=== PATIENT | female | born 1935 | race African-American/Black ===

== ENCOUNTER 2017-05-03 14:56 | Inpatient (IN) | payer MEDICARE, OTHER ==
[~2017-05-03] VITALS: Ht 160 cm; Wt 54.4 kg
[2017-05-03 14:56] VITALS: BP 130/78
[2017-05-03 16:40] LABS: ANION GAP 12 mmol/L (5-15); BLOOD UREA NITROGEN 36 mg/dL (7-18); CALCIUM 9.2 MG/DL (8.5-10.1); CARBON DIOXIDE 19 MMOL/L (21-32); CHLORIDE 104 MMOL/L (98-107); CREATININE 1.3 MG/DL (0.55-1.30); POTASSIUM 4.2 MMOL/L (3.5-5.1); SODIUM 135 MMOL/L (136-145)
--- NOTE | 2017-05-03 16:40 | Emergency Room Report ---
History of Present Illness General Chief Complaint: Fever Source: Medical Record, EMS Present Illness HPI 81-year-old female sent from senior living for fever and hypoxia Patient not providing any history, questionable nonverbal at baseline No other history available, no family members present Allergies: Coded Allergies: No Known Allergies (Unverified , 05/03/17) Patient History Past Medical History: old chart reviewed, unable to obtain Past Surgical History: unable to obtain Pertinent Family History: unable to obtain Social History: Denies: smoking, alcohol use, drug use Now: No Immunizations: UTD Reviewed Nursing Documentation: PMH: Agreed, PSxH: Agreed Nursing Documentation-PMH Past Medical History: No History, Except For Hx Hypertension: Yes Review of Systems All Other Systems: limited - nonverbal Physical Exam Vital Signs Date Time Temp Pulse Resp B/P (MAP) Pulse Ox O2 Delivery O2 Flow Rate FiO2 05/03/17 14:50 100.8 155 16 130/78 98 Non-Rebreather 15.0 Sp02 EP Interpretation: reviewed, normal General Appearance: normal inspection, well appearing, alert, GCS 15, non-toxic Head: normocephalic, atraumatic Eyes: bilateral eye PERRL, bilateral eye EOMI ENT: normal ENT inspection, hearing grossly normal, normal pharynx, no angioedema, normal voice, TMs + canals normal, uvula midline, moist mucus membranes Neck: normal inspection, full range of motion, supple, thyroid normal, no meningismus, no bony tend Respiratory: normal inspection, no respiratory distress, no retraction, no accessory muscle use, no wheezing, crackles, speaking full sentences, other - right sided crackles Cardiovascular #1: regular rate, rhythm, no edema, no JVD, normal capillary refill Gastrointestinal: normal inspection, normal bowel sounds, non tender, soft, no mass, no peritonitis, non-distended, no guarding, no hernia, no pulsatile mass Genitourinary: no CVA tenderness Musculoskeletal: normal inspection, back normal, normal range of motion, no calf tenderness, pelvis stable, Srini's Sign negative Neurologic: normal inspection, alert, responsive, optical instrument assembler III-XII nml as tested, motor strength/tone normal, cerebellar normal, normal gait, speech normal Psychiatric: normal inspection, judgement/insight normal, mood/affect normal, no suicidal/homicidal ideation, no delusions Skin: normal inspection, normal color, no rash Lymphatic: normal inspection, no adenopathy Medical Decision Making Medicare Attestation I Naida York MD hereby attest that the medical record entry for date of service, 05/03/17 accurately reflects signatures/notations that I made in my capacity as MD when I treated/diagnosed the above listed Medicare beneficiary. I attest that this information is true, accurate and complete to the best of my knowledge. I understand that any falsification, omission, or concealment of material fact may subject me to administrative, civil, or criminal liability. This patient warrants hospital admission for extreme of age and has a condition that cannot be treated as outpatient. Diagnostic Impression: Primary Impression: Fever Qualified Codes: R50.9 - Fever, unspecified Additional Impression: Pneumonia Qualified Codes: J18.9 - Pneumonia, unspecified organism ER Course 81-year-old female with sepsis Tachycardic, febrile Labs: Leuks 16k Right-sided pneumonia on CXR antibiotics given, cultures pending Tachycardia improved with tylenol, IVF, Abx Endorsed to Dr Sebastian as patient from [facility] admit, 607pm EKG Diagnostic Results Rate: tachycardiac Rhythm: NSR ST Segments: no acute changes ASA given to the pt in ED: No Rhythm Strip Diag. Results EP Interpretation: yes Rate: 130 Rhythm: NSR, other - PVCs Chest X-Ray Diagnostic Results Chest X-Ray Diagnostic Results : Chest X-Ray Ordered: Yes # of Views/Limited/Complete: 1 View Indication: Shortness of Breath Interpretation: no pneumothorax, no acute cardiopulmonary disease, other - Right sided infiltrate Electronically Signed by: Dr Naida York MD Last Vital Signs Date Time Temp Pulse Resp B/P (MAP) Pulse Ox O2 Delivery O2 Flow Rate FiO2 05/03/17 14:50 100.8 155 16 130/78 98 Non-Rebreather 15.0 Status: improved Disposition: ADMITTED INPATIENT Condition: Serious Referrals: JIMMY ADKINS (PCP) NAIDA YORK M.D. May 03, 2017 16:40
[2017-05-03] MEDS ORDERED: Zosyn 3.375gm inj ONE (16:45)
[2017-05-03] MEDS ORDERED: Piperacillin/Tazobactam 3.375 GM in NS 55 ML IVPB ONE (16:45)
[2017-05-03 16:55] LABS: ALANINE AMINOTRANSFERASE 23 U/L (12-78); ALBUMIN 2.1 G/DL (3.4-5.0); ALBUMIN/GLOBULIN RATIO 0.4 (1.0-2.7); ALKALINE PHOSPHATASE 61 U/L (46-116); ASPARTATE AMINO TRANSFERASE 24 U/L (15-37); BILIRUBIN,TOTAL 0.6 MG/DL (0.2-1.0); CKMB 0.9 NG/ML (0.0-3.6); CREATINE KINASE 134 U/L (26-308)
--- NOTE | 2017-05-03 17:24 | Diagnostic Imaging Report ---
Indication: Reason For Exam: AMS Technique: One view of the chest Comparison: none Findings: There is infiltrate and atelectasis and pleural fluid at the right lung base. The right upper lung, left lung pleural spaces are clear. Normal heart size. Cholecystectomy clips are incidentally noted. There is mild thoracolumbar scoliosis Impression: Right basilar infiltrate, atelectasis, and pleural fluid Other findings as noted
[2017-05-03 17:42] LABS: HEMATOCRIT 36.7 % (37.0-47.0); HEMOGLOBIN 10.9 G/DL (12.0-16.0); LYMPHOCYTES % (AUTO) 8.4 % (20.0-45.0); MEAN CORPUSCULAR VOLUME 81 FL (80-99); NEUTROPHILS % (AUTO) 88.4 % (45.0-75.0); PLATELET COUNT 328 K/UL (150-450); RED BLOOD COUNT 4.56 M/UL (4.20-5.40); RED CELL DISTRIBUTION WIDTH 16.5 % (11.6-14.8); WHITE BLOOD COUNT 15.7 K/UL (4.8-10.8)
[2017-05-03 17:43] LABS: BASOPHILS % (AUTO) 0.3 % (0.0-2.0)
[2017-05-03 18:11] VITALS: BP 154/72
[2017-05-03 19:02] VITALS: BP 157/92
[2017-05-03] MEDS ORDERED: DOCUSATE SODIU100 MG ORAL (19:04)
[2017-05-03] MEDS ORDERED: NAMENDA5 MG ORAL (19:04)
[2017-05-03] MEDS ORDERED: MEGESTROL400 MG/11 PO (19:04)
[2017-05-03] MEDS ORDERED: MILK OF MA400 MG/51 ORAL (19:04)
[2017-05-03] MEDS ORDERED: FERROUS SULFAT325 MG ORAL (19:04)
[2017-05-03] MEDS ORDERED: FLEET ENEMA133 ML RECTAL (19:04)
[2017-05-03] MEDS ORDERED: BISACODYL5 MG ORAL (19:04)
[2017-05-03] MEDS ORDERED: MULTIVITAMINS1 EA13 ORAL (19:04)
[2017-05-03] MEDS ORDERED: DULCOLAX10 MG RC (19:04)
[2017-05-03] MEDS ORDERED: CARDIZEM60 MG ORAL (19:04)
[2017-05-03] MEDS ORDERED: ACETAMINOPHEN325 M1 ORAL (19:04)
[2017-05-03] MEDS ORDERED: PSEUDOEPHEDRINE30 MG PO (19:04)
[2017-05-03 19:10] LABS: APPEARANCE,URINE CLOUDY; BILIRUBIN, URINE NEGATIVE (NEGATIVE); GLUCOSE, URINE (UA) NEGATIVE (NEGATIVE); KETONES,URINE NEGATIVE (NEGATIVE); LEUKOCYTE ESTERASE ,URINE 1+ (NEGATIVE); NITRITE,URINE NEGATIVE (NEGATIVE); PH,URINE 5 (4.5-8.0); PROTEIN,URINE 3+ (NEGATIVE); UROBILINOGEN,URINE 1 MG/DL (0.0-1.0)
[2017-05-03 19:11] LABS: COLOR,URINE YELLOW
[2017-05-03 20:54] VITALS: BP 135/72
[2017-05-03] MEDS ORDERED: dilTIAZem HCl 25mg/5ml Inj IVP ONE ×2 (22:00→22:45)
[2017-05-03] MEDS ORDERED: Piperacillin/Tazobactam 4.5 GM in NS 110 ML IV SCH (22:00)
[2017-05-03 23:44] VITALS: BP 141/82
[2017-05-03] MEDS ORDERED: Milk of Magnesia 30ml Ud ORAL PRN (23:45)
[2017-05-03] MEDS ORDERED: Bisacodyl EC 5mg tab ORAL PRN (23:45)
[2017-05-03] MEDS ORDERED: Fleet's Enema 133ml RECTAL PRN (23:45)
[2017-05-03 23:47] VITALS: BP 141/82
[2017-05-04 01:20] VITALS: BP 142/72
[2017-05-04 04:00] VITALS: BP 143/84
[2017-05-04] MEDS ORDERED: Zosyn 3.375gm inj ONE (05:17)
[2017-05-04] MEDS: dilTIAZem HCl 60mg tab ORAL SCH ×2 (06:06→14:29)
[2017-05-04 06:08] LABS: HEMATOCRIT 32.7 % (37.0-47.0); HEMOGLOBIN 10.1 G/DL (12.0-16.0); MEAN CORPUSCULAR VOLUME 82 FL (80-99); PLATELET COUNT 322 K/UL (150-450); RED BLOOD COUNT 3.96 M/UL (4.20-5.40); RED CELL DISTRIBUTION WIDTH 17.1 % (11.6-14.8); WHITE BLOOD COUNT 11.9 K/UL (4.8-10.8)
[2017-05-04 06:28] LABS: INR 1.1 (0.9-1.1)
[2017-05-04 06:36] LABS: ALANINE AMINOTRANSFERASE 17 U/L (12-78); ALBUMIN 1.7 G/DL (3.4-5.0); ALBUMIN/GLOBULIN RATIO 0.3 (1.0-2.7); ALKALINE PHOSPHATASE 58 U/L (46-116); ANION GAP 11 mmol/L (5-15); ASPARTATE AMINO TRANSFERASE 21 U/L (15-37); BILIRUBIN,TOTAL 0.6 MG/DL (0.2-1.0); BLOOD UREA NITROGEN 33 mg/dL (7-18); CARBON DIOXIDE 21 MMOL/L (21-32); CHLORIDE 107 MMOL/L (98-107); CREATININE 1.2 MG/DL (0.55-1.30); PHOSPHORUS 3.4 MG/DL (2.5-4.9); POTASSIUM 3.6 MMOL/L (3.5-5.1); SODIUM 139 MMOL/L (136-145)
[2017-05-04 08:00] VITALS: BP 135/94
[2017-05-04] MEDS ORDERED: Docusate 100mg cap ORAL SCH (09:00)
[2017-05-04] MEDS: Heparin 5000 units/ml inj SUBQ SCH ×2 (09:00→21:00)
--- NOTE | 2017-05-04 09:41 | History & Physical ---
History and Physical History & Physicial Trung Sebastian MD May 04, 2017 09:41
[2017-05-04] MEDS: D5 1/2NS 1,000 ML IV SCH (11:10)
[2017-05-04 12:00] VITALS: BP 133/70
[2017-05-04] MEDS ORDERED: Acetaminophen 650 MG SUPP RECTAL PRN (13:00)
[2017-05-04] MEDS: Piperacillin/Tazobactam 3.375 GM in D5W 55 ML IV SCH ×2 (14:30→21:23)
--- NOTE | 2017-05-04 15:08 | Cardiology Report ---
APPROVED REPORT EXAM: Two-dimensional and M-mode echocardiogram with Doppler and color Doppler. INDICATION Shortness of breath M-Mode DIMENSIONS IVSd0.9 (0.7-1.1cm)Left Atrium (MM)3.4 (1.6-4.0cm) LVDd3.1 (3.5-5.6cm)Aortic Root2.5 (2.0-3.7cm) PWd0.9 (0.7-1.1cm)Aortic Cusp Exc.1.5 (1.5-2.0cm) LVDs0.7 (2.5-4.0cm) PWs1.5 cm Normal left ventricular chamber size, systolic function and wall motion. Left ventricular ejection fraction estimated to be 65-70 %. No evidence of left ventricular hypertrophy. Anterior Echo-free space, may be due to pericardial fat or effusion. All other cardiac chamber sizes are within normal limits. Focal aortic valve sclerosis with adequate cusp excursion. Thickened mitral valve leaflets with normal excursion. Mild mitral annulus and aortic root calcification. Normal pulmonic valve structure. Normal tricuspid valve structure. IVC at normal size with physiologic collapse. A color flow and spectral Doppler study was performed and revealed: Mild aortic regurgitation. Trace mitral regurgitation. Mitral diastolic velocities suggest mild left ventricular dysfunction (Grade I ). Mild tricuspid regurgitation. Tricuspid systolic velocities suggests peak right ventricular systolic pressure of 45 mmHg, consistent with moderate pulmonary hypertension. Trace pulmonic regurgitation present.
[2017-05-04 16:00] VITALS: BP 130/70
[2017-05-04] MEDS: dilTIAZem HCl 25mg/5ml Inj IVP SCH ×2 (16:01→23:40)
--- NOTE | 2017-05-04 16:32 | Diagnostic Imaging Report ---
Indication: Shortness of breath Technique: One view of the chest Comparison: 05/03/2017 Findings: Slightly improved inspiration. There is increasing retrocardiac consolidation and likely increased left pleural fluid. Hazy infiltrate at the right lung base persists. Small right pleural effusion persists. Heart size is normal Impression: Increasing retrocardiac consolidation and left-sided pleural fluid, over one day Stable right basilar pleural and parenchymal disease
[2017-05-04] MEDS ORDERED: Albuterol/Ipratropium 3ml neb HHN PRN (16:45)
--- NOTE | 2017-05-04 16:57 | Cardiology Report ---
APPROVED REPORT EKG Measurement Heart [id number] Sinus tachycardia Cannot rule out Anterior infarct, age undetermined Abnormal ECG
[2017-05-04] MEDS: Docusate 100mg/10ml Liq NG SCH (18:00)
[2017-05-04 20:00] VITALS: BP 126/70
[2017-05-04] MEDS: Memantine 5 MG TAB ORAL SCH (21:23)
[2017-05-04] MEDS ORDERED: Ipratropium 0.02% Inh Soln 2.5ml UD HHN PRN (22:00)
--- NOTE | 2017-05-04 22:05 | Consultation ---
Consult Note Consult Note PCCM REFERRING MD: Trung Sebastian REASON FOR CONSULT: PNA, Hypoxia, ST HPI: 81 F NHR h/o CVA BIB EMS for hypoxia and fevers, noted to have B infiltrates, + cough, + SOB, + F/C. Also UTI. WCt 15 now 11. Failed LEAD GENERATION MARKETING MANAGER eval. TTE done --> Mild DD and pHTN. PMH: Dementia, CVA, HTN PSH: Mindy ALL: NKDA Active Scripts Medications Dose Route/Sig Max Daily Dose Days Date Category Acetaminophen 325MG Tablet* (Acetaminophen) 325 Mg Tablet 325 Mg ORAL Q6H PRN 05/03/17 Reported Acetaminophen 325MG Tablet* (Acetaminophen) 325 Mg Tablet 325 Mg ORAL Q6H PRN 05/03/17 Reported Sudafed* (Pseudoephedrine HCl) 30 Mg Tablet 30 Mg PO BID 05/03/17 Reported Multivitamins with Minerals (Multivitamin with Minerals) 1 Each Tablet 1 Tab ORAL DAILY 05/03/17 Reported Namenda* (Memantine) 5 Mg Tablet 5 Mg ORAL QHS 05/03/17 Reported Megestrol Acetate 400 Mg/10 Ml Oral.susp 400 Mg PO DAILY 05/03/17 Reported Ferrous Sulfate* (Ferrous Sulfate) 325 Mg Tablet 325 Mg ORAL TWICE A DAY 05/03/17 Reported Docusate Sodium* (Docusate Sodium) 100 Mg Capsule 100 Mg ORAL TWICE A DAY 05/03/17 Reported Cardizem* (Diltiazem HCl) 60 Mg Tablet 60 Mg ORAL EVERY 8 HOURS 05/03/17 Reported Dulcolax* (Bisacodyl) 5 Mg Tablet.dr 10 Mg ORAL BID PRN 05/03/17 Reported Fleet Enema* (Na Phos,M-B/Na Phos,Di-Ba*) 133 Ml Enema 133 Ml RECTAL DAILY PRN 05/03/17 Reported Dulcolax (Bisacodyl) 10 Mg Supp.rect 10 Mg RC DAILY PRN 05/03/17 Reported Milk Of Magnesia* (Magnesium Hydroxide) 400 Mg/5 Ml Oral.susp 30 Ml ORAL DAILY PRN 05/03/17 Reported SHx: No T/E/D, SNF resident FHx: N/C ROS: Unobtainable PE: Last 24 Hour Vital Signs Date Time Temp Pulse Resp B/P (MAP) Pulse Ox O2 Delivery O2 Flow Rate FiO2 05/04/17 19:32 Venturi Mask 8.0 40 05/04/17 19:31 94 Venturi Mask 8.0 40 05/04/17 16:01 145 133/72 05/04/17 16:00 99.3 132 28 130/70 92 Venturi Mask 40 05/04/17 16:00 142 05/04/17 14:29 141 133/70 05/04/17 12:54 141 05/04/17 12:00 98.2 144 25 133/70 94 Venturi Mask 40 05/04/17 08:00 98.2 148 24 135/94 94 Simple Mask 05/04/17 08:00 136 05/04/17 06:06 132 142/72 05/04/17 04:00 98.4 136 32 143/84 96 Simple Mask 05/04/17 04:00 132 05/04/17 01:20 97.9 127 23 142/72 94 Simple Mask 6.0 05/04/17 00:30 98.1 125 19 141/82 97 Simple Mask 6.5 05/03/17 23:47 98.1 125 19 141/82 97 Simple Mask 6.5 05/03/17 23:44 102.0 125 19 141/82 97 Simple Mask 6.5 05/03/17 23:01 134 130/69 05/03/17 22:07 154 136/78 GEN: NAD, non-verbal but demented HEENT: NC/AT, OPC c MMM, NGT NECK: Supple CHEST: Scattered rhonchi partially clear with coughing COR: Tachy but regular ABD: S/NT/ND c NABS EXT: No C/C/E CXR: BiB inf and small effusions KUB: NGT in stomach DUPLEX: No DVT Laboratory Tests Test 05/04/17 05:15 White Blood Count 11.9 K/UL (4.8-10.8) H Red Blood Count 3.96 M/UL (4.20-5.40) L Hemoglobin 10.1 G/DL (12.0-16.0) L Hematocrit 32.7 % (37.0-47.0) L Mean Corpuscular Volume 82 FL (80-99) Mean Corpuscular Hemoglobin 25.4 PG (27.0-31.0) L Mean Corpuscular Hemoglobin Concent 30.9 G/DL (32.0-36.0) L Red Cell Distribution Width 17.1 % (11.6-14.8) H Platelet Count 322 K/UL (150-450) Mean Platelet Volume 6.2 FL (6.5-10.1) L Neutrophils (%) (Auto) % (45.0-75.0) Lymphocytes (%) (Auto) % (20.0-45.0) Monocytes (%) (Auto) % (1.0-10.0) Eosinophils (%) (Auto) % (0.0-3.0) Basophils (%) (Auto) % (0.0-2.0) Prothrombin Time 11.6 SEC (9.30-11.50) H Prothromb Time International Ratio 1.1 (0.9-1.1) Activated Partial Thromboplast Time 40 SEC (23-33) H Sodium Level 139 MMOL/L (136-145) Potassium Level 3.6 MMOL/L (3.5-5.1) Chloride Level 107 MMOL/L (98-107) Carbon Dioxide Level 21 MMOL/L (21-32) Anion Gap 11 mmol/L (5-15) Blood Urea Nitrogen 33 mg/dL (7-18) H Creatinine 1.2 MG/DL (0.55-1.30) Estimat Glomerular Filtration Rate mL/min (>60) Glucose Level 135 MG/DL (74-106) H Calcium Level 9.0 MG/DL (8.5-10.1) Phosphorus Level 3.4 MG/DL (2.5-4.9) Magnesium Level 1.9 MG/DL (1.8-2.4) Total Bilirubin 0.6 MG/DL (0.2-1.0) Aspartate Amino Transf (AST/SGOT) 21 U/L (15-37) Alanine Aminotransferase (ALT/SGPT) 17 U/L (12-78) Alkaline Phosphatase 58 U/L (46-116) Troponin I 0.000 ng/mL (0.000-0.056) Total Protein 6.9 G/DL (6.4-8.2) Albumin 1.7 G/DL (3.4-5.0) L Globulin 5.2 g/dL Albumin/Globulin Ratio 0.3 (1.0-2.7) L Assessment/Plan ASSESSMENT: -SIRS -HCAP -Hypoxemia 2/2 above -Sinus tachycardia -UTI/urosepsis -Dysphagia -H/O CVA -HTN -Anemia -Protein calorie malnutrition -NHR PLAN: -Optimize pulmonary hygiene/mobilize as tolerated -Titrate down FiO2 to keep SaO2 > 90% -ATROVENT HHN's q6WA and q4 PRN -MUCOMYST HHN QID -CPT QID -Continue Zosyn, F/U Cx's -Monitor volumes, continue IVF -Start NGT feeds, continue LEAD GENERATION MARKETING MANAGER therapy, VSS in am -F/U D-dimer -DVT Px: Hep SQ -FC MD LUIS CARLOS Bruner ASHKAN M.D. May 04, 2017 22:05
[2017-05-05] VITALS: BP 139/64
[2017-05-05] MEDS: Ipratropium 0.02% Inh Soln 2.5ml UD HHN SCH ×4 (00:37→19:29)
[2017-05-05] MEDS: Acetylcysteine 20% Soln 4ml HHN SCH ×4 (00:37→19:29)
[2017-05-05 04:00] VITALS: BP 141/77
[2017-05-05 05:08] LABS: ANION GAP 10 mmol/L (5-15); BLOOD UREA NITROGEN 21 mg/dL (7-18); CALCIUM 8.9 MG/DL (8.5-10.1); CARBON DIOXIDE 22 MMOL/L (21-32); CHLORIDE 109 MMOL/L (98-107); CREATININE 0.9 MG/DL (0.55-1.30); POTASSIUM 3.3 MMOL/L (3.5-5.1); SODIUM 140 MMOL/L (136-145)
[2017-05-05] MEDS: Piperacillin/Tazobactam 3.375 GM in D5W 55 ML IV SCH ×3 (05:53→22:28)
[2017-05-05 08:00] VITALS: BP 131/68
[2017-05-05] MEDS: dilTIAZem HCl 25mg/5ml Inj IVP SCH ×2 (08:24→16:14)
[2017-05-05] MEDS: Docusate 100mg/10ml Liq NG SCH ×2 (08:24→18:00)
[2017-05-05] MEDS: Heparin 5000 units/ml inj SUBQ SCH (08:25)
--- NOTE | 2017-05-05 09:30 | History and Physical Report ---
DATE OF ADMISSION: 05/03/2017 CHIEF COMPLAINT: Shortness of breath and fever. HISTORY OF PRESENT ILLNESS: This is an 81-year-old female with past medical history significant for hypertension, history of recent CVA, and dementia, who was presented to the hospital from [facility] after was noted to have shortness of breath and fever. The patient was noted to have bilateral infiltrate on the chest x-ray associated with cough and shortness of breath. The patient was noted to be hypoxemic by EMS and subsequently the patient was brought into the hospital. After initial evaluation in the emergency, the patient was admitted to the hospital with a right lower lobe pneumonia, possible aspiration pneumonia. PAST MEDICAL HISTORY AND SURGICAL HISTORY: As above. History of dementia, CVA, hypertension, and history of cholecystectomy. MEDICATIONS: At the [facility] is significant for acetaminophen, Dulcolax, diltiazem, Colace, iron sulfate, milk of magnesia, Megace, Xarelto, multivitamins, Fleet enema and pseudoephedrine. ALLERGIES: No known drug allergies. SOCIAL HISTORY: No smoking, alcohol, or drugs. The patient at this time is a [facility] resident. FAMILY HISTORY: Noncontributory. REVIEW OF SYSTEMS: Mostly as above. Denies any dysuria, frequency, hematuria, or hematochezia. Denies any hemoptysis or hematochezia. Denies any bright red blood per rectum. Complained of chest congestion. PHYSICAL EXAMINATION: VITAL SIGNS: Temperature 99.3, pulse of 132, respirations 20, and blood pressure 130/70. GENERAL: The patient is awake, responsive, opens her eyes and minimally follows commands. HEENT: Pupils reactive to light. Anicteric. NECK: Supple. No JVD. LUNGS: Good air entry. No wheezing or rales. Coarse breath sound was noted. HEART: S1 and S2. Tachycardic. ABDOMEN: Soft, nontender and nondistended. Positive bowel sounds. EXTREMITIES: No cyanosis, clubbing, or edema. NEUROLOGIC: Limited secondary to the patient's status. The patient has been moving all extremities slowly and right side is weaker than left side. Gait was not tested due to the patient's status. LABORATORY AND DIAGNOSTIC DATA: On admission from the ER, WBC of 15.7, hemoglobin 10, hematocrit 36, and platelets are 328. Sodium 135, potassium 4.2, chloride 104, bicarbonate 19, BUN 36, creatinine 1.3, glucose is 144, and calcium is 9.2. Total bilirubin of 0.6. ALT of 24 and AST of 23. First troponin is 0.00. Albumin is 2.1. PT of 11, INR 1.1, and PTT of 40. Urinalysis is +3 protein, +4 occult blood, 5 to 10 WBCs, many amorphic sedimentation, and moderate bacteria. Chest x-ray was noted to be right basilar infiltrate, atelectasis, or pleural effusion. ASSESSMENT: 1. Right lower lobe pneumonia, possible aspiration pneumonia. 2. History of cerebrovascular accident. 3. Sinus tachycardia. 4. Urinary tract infection, possible sepsis secondary to urinary tract infection. 5. Dysphagia. 6. Hypertension. 7. Anemia. 8. Severe protein-calorie malnutrition. PLAN: Admit the patient to [facility]. We will follow up laboratory. Discussed case with Dr. Malik Knapp from [facility]. We will monitor cultures. DVT prophylaxis with heparin subcutaneous Zosyn. Discussed with the family member extensively at the bedside with regards to the NG tube placement and tube feeding if the patient failed the swallow study. We will monitor code status, at this time Full Code. Trung Sebastian M.D. DR: FRANKLIN JOB#: [id number] CC:
--- NOTE | 2017-05-05 10:31 | Diagnostic Imaging Report ---
Indication: Status post nasogastric tube placement Technique: Supine view of the abdomen Comparison: none Findings: There is a nasogastric tube in place, tip projecting at the level of the gastric body. There are cholecystectomy clips. Bowel gas pattern is unremarkable. Impression: Satisfactory nasogastric intubation No acute process. This agrees with the preliminary interpretation [facility].
--- NOTE | 2017-05-05 11:11 | Pulmonology Progress Note ---
Assessment/Plan Problems: (1) Pneumonia (2) Fever (3) Sepsis Assessment/Plan ASSESSMENT: -SIRS -HCAP -Hypoxemia 2/2 above -Sinus tachycardia -UTI/urosepsis -Dysphagia -H/O CVA -HTN -Anemia -Protein calorie malnutrition -NHR PLAN: -Optimize pulmonary hygiene/mobilize as tolerated -Titrate down FiO2 to keep SaO2 > 90% -ATROVENT HHN's q6WA and q4 PRN -MUCOMYST HHN QID -CPT QID -Continue Zosyn, F/U Cx's -Monitor volumes, continue IVF -NGT feeds, continue CONTINUITY READER therapy, VSS -Given elevated D-dimer and negative Duplex --> F/U CT-A -DVT Px: Hep SQ -FC Subjective Allergies: Coded Allergies: No Known Allergies (Unverified , 05/03/17) Subjective Tm 102, on VM, Sinus tach D-dimer elevated + cough, + SOB, pullout out NGT, now replaced CT-A pending Objective Last 24 Hour Vital Signs Date Time Temp Pulse Resp B/P (MAP) Pulse Ox O2 Delivery O2 Flow Rate FiO2 05/05/17 08:24 137 131/68 05/05/17 08:16 119 24 94 Venturi Mask 8.0 40 05/05/17 08:09 96 Venturi Mask 8.0 40 05/05/17 08:09 119 24 Venturi Mask 8.0 40 05/05/17 08:08 Venturi Mask 8.0 40 05/05/17 08:06 122 24 96 Venturi Mask 8.0 40 05/05/17 08:00 97.7 118 29 131/68 99 Venturi Mask 8.0 40 05/05/17 08:00 122 05/05/17 04:00 98.1 129 28 141/77 95 Venturi Mask 8.0 40 05/05/17 04:00 132 05/05/17 00:47 40 05/05/17 00:47 129 30 95 Venturi Mask 8.0 40 05/05/17 00:39 124 30 95 Venturi Mask 8.0 40 05/05/17 00:00 99.3 125 29 139/64 93 Venturi Mask 40 05/05/17 00:00 129 05/04/17 23:40 120 126/70 05/04/17 20:00 99.3 129 28 126/70 96 Venturi Mask 40 05/04/17 20:00 120 05/04/17 19:32 Venturi Mask 8.0 40 05/04/17 19:31 94 Venturi Mask 8.0 40 05/04/17 16:01 145 133/72 05/04/17 16:00 99.3 132 28 130/70 92 Venturi Mask 40 05/04/17 16:00 142 05/04/17 14:29 141 133/70 05/04/17 12:54 141 05/04/17 12:00 98.2 144 25 133/70 94 Venturi Mask 40 Intake and Output 05/04/17 05/05/17 19:00 07:00 Intake Total 635.625 ml 968.75 ml Balance 635.625 ml 968.75 ml IV Total 635.625 ml 968.75 ml # Voids 2 2 General Appearance: no acute distress, cachetic HEENT: normocephalic, atraumatic, mucous membranes moist, other - NGT Respiratory/Chest: rhonchi - scattered b, clear with coughing Cardiovascular: normal peripheral pulses, regular rhythm, tachycardia Abdomen: normal bowel sounds, soft, non tender, no organomegaly Extremities: no cyanosis, no clubbing, no edema Microbiology Date/Time Source Procedure Growth Status 05/03/17 17:20 Blood Blood Culture - Preliminary NO GROWTH AFTER 24 HOURS Resulted 05/03/17 15:55 Blood Blood Culture - Preliminary NO GROWTH AFTER 24 HOURS Resulted 05/03/17 15:45 Nasal Nares MRSA Culture - Final NO METHICILLIN RESISTANT STAPH AUREUS... Complete 05/03/17 18:38 Urine,Clean Catch Urine Culture - Preliminary NO GROWTH AFTER 24 HOURS Resulted 05/03/17 15:45 Rectum VRE Culture - Final NO VANCOMYCIN RESISTANT ENTEROCOCCUS ... Complete Laboratory Tests 05/04/17 23:45: D-Dimer 8.35H 05/05/17 03:45: Sodium Level 140, Potassium Level 3.3L, Chloride Level 109H, Carbon Dioxide Level 22, Anion Gap 10, Blood Urea Nitrogen 21H, Creatinine 0.9, Estimat Glomerular Filtration Rate , Glucose Level 126H, Calcium Level 8.9 Current Medications Medications (Trade) Dose Ordered Sig/[place]vy Route PRN Reason Start Time Stop Time Status Last Admin Dose Admin Acetaminophen (Tylenol) 650 mg Q4H PRN RECTAL Mild Pain (Pain Scale 1-3) 05/04/17 13:00 06/03/17 12:59 05/04/17 13:58 Acetylcysteine (Mucomyst) 200 mg Q6HRT HHN 05/05/17 01:00 06/04/17 00:59 05/05/17 08:03 Bisacodyl (Dulcolax) 10 mg BID PRN ORAL Constipation 05/03/17 23:45 06/02/17 23:44 Dextrose (Dextrose 50%) STAT PRN IV Hypoglycemia 05/03/17 23:45 06/02/17 23:44 Dextrose/Sodium Chloride 1,000 ml @ 75 mls/hr [id number] IV 05/04/17 11:00 06/03/17 10:59 05/05/17 00:00 Diltiazem HCl (Cardizem) 20 mg Q8H IVP 05/04/17 16:00 06/03/17 15:59 05/05/17 08:24 Docusate Sodium (Colace) 100 mg TWICE A DAY NG 05/04/17 18:00 06/03/17 17:59 Ferrous Sulfate (Feosol) 325 mg TWICE A DAY ORAL 05/04/17 09:00 06/03/17 08:59 05/04/17 08:58 Heparin Sodium (Porcine) (Heparin 5000 units/ml) 5,000 units EVERY 12 HOURS SUBQ 05/04/17 09:00 06/03/17 08:59 05/04/17 09:00 Ipratropium [place] (Atrovent) 500 mcg Q4H PRN HHN Shortness of Breath 05/04/17 22:00 05/09/17 21:59 Ipratropium [place] (Atrovent) 500 mcg Q6HRT HHN 05/05/17 01:00 05/10/17 00:59 05/05/17 08:03 Magnesium Hydroxide (Mom) 30 ml DAILY PRN ORAL Constipation 05/03/17 23:45 06/02/17 23:44 05/04/17 08:58 Memantine (Namenda) 5 mg QHS ORAL 05/04/17 21:00 06/03/17 20:59 05/04/17 21:23 Piperacillin Sod/ Tazobactam Sod 3.375 gm/Dextrose 55 ml @ 13.75 mls/ hr EVERY 8 HOURS IV 05/04/17 14:00 05/11/17 13:59 05/05/17 05:53 Sodium Phosphate (Fleet's Sodium Phosl Enema) 133 ml DAILY PRN RECTAL IF DULCOLAX INEFFECTIVE 05/03/17 23:45 06/02/17 23:44 AFSHIN ALDRIDGE M.D. May 05, 2017 11:11
--- NOTE | 2017-05-05 11:21 | GI Initial Consult Note ---
Eufemia Smiley N.PSusan 05/05/17 1121: History of Present Illness General Date patient seen: May 05, 2017 Time patient seen: 11:15 Reason for Hospitalization: Fever Referring physician: RAIN MENA Reason for Consultation: NGT placement Present Illness HPI 81-year-old female sent from long term for fever and hypoxia Patient not providing any history, questionable nonverbal at baseline No other history available, no family members present GI consulted for multiple failed attempts at NGT. HPI as noted above. Pt seen on floor, awake NAD with no active s/sx of N/V/D currently on restraints. Pediatric NGT placed by staffed after consultation with RN yesterday over the phone, pending KUB at this time. She presents today with mild anemia and hypoalbuminemia. Unknown history of endoscopies and colonoscopies. Home Meds Reported Medications Acetaminophen* (ACETAMINOPHEN 325MG TABLET*) 325 Mg Tablet, 325 MG ORAL Q6H Y for PAIN. NTE 3GM/24HR 05/03/17 Acetaminophen* (ACETAMINOPHEN 325MG TABLET*) 325 Mg Tablet, 325 MG ORAL Q6H Y for TEMP > 101F 05/03/17 Pseudoephedrine Hcl* (SUDAFED*) 30 Mg Tablet, 30 MG PO BID for END ON 05/07/17 05/03/17 Multivitamin with Minerals (Multivitamins with Minerals) 1 Each Tablet, 1 TAB ORAL DAILY 05/03/17 Memantine Hcl* (NAMENDA*) 5 Mg Tablet, 5 MG ORAL QHS 05/03/17 Megestrol Acetate (MEGESTROL ACETATE) 400 Mg/10 Ml Oral.susp, 400 MG PO DAILY 05/03/17 Ferrous Sulfate* (FERROUS SULFATE*) 325 Mg Tablet, 325 MG ORAL TWICE A DAY, 0 Refills 05/03/17 Docusate Sodium* (DOCUSATE SODIUM*) 100 Mg Capsule, 100 MG ORAL TWICE A DAY for HOLD FOR LBM 05/03/17 Diltiazem Hcl* (CARDIZEM*) 60 Mg Tablet, 60 MG ORAL EVERY 8 HOURS for HOLD IF SBP < 100 OR HR < 60 05/03/17 Bisacodyl* (DULCOLAX*) 5 Mg Tablet.dr, 10 MG ORAL BID Y for Constipation 05/03/17 Na Phos,M-B/Na Phos,Di-Ba* (FLEET ENEMA*) 133 Ml Enema, 133 ML RECTAL DAILY Y for IF DULCOLAX INEFFECTIVE 05/03/17 Bisacodyl (DULCOLAX) 10 Mg Supp.rect, 10 MG RC DAILY Y for IF MOM INEFFECTIVE 05/03/17 Magnesium Hydroxide* (MILK OF MAGNESIA*) 400 Mg/5 Ml Oral.susp, 30 ML ORAL DAILY Y for Constipation 05/03/17 Med list reviewed/reconciled: Yes Allergies: Coded Allergies: No Known Allergies (Unverified , 05/03/17) Patient History History Provided By: Medical Record PMH Narrative Past Medical History: old chart reviewed, unable to obtain Past Surgical History: unable to obtain Pertinent Family History: unable to obtain Social History: Denies: smoking, alcohol use, drug use Now: No Immunizations: UTD Reviewed Nursing Documentation: PMH: Agreed, PSxH: Agreed Nursing Documentation-[facility] Past Medical History: No History, Except For Hx Hypertension: Yes Review of Systems All Other Systems: limited Physical Exam Vital Signs Date Time Temp Pulse Resp B/P (MAP) Pulse Ox O2 Delivery O2 Flow Rate FiO2 05/03/17 14:50 100.8 155 16 130/78 98 Non-Rebreather 15.0 05/04/17 12:00 40 Sp02 EP Interpretation: reviewed, normal Labs Laboratory Tests Test 05/04/17 23:45 05/05/17 03:45 D-Dimer 8.35 mg/L FEU (0.00-0.49) H Sodium Level 140 MMOL/L (136-145) Potassium Level 3.3 MMOL/L (3.5-5.1) L Chloride Level 109 MMOL/L (98-107) H Carbon Dioxide Level 22 MMOL/L (21-32) Anion Gap 10 mmol/L (5-15) Blood Urea Nitrogen 21 mg/dL (7-18) H Creatinine 0.9 MG/DL (0.55-1.30) Estimat Glomerular Filtration Rate mL/min (>60) Glucose Level 126 MG/DL (74-106) H Calcium Level 8.9 MG/DL (8.5-10.1) General Appearance: no apparent distress, alert, thin Head: normocephalic EENT: PERRL/EOMI, normal ENT inspection Neck: supple Respiratory: normal breath sounds, no respiratory distress, other - non rebreather Cardiovascular: normal rate Gastrointestinal: normal inspection, non tender, soft, normal bowel sounds, non -distended Rectal: deferred Genitourinary: no CVA tenderness Neurologic: alert, responsive Psychiatric: normal inspection, judgement/insight normal, memory normal Skin: normal inspection, normal color, no rash, warm/dry, palpation normal, well hydrated Lymphatic: normal inspection, no adenopathy Current Medications Current Medications Medications (Trade) Dose Ordered Sig/Chevy Route PRN Reason Start Time Stop Time Status Last Admin Dose Admin Acetaminophen (Tylenol) 650 mg Q4H PRN RECTAL Mild Pain (Pain Scale 1-3) 05/04/17 13:00 06/03/17 12:59 05/04/17 13:58 Acetylcysteine (Mucomyst) 200 mg Q6HRT HHN 05/05/17 01:00 06/04/17 00:59 05/05/17 08:03 Bisacodyl (Dulcolax) 10 mg BID PRN ORAL Constipation 05/03/17 23:45 06/02/17 23:44 Dextrose (Dextrose 50%) STAT PRN IV Hypoglycemia 05/03/17 23:45 06/02/17 23:44 Dextrose/Sodium Chloride 1,000 ml @ 75 mls/hr [id number] IV 05/04/17 11:00 06/03/17 10:59 05/05/17 00:00 Diltiazem HCl (Cardizem) 20 mg Q8H IVP 05/04/17 16:00 06/03/17 15:59 05/05/17 08:24 Docusate Sodium (Colace) 100 mg TWICE A DAY NG 05/04/17 18:00 06/03/17 17:59 Ferrous Sulfate (Feosol) 325 mg TWICE A DAY ORAL 05/04/17 09:00 06/03/17 08:59 05/04/17 08:58 Heparin Sodium (Porcine) (Heparin 5000 units/ml) 5,000 units EVERY 12 HOURS SUBQ 05/04/17 09:00 06/03/17 08:59 05/04/17 09:00 Ipratropium [place] (Atrovent) 500 mcg Q4H PRN HHN Shortness of Breath 05/04/17 22:00 05/09/17 21:59 Ipratropium [place] (Atrovent) 500 mcg Q6HRT HHN 05/05/17 01:00 05/10/17 00:59 05/05/17 08:03 Magnesium Hydroxide (Mom) 30 ml DAILY PRN ORAL Constipation 05/03/17 23:45 06/02/17 23:44 05/04/17 08:58 Memantine (Namenda) 5 mg QHS ORAL 05/04/17 21:00 06/03/17 20:59 05/04/17 21:23 Piperacillin Sod/ Tazobactam Sod 3.375 gm/Dextrose 55 ml @ 13.75 mls/ hr EVERY 8 HOURS IV 05/04/17 14:00 05/11/17 13:59 05/05/17 05:53 Sodium Phosphate (Fleet's Sodium Phosl Enema) 133 ml DAILY PRN RECTAL IF DULCOLAX INEFFECTIVE 05/03/17 23:45 06/02/17 23:44 GI: Plan Problems: (1) Encounter for nasogastric (NG) tube placement (2) Anemia (3) Iron deficiency (4) Fever Plan pediatric NGT placed, pending KUB confirmation. okay to start GTFs per RD after imaging study anemia work up OB stool r/o GI bleed monitor H&H, prn transfusions bowel regime ppi fu labs Discussed with Dr. Escobedo. Thank you for this patient referral, we will follow. PATO ESCOBEDO 05/06/17 09: History of Present Illness General Reason for Hospitalization: Fever Present Illness Home Meds Reported Medications Acetaminophen* (ACETAMINOPHEN 325MG TABLET*) 325 Mg Tablet, 325 MG ORAL Q6H Y for PAIN. NTE 3GM/24HR 05/03/17 Acetaminophen* (ACETAMINOPHEN 325MG TABLET*) 325 Mg Tablet, 325 MG ORAL Q6H Y for TEMP > 101F 05/03/17 Pseudoephedrine Hcl* (SUDAFED*) 30 Mg Tablet, 30 MG PO BID for END ON 05/07/17 05/03/17 Multivitamin with Minerals (Multivitamins with Minerals) 1 Each Tablet, 1 TAB ORAL DAILY 05/03/17 Memantine Hcl* (NAMENDA*) 5 Mg Tablet, 5 MG ORAL QHS 05/03/17 Megestrol Acetate (MEGESTROL ACETATE) 400 Mg/10 Ml Oral.susp, 400 MG PO DAILY 05/03/17 Ferrous Sulfate* (FERROUS SULFATE*) 325 Mg Tablet, 325 MG ORAL TWICE A DAY, 0 Refills 05/03/17 Docusate Sodium* (DOCUSATE SODIUM*) 100 Mg Capsule, 100 MG ORAL TWICE A DAY for HOLD FOR LBM 05/03/17 Diltiazem Hcl* (CARDIZEM*) 60 Mg Tablet, 60 MG ORAL EVERY 8 HOURS for HOLD IF SBP < 100 OR HR < 60 05/03/17 Bisacodyl* (DULCOLAX*) 5 Mg Tablet.dr, 10 MG ORAL BID Y for Constipation 05/03/17 Na Phos,M-B/Na Phos,Di-Ba* (FLEET ENEMA*) 133 Ml Enema, 133 ML RECTAL DAILY Y for IF DULCOLAX INEFFECTIVE 05/03/17 Bisacodyl (DULCOLAX) 10 Mg Supp.rect, 10 MG RC DAILY Y for IF MOM INEFFECTIVE 05/03/17 Magnesium Hydroxide* (MILK OF MAGNESIA*) 400 Mg/5 Ml Oral.susp, 30 ML ORAL DAILY Y for Constipation 05/03/17 Allergies: Coded Allergies: No Known Allergies (Unverified , 05/03/17) GI: Plan Plan The patient was seen and examined at bedside and all new and available data was reviewed in the patients chart. I agree with the above findings, impression and plan. (Patient seen earlier today. Signature stamp does not reflect patient encounter time.). - [facility] Kofi N.PSusan May 05, 2017 11:21 PATO ESCOBEDO May 06, 2017 09:17
[2017-05-05 12:00] VITALS: BP 144/69
--- NOTE | 2017-05-05 12:59 | Diagnostic Imaging Report ---
Indication: Status post nasogastric tube placement Technique: Supine view of the abdomen Comparison: 05/04/2017 Findings: There is a nasogastric tube again demonstrated, tip of which projects at the level of gastric body/antrum junction bowel gas pattern is unremarkable. Cholecystectomy clips are again demonstrated. There is a right pleural effusion incidentally noted, not clearly evident previously. There is also evidence of retrocardiac consolidation Impression: Satisfactory nasogastric tube placement Other findings as noted
[2017-05-05] MEDS: D5 1/2NS 1,000 ML IV SCH ×2 (13:29)
[2017-05-05] MEDS ORDERED: Tubing IV Secondary IV ONE (15:59)
[2017-05-05 16:00] VITALS: BP 148/77
--- NOTE | 2017-05-05 18:27 | General Progress Note ---
Progress Note Progress Note Called by [facility] --> LL subseg PE D/C Hep SQ, start treatment dose AFSHIN Ovalles M.D. May 05, 2017 18:27
[2017-05-05] MEDS ORDERED: Enoxaparin 60mg Inj SUBQ SCH (19:00)
[2017-05-05 20:00] VITALS: BP 133/60
[2017-05-05] MEDS: Memantine 5 MG TAB ORAL SCH (20:31)
[2017-05-05] MEDS: Enoxaparin 60mg Inj SUBQ SCH (20:31)
[2017-05-05] MEDS ORDERED: Potassium Chloride 40 MEQ in Sodium Chloride 500ML 550 ML IVPB ONE (22:00)
--- NOTE | 2017-05-05 22:37 | Internal Med Progress Note ---
Subjective Physician Name Trung Sebastian Attending Physician Trung Sebastian MD Current Medications Medications (Trade) Dose Ordered Sig/Chevy Route PRN Reason Start Time Stop Time Status Last Admin Dose Admin Acetaminophen (Tylenol) 650 mg Q4H PRN RECTAL Mild Pain (Pain Scale 1-3) 05/04/17 13:00 06/03/17 12:59 05/04/17 13:58 Acetylcysteine (Mucomyst) 200 mg Q6HRT HHN 05/05/17 01:00 06/04/17 00:59 05/05/17 19:29 Bisacodyl (Dulcolax) 10 mg BID PRN ORAL Constipation 05/03/17 23:45 06/02/17 23:44 Dextrose (Dextrose 50%) STAT PRN IV Hypoglycemia 05/03/17 23:45 06/02/17 23:44 Dextrose/Sodium Chloride 1,000 ml @ 75 mls/hr [id number] IV 05/04/17 11:00 06/03/17 10:59 05/05/17 13:29 Diltiazem HCl (Cardizem) 20 mg Q8H IVP 05/04/17 16:00 06/03/17 15:59 05/05/17 16:14 Docusate Sodium (Colace) 100 mg TWICE A DAY NG 05/04/17 18:00 06/03/17 17:59 Enoxaparin Sodium (Lovenox) 60 mg EVERY 12 HOURS SUBQ 05/05/17 20:00 06/04/17 19:59 05/05/17 20:31 Ferrous Sulfate (Feosol) 325 mg TWICE A DAY ORAL 05/04/17 09:00 06/03/17 08:59 05/04/17 08:58 Ipratropium [place] (Atrovent) 500 mcg Q4H PRN HHN Shortness of Breath 05/04/17 22:00 05/09/17 21:59 05/05/17 17:08 Ipratropium [place] (Atrovent) 500 mcg Q6HRT HHN 05/05/17 01:00 05/10/17 00:59 05/05/17 19:29 Magnesium Hydroxide (Mom) 30 ml DAILY PRN ORAL Constipation 05/03/17 23:45 06/02/17 23:44 05/04/17 08:58 Memantine (Namenda) 5 mg QHS ORAL 05/04/17 21:00 06/03/17 20:59 05/05/17 20:31 Piperacillin Sod/ Tazobactam Sod 3.375 gm/Dextrose 55 ml @ 13.75 mls/ hr EVERY 8 HOURS IV 05/04/17 14:00 05/11/17 13:59 05/05/17 22:28 Potassium Chloride 100 ml @ 100 mls/hr Q1H IVPB 05/05/17 23:00 05/06/17 02:59 05/05/17 22:33 Sodium Phosphate (Fleet's Sodium Phosl Enema) 133 ml DAILY PRN RECTAL IF DULCOLAX INEFFECTIVE 05/03/17 23:45 06/02/17 23:44 Allergies: Coded Allergies: No Known Allergies (Unverified , 05/03/17) Subjective awake, responsive, on Face mask Objective Last Vital Signs Date Time Temp Pulse Resp B/P (MAP) Pulse Ox O2 Delivery O2 Flow Rate FiO2 05/05/17 20:00 98.3 128 33 133/60 94 Venturi Mask 8.0 40 Laboratory Tests Test 05/04/17 23:45 05/05/17 03:45 D-Dimer 8.35 mg/L FEU (0.00-0.49) H Sodium Level 140 MMOL/L (136-145) Potassium Level 3.3 MMOL/L (3.5-5.1) L Chloride Level 109 MMOL/L (98-107) H Carbon Dioxide Level 22 MMOL/L (21-32) Anion Gap 10 mmol/L (5-15) Blood Urea Nitrogen 21 mg/dL (7-18) H Creatinine 0.9 MG/DL (0.55-1.30) Estimat Glomerular Filtration Rate mL/min (>60) Glucose Level 126 MG/DL (74-106) H Calcium Level 8.9 MG/DL (8.5-10.1) Microbiology Date/Time Source Procedure Growth Status 05/03/17 17:20 Blood Blood Culture - Preliminary NO GROWTH AFTER 24 HOURS Resulted 05/03/17 15:55 Blood Blood Culture - Preliminary NO GROWTH AFTER 24 HOURS Resulted 05/03/17 15:45 Nasal Nares MRSA Culture - Final NO METHICILLIN RESISTANT STAPH AUREUS... Complete 05/03/17 18:38 Urine,Clean Catch Urine Culture - Preliminary NO GROWTH AFTER 24 HOURS Resulted 05/03/17 15:45 Rectum VRE Culture - Final NO VANCOMYCIN RESISTANT ENTEROCOCCUS ... Complete Intake and Output 05/04/17 05/05/17 19:00 07:00 Intake Total 635.625 ml 968.75 ml Balance 635.625 ml 968.75 ml IV Total 635.625 ml 968.75 ml # Voids 2 2 Objective GENERAL: awake, responsive, opens her eyes and minimally follows commands. HEENT: Pupils reactive to light. Anicteric. NECK: Supple. No JVD. LUNGS: fair air entry. No wheezing. + Coarse breath HEART: S1 and S2. Tachycardic. ABDOMEN: Soft, nontender and nondistended. Positive bowel sounds. EXTREMITIES: No cyanosis, clubbing, or edema. NEUROLOGIC: moving all extremities slowly and right side is weaker than left side. Gait was not tested due to the patient's status. Assessment/Plan Assessment/Plan LL subsegmental PE Right lower lobe pneumonia, possible aspiration pneumonia. History of cerebrovascular accident. Sinus tachycardia. Urinary tract infection, possible sepsis secondary to urinary tract infection. Dysphagia. Hypertension. Anemia. Severe protein-calorie malnutrition. PLAN: in [place]. Lovenox injection monitor laboratory and cultures. Dr. Malik Knapp from [facility]. Abx: Zosyn. she pulled NG tube placement , will replace again. Full Code. 2D Echo: Normal left ventricular chamber size, systolic function and wall motion. Left ventricular ejection fraction estimated to be 65-70 %. No evidence of left ventricular hypertrophy. Anterior Echo-free space, may be due to pericardial fat or effusion. All other cardiac chamber sizes are within normal limits. Focal aortic valve sclerosis with adequate cusp excursion. Thickened mitral valve leaflets with normal excursion. Mild mitral annulus and aortic root calcification. Normal pulmonic valve structure. Normal tricuspid valve structure. IVC at normal size with physiologic collapse. A color flow and spectral Doppler study was performed and revealed: Mild aortic regurgitation. Trace mitral regurgitation. Mitral diastolic velocities suggest mild left ventricular dysfunction (Grade I ) . Mild tricuspid regurgitation. Tricuspid systolic velocities suggests peak right ventricular systolic pressure of 45 mmHg, consistent with moderate pulmonary hypertension. Trace pulmonic regurgitation present. Trung Sebastian MD May 05, 2017 22:37
[2017-05-06] VITALS: BP 123/73
[2017-05-06] MEDS: dilTIAZem HCl 25mg/5ml Inj IVP SCH ×3 (00:03→15:33)
[2017-05-06] MEDS: Ipratropium 0.02% Inh Soln 2.5ml UD HHN SCH ×4 (00:57→21:15)
[2017-05-06] MEDS: Acetylcysteine 20% Soln 4ml HHN SCH ×4 (00:57→21:15)
[2017-05-06] MEDS: D5 1/2NS 1,000 ML IV SCH ×3 (03:00→20:42)
[2017-05-06 04:00] VITALS: BP 126/74
[2017-05-06 05:52] LABS: ANION GAP 9 mmol/L (5-15); BLOOD UREA NITROGEN 13 mg/dL (7-18); CALCIUM 7.7 MG/DL (8.5-10.1); CARBON DIOXIDE 20 MMOL/L (21-32); CHLORIDE 109 MMOL/L (98-107); CREATININE 0.7 MG/DL (0.55-1.30); POTASSIUM 3.9 MMOL/L (3.5-5.1); SODIUM 138 MMOL/L (136-145)
[2017-05-06] MEDS: Piperacillin/Tazobactam 3.375 GM in D5W 55 ML IV SCH ×3 (06:00→22:29)
[2017-05-06 06:48] LABS: HEMATOCRIT 27.4 % (37.0-47.0); HEMOGLOBIN 8.4 G/DL (12.0-16.0); MEAN CORPUSCULAR VOLUME 82 FL (80-99); PLATELET COUNT 259 K/UL (150-450); RED BLOOD COUNT 3.35 M/UL (4.20-5.40); WHITE BLOOD COUNT 12.7 K/UL (4.8-10.8)
[2017-05-06 08:00] VITALS: BP 148/65
[2017-05-06] MEDS: Docusate 100mg/10ml Liq NG SCH ×2 (08:12→18:00)
[2017-05-06] MEDS: Enoxaparin 60mg Inj SUBQ SCH ×2 (09:48→22:31)
--- NOTE | 2017-05-06 09:53 | Pulmonology Progress Note ---
Assessment/Plan Problems: (1) Pneumonia (2) Fever (3) Sepsis Assessment/Plan ASSESSMENT: -PE -SIRS -HCAP -Hypoxemia 2/2 above -Sinus tachycardia -UTI/urosepsis -Dysphagia -H/O CVA -HTN -Anemia -Protein calorie malnutrition -NHR PLAN: -Optimize pulmonary hygiene/mobilize as tolerated -Titrate down FiO2 to keep SaO2 > 90% -ATROVENT HHN's q6WA and q4 PRN -MUCOMYST HHN QID -CPT QID -Continue Zosyn, F/U Cx's -Monitor volumes, decrease IVF to 30 cc/hour -NGT feeds, continue RODEO PERFORMER therapy, F/U VSS -Continue BID Lovenox, monitor H/H and for bleeding, can D/C on Xarelto or low dose Eliquis given age -DVT Px: LMWH -FC Subjective Allergies: Coded Allergies: No Known Allergies (Unverified , 05/03/17) Subjective AFVSS, ST, + PE started on Lovenox + cough, + SOB O2 needs unchanged, H/H dropped Objective Last 24 Hour Vital Signs Date Time Temp Pulse Resp B/P (MAP) Pulse Ox O2 Delivery O2 Flow Rate FiO2 05/06/17 09:48 114 148/65 05/06/17 08:30 114 05/06/17 08:00 97.7 109 18 148/65 96 Venturi Mask 8.0 40 05/06/17 08:00 108 05/06/17 07:24 40 05/06/17 07:24 123 30 96 Venturi Mask 8.0 40 05/06/17 07:24 130 30 96 Venturi Mask 8.0 40 05/06/17 07:23 96 Venturi Mask 8.0 40 05/06/17 07:23 Venturi Mask 8.0 40 05/06/17 04:00 97.7 122 30 126/74 96 Venturi Mask 8.0 40 05/06/17 04:00 112 05/06/17 01:07 118 21 96 Venturi Mask 8.0 40 05/06/17 00:57 120 20 95 Venturi Mask 8.0 40 05/06/17 00:03 150 133/60 05/06/17 00:00 139 05/06/17 00:00 98.1 126 30 123/73 98 Venturi Mask 8.0 40 05/05/17 20:00 26 98 Venturi Mask 8.0 40 05/05/17 20:00 98.3 128 33 133/60 94 Venturi Mask 8.0 40 05/05/17 20:00 150 05/05/17 19:42 129 20 95 Venturi Mask 8.0 40 05/05/17 19:29 93 Venturi Mask 8.0 40 05/05/17 19:29 Venturi Mask 8.0 40 05/05/17 19:29 126 20 93 Venturi Mask 8.0 40 05/05/17 17:16 137 22 96 Venturi Mask 8.0 40 05/05/17 17:10 122 22 96 Venturi Mask 8.0 40 05/05/17 16:14 139 148/77 05/05/17 16:00 139 05/05/17 16:00 97.9 126 29 148/77 97 Venturi Mask 8.0 40 05/05/17 12:56 149 22 95 Venturi Mask 8.0 40 05/05/17 12:46 129 20 95 Venturi Mask 8.0 40 05/05/17 12:00 98.5 138 23 144/69 95 Venturi Mask 8.0 40 05/05/17 11:43 125 Intake and Output 05/05/17 05/06/17 19:00 07:00 Intake Total 960.00 ml 1217.75 ml Balance 960.00 ml 1217.75 ml IV Total 960.00 ml 1217.75 ml # Voids 2 3 General Appearance: no acute distress, cachetic HEENT: normocephalic, atraumatic, mucous membranes moist Respiratory/Chest: rhonchi Cardiovascular: normal peripheral pulses, regular rhythm, tachycardia Abdomen: normal bowel sounds, soft, non tender, no organomegaly, non distended Extremities: no cyanosis, no clubbing, no edema Microbiology Date/Time Source Procedure Growth Status 05/03/17 17:20 Blood Blood Culture - Preliminary NO GROWTH AFTER 48 HOURS Resulted 05/03/17 15:55 Blood Blood Culture - Preliminary NO GROWTH AFTER 48 HOURS Resulted 05/05/17 00:30 Sputum Induced Gram Stain - Final Resulted 05/05/17 00:30 Sputum Induced Sputum Culture Pending Resulted 05/03/17 15:45 Nasal Nares MRSA Culture - Final NO METHICILLIN RESISTANT STAPH AUREUS... Complete 05/03/17 18:38 Urine,Clean Catch Urine Culture - Final NO GROWTH AFTER 48 HOURS Complete 05/03/17 15:45 Rectum VRE Culture - Final NO VANCOMYCIN RESISTANT ENTEROCOCCUS ... Complete Laboratory Tests 05/06/17 03:25: White Blood Count 12.7H, Red Blood Count 3.35L, Hemoglobin 8.4L, Hematocrit 27.4L, Mean Corpuscular Volume 82, Mean Corpuscular Hemoglobin 25.0L, Mean Corpuscular Hemoglobin Concent 30.6L, Red Cell Distribution Width 17.0H, Platelet Count 259, Mean Platelet Volume 4.9L, Neutrophils (%) (Auto) , Lymphocytes (%) (Auto) , Monocytes (%) (Auto) , Eosinophils (%) (Auto) , Basophils (%) (Auto) , Neutrophils % (Manual) [Pending], Lymphocytes % (Manual) [Pending], Platelet Estimate [Pending], Platelet Morphology [Pending], Sodium Level 138, Potassium Level 3.9, Chloride Level 109H, Carbon Dioxide Level 20L, Anion Gap 9, Blood Urea Nitrogen 13, Creatinine 0.7, Estimat Glomerular Filtration Rate , Glucose Level 79, Calcium Level 7.7L Current Medications Medications (Trade) Dose Ordered Sig/Chevy Route PRN Reason Start Time Stop Time Status Last Admin Dose Admin Acetaminophen (Tylenol) 650 mg Q4H PRN RECTAL Mild Pain (Pain Scale 1-3) 05/04/17 13:00 06/03/17 12:59 05/04/17 13:58 Acetylcysteine (Mucomyst) 200 mg Q6HRT HHN 05/05/17 01:00 06/04/17 00:59 05/05/17 19:29 Bisacodyl (Dulcolax) 10 mg BID PRN ORAL Constipation 05/03/17 23:45 06/02/17 23:44 Dextrose (Dextrose 50%) STAT PRN IV Hypoglycemia 05/03/17 23:45 06/02/17 23:44 Dextrose/Sodium Chloride 1,000 ml @ 75 mls/hr [id number] IV 05/04/17 11:00 06/03/17 10:59 05/06/17 03:00 Diltiazem HCl (Cardizem) 20 mg Q8H IVP 05/04/17 16:00 06/03/17 15:59 05/06/17 09:48 Docusate Sodium (Colace) 100 mg TWICE A DAY NG 05/04/17 18:00 06/03/17 17:59 Enoxaparin Sodium (Lovenox) 60 mg EVERY 12 HOURS SUBQ 05/05/17 20:00 06/04/17 19:59 05/06/17 09:48 Ferrous Sulfate (Feosol) 325 mg TWICE A DAY ORAL 05/04/17 09:00 06/03/17 08:59 05/04/17 08:58 Ipratropium [place] (Atrovent) 500 mcg Q4H PRN HHN Shortness of Breath 05/04/17 22:00 05/09/17 21:59 05/05/17 17:08 Ipratropium [place] (Atrovent) 500 mcg Q6HRT HHN 05/05/17 01:00 05/10/17 00:59 05/06/17 07:23 Magnesium Hydroxide (Mom) 30 ml DAILY PRN ORAL Constipation 05/03/17 23:45 06/02/17 23:44 05/04/17 08:58 Memantine (Namenda) 5 mg QHS ORAL 05/04/17 21:00 06/03/17 20:59 05/05/17 20:31 Piperacillin Sod/ Tazobactam Sod 3.375 gm/Dextrose 55 ml @ 13.75 mls/ hr EVERY 8 HOURS IV 05/04/17 14:00 05/11/17 13:59 05/06/17 06:00 Sodium Phosphate (Fleet's Sodium Phosl Enema) 133 ml DAILY PRN RECTAL IF DULCOLAX INEFFECTIVE 05/03/17 23:45 06/02/17 23:44 AFSHIN ALDRIDGE M.D. May 06, 2017 09:53
--- NOTE | 2017-05-06 10:08 | Diagnostic Imaging Report ---
Indication: Shortness of breath Technique: CT pulmonary angiogram performed utilizing automated exposure control with intravenous contrast. Axial, sagittal and coronal reconstructions were obtained. 3-D volumetric reconstructions were also performed. CT dose: Total DLP 510 mGycm; CTDI vol 0.2, 12.6, 12.6, 37.9, 15.7 mGy Comparison: None Findings: Evaluation limited by motion artifact. There is adequate opacification of the pulmonary arteries. There is a pulmonary embolism involving a subsegmental artery to the right lower lobe (series 6 image 267). Name pulmonary artery is normal in size. Thoracic aorta is normal in size. No evidence to suggest aortic dissection. Mild atherosclerotic calcifications noted in the aorta. There are trace left and small right pleural effusions. There is adjacent consolidation/atelectasis in the bilateral lower lobes, right greater than left with some air bronchograms on the right. There is no pneumothorax. There is mild cardiomegaly and a small to moderate-sized pericardial effusion. No evidence to suggest right heart strain on CT. No appreciable hilar or mediastinal lymphadenopathy. The left lobe of the thyroid is enlarged with a heterogeneous lesion containing a coarse calcification Multiple well-circumscribed lesions are noted in the liver, with cysts or hemangiomas. Additional low-attenuation foci seemingly outside liver and possibly indenting or scalloping the liver margin are noted. 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 There is thickening/lesion of the proximal stomach, which is partially visualized. Consider endoscopy/direct visualization. Mild multilevel degenerative changes of the thoracic spine. No acute osseous abnormality seen. Impression: Pulmonary embolism involving a subsegmental pulmonary artery to the right lower lobe. Small right and trace left pleural effusions with bilateral lower lobe atelectasis/consolidation. Pneumonia should be excluded clinically. Cardiomegaly and [id number] pericardial effusion. Multiple low-attenuation lesions in the liver possibly resenting hepatic cysts or hemangiomas. Additional low-attenuation lesions adjacent to and seemingly outside the liver with possible scalloping of the liver noted. CT of the abdomen and pelvis with intravenous and oral contrast is recommended for better characterization. Apparent thickening of the proximal stomach, partially visualized. Consider endoscopy/direct visualization. Heterogeneous lesion in the left lobe of the thyroid containing coarse calcification. This corresponds with the statrad preliminary report, with slight discrepancy regarding partially imaged abdominal findings. Findings and follow-up imaging recommendations discussed with the patient's treating nurse Many via phone conversation approximately 9:20 AM 05/06/[address] scanner at [facility] is accredited by the [employer] and the scans are performed using protocols designed to limit radiation exposure to as low as reasonably achievable to attain images of sufficient resolution adequate for diagnostic evaluation.
[2017-05-06 11:00] LABS: BASOPHILS % (AUTO) 0.2 % (0.0-2.0); EOSINOPHILS % (AUTO) 0.8 % (0.0-3.0); HEMATOCRIT 30.5 % (37.0-47.0); HEMOGLOBIN 9.2 G/DL (12.0-16.0); LYMPHOCYTES % (AUTO) 10.2 % (20.0-45.0); MEAN CORPUSCULAR VOLUME 83 FL (80-99); MONOCYTES % (AUTO) 4.3 % (1.0-10.0); NEUTROPHILS % (AUTO) 84.4 % (45.0-75.0); PLATELET COUNT 294 K/UL (150-450); RED BLOOD COUNT 3.69 M/UL (4.20-5.40); RED CELL DISTRIBUTION WIDTH 17.4 % (11.6-14.8); WHITE BLOOD COUNT 12.5 K/UL (4.8-10.8)
[2017-05-06 12:00] VITALS: BP 136/72
--- NOTE | 2017-05-06 13:31 | GI Progress Note ---
Assessment/Plan Problems: (1) Encounter for nasogastric (NG) tube placement ICD Codes: Z46.59 - Encounter for fitting and adjustment of other gastrointestinal appliance and device SNOMED: 444968031 (2) Anemia ICD Codes: D64.9 - Anemia, unspecified SNOMED: 621069821 (3) Iron deficiency ICD Codes: E61.1 - Iron deficiency SNOMED: 63244883 Status: unchanged Status Narrative Discussed with Dr. Greenfield. Assessment/Plan CTA reviewed>> see full report. - Pulmonary embolism involving a subsegmental pulmonary artery to the right lower lobe. - Small right and trace left pleural effusions with bilateral lower lobe atelectasis/consolidation. Pneumonia should be excluded clinically. - Cardiomegaly and [id number] pericardial effusion. - Multiple low-attenuation lesions in the liver possibly resenting hepatic cysts or hemangiomas. - Apparent thickening of the proximal stomach, partially visualized. Consider endoscopy/direct visualization. defer CT AP at this time, will consider EGD if indicated. NGT pulled by patient, reinsert when stable okay to start GTFs per RD after imaging confirmation anemia work up OB stool r/o GI bleed monitor H&H, prn transfusions bowel regime ppi fu labs The patient was seen and examined at bedside and all new and available data was reviewed in the patients chart. I agree with the above findings, impression and plan. (Patient seen earlier today. Signature stamp does not reflect patient encounter time.). - Isabel Greenfield MD Subjective Subjective limited Objective Last 24 Hour Vital Signs Date Time Temp Pulse Resp B/P (MAP) Pulse Ox O2 Delivery O2 Flow Rate FiO2 05/06/17 13:18 111 20 95 Venturi Mask 8.0 40 05/06/17 13:18 40 05/06/17 13:17 106 18 20 Venturi Mask 8.0 40 05/06/17 12:00 97.9 106 18 136/72 20 Venturi Mask 8.0 40 05/06/17 09:48 114 148/65 05/06/17 08:30 114 05/06/17 08:00 97.7 109 18 148/65 96 Venturi Mask 8.0 40 05/06/17 08:00 108 05/06/17 07:24 40 05/06/17 07:24 123 30 96 Venturi Mask 8.0 40 05/06/17 07:24 130 30 96 Venturi Mask 8.0 40 05/06/17 07:23 96 Venturi Mask 8.0 40 05/06/17 07:23 Venturi Mask 8.0 40 05/06/17 04:00 97.7 122 30 126/74 96 Venturi Mask 8.0 40 05/06/17 04:00 112 05/06/17 01:07 118 21 96 Venturi Mask 8.0 40 05/06/17 00:57 120 20 95 Venturi Mask 8.0 40 05/06/17 00:03 150 133/60 05/06/17 00:00 139 05/06/17 00:00 98.1 126 30 123/73 98 Venturi Mask 8.0 40 05/05/17 20:00 26 98 Venturi Mask 8.0 40 05/05/17 20:00 98.3 128 33 133/60 94 Venturi Mask 8.0 40 05/05/17 20:00 150 05/05/17 19:42 129 20 95 Venturi Mask 8.0 40 05/05/17 19:29 93 Venturi Mask 8.0 40 05/05/17 19:29 Venturi Mask 8.0 40 05/05/17 19:29 126 20 93 Venturi Mask 8.0 40 05/05/17 17:16 137 22 96 Venturi Mask 8.0 40 05/05/17 17:10 122 22 96 Venturi Mask 8.0 40 05/05/17 16:14 139 148/77 05/05/17 16:00 139 05/05/17 16:00 97.9 126 29 148/77 97 Venturi Mask 8.0 40 Intake and Output 05/05/17 05/06/17 19:00 07:00 Intake Total 960.00 ml 1217.75 ml Balance 960.00 ml 1217.75 ml IV Total 960.00 ml 1217.75 ml # Voids 2 3 Laboratory Tests Test 05/06/17 03:25 05/06/17 10:30 White Blood Count 12.7 K/UL (4.8-10.8) H 12.5 K/UL (4.8-10.8) H Red Blood Count 3.35 M/UL (4.20-5.40) L 3.69 M/UL (4.20-5.40) L Hemoglobin 8.4 G/DL (12.0-16.0) L 9.2 G/DL (12.0-16.0) L Hematocrit 27.4 % (37.0-47.0) L 30.5 % (37.0-47.0) L Mean Corpuscular Volume 82 FL (80-99) 83 FL (80-99) Mean Corpuscular Hemoglobin 25.0 PG (27.0-31.0) L 24.9 PG (27.0-31.0) L Mean Corpuscular Hemoglobin Concent 30.6 G/DL (32.0-36.0) L 30.1 G/DL (32.0-36.0) L Red Cell Distribution Width 17.0 % (11.6-14.8) H 17.4 % (11.6-14.8) H Platelet Count 259 K/UL (150-450) 294 K/UL (150-450) Mean Platelet Volume 4.9 FL (6.5-10.1) L 6.1 FL (6.5-10.1) L Neutrophils (%) (Auto) % (45.0-75.0) 84.4 % (45.0-75.0) H Lymphocytes (%) (Auto) % (20.0-45.0) 10.2 % (20.0-45.0) L Monocytes (%) (Auto) % (1.0-10.0) 4.3 % (1.0-10.0) Eosinophils (%) (Auto) % (0.0-3.0) 0.8 % (0.0-3.0) Basophils (%) (Auto) % (0.0-2.0) 0.2 % (0.0-2.0) Differential Total Cells Counted 100 Neutrophils % (Manual) 83 % (45-75) H Lymphocytes % (Manual) 11 % (20-45) L Monocytes % (Manual) 4 % (1-10) Eosinophils % (Manual) 2 % (0-3) Basophils % (Manual) 0 % (0-2) Band Neutrophils 0 % (0-8) Platelet Estimate Adequate Platelet Morphology Normal Hypochromasia 1+ Anisocytosis 1+ Sodium Level 138 MMOL/L (136-145) Potassium Level 3.9 MMOL/L (3.5-5.1) Chloride Level 109 MMOL/L (98-107) H Carbon Dioxide Level 20 MMOL/L (21-32) L Anion Gap 9 mmol/L (5-15) Blood Urea Nitrogen 13 mg/dL (7-18) Creatinine 0.7 MG/DL (0.55-1.30) Estimat Glomerular Filtration Rate mL/min (>60) Glucose Level 79 MG/DL (74-106) Calcium Level 7.7 MG/DL (8.5-10.1) L Height (Feet): 5 Height (Inches): 3.00 Weight (Pounds): 140 General Appearance: no apparent distress, thin Cardiovascular: normal rate Respiratory/Chest: no respiratory distress, other - venturi mask Abdominal Exam: normal bowel sounds, non tender, soft Extremities: non-tender Eufemia Smiley N.P. May 06, 2017 13:31 PATO GREENFIELD May 10, 2017 08:12
--- NOTE | 2017-05-06 14:20 | Wound Care Consultation ---
Wound Assessment Wound Assessment : Wound Number: 1 Wound Present on Admission: Yes New Wound: No Status Change of Wound: No Wound Location Body Site Modif: right Wound Location Body Site: buttocks Wound Type: pressure ulcer Pressure Ulcer Stage: Deep Tissue Injury - SDTI Wound Thickness: Full Thickness Wound Length: 3.5 Wound Width: 3.0 Wound Depth: utd Percent of Wound Purple/Maroon: 100 Wound Drainage Amount: None Wound Drainage Odor: None/Absent Tissue Surrounding Wound: Intact Wound General Appearance: Reddened Wound Comment #1 Right buttock SDTI Pressure ulcer Recommendation -Local wound care per protocol -Keep clean and dry -Turn and reposition -Optimize nutrition -Offload both heels -Heel protector on both heels -Low air loss mattress -Assess and f/u accordingly for any changes DELIA OLIVERA RN May 06, 2017 14:20
--- NOTE | 2017-05-06 15:14 | Internal Med Progress Note ---
Subjective Physician Name Trung Sebastian Attending Physician Trung Sebastian MD Current Medications Medications (Trade) Dose Ordered Sig/Chevy Route PRN Reason Start Time Stop Time Status Last Admin Dose Admin Acetaminophen (Tylenol) 650 mg Q4H PRN RECTAL Mild Pain (Pain Scale 1-3) 05/04/17 13:00 06/03/17 12:59 05/04/17 13:58 Acetylcysteine (Mucomyst) 200 mg Q6HRT HHN 05/05/17 01:00 06/04/17 00:59 05/06/17 13:17 Bisacodyl (Dulcolax) 10 mg BID PRN ORAL Constipation 05/03/17 23:45 06/02/17 23:44 Dextrose (Dextrose 50%) STAT PRN IV Hypoglycemia 05/03/17 23:45 06/02/17 23:44 Dextrose/Sodium Chloride 1,000 ml @ 30 mls/hr Q24H IV 05/06/17 10:00 06/05/17 09:59 05/06/17 10:19 Diltiazem HCl (Cardizem) 20 mg Q8H IVP 05/04/17 16:00 06/03/17 15:59 05/06/17 09:48 Docusate Sodium (Colace) 100 mg TWICE A DAY NG 05/04/17 18:00 06/03/17 17:59 Enoxaparin Sodium (Lovenox) 60 mg EVERY 12 HOURS SUBQ 05/05/17 20:00 06/04/17 19:59 05/06/17 09:48 Ferrous Sulfate (Feosol) 325 mg TWICE A DAY ORAL 05/04/17 09:00 06/03/17 08:59 05/04/17 08:58 Ipratropium [place] (Atrovent) 500 mcg Q4H PRN HHN Shortness of Breath 05/04/17 22:00 05/09/17 21:59 05/05/17 17:08 Ipratropium [place] (Atrovent) 500 mcg Q6HRT HHN 05/05/17 01:00 05/10/17 00:59 05/06/17 13:17 Magnesium Hydroxide (Mom) 30 ml DAILY PRN ORAL Constipation 05/03/17 23:45 06/02/17 23:44 05/04/17 08:58 Memantine (Namenda) 5 mg QHS ORAL 05/04/17 21:00 06/03/17 20:59 05/05/17 20:31 Piperacillin Sod/ Tazobactam Sod 3.375 gm/Dextrose 55 ml @ 13.75 mls/ hr EVERY 8 HOURS IV 05/04/17 14:00 05/11/17 13:59 05/06/17 06:00 Sodium Phosphate (Fleet's Sodium Phosl Enema) 133 ml DAILY PRN RECTAL IF DULCOLAX INEFFECTIVE 05/03/17 23:45 06/02/17 23:44 Allergies: Coded Allergies: No Known Allergies (Unverified , 05/03/17) Subjective awake, responsive, on Face mask, NAD, WBC: 12.9 Objective Last Vital Signs Date Time Temp Pulse Resp B/P (MAP) Pulse Ox O2 Delivery O2 Flow Rate FiO2 05/06/17 13:18 111 20 95 Venturi Mask 8.0 40 05/06/17 12:00 97.9 136/72 Laboratory Tests Test 05/06/17 03:25 05/06/17 10:30 White Blood Count 12.7 K/UL (4.8-10.8) H 12.5 K/UL (4.8-10.8) H Red Blood Count 3.35 M/UL (4.20-5.40) L 3.69 M/UL (4.20-5.40) L Hemoglobin 8.4 G/DL (12.0-16.0) L 9.2 G/DL (12.0-16.0) L Hematocrit 27.4 % (37.0-47.0) L 30.5 % (37.0-47.0) L Mean Corpuscular Volume 82 FL (80-99) 83 FL (80-99) Mean Corpuscular Hemoglobin 25.0 PG (27.0-31.0) L 24.9 PG (27.0-31.0) L Mean Corpuscular Hemoglobin Concent 30.6 G/DL (32.0-36.0) L 30.1 G/DL (32.0-36.0) L Red Cell Distribution Width 17.0 % (11.6-14.8) H 17.4 % (11.6-14.8) H Platelet Count 259 K/UL (150-450) 294 K/UL (150-450) Mean Platelet Volume 4.9 FL (6.5-10.1) L 6.1 FL (6.5-10.1) L Neutrophils (%) (Auto) % (45.0-75.0) 84.4 % (45.0-75.0) H Lymphocytes (%) (Auto) % (20.0-45.0) 10.2 % (20.0-45.0) L Monocytes (%) (Auto) % (1.0-10.0) 4.3 % (1.0-10.0) Eosinophils (%) (Auto) % (0.0-3.0) 0.8 % (0.0-3.0) Basophils (%) (Auto) % (0.0-2.0) 0.2 % (0.0-2.0) Differential Total Cells Counted 100 Neutrophils % (Manual) 83 % (45-75) H Lymphocytes % (Manual) 11 % (20-45) L Monocytes % (Manual) 4 % (1-10) Eosinophils % (Manual) 2 % (0-3) Basophils % (Manual) 0 % (0-2) Band Neutrophils 0 % (0-8) Platelet Estimate Adequate Platelet Morphology Normal Hypochromasia 1+ Anisocytosis 1+ Sodium Level 138 MMOL/L (136-145) Potassium Level 3.9 MMOL/L (3.5-5.1) Chloride Level 109 MMOL/L (98-107) H Carbon Dioxide Level 20 MMOL/L (21-32) L Anion Gap 9 mmol/L (5-15) Blood Urea Nitrogen 13 mg/dL (7-18) Creatinine 0.7 MG/DL (0.55-1.30) Estimat Glomerular Filtration Rate mL/min (>60) Glucose Level 79 MG/DL (74-106) Calcium Level 7.7 MG/DL (8.5-10.1) L Microbiology Date/Time Source Procedure Growth Status 05/03/17 17:20 Blood Blood Culture - Preliminary NO GROWTH AFTER 48 HOURS Resulted 05/03/17 15:55 Blood Blood Culture - Preliminary NO GROWTH AFTER 48 HOURS Resulted 05/05/17 00:30 Sputum Induced Gram Stain - Final Resulted 05/05/17 00:30 Sputum Induced Sputum Culture Pending Resulted 05/03/17 15:45 Nasal Nares MRSA Culture - Final NO METHICILLIN RESISTANT STAPH AUREUS... Complete 05/03/17 18:38 Urine,Clean Catch Urine Culture - Final NO GROWTH AFTER 48 HOURS Complete 05/03/17 15:45 Rectum VRE Culture - Final NO VANCOMYCIN RESISTANT ENTEROCOCCUS ... Complete Intake and Output 05/05/17 05/06/17 19:00 07:00 Intake Total 960.00 ml 1217.75 ml Balance 960.00 ml 1217.75 ml IV Total 960.00 ml 1217.75 ml # Voids 2 3 Objective GENERAL: awake, more responsive, opens eyes, talking. HEENT: Pupils reactive to light. Anicteric. NECK: Supple. No JVD. LUNGS: fair air entry. No wheezing. less Coarse breath HEART: S1 and S2. Tachycardic. no murmur ABDOMEN: Soft, nontender and nondistended. Positive bowel sounds. EXTREMITIES: No cyanosis, clubbing, or edema. NEUROLOGIC: moving all extremities equally . CN 2-12 intact. Assessment/Plan Assessment/Plan LL subsegmental PE Right lower lobe pneumonia, possible aspiration pneumonia. History of cerebrovascular accident. Sinus tachycardia. Urinary tract infection, possible sepsis secondary to urinary tract infection. Dysphagia. Hypertension. Anemia. Severe protein-calorie malnutrition. PLAN: in [place]. Lovenox injection BID monitor laboratory and cultures. Dr. Malik Knapp from [facility]. Abx: Zosyn IV she pulled NG tube placement , will replace again bedside swallow study done again, not safe for PO intake. Full Code. 2D Echo: Normal left ventricular chamber size, systolic function and wall motion. Left ventricular ejection fraction estimated to be 65-70 %. No evidence of left ventricular hypertrophy. Anterior Echo-free space, may be due to pericardial fat or effusion. All other cardiac chamber sizes are within normal limits. Focal aortic valve sclerosis with adequate cusp excursion. Thickened mitral valve leaflets with normal excursion. Mild mitral annulus and aortic root calcification. Normal pulmonic valve structure. Normal tricuspid valve structure. IVC at normal size with physiologic collapse. A color flow and spectral Doppler study was performed and revealed: Mild aortic regurgitation. Trace mitral regurgitation. Mitral diastolic velocities suggest mild left ventricular dysfunction (Grade I ) . Mild tricuspid regurgitation. Tricuspid systolic velocities suggests peak right ventricular systolic pressure of 45 mmHg, consistent with moderate pulmonary hypertension. Trace pulmonic regurgitation present. Trung Sebastian MD May 06, 2017 15:14
[2017-05-06 16:00] VITALS: BP 136/65
--- NOTE | 2017-05-06 17:40 | Infectious Diseases Prog Note ---
Assessment/Plan Assessment/Plan Full consult dictated: A) 1) aspiration pna/hcap pna vs cap pna, PE, sepsis, ? uti, + ua, leukocytosis , fevers 2) pmh noted 3) allergies - negative P) 1) zosyn and vancomycin 2) check sc, labs and chest x-ray 3) thank you Subjective Allergies: Coded Allergies: No Known Allergies (Unverified , 05/03/17) Objective Vital Signs Last 24 Hour Vital Signs Date Time Temp Pulse Resp B/P (MAP) Pulse Ox O2 Delivery O2 Flow Rate FiO2 05/06/17 16:00 97.7 107 22 136/65 94 Venturi Mask 8.0 40 05/06/17 16:00 108 05/06/17 15:33 111 136/72 05/06/17 13:18 111 20 95 Venturi Mask 8.0 40 05/06/17 13:18 40 05/06/17 13:17 106 18 20 Venturi Mask 8.0 40 05/06/17 12:00 97.9 106 18 136/72 96 Venturi Mask 8.0 40 05/06/17 09:48 114 148/65 05/06/17 08:30 114 05/06/17 08:00 97.7 109 18 148/65 96 Venturi Mask 8.0 40 05/06/17 08:00 108 05/06/17 07:24 40 05/06/17 07:24 123 30 96 Venturi Mask 8.0 40 05/06/17 07:24 130 30 96 Venturi Mask 8.0 40 05/06/17 07:23 96 Venturi Mask 8.0 40 05/06/17 07:23 Venturi Mask 8.0 40 05/06/17 04:00 97.7 122 30 126/74 96 Venturi Mask 8.0 40 05/06/17 04:00 112 05/06/17 01:07 118 21 96 Venturi Mask 8.0 40 05/06/17 00:57 120 20 95 Venturi Mask 8.0 40 05/06/17 00:03 150 133/60 05/06/17 00:00 139 05/06/17 00:00 98.1 126 30 123/73 98 Venturi Mask 8.0 40 05/05/17 20:00 26 98 Venturi Mask 8.0 40 05/05/17 20:00 98.3 128 33 133/60 94 Venturi Mask 8.0 40 05/05/17 20:00 150 05/05/17 19:42 129 20 95 Venturi Mask 8.0 40 05/05/17 19:29 93 Venturi Mask 8.0 40 05/05/17 19:29 Venturi Mask 8.0 40 05/05/17 19:29 126 20 93 Venturi Mask 8.0 40 Height (Feet): 5 Height (Inches): 3.00 Weight (Pounds): 140 Microbiology Date/Time Source Procedure Growth Status 05/05/17 00:30 Sputum Induced Gram Stain - Final Resulted 05/05/17 00:30 Sputum Induced Sputum Culture Pending Resulted 05/03/17 18:38 Urine,Clean Catch Urine Culture - Final NO GROWTH AFTER 48 HOURS Complete Laboratory Tests Test 05/06/17 03:25 05/06/17 10:30 White Blood Count 12.7 K/UL (4.8-10.8) H 12.5 K/UL (4.8-10.8) H Red Blood Count 3.35 M/UL (4.20-5.40) L 3.69 M/UL (4.20-5.40) L Hemoglobin 8.4 G/DL (12.0-16.0) L 9.2 G/DL (12.0-16.0) L Hematocrit 27.4 % (37.0-47.0) L 30.5 % (37.0-47.0) L Mean Corpuscular Volume 82 FL (80-99) 83 FL (80-99) Mean Corpuscular Hemoglobin 25.0 PG (27.0-31.0) L 24.9 PG (27.0-31.0) L Mean Corpuscular Hemoglobin Concent 30.6 G/DL (32.0-36.0) L 30.1 G/DL (32.0-36.0) L Red Cell Distribution Width 17.0 % (11.6-14.8) H 17.4 % (11.6-14.8) H Platelet Count 259 K/UL (150-450) 294 K/UL (150-450) Mean Platelet Volume 4.9 FL (6.5-10.1) L 6.1 FL (6.5-10.1) L Neutrophils (%) (Auto) % (45.0-75.0) 84.4 % (45.0-75.0) H Lymphocytes (%) (Auto) % (20.0-45.0) 10.2 % (20.0-45.0) L Monocytes (%) (Auto) % (1.0-10.0) 4.3 % (1.0-10.0) Eosinophils (%) (Auto) % (0.0-3.0) 0.8 % (0.0-3.0) Basophils (%) (Auto) % (0.0-2.0) 0.2 % (0.0-2.0) Differential Total Cells Counted 100 Neutrophils % (Manual) 83 % (45-75) H Lymphocytes % (Manual) 11 % (20-45) L Monocytes % (Manual) 4 % (1-10) Eosinophils % (Manual) 2 % (0-3) Basophils % (Manual) 0 % (0-2) Band Neutrophils 0 % (0-8) Platelet Estimate Adequate Platelet Morphology Normal Hypochromasia 1+ Anisocytosis 1+ Sodium Level 138 MMOL/L (136-145) Potassium Level 3.9 MMOL/L (3.5-5.1) Chloride Level 109 MMOL/L (98-107) H Carbon Dioxide Level 20 MMOL/L (21-32) L Anion Gap 9 mmol/L (5-15) Blood Urea Nitrogen 13 mg/dL (7-18) Creatinine 0.7 MG/DL (0.55-1.30) Estimat Glomerular Filtration Rate mL/min (>60) Glucose Level 79 MG/DL (74-106) Calcium Level 7.7 MG/DL (8.5-10.1) L Current Medications Medications (Trade) Dose Ordered Sig/[place]vy Route PRN Reason Start Time Stop Time Status Last Admin Dose Admin Acetaminophen (Tylenol) 650 mg Q4H PRN RECTAL Mild Pain (Pain Scale 1-3) 05/04/17 13:00 06/03/17 12:59 05/04/17 13:58 Acetylcysteine (Mucomyst) 200 mg Q6HRT HHN 05/05/17 01:00 06/04/17 00:59 05/06/17 13:17 Bisacodyl (Dulcolax) 10 mg BID PRN ORAL Constipation 05/03/17 23:45 06/02/17 23:44 Dextrose (Dextrose 50%) STAT PRN IV Hypoglycemia 05/03/17 23:45 06/02/17 23:44 Dextrose/Sodium Chloride 1,000 ml @ 30 mls/hr Q24H IV 05/06/17 10:00 06/05/17 09:59 05/06/17 10:19 Diltiazem HCl (Cardizem) 20 mg Q8H IVP 05/04/17 16:00 06/03/17 15:59 05/06/17 15:33 Docusate Sodium (Colace) 100 mg TWICE A DAY NG 05/04/17 18:00 06/03/17 17:59 Enoxaparin [place]odium (Lovenox) 60 mg EVERY 12 HOURS SUBQ 05/05/17 20:00 06/04/17 19:59 05/06/17 09:48 Ferrous Sulfate (Feosol) 325 mg TWICE A DAY ORAL 05/04/17 09:00 06/03/17 08:59 05/04/17 08:58 Ipratropium [place] (Atrovent) 500 mcg Q4H PRN HHN Shortness of Breath 05/04/17 22:00 05/09/17 21:59 05/05/17 17:08 Ipratropium [place] (Atrovent) 500 mcg Q6HRT HHN 05/05/17 01:00 05/10/17 00:59 05/06/17 13:17 Magnesium Hydroxide (Mom) 30 ml DAILY PRN ORAL Constipation 05/03/17 23:45 06/02/17 23:44 05/04/17 08:58 Memantine (Namenda) 5 mg QHS ORAL 05/04/17 21:00 06/03/17 20:59 05/05/17 20:31 Piperacillin Sod/ Tazobactam Sod 3.375 gm/Dextrose 55 ml @ 13.75 mls/ hr EVERY 8 HOURS IV 05/04/17 14:00 05/11/17 13:59 05/06/17 15:33 Sodium Phosphate (Fleet's Sodium Phosl Enema) 133 ml DAILY PRN RECTAL IF DULCOLAX INEFFECTIVE 05/03/17 23:45 06/02/17 23:44 ALKASSPOOLES,SALAM May 06, 2017 17:40
[2017-05-06 20:00] VITALS: BP 145/70
[2017-05-06] MEDS: Vancomycin 1gm in D5W 275ml IVPB SCH ×2 (20:42→22:28)
[2017-05-06] MEDS: Memantine 5 MG TAB ORAL SCH (22:29)
--- NOTE | 2017-05-06 22:45 | Consultation ---
DATE OF CONSULTATION: 05/06/2017 INFECTIOUS DISEASES CONSULTATION CONSULTING PHYSICIAN: Chelsie Morales M.D. ATTENDING PHYSICIAN: Trung Sebastian M.D. REASON FOR CONSULTATION: Pneumonia and sepsis, possible UTI, leukocytosis, and fevers. CHIEF COMPLAINT: The patient's chief complaint coming in to the hospital is shortness of breath, pneumonia, and sepsis. HISTORY OF PRESENT ILLNESS: This is an 81-year-old female, who comes in to [facility]. The patient with short of breath, hypoxic, and likely septic with elevated white count and fevers. The patient had a positive urinalysis, possible UTI, however, urine culture is negative. The patient had imaging including a CT scan of the chest, which showed pulmonary embolism and atelectasis versus consolidation in the lower lobes. The patient was septic on admission with temperature as high as 102. The patient also had tachypnea and tachycardia. She also had elevated white count. Infectious Diseases consultation is requested. The patient was placed on vancomycin and Zosyn. Sputum culture is pending. Cultures were noted. Case was discussed with Dr. Sebastian. MAR was noted. Orders were noted. Notes were reviewed. Case was discussed with RN. PAST MEDICAL HISTORY: The patient's past medical history obtained from the records. The patient has a past medical history of encephalopathy, cerebral infarction, aspiration risk, paroxysmal atrial fibrillation, history of dementia, history of sepsis in the past, anemia, history of essential hypertension, history of speech deficits, history of dysphagia, history of abnormal posture, and CVA. She also is anemic. She has history of cholecystectomy. MEDICATIONS: Upon reviewing the MAR, she is on following medications. She is on Lovenox, Atrovent, and Mucomyst. She is on Namenda, Colace, and Zosyn. I am adding vancomycin. She is on diltiazem, acetaminophen, ferrous sulfate, bisacodyl, magnesium hydroxide, sodium phosphate, and dextrose. Outside medications are noted and reconciled. ALLERGIES: No known drug allergies. SOCIAL HISTORY: Negative for smoking, alcohol, or drug abuse. FAMILY HISTORY: Noncontributory. No mention of exposure to tuberculosis or cancer. REVIEW OF SYSTEMS: CONSTITUTIONAL: The patient has generalized weakness and fatigue. She came in with fevers. Currently, she has no fevers. She has no chills. She does have lethargy, but is responsive. She has a breathing mask. HEAD AND NECK: No head pain, neck pain, or neck stiffness. CARDIAC: No chest pain or palpitations. GASTROINTESTINAL: No nausea, vomiting, or diarrhea. No hemoptysis or secretions. She has no significant decubitus upon review. GENITOURINARY: She has no Arndt. No CVA tenderness. PULMONARY: She has congestion and shortness of breath, has a breathing mask. SKIN: No rash or itching. EXTREMITIES: No extremity pain. NEUROLOGICAL: No seizures. PHYSICAL EXAMINATION: VITAL SIGNS: Temperature 97.7, pulse rate , respiratory rate 22, saturating 94% on FiO2 40%. Her T-max is 102. GENERAL: She opens eyes and responsive, but has generalized weakness. HEAD AND NECK: Oral exam, no thrush. Eye exam, no icterus. Normocephalic. No facial droop. No neck stiffness. Neck is supple. She has a breathing mask. HEART: Regular. No gallop or murmur. ABDOMEN: Soft. Positive bowel sounds. Nontender. LUNGS: Bilateral rhonchi and rales at the bases. MUSCULOSKELETAL: No effusion. Legs are without cellulitis. PERIPHERAL VASCULAR: No cyanosis or gangrene. SKIN: No other rash. GENITOURINARY: She has no Arndt. No CVA tenderness. Line sites are without phlebitis. NEUROLOGICAL: Nausea, generalized weakness and responsive. LABORATORY DATA: Laboratory data is as follows, white count is high at 15.7 on admission and right now is 12.5 and hemoglobin 9.2. The patient's creatinine is 0.7. LFTs were noted. Blood and urine culture were negative. Sputum culture is pending. IMAGING STUDIES: Chest x-ray initially showed right parenchymal disease and retrocardiac consolidation. CT scan of the chest showed pulmonary embolism and also bilateral lower lobe consolidations with atelectasis. ASSESSMENT AND PLAN: 1. The patient has likely sepsis syndrome with tachycardia, other respiratory fevers and leukocytosis. The patient likely also has aspiration and healthcare-acquired pneumonia versus community-acquired pneumonia. The patient also has pulmonary embolism. The patient will continue on Zosyn and vancomycin pending culture results, final cultures including sputum culture results. Urine culture is negative. She had a positive urinalysis for questionable urinary tract infection. Continue antibiotics. Check renal supportive measures. Supportive care. 2. Pulmonary embolism. Treatment per primary consultants of anticoagulation. 3. Anemia. 4. History of encephalopathy. 5. History of cholecystectomy. 6. History of acute kidney injury. 7. Cerebrovascular accident. 8. Aspiration risk. 9. tachycardia. 10. Dementia. 11. History of sepsis. 12. Essential hypertension. 13. Continue treatment per primary consultants. 14. Dysphagia. 15. Abnormal posture and speech deficit. 16. No known allergies. 17. Family history is noncontributory. 18. Social history negative. 19. MAR was noted. 20. Case discussed with RN. 21. Skin care protocol. 22. Continue treatment per primary consultants. 23. Case was also discussed with Dr. Sebastian. Chelsie Morales M.D. DR: JOE JOB#: [id number] CC:
[2017-05-07] VITALS: BP 145/74
[2017-05-07] MEDS: dilTIAZem HCl 25mg/5ml Inj IVP SCH ×3 (01:16→15:22)
[2017-05-07] MEDS: Acetylcysteine 20% Soln 4ml HHN SCH ×4 (02:15→19:54)
[2017-05-07] MEDS: Ipratropium 0.02% Inh Soln 2.5ml UD HHN SCH ×4 (02:15→19:54)
[2017-05-07 04:00] VITALS: BP 126/73
[2017-05-07] MEDS: Piperacillin/Tazobactam 3.375 GM in D5W 55 ML IV SCH ×3 (06:09→22:25)
[2017-05-07 06:35] LABS: BASOPHILS % (AUTO) 0.2 % (0.0-2.0); EOSINOPHILS % (AUTO) 0.6 % (0.0-3.0); HEMATOCRIT 31.5 % (37.0-47.0); HEMOGLOBIN 9.9 G/DL (12.0-16.0); MEAN CORPUSCULAR VOLUME 83 FL (80-99); MONOCYTES % (AUTO) 4.3 % (1.0-10.0); NEUTROPHILS % (AUTO) 83.9 % (45.0-75.0); PLATELET COUNT 352 K/UL (150-450); RED BLOOD COUNT 3.81 M/UL (4.20-5.40); RED CELL DISTRIBUTION WIDTH 16.7 % (11.6-14.8)
[2017-05-07 07:03] LABS: ALANINE AMINOTRANSFERASE 12 U/L (12-78); ALBUMIN 1.4 G/DL (3.4-5.0); ALBUMIN/GLOBULIN RATIO 0.3 (1.0-2.7); ALKALINE PHOSPHATASE 64 U/L (46-116); ANION GAP 9 mmol/L (5-15); ASPARTATE AMINO TRANSFERASE 15 U/L (15-37); BILIRUBIN,TOTAL 0.5 MG/DL (0.2-1.0); BLOOD UREA NITROGEN 10 mg/dL (7-18); CARBON DIOXIDE 22 MMOL/L (21-32); CHLORIDE 104 MMOL/L (98-107); CREATININE 0.8 MG/DL (0.55-1.30); POTASSIUM 2.9 MMOL/L (3.5-5.1); SODIUM 135 MMOL/L (136-145)
--- NOTE | 2017-05-07 07:53 | Diagnostic Imaging Report ---
Indication: NG tube placement Technique: XRAY Abdomen 1v Comparison: 05/05/2017 Findings: Weighted tip enteric tube is noted with its tip in the region of the distal stomach. The inner stiffener/wire remains in place. Bowel gas pattern is nonspecific. Surgical clips again noted in the right upper quadrant. There is osteopenia with mild scoliosis and multilevel degenerative change of the spine. No acute osseous abnormality seen. Patchy bibasilar airspace opacities, right greater than left, partially visualized. There is interstitial edema/opacification. Impression: Weighted enteric tube tip in the region of the distal stomach. This corresponds with the [facility] preliminary report.
[2017-05-07 08:00] VITALS: BP 150/73
[2017-05-07] MEDS: Docusate 100mg/10ml Liq NG SCH ×2 (08:16→17:37)
[2017-05-07] MEDS: Enoxaparin 60mg Inj SUBQ SCH ×2 (08:18→21:02)
--- NOTE | 2017-05-07 08:50 | General Progress Note ---
Assessment/Plan Problem List: (1) PE (2) Dysphagia ICD Codes: R13.10 - Dysphagia, unspecified SNOMED: 58772810, [id number] (3) Anemia ICD Codes: D64.9 - Anemia, unspecified SNOMED: 833426515 Assessment/Plan NGTF on lovenox anemia work up replace K kub today fu Subjective ROS Limited/Unobtainable: No Allergies: Coded Allergies: No Known Allergies (Unverified , 05/03/17) Objective Last 24 Hour Vital Signs Date Time Temp Pulse Resp B/P (MAP) Pulse Ox O2 Delivery O2 Flow Rate FiO2 05/07/17 08:16 113 150/73 05/07/17 07:53 99 20 98 Venturi Mask 8.0 40 05/07/17 07:40 Venturi Mask 8.0 40 05/07/17 07:40 94 18 96 Venturi Mask 8.0 40 05/07/17 07:40 40 05/07/17 07:40 96 Venturi Mask 8.0 40 05/07/17 04:00 98.6 103 24 126/73 98 Venturi Mask 8.0 40 05/07/17 04:00 102 05/07/17 02:39 103 24 98 Venturi Mask 8.0 40 05/07/17 02:37 101 24 98 Venturi Mask 8.0 40 05/07/17 01:16 104 145/74 05/07/17 00:00 98 05/07/17 00:00 97.9 104 24 145/74 99 Venturi Mask 8.0 40 05/06/17 21:36 98 18 97 Venturi Mask 8.0 40 05/06/17 21:15 40 05/06/17 21:14 87 18 97 Venturi Mask 8.0 40 05/06/17 21:12 Venturi Mask 8.0 40 05/06/17 21:11 99 Venturi Mask 8.0 40 05/06/17 20:00 119 05/06/17 20:00 98.9 100 18 145/70 100 Venturi Mask 8.0 40 05/06/17 16:00 97.7 107 22 136/65 94 Venturi Mask 8.0 40 05/06/17 16:00 108 05/06/17 15:33 111 136/72 05/06/17 13:18 111 20 95 Venturi Mask 8.0 40 05/06/17 13:18 40 05/06/17 13:17 106 18 20 Venturi Mask 8.0 40 05/06/17 12:00 97.9 106 18 136/72 96 Venturi Mask 8.0 40 05/06/17 09:48 114 148/65 Intake and Output 05/06/17 05/07/17 19:00 07:00 Intake Total 671.25 ml 1119.751 ml Output Total 150 ml 600 ml Balance 521.25 ml 519.751 ml Free Water 266 ml IV Total 671.25 ml 703.751 ml Tube Feeding 150 ml Output Urine Total 150 ml 600 ml # Voids 2 # Bowel Movements 2 Laboratory Tests 05/06/17 10:30: White Blood Count 12.5H, Red Blood Count 3.69L, Hemoglobin 9.2L, Hematocrit 30.5L, Mean Corpuscular Volume 83, Mean Corpuscular Hemoglobin 24.9L, Mean Corpuscular Hemoglobin Concent 30.1L, Red Cell Distribution Width 17.4H, Platelet Count 294, Mean Platelet Volume 6.1L, Neutrophils (%) (Auto) 84.4H, Lymphocytes (%) (Auto) 10.2L, Monocytes (%) (Auto) 4.3, Eosinophils (%) (Auto) 0.8, Basophils (%) (Auto) 0.2 05/07/17 06:15: White Blood Count 11.0H, Red Blood Count 3.81L, Hemoglobin 9.9L, Hematocrit 31.5L, Mean Corpuscular Volume 83, Mean Corpuscular Hemoglobin 25.9L, Mean Corpuscular Hemoglobin Concent 31.4L, Red Cell Distribution Width 16.7H, Platelet Count 352, Mean Platelet Volume 5.6L, Neutrophils (%) (Auto) 83.9H, Lymphocytes (%) (Auto) 11.0L, Monocytes (%) (Auto) 4.3, Eosinophils (%) (Auto) 0.6, Basophils (%) (Auto) 0.2, Sodium Level 135L, Potassium Level 2.9L, Chloride Level 104, Carbon Dioxide Level 22, Anion Gap 9, Blood Urea Nitrogen 10 , Creatinine 0.8, Estimat Glomerular Filtration Rate , Glucose Level 106, Calcium Level 8.0L, Total Bilirubin 0.5, Aspartate Amino Transf (AST/SGOT) 15, Alanine Aminotransferase (ALT/SGPT) 12, Alkaline Phosphatase 64, Total Protein 6.7, Albumin 1.4L, Globulin 5.3, Albumin/Globulin Ratio 0.3L Height (Feet): 5 Height (Inches): 3.00 Weight (Pounds): 140 General Appearance: lethargic EENT: normal ENT inspection Neck: supple Cardiovascular: tachycardia Respiratory/Chest: decreased breath sounds Abdomen: soft, hypoactive bowel sounds, distended Extremities: non-tender PATO ESCOBEDO May 07, 2017 08:50
--- NOTE | 2017-05-07 09:58 | Diagnostic Imaging Report ---
Indication: Abdominal distention Technique: XRAY Abdomen 1v Comparison: 05/06/2017 Findings: Weighted tip enteric tube is noted with its tip in the region of the distal stomach. The inner stiffener/wire has been removed in the interval. Bowel gas pattern is nonspecific and not overtly obstructive. Limited sensitivity for free intraperitoneal air on supine view. Surgical clips again noted in the right upper quadrant. There is osteopenia with mild scoliosis and multilevel degenerative change of the spine. No acute osseous abnormality seen. Pulmonary vascular congestion and patchy bilateral airspace opacities, right greater left, partially visualized. Impression: Weighted enteric tube tip in the region of the distal stomach. Interval removal of the inner stiffener/wire. Nonspecific bowel gas pattern
[2017-05-07] MEDS ORDERED: Potassium Chloride 40 MEQ in Sodium Chloride 500ML 550 ML IVPB ONE (11:00)
--- NOTE | 2017-05-07 11:05 | Pulmonology Progress Note ---
Assessment/Plan Problems: (1) Pneumonia (2) Fever (3) Sepsis Assessment/Plan ASSESSMENT: -PE -SIRS -HCAP -Hypoxemia 2/2 above -Sinus tachycardia -UTI/urosepsis -Dysphagia -H/O CVA -HTN -Anemia -Protein calorie malnutrition -NHR -Abnormal findings in abdomen noted on CT chest PLAN: -Optimize pulmonary hygiene/mobilize as tolerated -Titrate down FiO2 to keep SaO2 > 90% -ATROVENT HHN's q6WA and q4 PRN -MUCOMYST HHN QID -CPT QID -Abx per ID, F/U Cx's -Monitor volumes, D/C IVF -NGT feeds, continue LOCK ASSEMBLER therapy, F/U VSS -Continue BID Lovenox, monitor H/H and for bleeding, can D/C on Xarelto or low dose Eliquis given age -F/U GI recs, F/U CT A/P, ? endoscopy based on radiologist recommendations -DVT Px: LMWH -FC Subjective Allergies: Coded Allergies: No Known Allergies (Unverified , 05/03/17) Subjective AFVSS, O2 needs stable + cough, + SOB, no F/C, started on NGTF's, H/H stable Objective Last 24 Hour Vital Signs Date Time Temp Pulse Resp B/P (MAP) Pulse Ox O2 Delivery O2 Flow Rate FiO2 05/07/17 08:16 113 150/73 05/07/17 08:00 99.0 108 24 150/73 96 Venturi Mask 8.0 40 05/07/17 08:00 111 05/07/17 07:53 99 20 98 Venturi Mask 8.0 40 05/07/17 07:40 Venturi Mask 8.0 40 05/07/17 07:40 94 18 96 Venturi Mask 8.0 40 05/07/17 07:40 40 05/07/17 07:40 96 Venturi Mask 8.0 40 05/07/17 04:00 98.6 103 24 126/73 98 Venturi Mask 8.0 40 05/07/17 04:00 102 05/07/17 02:39 103 24 98 Venturi Mask 8.0 40 05/07/17 02:37 101 24 98 Venturi Mask 8.0 40 05/07/17 01:16 104 145/74 05/07/17 00:00 98 05/07/17 00:00 97.9 104 24 145/74 99 Venturi Mask 8.0 40 05/06/17 21:36 98 18 97 Venturi Mask 8.0 40 05/06/17 21:15 40 05/06/17 21:14 87 18 97 Venturi Mask 8.0 40 05/06/17 21:12 Venturi Mask 8.0 40 05/06/17 21:11 99 Venturi Mask 8.0 40 05/06/17 20:00 119 05/06/17 20:00 98.9 100 18 145/70 100 Venturi Mask 8.0 40 05/06/17 16:00 97.7 107 22 136/65 94 Venturi Mask 8.0 40 05/06/17 16:00 108 05/06/17 15:33 111 136/72 05/06/17 13:18 111 20 95 Venturi Mask 8.0 40 05/06/17 13:18 40 05/06/17 13:17 106 18 20 Venturi Mask 8.0 40 05/06/17 12:00 97.9 106 18 136/72 96 Venturi Mask 8.0 40 Intake and Output 05/06/17 05/07/17 19:00 07:00 Intake Total 671.25 ml 1119.751 ml Output Total 150 ml 600 ml Balance 521.25 ml 519.751 ml Free Water 266 ml IV Total 671.25 ml 703.751 ml Tube Feeding 150 ml Output Urine Total 150 ml 600 ml # Voids 2 # Bowel Movements 2 General Appearance: no acute distress, cachetic HEENT: normocephalic, atraumatic, other - NGT Respiratory/Chest: chest wall non-tender, normal breath sounds, crackles/rales - BiB Cardiovascular: normal peripheral pulses, normal rate, regular rhythm Abdomen: normal bowel sounds, soft, non tender, no organomegaly, non distended , no mass Extremities: no cyanosis, no clubbing, no edema Microbiology Date/Time Source Procedure Growth Status 05/05/17 00:30 Sputum Induced Gram Stain - Final Resulted 05/05/17 00:30 Sputum Culture - Preliminary Staphylococcus Aureus Resulted Laboratory Tests 05/07/17 06:15: White Blood Count 11.0H, Red Blood Count 3.81L, Hemoglobin 9.9L, Hematocrit 31.5L, Mean Corpuscular Volume 83, Mean Corpuscular Hemoglobin 25.9L, Mean Corpuscular Hemoglobin Concent 31.4L, Red Cell Distribution Width 16.7H, Platelet Count 352, Mean Platelet Volume 5.6L, Neutrophils (%) (Auto) 83.9H, Lymphocytes (%) (Auto) 11.0L, Monocytes (%) (Auto) 4.3, Eosinophils (%) (Auto) 0.6, Basophils (%) (Auto) 0.2, Sodium Level 135L, Potassium Level 2.9L, Chloride Level 104, Carbon Dioxide Level 22, Anion Gap 9, Blood Urea Nitrogen 10 , Creatinine 0.8, Estimat Glomerular Filtration Rate , Glucose Level 106, Calcium Level 8.0L, Total Bilirubin 0.5, Aspartate Amino Transf (AST/SGOT) 15, Alanine Aminotransferase (ALT/SGPT) 12, Alkaline Phosphatase 64, Total Protein 6.7, Albumin 1.4L, Globulin 5.3, Albumin/Globulin Ratio 0.3L Current Medications Medications (Trade) Dose Ordered Sig/Chevy Route PRN Reason Start Time Stop Time Status Last Admin Dose Admin Acetaminophen (Tylenol) 650 mg Q4H PRN RECTAL Mild Pain (Pain Scale 1-3) 05/04/17 13:00 06/03/17 12:59 05/04/17 13:58 Acetylcysteine (Mucomyst) 200 mg Q6HRT HHN 05/05/17 01:00 06/04/17 00:59 05/07/17 07:40 Bisacodyl (Dulcolax) 10 mg BID PRN ORAL Constipation 05/03/17 23:45 06/02/17 23:44 Dextrose (Dextrose 50%) STAT PRN IV Hypoglycemia 05/03/17 23:45 06/02/17 23:44 Dextrose/Sodium Chloride 1,000 ml @ 30 mls/hr Q24H IV 05/06/17 10:00 06/05/17 09:59 05/06/17 20:42 Diltiazem HCl (Cardizem) 20 mg Q8H IVP 05/04/17 16:00 06/03/17 15:59 05/07/17 08:16 Docusate Sodium (Colace) 100 mg TWICE A DAY NG 05/04/17 18:00 06/03/17 17:59 Enoxaparin Sodium (Lovenox) 60 mg EVERY 12 HOURS SUBQ 05/05/17 20:00 06/04/17 19:59 05/07/17 08:18 Ferrous Sulfate (Feosol) 325 mg TWICE A DAY ORAL 05/04/17 09:00 06/03/17 08:59 05/07/17 08:16 Ipratropium [place] (Atrovent) 500 mcg Q4H PRN HHN Shortness of Breath 05/04/17 22:00 05/09/17 21:59 05/05/17 17:08 Ipratropium [place] (Atrovent) 500 mcg Q6HRT HHN 05/05/17 01:00 05/10/17 00:59 05/07/17 07:40 Magnesium Hydroxide (Mom) 30 ml DAILY PRN ORAL Constipation 05/03/17 23:45 06/02/17 23:44 05/04/17 08:58 Memantine (Namenda) 5 mg QHS ORAL 05/04/17 21:00 06/03/17 20:59 05/06/17 22:29 Piperacillin Sod/ Tazobactam Sod 3.375 gm/Dextrose 55 ml @ 13.75 mls/ hr EVERY 8 HOURS IV 05/04/17 14:00 05/11/17 13:59 05/07/17 06:09 Potassium Chloride 40 meq/ Sodium Chloride 570 ml @ 142.5 mls/ hr ONCE ONCE IVPB 05/07/17 11:00 05/07/17 14:59 05/07/17 10:26 Sodium Phosphate (Fleet's Sodium Phosl Enema) 133 ml DAILY PRN RECTAL IF DULCOLAX INEFFECTIVE 05/03/17 23:45 06/02/17 23:44 Vancomycin HCl (Vanco rx to dose) 1 ea DAILYPRN PRN MISC Per rx protocol 05/06/17 17:45 06/05/17 17:44 Vancomycin HCl 1 gm/Dextrose 275 ml @ 183.708 mls/hr DAILY@2100 IVPB 05/06/17 20:00 05/11/17 19:59 05/06/17 22:28 AFSHIN ALDRIDGE M.D. May 07, 2017 11:05
[2017-05-07 12:00] VITALS: BP 133/87
[2017-05-07 16:00] VITALS: BP 144/68
[2017-05-07 20:00] VITALS: BP 130/71
[2017-05-07] MEDS: Memantine 5 MG TAB ORAL SCH (21:01)
[2017-05-07] MEDS: Vancomycin 1gm in D5W 275ml IVPB SCH (21:01)
--- NOTE | 2017-05-07 23:27 | Internal Med Progress Note ---
Subjective Physician Name Trung Sebastian Attending Physician Trung Sebastian MD Current Medications Medications (Trade) Dose Ordered Sig/Chevy Route PRN Reason Start Time Stop Time Status Last Admin Dose Admin Acetaminophen (Tylenol) 650 mg Q4H PRN RECTAL Mild Pain (Pain Scale 1-3) 05/04/17 13:00 06/03/17 12:59 05/04/17 13:58 Acetylcysteine (Mucomyst) 200 mg Q6HRT HHN 05/05/17 01:00 06/04/17 00:59 05/07/17 19:54 Bisacodyl (Dulcolax) 10 mg BID PRN ORAL Constipation 05/03/17 23:45 06/02/17 23:44 Dextrose (Dextrose 50%) STAT PRN IV Hypoglycemia 05/03/17 23:45 06/02/17 23:44 Diltiazem HCl (Cardizem) 20 mg Q8H IVP 05/04/17 16:00 06/03/17 15:59 05/07/17 15:22 Docusate Sodium (Colace) 100 mg TWICE A DAY NG 05/04/17 18:00 06/03/17 17:59 05/07/17 17:37 Enoxaparin Sodium (Lovenox) 60 mg EVERY 12 HOURS SUBQ 05/05/17 20:00 06/04/17 19:59 05/07/17 21:02 Ferrous Sulfate (Feosol) 325 mg TWICE A DAY ORAL 05/04/17 09:00 06/03/17 08:59 05/07/17 17:37 Ipratropium [place] (Atrovent) 500 mcg Q4H PRN HHN Shortness of Breath 05/04/17 22:00 05/09/17 21:59 05/05/17 17:08 Ipratropium [place] (Atrovent) 500 mcg Q6HRT HHN 05/05/17 01:00 05/10/17 00:59 05/07/17 19:54 Magnesium Hydroxide (Mom) 30 ml DAILY PRN ORAL Constipation 05/03/17 23:45 06/02/17 23:44 05/04/17 08:58 Memantine (Namenda) 5 mg QHS ORAL 05/04/17 21:00 06/03/17 20:59 05/07/17 21:01 Piperacillin Sod/ Tazobactam Sod 3.375 gm/Dextrose 55 ml @ 13.75 mls/ hr EVERY 8 HOURS IV 05/04/17 14:00 05/11/17 13:59 05/07/17 22:25 Sodium Phosphate (Fleet's Sodium Phosl Enema) 133 ml DAILY PRN RECTAL IF DULCOLAX INEFFECTIVE 05/03/17 23:45 06/02/17 23:44 Vancomycin HCl (Vanco rx to dose) 1 ea DAILYPRN PRN MISC Per rx protocol 05/06/17 17:45 06/05/17 17:44 Vancomycin HCl 1 gm/Dextrose 275 ml @ 183.708 mls/hr DAILY@2100 IVPB 05/06/17 20:00 05/11/17 19:59 05/07/17 21:01 Allergies: Coded Allergies: No Known Allergies (Unverified , 05/03/17) Subjective awake, responsive, alert, on Face mask, NAD, WBC: 11.0 Objective Last Vital Signs Date Time Temp Pulse Resp B/P (MAP) Pulse Ox O2 Delivery O2 Flow Rate FiO2 05/07/17 20:47 113 05/07/17 20:00 98.2 22 130/71 96 Venturi Mask 8.0 40 Laboratory Tests Test 05/07/17 06:15 White Blood Count 11.0 K/UL (4.8-10.8) H Red Blood Count 3.81 M/UL (4.20-5.40) L Hemoglobin 9.9 G/DL (12.0-16.0) L Hematocrit 31.5 % (37.0-47.0) L Mean Corpuscular Volume 83 FL (80-99) Mean Corpuscular Hemoglobin 25.9 PG (27.0-31.0) L Mean Corpuscular Hemoglobin Concent 31.4 G/DL (32.0-36.0) L Red Cell Distribution Width 16.7 % (11.6-14.8) H Platelet Count 352 K/UL (150-450) Mean Platelet Volume 5.6 FL (6.5-10.1) L Neutrophils (%) (Auto) 83.9 % (45.0-75.0) H Lymphocytes (%) (Auto) 11.0 % (20.0-45.0) L Monocytes (%) (Auto) 4.3 % (1.0-10.0) Eosinophils (%) (Auto) 0.6 % (0.0-3.0) Basophils (%) (Auto) 0.2 % (0.0-2.0) Sodium Level 135 MMOL/L (136-145) L Potassium Level 2.9 MMOL/L (3.5-5.1) L Chloride Level 104 MMOL/L (98-107) Carbon Dioxide Level 22 MMOL/L (21-32) Anion Gap 9 mmol/L (5-15) Blood Urea Nitrogen 10 mg/dL (7-18) Creatinine 0.8 MG/DL (0.55-1.30) Estimat Glomerular Filtration Rate mL/min (>60) Glucose Level 106 MG/DL (74-106) Calcium Level 8.0 MG/DL (8.5-10.1) L Total Bilirubin 0.5 MG/DL (0.2-1.0) Aspartate Amino Transf (AST/SGOT) 15 U/L (15-37) Alanine Aminotransferase (ALT/SGPT) 12 U/L (12-78) Alkaline Phosphatase 64 U/L (46-116) Total Protein 6.7 G/DL (6.4-8.2) Albumin 1.4 G/DL (3.4-5.0) L Globulin 5.3 g/dL Albumin/Globulin Ratio 0.3 (1.0-2.7) L Microbiology Date/Time Source Procedure Growth Status 05/05/17 00:30 Sputum Induced Gram Stain - Final Resulted 05/05/17 00:30 Sputum Culture - Preliminary Staphylococcus Aureus Resulted Intake and Output 05/06/17 05/07/17 19:00 07:00 Intake Total 671.25 ml 1119.751 ml Output Total 150 ml 600 ml Balance 521.25 ml 519.751 ml Free Water 266 ml IV Total 671.25 ml 703.751 ml Tube Feeding 150 ml Output Urine Total 150 ml 600 ml # Voids 2 # Bowel Movements 2 Objective GENERAL: awake, responsive, opens eyes, talking. HEENT: Pupils reactive to light. Anicteric. NG Tube. NECK: Supple. No JVD. LUNGS: fair air entry. Bilateral air entry, No wheezing. less Coarse breath HEART: S1 and S2. RR. no murmur ABDOMEN: Soft, nontender and nondistended. Positive bowel sounds. EXTREMITIES: No cyanosis, clubbing, or edema. NEUROLOGIC: moving all extremities equally . CN 2-12 intact. Assessment/Plan Assessment/Plan LL subsegmental PE SIRS Right lower lobe pneumonia, possible aspiration pneumonia. History of cerebrovascular accident. Sinus tachycardia. Urinary tract infection, possible sepsis secondary to urinary tract infection. Dysphagia. Hypertension. Anemia. Severe protein-calorie malnutrition. PLAN: in [place]. Lovenox injection BID monitor laboratory and cultures. Dr. Malik Knapp from [facility]. Abx: Zosyn IV, Vanco IV Tub feeding @ 45 cc/hr Full Code. 2D Echo: Normal left ventricular chamber size, systolic function and wall motion. Left ventricular ejection fraction estimated to be 65-70 %. No evidence of left ventricular hypertrophy. Anterior Echo-free space, may be due to pericardial fat or effusion. All other cardiac chamber sizes are within normal limits. Focal aortic valve sclerosis with adequate cusp excursion. Thickened mitral valve leaflets with normal excursion. Mild mitral annulus and aortic root calcification. Normal pulmonic valve structure. Normal tricuspid valve structure. IVC at normal size with physiologic collapse. A color flow and spectral Doppler study was performed and revealed: Mild aortic regurgitation. Trace mitral regurgitation. Mitral diastolic velocities suggest mild left ventricular dysfunction (Grade I ) . Mild tricuspid regurgitation. Tricuspid systolic velocities suggests peak right ventricular systolic pressure of 45 mmHg, consistent with moderate pulmonary hypertension. Trace pulmonic regurgitation present. Trung Sebastian MD May 07, 2017 23:27
[2017-05-08] VITALS: BP 148/85
[2017-05-08] MEDS: dilTIAZem HCl 25mg/5ml Inj IVP SCH ×3 (00:12→16:08)
[2017-05-08] MEDS: Ipratropium 0.02% Inh Soln 2.5ml UD HHN SCH ×4 (01:00→20:29)
[2017-05-08] MEDS: Acetylcysteine 20% Soln 4ml HHN SCH ×4 (01:00→20:30)
[2017-05-08 04:00] VITALS: BP 128/69
[2017-05-08] MEDS: Piperacillin/Tazobactam 3.375 GM in D5W 55 ML IV SCH ×3 (05:29→21:39)
[2017-05-08 06:35] LABS: BASOPHILS % (AUTO) 0.5 % (0.0-2.0); EOSINOPHILS % (AUTO) 0.6 % (0.0-3.0); HEMOGLOBIN 8.9 G/DL (12.0-16.0); LYMPHOCYTES % (AUTO) 13.6 % (20.0-45.0); MEAN CORPUSCULAR VOLUME 83 FL (80-99); MONOCYTES % (AUTO) 6.3 % (1.0-10.0); PLATELET COUNT 390 K/UL (150-450); RED BLOOD COUNT 3.49 M/UL (4.20-5.40); RED CELL DISTRIBUTION WIDTH 16.9 % (11.6-14.8); WHITE BLOOD COUNT 10.6 K/UL (4.8-10.8)
[2017-05-08 06:44] LABS: ANION GAP 10 mmol/L (5-15); BLOOD UREA NITROGEN 12 mg/dL (7-18); CALCIUM 7.9 MG/DL (8.5-10.1); CARBON DIOXIDE 21 MMOL/L (21-32); CHLORIDE 106 MMOL/L (98-107); CREATININE 0.8 MG/DL (0.55-1.30); POTASSIUM 3.2 MMOL/L (3.5-5.1); SODIUM 137 MMOL/L (136-145)
[2017-05-08 06:51] LABS: % IRON SATURATION 9 % (15-50); IRON 11 ug/dL (50-175); TOTAL IRON BINDING CAPACITY 117 ug/dL (250-450)
[2017-05-08 08:00] VITALS: BP 134/75
[2017-05-08] MEDS: Docusate 100mg/10ml Liq NG SCH (08:52)
[2017-05-08] MEDS: Enoxaparin 60mg Inj SUBQ SCH ×2 (08:54→21:34)
[2017-05-08] MEDS ORDERED: Ferrous Sulfate 300 MG/5 ML UDC NG SCH (09:30)
--- NOTE | 2017-05-08 10:23 | Pulmonology Progress Note ---
Assessment/Plan Problems: (1) Pneumonia (2) Fever (3) Sepsis Assessment/Plan ASSESSMENT: -PE -SIRS -HCAP -Hypoxemia 2/2 above -Sinus tachycardia -UTI/urosepsis -Dysphagia -H/O CVA -HTN -Anemia -Protein calorie malnutrition -NHR -Abnormal findings in abdomen noted on CT chest PLAN: -Optimize pulmonary hygiene/mobilize as tolerated -Titrate down FiO2 to keep SaO2 > 90% -ATROVENT HHN's q6WA and q4 PRN -MUCOMYST HHN QID -CPT QID -Abx per ID, F/U Cx's -Monitor volumes -NGT feeds, continue GREENBELT therapy, F/U VSS -Continue BID Lovenox, monitor H/H and for bleeding, can D/C on Xarelto or low dose Eliquis given age -F/U GI recs, F/U CT A/P, ? endoscopy based on radiologist recommendations -DVT Px: LMWH -FC Subjective Allergies: Coded Allergies: No Known Allergies (Unverified , 05/03/17) Subjective AFVSS, O2 needs stable less cough, less SOB, no F/C Objective Last 24 Hour Vital Signs Date Time Temp Pulse Resp B/P (MAP) Pulse Ox O2 Delivery O2 Flow Rate FiO2 05/08/17 08:52 114 134/75 05/08/17 08:00 97.4 114 19 134/75 98 Venturi Mask 8.0 40 05/08/17 07:30 106 18 100 Venturi Mask 8.0 40 05/08/17 07:20 Venturi Mask 8.0 40 05/08/17 07:20 98 Venturi Mask 8.0 40 05/08/17 07:20 40 05/08/17 07:20 104 18 98 Venturi Mask 8.0 40 05/08/17 04:00 97.9 108 20 128/69 97 Venturi Mask 8.0 40 05/08/17 03:44 110 05/08/17 01:28 Venturi Mask 8.0 40 05/08/17 01:28 Venturi Mask 8.0 40 05/08/17 00:12 115 148/85 05/08/17 00:00 98.1 115 24 148/85 96 Venturi Mask 8.0 40 05/07/17 20:47 113 05/07/17 20:00 98.2 113 22 130/71 96 Venturi Mask 8.0 40 05/07/17 19:29 102 18 100 Venturi Mask 8.0 40 05/07/17 19:25 40 05/07/17 19:25 108 16 96 Venturi Mask 8.0 40 05/07/17 19:00 97 Venturi Mask 8.0 40 05/07/17 19:00 Venturi Mask 8.0 40 05/07/17 16:00 98.2 67 22 144/68 92 Venturi Mask 8.0 40 05/07/17 16:00 104 05/07/17 15:22 122 144/68 05/07/17 12:38 101 20 98 Venturi Mask 8.0 40 05/07/17 12:29 40 05/07/17 12:29 103 16 98 Venturi Mask 8.0 40 05/07/17 12:10 88 Room Air 05/07/17 12:00 116 05/07/17 12:00 97.8 107 22 133/87 94 Venturi Mask 8.0 40 Intake and Output 05/07/17 05/08/17 19:00 07:00 Intake Total 1253.75 ml 1252.328 ml Output Total 300 ml 870 ml Balance 953.75 ml 382.328 ml Free Water 150 ml IV Total 713.75 ml 442.328 ml Tube Feeding 510 ml 660 ml Other 30 ml Output Urine Total 300 ml 870 ml # Voids 1 # Bowel Movements 1 1 General Appearance: no acute distress, cachetic HEENT: normocephalic, atraumatic, mucous membranes moist, other - NGT Respiratory/Chest: rhonchi Cardiovascular: normal peripheral pulses, normal rate Abdomen: normal bowel sounds, soft, non tender, no organomegaly, non distended Extremities: no cyanosis, no clubbing, no edema Laboratory Tests 05/07/17 22:30: Stool Occult Blood [Pending] 05/08/17 06:20: White Blood Count 10.6, Red Blood Count 3.49L, Hemoglobin 8.9L, Hematocrit 29.0L , Mean Corpuscular Volume 83, Mean Corpuscular Hemoglobin 25.6L, Mean Corpuscular Hemoglobin Concent 30.9L, Red Cell Distribution Width 16.9H, Platelet Count 390, Mean Platelet Volume 5.8L, Neutrophils (%) (Auto) 79.0H, Lymphocytes (%) (Auto) 13.6L, Monocytes (%) (Auto) 6.3, Eosinophils (%) (Auto) 0.6, Basophils (%) (Auto) 0.5, Sodium Level 137, Potassium Level 3.2L, Chloride Level 106, Carbon Dioxide Level 21, Anion Gap 10, Blood Urea Nitrogen 12, Creatinine 0.8, Estimat Glomerular Filtration Rate , Glucose Level 116H, Calcium Level 7.9L, Iron Level 11L, Total Iron Binding Capacity 117L, Percent Iron Saturation 9L, Unsaturated Iron Binding 106L Current Medications Medications (Trade) Dose Ordered Sig/Chevy Route PRN Reason Start Time Stop Time Status Last Admin Dose Admin Acetaminophen (Tylenol) 650 mg Q4H PRN RECTAL Mild Pain (Pain Scale 1-3) 05/04/17 13:00 06/03/17 12:59 05/04/17 13:58 Acetylcysteine (Mucomyst) 200 mg Q6HRT HHN 05/05/17 01:00 06/04/17 00:59 05/08/17 07:24 Bisacodyl (Dulcolax) 10 mg BID PRN ORAL Constipation 05/03/17 23:45 06/02/17 23:44 Dextrose (Dextrose 50%) STAT PRN IV Hypoglycemia 05/03/17 23:45 06/02/17 23:44 Diltiazem HCl (Cardizem) 20 mg Q8H IVP 05/04/17 16:00 06/03/17 15:59 05/08/17 08:52 Docusate Sodium (Colace) 100 mg TWICE A DAY NG 05/04/17 18:00 06/03/17 17:59 05/08/17 08:52 Enoxaparin Sodium (Lovenox) 60 mg EVERY 12 HOURS SUBQ 05/05/17 20:00 06/04/17 19:59 05/08/17 08:54 Ferrous Sulfate (Feosol) 330 mg TWICE A DAY NG 05/08/17 09:30 06/07/17 09:29 Ipratropium [place] (Atrovent) 500 mcg Q4H PRN HHN Shortness of Breath 05/04/17 22:00 05/09/17 21:59 05/05/17 17:08 Ipratropium [place] (Atrovent) 500 mcg Q6HRT HHN 05/05/17 01:00 05/10/17 00:59 05/08/17 07:24 Magnesium Hydroxide (Mom) 30 ml DAILY PRN ORAL Constipation 05/03/17 23:45 06/02/17 23:44 05/04/17 08:58 Memantine (Namenda) 5 mg QHS ORAL 05/04/17 21:00 06/03/17 20:59 05/07/17 21:01 Piperacillin Sod/ Tazobactam Sod 3.375 gm/Dextrose 55 ml @ 13.75 mls/ hr EVERY 8 HOURS IV 05/04/17 14:00 05/11/17 13:59 05/08/17 05:29 Potassium Chloride (K-Dur) 40 meq TWICE A DAY NG 05/08/17 09:45 05/08/17 18:01 05/08/17 10:14 Sodium Phosphate (Fleet's Sodium Phosl Enema) 133 ml DAILY PRN RECTAL IF DULCOLAX INEFFECTIVE 05/03/17 23:45 06/02/17 23:44 Vancomycin HCl (Vanco rx to dose) 1 ea DAILYPRN PRN MISC Per rx protocol 05/06/17 17:45 06/05/17 17:44 Vancomycin HCl 1 gm/Dextrose 275 ml @ 183.708 mls/hr DAILY@2100 IVPB 05/06/17 20:00 05/11/17 19:59 05/07/17 21:01 AFSHIN ALDRIDGE M.D. May 08, 2017 10:23
--- NOTE | 2017-05-08 10:51 | General Progress Note ---
Assessment/Plan Problem List: (1) PE (2) Dysphagia ICD Codes: R13.10 - Dysphagia, unspecified SNOMED: 77029345, 046363810 (3) Anemia ICD Codes: D64.9 - Anemia, unspecified SNOMED: 648692080 Assessment/Plan NGTF on lovenox anemia work up fu abd CT fu Subjective ROS Limited/Unobtainable: No Allergies: Coded Allergies: No Known Allergies (Unverified , 05/03/17) Objective Last 24 Hour Vital Signs Date Time Temp Pulse Resp B/P (MAP) Pulse Ox O2 Delivery O2 Flow Rate FiO2 05/08/17 08:52 114 134/75 05/08/17 08:00 97.4 114 19 134/75 98 Venturi Mask 8.0 40 05/08/17 07:30 106 18 100 Venturi Mask 8.0 40 05/08/17 07:20 Venturi Mask 8.0 40 05/08/17 07:20 98 Venturi Mask 8.0 40 05/08/17 07:20 40 05/08/17 07:20 104 18 98 Venturi Mask 8.0 40 05/08/17 04:00 97.9 108 20 128/69 97 Venturi Mask 8.0 40 05/08/17 03:44 110 05/08/17 01:28 Venturi Mask 8.0 40 05/08/17 01:28 Venturi Mask 8.0 40 05/08/17 00:12 115 148/85 05/08/17 00:00 98.1 115 24 148/85 96 Venturi Mask 8.0 40 05/07/17 20:47 113 05/07/17 20:00 98.2 113 22 130/71 96 Venturi Mask 8.0 40 05/07/17 19:29 102 18 100 Venturi Mask 8.0 40 05/07/17 19:25 40 05/07/17 19:25 108 16 96 Venturi Mask 8.0 40 05/07/17 19:00 97 Venturi Mask 8.0 40 05/07/17 19:00 Venturi Mask 8.0 40 05/07/17 16:00 98.2 67 22 144/68 92 Venturi Mask 8.0 40 05/07/17 16:00 104 05/07/17 15:22 122 144/68 05/07/17 12:38 101 20 98 Venturi Mask 8.0 40 05/07/17 12:29 40 05/07/17 12:29 103 16 98 Venturi Mask 8.0 40 05/07/17 12:10 88 Room Air 05/07/17 12:00 116 05/07/17 12:00 97.8 107 22 133/87 94 Venturi Mask 8.0 40 Intake and Output 05/07/17 05/08/17 19:00 07:00 Intake Total 1253.75 ml 1252.328 ml Output Total 300 ml 870 ml Balance 953.75 ml 382.328 ml Free Water 150 ml IV Total 713.75 ml 442.328 ml Tube Feeding 510 ml 660 ml Other 30 ml Output Urine Total 300 ml 870 ml # Voids 1 # Bowel Movements 1 1 Laboratory Tests 05/07/17 22:30: Stool Occult Blood [Pending] 05/08/17 06:20: White Blood Count 10.6, Red Blood Count 3.49L, Hemoglobin 8.9L, Hematocrit 29.0L , Mean Corpuscular Volume 83, Mean Corpuscular Hemoglobin 25.6L, Mean Corpuscular Hemoglobin Concent 30.9L, Red Cell Distribution Width 16.9H, Platelet Count 390, Mean Platelet Volume 5.8L, Neutrophils (%) (Auto) 79.0H, Lymphocytes (%) (Auto) 13.6L, Monocytes (%) (Auto) 6.3, Eosinophils (%) (Auto) 0.6, Basophils (%) (Auto) 0.5, Sodium Level 137, Potassium Level 3.2L, Chloride Level 106, Carbon Dioxide Level 21, Anion Gap 10, Blood Urea Nitrogen 12, Creatinine 0.8, Estimat Glomerular Filtration Rate , Glucose Level 116H, Calcium Level 7.9L, Iron Level 11L, Total Iron Binding Capacity 117L, Percent Iron Saturation 9L, Unsaturated Iron Binding 106L Height (Feet): 5 Height (Inches): 3.00 Weight (Pounds): 140 General Appearance: no apparent distress EENT: normal ENT inspection Neck: supple Cardiovascular: normal rate Respiratory/Chest: decreased breath sounds Abdomen: normal bowel sounds, non tender, soft Extremities: non-tender PATO ESCOBEDO May 08, 2017 10:51
[2017-05-08 12:00] VITALS: BP 138/65
--- NOTE | 2017-05-08 14:49 | Internal Med Progress Note ---
Subjective Physician Name Trung Sebastian Attending Physician Trung Sebastian MD Current Medications Medications (Trade) Dose Ordered Sig/Chevy Route PRN Reason Start Time Stop Time Status Last Admin Dose Admin Acetaminophen (Tylenol) 650 mg Q4H PRN RECTAL Mild Pain (Pain Scale 1-3) 05/04/17 13:00 06/03/17 12:59 05/04/17 13:58 Acetylcysteine (Mucomyst) 200 mg Q6HRT HHN 05/05/17 01:00 06/04/17 00:59 05/08/17 13:40 Bisacodyl (Dulcolax) 10 mg BID PRN ORAL Constipation 05/03/17 23:45 06/02/17 23:44 Dextrose (Dextrose 50%) STAT PRN IV Hypoglycemia 05/03/17 23:45 06/02/17 23:44 Diltiazem HCl (Cardizem) 20 mg Q8H IVP 05/04/17 16:00 06/03/17 15:59 05/08/17 08:52 Docusate Sodium (Colace) 100 mg TWICE A DAY NG 05/04/17 18:00 06/03/17 17:59 05/08/17 08:52 Enoxaparin Sodium (Lovenox) 60 mg EVERY 12 HOURS SUBQ 05/05/17 20:00 06/04/17 19:59 05/08/17 08:54 Ferrous Sulfate (Feosol) 300 mg TWICE A DAY NG 05/08/17 18:00 06/07/17 17:59 Ipratropium [place] (Atrovent) 500 mcg Q4H PRN HHN Shortness of Breath 05/04/17 22:00 05/09/17 21:59 05/05/17 17:08 Ipratropium [place] (Atrovent) 500 mcg Q6HRT HHN 05/05/17 01:00 05/10/17 00:59 05/08/17 13:39 Magnesium Hydroxide (Mom) 30 ml DAILY PRN ORAL Constipation 05/03/17 23:45 06/02/17 23:44 05/04/17 08:58 Memantine (Namenda) 5 mg QHS ORAL 05/04/17 21:00 06/03/17 20:59 05/07/17 21:01 Piperacillin Sod/ Tazobactam Sod 3.375 gm/Dextrose 55 ml @ 13.75 mls/ hr EVERY 8 HOURS IV 05/04/17 14:00 05/11/17 13:59 05/08/17 05:29 Potassium Chloride (K-Dur) 40 meq TWICE A DAY NG 05/08/17 09:45 05/08/17 18:01 05/08/17 10:14 Sodium Phosphate (Fleet's Sodium Phosl Enema) 133 ml DAILY PRN RECTAL IF DULCOLAX INEFFECTIVE 05/03/17 23:45 06/02/17 23:44 Vancomycin HCl (Vanco rx to dose) 1 ea DAILYPRN PRN MISC Per rx protocol 05/06/17 17:45 06/05/17 17:44 Vancomycin HCl 1 gm/Dextrose 275 ml @ 183.708 mls/hr DAILY@2100 IVPB 05/06/17 20:00 05/11/17 19:59 05/07/17 21:01 Allergies: Coded Allergies: No Known Allergies (Unverified , 05/03/17) Subjective awake, responsive, alert, on Face mask, NAD, K: 3.2, daughter at bedside. Objective Last Vital Signs Date Time Temp Pulse Resp B/P (MAP) Pulse Ox O2 Delivery O2 Flow Rate FiO2 05/08/17 13:51 105 18 100 Venturi Mask 8.0 40 05/08/17 12:00 97.3 138/65 Laboratory Tests Test 05/07/17 22:30 05/08/17 06:20 Stool Occult Blood Positive (NEGATIVE) White Blood Count 10.6 K/UL (4.8-10.8) Red Blood Count 3.49 M/UL (4.20-5.40) L Hemoglobin 8.9 G/DL (12.0-16.0) L Hematocrit 29.0 % (37.0-47.0) L Mean Corpuscular Volume 83 FL (80-99) Mean Corpuscular Hemoglobin 25.6 PG (27.0-31.0) L Mean Corpuscular Hemoglobin Concent 30.9 G/DL (32.0-36.0) L Red Cell Distribution Width 16.9 % (11.6-14.8) H Platelet Count 390 K/UL (150-450) Mean Platelet Volume 5.8 FL (6.5-10.1) L Neutrophils (%) (Auto) 79.0 % (45.0-75.0) H Lymphocytes (%) (Auto) 13.6 % (20.0-45.0) L Monocytes (%) (Auto) 6.3 % (1.0-10.0) Eosinophils (%) (Auto) 0.6 % (0.0-3.0) Basophils (%) (Auto) 0.5 % (0.0-2.0) Sodium Level 137 MMOL/L (136-145) Potassium Level 3.2 MMOL/L (3.5-5.1) L Chloride Level 106 MMOL/L (98-107) Carbon Dioxide Level 21 MMOL/L (21-32) Anion Gap 10 mmol/L (5-15) Blood Urea Nitrogen 12 mg/dL (7-18) Creatinine 0.8 MG/DL (0.55-1.30) Estimat Glomerular Filtration Rate mL/min (>60) Glucose Level 116 MG/DL (74-106) H Calcium Level 7.9 MG/DL (8.5-10.1) L Iron Level 11 ug/dL (50-175) L Total Iron Binding Capacity 117 ug/dL (250-450) L Percent Iron Saturation 9 % (15-50) L Unsaturated Iron Binding 106 ug/dL (112-346) L Intake and Output 05/07/17 05/08/17 19:00 07:00 Intake Total 1253.75 ml 1252.328 ml Output Total 300 ml 870 ml Balance 953.75 ml 382.328 ml Free Water 150 ml IV Total 713.75 ml 442.328 ml Tube Feeding 510 ml 660 ml Other 30 ml Output Urine Total 300 ml 870 ml # Voids 1 # Bowel Movements 1 1 Objective GENERAL: awake, responsive, opens eyes, talking. HEENT: Pupils reactive to light. Anicteric. NG Tube. NECK: Supple. No JVD. LUNGS: fair air entry. Bilateral air entry, No wheezing. No Coarse breath HEART: S1 and S2. RR. no murmur ABDOMEN: Soft, nontender and nondistended. Positive bowel sounds. EXTREMITIES: No cyanosis, clubbing, or edema. NEUROLOGIC: moving all extremities equally . CN 2-12 intact. Assessment/Plan Assessment/Plan LL subsegmental PE SIRS Right lower lobe pneumonia, possible aspiration pneumonia. History of cerebrovascular accident. Sinus tachycardia. Urinary tract infection, possible sepsis secondary to urinary tract infection. Dysphagia. Hypertension. Anemia. Severe protein-calorie malnutrition. PLAN: in [place]. Lovenox injection BID monitor laboratory and cultures. Dr. Malik Knapp from [facility]. Abx: Zosyn IV, Vanco IV Tub feeding @ 45 cc/hr Full Code CT abdomen today Kcl supplements. 2D Echo: Normal left ventricular chamber size, systolic function and wall motion. Left ventricular ejection fraction estimated to be 65-70 %. No evidence of left ventricular hypertrophy. Anterior Echo-free space, may be due to pericardial fat or effusion. All other cardiac chamber sizes are within normal limits. Focal aortic valve sclerosis with adequate cusp excursion. Thickened mitral valve leaflets with normal excursion. Mild mitral annulus and aortic root calcification. Normal pulmonic valve structure. Normal tricuspid valve structure. IVC at normal size with physiologic collapse. A color flow and spectral Doppler study was performed and revealed: Mild aortic regurgitation. Trace mitral regurgitation. Mitral diastolic velocities suggest mild left ventricular dysfunction (Grade I ) . Mild tricuspid regurgitation. Tricuspid systolic velocities suggests peak right ventricular systolic pressure of 45 mmHg, consistent with moderate pulmonary hypertension. Trace pulmonic regurgitation present. Trung Sebastian MD May 08, 2017 14:49
[2017-05-08] MEDS ORDERED: Bisacodyl EC 5mg tab ORAL PRN (15:00)
[2017-05-08] MEDS ORDERED: Milk of Magnesia 30ml Ud NG PRN ×2 (15:00)
--- NOTE | 2017-05-08 15:28 | Infectious Diseases Prog Note ---
Assessment/Plan Assessment/Plan ASSESSMENT AND PLAN: 1. staph aureus pna, sepsis, fevers, leukocytosis - zosyn and vancomycin - check sc, labs and chest x-ray - continue supportive care 2. Pulmonary embolism - tx per primary, anti-coagulant 3. Anemia. 4. History of encephalopathy. 5. History of cholecystectomy. 6. History of acute kidney injury. 7. Cerebrovascular accident. 8. Aspiration risk. 9. tachycardia. 10. Dementia. 11. History of sepsis. 12. Essential hypertension. 13. Continue treatment per primary consultants. 14. Dysphagia. 15. Abnormal posture and speech deficit. 16. No known allergies. 17. Family history is noncontributory. 18. Social history negative. 19. MAR was noted. 20. Case discussed with RN. 21. Skin care protocol. 22. Continue treatment per primary consultants. 23. Case was also discussed with Dr. Sebastian. Subjective Constitutional: Reports: fatigue, other - opens eyes, Denies: fever HEENT: Reports: congestion - less Respiratory: Reports: shortness of breath - less Cardiovascular: Denies: chest pain Gastrointestinal/Abdominal: Denies: nausea, vomiting, diarrhea Genitourinary: Reports: other - + barrow Neurologic: Denies: headache Psychiatric: Denies: depression Skin: Denies: rash Hematologic: Reports: other - dark stool Musculoskeletal: Denies: pain Allergies: Coded Allergies: No Known Allergies (Unverified , 05/03/17) Objective Vital Signs Last 24 Hour Vital Signs Date Time Temp Pulse Resp B/P (MAP) Pulse Ox O2 Delivery O2 Flow Rate FiO2 05/08/17 14:33 152 05/08/17 13:51 105 18 100 Venturi Mask 8.0 40 05/08/17 13:40 40 05/08/17 13:40 101 18 98 Venturi Mask 8.0 40 05/08/17 12:00 97.3 97 22 138/65 95 Venturi Mask 8.0 40 05/08/17 12:00 96 05/08/17 08:52 114 134/75 05/08/17 08:00 110 05/08/17 08:00 97.4 114 19 134/75 98 Venturi Mask 8.0 40 05/08/17 07:30 106 18 100 Venturi Mask 8.0 40 05/08/17 07:20 Venturi Mask 8.0 40 05/08/17 07:20 98 Venturi Mask 8.0 40 05/08/17 07:20 40 05/08/17 07:20 104 18 98 Venturi Mask 8.0 40 05/08/17 04:00 97.9 108 20 128/69 97 Venturi Mask 8.0 40 05/08/17 03:44 110 05/08/17 01:28 Venturi Mask 8.0 40 05/08/17 01:28 Venturi Mask 8.0 40 05/08/17 00:12 115 148/85 05/08/17 00:00 98.1 115 24 148/85 96 Venturi Mask 8.0 40 05/07/17 20:47 113 05/07/17 20:00 98.2 113 22 130/71 96 Venturi Mask 8.0 40 05/07/17 19:29 102 18 100 Venturi Mask 8.0 40 05/07/17 19:25 40 05/07/17 19:25 108 16 96 Venturi Mask 8.0 40 05/07/17 19:00 97 Venturi Mask 8.0 40 05/07/17 19:00 Venturi Mask 8.0 40 05/07/17 16:00 98.2 67 22 144/68 92 Venturi Mask 8.0 40 05/07/17 16:00 104 05/07/17 15:22 122 144/68 Height (Feet): 5 Height (Inches): 3.00 Weight (Pounds): 140 General Appearance: no acute distress HEENT: normocephalic, atraumatic, anicteric, mucous membranes moist, EOMI, supple, no JVD Respiratory/Chest: crackles/rales, rhonchi - bilaterally Cardiovascular: normal rate, regular rhythm, no gallop/murmur, no JVD Abdomen: normal bowel sounds, soft, non tender, no organomegaly, non distended Genitourinary: other - no barrow Extremities: no cyanosis Skin: no rash Neurologic/Psychiatric: switch foreman II-XII grossly normal, alert, responsive, other - generalized weakness Lymphatic: no neck adenopathy Musculoskeletal: no effusion Objective Chest x-ray - 05/04 - Impression: Increasing retrocardiac consolidation and left-sided pleural fluid, over one day Stable right basilar pleural and parenchymal disease CT - chest - + PE (report noted) Microbiology Date/Time Source Procedure Growth Status 05/03/17 17:20 Blood Blood Culture - Preliminary NO GROWTH AFTER 4 DAYS Resulted 05/05/17 00:30 Sputum Induced Gram Stain - Final Complete 05/05/17 00:30 Sputum Culture - Final Staphylococcus Aureus Complete 05/03/17 18:38 Urine,Clean Catch Urine Culture - Final NO GROWTH AFTER 48 HOURS Complete 05/03/17 15:45 Rectum VRE Culture - Final NO VANCOMYCIN RESISTANT ENTEROCOCCUS ... Complete Laboratory Tests Test 05/07/17 22:30 05/08/17 06:20 Stool Occult Blood Positive (NEGATIVE) White Blood Count 10.6 K/UL (4.8-10.8) Red Blood Count 3.49 M/UL (4.20-5.40) L Hemoglobin 8.9 G/DL (12.0-16.0) L Hematocrit 29.0 % (37.0-47.0) L Mean Corpuscular Volume 83 FL (80-99) Mean Corpuscular Hemoglobin 25.6 PG (27.0-31.0) L Mean Corpuscular Hemoglobin Concent 30.9 G/DL (32.0-36.0) L Red Cell Distribution Width 16.9 % (11.6-14.8) H Platelet Count 390 K/UL (150-450) Mean Platelet Volume 5.8 FL (6.5-10.1) L Neutrophils (%) (Auto) 79.0 % (45.0-75.0) H Lymphocytes (%) (Auto) 13.6 % (20.0-45.0) L Monocytes (%) (Auto) 6.3 % (1.0-10.0) Eosinophils (%) (Auto) 0.6 % (0.0-3.0) Basophils (%) (Auto) 0.5 % (0.0-2.0) Sodium Level 137 MMOL/L (136-145) Potassium Level 3.2 MMOL/L (3.5-5.1) L Chloride Level 106 MMOL/L (98-107) Carbon Dioxide Level 21 MMOL/L (21-32) Anion Gap 10 mmol/L (5-15) Blood Urea Nitrogen 12 mg/dL (7-18) Creatinine 0.8 MG/DL (0.55-1.30) Estimat Glomerular Filtration Rate mL/min (>60) Glucose Level 116 MG/DL (74-106) H Calcium Level 7.9 MG/DL (8.5-10.1) L Iron Level 11 ug/dL (50-175) L Total Iron Binding Capacity 117 ug/dL (250-450) L Percent Iron Saturation 9 % (15-50) L Unsaturated Iron Binding 106 ug/dL (112-346) L Current Medications Medications (Trade) Dose Ordered Sig/[place]vy Route PRN Reason Start Time Stop Time Status Last Admin Dose Admin Acetaminophen (Tylenol) 650 mg Q4H PRN RECTAL Mild Pain (Pain Scale 1-3) 05/04/17 13:00 06/03/17 12:59 05/04/17 13:58 Acetylcysteine (Mucomyst) 200 mg Q6HRT HHN 05/05/17 01:00 06/04/17 00:59 05/08/17 13:40 Bisacodyl (Dulcolax) 10 mg BIDPRN PRN ORAL Constipation 05/08/17 15:00 06/02/17 23:44 Dextrose (Dextrose 50%) STAT PRN IV Hypoglycemia 05/03/17 23:45 06/02/17 23:44 Diltiazem HCl (Cardizem) 20 mg Q8H IVP 05/04/17 16:00 06/03/17 15:59 05/08/17 08:52 Docusate Sodium (Colace) 100 mg TWICE A DAY NG 05/04/17 18:00 06/03/17 17:59 05/08/17 08:52 Enoxaparin Sodium (Lovenox) 60 mg EVERY 12 HOURS SUBQ 05/05/17 20:00 06/04/17 19:59 05/08/17 08:54 Ferrous Sulfate (Feosol) 300 mg TWICE A DAY NG 05/08/17 18:00 06/07/17 17:59 Ipratropium [place] (Atrovent) 500 mcg Q4H PRN HHN Shortness of Breath 05/04/17 22:00 05/09/17 21:59 05/05/17 17:08 Ipratropium [place] (Atrovent) 500 mcg Q6HRT HHN 05/05/17 01:00 05/10/17 00:59 05/08/17 13:39 Magnesium Hydroxide (Mom) 30 ml DAILYPRN PRN NG Constipation 05/08/17 15:00 06/07/17 14:59 Memantine (Namenda) 5 mg QHS NG 05/08/17 21:00 06/03/17 20:59 Piperacillin Sod/ Tazobactam Sod 3.375 gm/Dextrose 55 ml @ 13.75 mls/ hr EVERY 8 HOURS IV 05/04/17 14:00 05/11/17 13:59 05/08/17 05:29 Potassium Chloride (K-Dur) 40 meq TWICE A DAY NG 05/08/17 09:45 05/08/17 18:01 05/08/17 10:14 Sodium Phosphate (Fleet's Sodium Phosl Enema) 133 ml DAILY PRN RECTAL IF DULCOLAX INEFFECTIVE 05/03/17 23:45 06/02/17 23:44 Vancomycin HCl (Vanco rx to dose) 1 ea DAILYPRN PRN MISC Per rx protocol 05/06/17 17:45 06/05/17 17:44 Vancomycin HCl 1 gm/Dextrose 275 ml @ 183.708 mls/hr DAILY@2100 IVPB 05/06/17 20:00 05/11/17 19:59 05/07/17 21:01 WENDY SOMMERS May 08, 2017 15:28
[2017-05-08 16:00] VITALS: BP 151/83
[2017-05-08] MEDS: Ferrous Sulfate 300 MG/5 ML UDC NG SCH (17:19)
[2017-05-08 20:00] VITALS: BP 129/72
[2017-05-08] MEDS ORDERED: Memantine 5 MG TAB NG SCH (21:00)
[2017-05-08] MEDS ORDERED: Vancomycin 750mg/NS 250ml IVPB SCH (22:00)
[2017-05-09] VITALS: BP 125/71
[2017-05-09] MEDS: dilTIAZem HCl 25mg/5ml Inj IVP SCH ×4 (00:21→17:24)
[2017-05-09] MEDS: Ipratropium 0.02% Inh Soln 2.5ml UD HHN SCH ×3 (02:10→13:05)
[2017-05-09] MEDS: Acetylcysteine 20% Soln 4ml HHN SCH ×4 (02:10→19:17)
[2017-05-09 04:00] VITALS: BP 121/67
[2017-05-09 05:13] LABS: ANION GAP 7 mmol/L (5-15); BLOOD UREA NITROGEN 13 mg/dL (7-18); CALCIUM 7.8 MG/DL (8.5-10.1); CARBON DIOXIDE 23 MMOL/L (21-32); CHLORIDE 104 MMOL/L (98-107); CREATININE 0.7 MG/DL (0.55-1.30); POTASSIUM 4.7 MMOL/L (3.5-5.1); SODIUM 134 MMOL/L (136-145)
[2017-05-09] MEDS: Piperacillin/Tazobactam 3.375 GM in D5W 55 ML IV SCH ×2 (05:13→22:00)
[2017-05-09 08:00] VITALS: BP 135/71
--- NOTE | 2017-05-09 08:57 | Diagnostic Imaging Report ---
Indication: Abdominal pain, hepatic lesion seen on CTA of the chest Technique: CT scan of the abdomen and pelvis initially performed without intravenous contrast material. This was followed by intravenous contrast material administration. Oral contrast was utilized. Dose: Total Dose Length Product - DLP [address] Dose Index - CTDIvol(s) 15.91, 60.66, 14.12, 15.91 mGy. Automated exposure control was utilized for dose reduction. Comparison: CT of the chest 05/05/2017 Findings: There are bilateral pleural effusions which have increased from previous study. Volume loss is noted in both lower lobes. The right pleural effusion is probably loculated. A nasogastric tube is in the stomach. There is a pericardial effusion. Liver demonstrates innumerable low density masses which appear sharply circumscribed. These appear consistent with cysts. The spleen is unremarkable. There is marked thickening of the wall of the stomach. Extensive adenopathy is noted in the region of the gastrohepatic ligament. Abnormal low density is noted in the left lobe of the liver which is not sharply circumscribed. The gallbladder is absent. The pancreas demonstrates a dilated pancreatic duct. Artifact emanates from the tip of the nasogastric tube which appears to contain metal. The adrenal glands are not enlarged. Innumerable tiny low density lesions are noted in the left kidney. Several are seen in the right kidney as well. The aorta is calcified. There are cysts in the head of the pancreas. Adenopathy is also noted in the periportal region. Numerous diverticula are present in the colon. There is no evidence of diverticulitis. The uterus is unremarkable. A small amount of free fluid is noted in the pelvis. The bladder is normal. Degenerative changes are present in the spine.. Impression: Marked gastric wall thickening. Possibility of gastric carcinoma should be very strongly considered. Adenopathy around the stomach and in the region of the gastrohepatic ligament as well as the hilda hepatis. 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 Abnormal density within the left lobe of the liver and lateral segment. It is likely metastatic but could represent direct invasion of the stomach from a gastric lesion. Hepatic cysts. Dilated pancreatic duct. Previous cholecystectomy. Innumerable tiny low density lesions in the left kidney and a few in the right. These may represent cysts though this is not absolutely certain. At least one in the right kidney represents a cyst. Further evaluation with ultrasound may be helpful. Diverticulosis. Small amount of ascites. Increasing pleural effusions bilaterally. The right pleural effusion appears loculated. Pericardial effusion. The CT scanner at [facility] is accredited by the [employer] and the scans are performed using protocols designed to limit radiation exposure to as low as reasonably achievable to attain images of sufficient resolution adequate for diagnostic evaluation.
[2017-05-09] MEDS ORDERED: Tubing IV Secondary IV ONE (10:32)
[2017-05-09] MEDS: Ferrous Sulfate 300 MG/5 ML UDC NG SCH ×2 (10:32→17:19)
[2017-05-09] MEDS ORDERED: NS 500ML ONE (10:32)
[2017-05-09] MEDS ORDERED: D5 1/2NS 1000ml IV ONE (10:32)
[2017-05-09] MEDS ORDERED: NS 275ml ONE (10:32)
[2017-05-09] MEDS: Enoxaparin 60mg Inj SUBQ SCH (10:33)
[2017-05-09 12:00] VITALS: BP 124/68
--- NOTE | 2017-05-09 12:09 | General Progress Note ---
Assessment/Plan Problem List: (1) PE (2) Dysphagia ICD Codes: R13.10 - Dysphagia, unspecified SNOMED: 07824454, 920569788 (3) Anemia ICD Codes: D64.9 - Anemia, unspecified SNOMED: 969174135 (4) 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 with liver involvement (5) Diverticulosis ICD Codes: K57.90 - Diverticulosis of intestine, part unspecified, without perforation or abscess without bleeding SNOMED: 497960704 (6) Iron deficiency ICD Codes: E61.1 - Iron deficiency SNOMED: 46614043 (7) Pneumonia ICD Codes: J18.9 - Pneumonia, unspecified organism SNOMED: 224381283 Qualifiers: Qualified Codes: J18.9 - Pneumonia, unspecified organism Assessment/Plan NGTF on lovenox venofer check CEA plan EGd possibly on Tue of respiratory status is better abd CT reviewed fu Subjective ROS Limited/Unobtainable: Yes Allergies: Coded Allergies: No Known Allergies (Unverified , 05/03/17) Objective Last 24 Hour Vital Signs Date Time Temp Pulse Resp B/P (MAP) Pulse Ox O2 Delivery O2 Flow Rate FiO2 05/09/17 10:38 112 135/74 05/09/17 08:38 40 05/09/17 08:38 110 21 97 Venturi Mask 8.0 40 05/09/17 08:33 Venturi Mask 8.0 40 05/09/17 08:33 98 Venturi Mask 8.0 40 05/09/17 08:31 106 21 98 Venturi Mask 8.0 40 05/09/17 08:00 110 05/09/17 08:00 97.9 99 18 135/71 98 05/09/17 04:00 98.9 114 22 121/67 97 Venturi Mask 8.0 40 05/09/17 03:47 130 05/09/17 03:39 110 21 97 Venturi Mask 8.0 40 05/09/17 03:38 40 05/09/17 02:15 110 21 96 Venturi Mask 8.0 40 05/09/17 00:21 110 128/85 05/09/17 00:00 98.0 115 22 125/71 100 Venturi Mask 8.0 40 05/08/17 20:47 110 21 96 Venturi Mask 8.0 40 05/08/17 20:40 121 05/08/17 20:34 40 05/08/17 20:30 112 21 94 Venturi Mask 8.0 40 05/08/17 20:27 Venturi Mask 8.0 40 05/08/17 20:26 96 Venturi Mask 8.0 40 05/08/17 20:00 98.2 104 24 129/72 100 Venturi Mask 8.0 40 05/08/17 20:00 98.2 104 24 129/72 100 Venturi Mask 8.0 40 05/08/17 16:08 121 151/83 05/08/17 16:00 97.4 121 21 151/83 98 Venturi Mask 8.0 40 05/08/17 16:00 145 05/08/17 14:33 152 05/08/17 13:51 105 18 100 Venturi Mask 8.0 40 05/08/17 13:40 40 05/08/17 13:40 101 18 98 Venturi Mask 8.0 40 Intake and Output 05/08/17 05/09/17 19:00 07:00 Intake Total 823.50 ml 1638.667 ml Output Total 1000 ml Balance -176.50 ml 1638.667 ml Free Water 356 ml 532 ml IV Total 82.50 ml 446.667 ml Tube Feeding 385 ml 660 ml Output Urine Total 1000 ml Laboratory Tests 05/08/17 20:10: Vancomycin Level Trough 7.1 05/09/17 03:46: Sodium Level 134L, Potassium Level 4.7, Chloride Level 104, Carbon Dioxide Level 23, Anion Gap 7, Blood Urea Nitrogen 13, Creatinine 0.7, Estimat Glomerular Filtration Rate , Glucose Level 110H, Calcium Level 7.8L, Magnesium Level 1.8 Impression: Marked gastric wall thickening. Possibility of gastric carcinoma should be very strongly considered. Adenopathy around the stomach and in the region of the gastrohepatic ligament as well as the hilda hepatis. 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 Abnormal density within the left lobe of the liver and lateral segment. It is likely metastatic but could represent direct invasion of the stomach from a gastric lesion. Hepatic cysts. Dilated pancreatic duct. Previous cholecystectomy. Innumerable tiny low density lesions in the left kidney and a few in the right. These may represent cysts though this is not absolutely certain. At least one in the right kidney represents a cyst. Further evaluation with ultrasound may be helpful. Diverticulosis. Small amount of ascites. Increasing pleural effusions bilaterally. The right pleural effusion appears loculated. Pericardial effusion. Height (Feet): 5 Height (Inches): 3.00 Weight (Pounds): 140 General Appearance: moderate distress EENT: TMs normal Respiratory/Chest: decreased breath sounds Abdomen: normal bowel sounds, non tender, soft Extremities: non-tender PATO ESCOBEDO May 09, 2017 12:09
--- NOTE | 2017-05-09 12:26 | Pulmonology Progress Note ---
Assessment/Plan Problems: (1) Pneumonia (2) Fever (3) Sepsis (4) Gastric wall thickening (5) Pulmonary embolism Assessment/Plan ASSESSMENT: -PE -SIRS -HCAP -Hypoxemia 2/2 above -Sinus tachycardia -UTI/urosepsis -Dysphagia -H/O CVA -HTN -Anemia -Protein calorie malnutrition -NHR -Gastric wall thickening + LAD concerning for malignancy + lesions in liver PLAN: -Optimize pulmonary hygiene/mobilize as tolerated -Titrate down FiO2 to keep SaO2 > 90% -ATROVENT HHN's q6WA and q4 PRN -MUCOMYST HHN QID -CPT QID -Abx per ID, F/U Cx's -Monitor volumes -NGT feeds, continue LEACH TANK TENDER therapy, F/U VSS -D/C Lovenox given plan for endoscopy, start IVUH, can resume Lovenox or NOAC afterwards -F/U GI recs, F/U tumor markers and plan for endoscopy -DVT Px: A/C -FC Subjective Allergies: Coded Allergies: No Known Allergies (Unverified , 05/03/17) Subjective AFVSS, O2 needs stable less cough, less SOB, no F/C CT A/P concerning for gastric CA Objective Last 24 Hour Vital Signs Date Time Temp Pulse Resp B/P (MAP) Pulse Ox O2 Delivery O2 Flow Rate FiO2 05/09/17 10:38 112 135/74 05/09/17 08:38 40 05/09/17 08:38 110 21 97 Venturi Mask 8.0 40 05/09/17 08:33 Venturi Mask 8.0 40 05/09/17 08:33 98 Venturi Mask 8.0 40 05/09/17 08:31 106 21 98 Venturi Mask 8.0 40 05/09/17 08:00 110 05/09/17 08:00 97.9 99 18 135/71 98 05/09/17 04:00 98.9 114 22 121/67 97 Venturi Mask 8.0 40 05/09/17 03:47 130 05/09/17 03:39 110 21 97 Venturi Mask 8.0 40 05/09/17 03:38 40 05/09/17 02:15 110 21 96 Venturi Mask 8.0 40 05/09/17 00:21 110 128/85 05/09/17 00:00 98.0 115 22 125/71 100 Venturi Mask 8.0 40 05/08/17 20:47 110 21 96 Venturi Mask 8.0 40 05/08/17 20:40 121 05/08/17 20:34 40 05/08/17 20:30 112 21 94 Venturi Mask 8.0 40 05/08/17 20:27 Venturi Mask 8.0 40 05/08/17 20:26 96 Venturi Mask 8.0 40 05/08/17 20:00 98.2 104 24 129/72 100 Venturi Mask 8.0 40 05/08/17 20:00 98.2 104 24 129/72 100 Venturi Mask 8.0 40 05/08/17 16:08 121 151/83 05/08/17 16:00 97.4 121 21 151/83 98 Venturi Mask 8.0 40 05/08/17 16:00 145 05/08/17 14:33 152 05/08/17 13:51 105 18 100 Venturi Mask 8.0 40 05/08/17 13:40 40 05/08/17 13:40 101 18 98 Venturi Mask 8.0 40 Intake and Output 05/08/17 05/09/17 19:00 07:00 Intake Total 823.50 ml 1638.667 ml Output Total 1000 ml Balance -176.50 ml 1638.667 ml Free Water 356 ml 532 ml IV Total 82.50 ml 446.667 ml Tube Feeding 385 ml 660 ml Output Urine Total 1000 ml General Appearance: no acute distress, cachetic HEENT: normocephalic, atraumatic, mucous membranes moist Respiratory/Chest: crackles/rales - scattered BIB Cardiovascular: normal peripheral pulses, normal rate, regular rhythm Abdomen: normal bowel sounds, soft, non tender, no organomegaly, non distended Extremities: no cyanosis, no clubbing, no edema Laboratory Tests 05/08/17 20:10: Vancomycin Level Trough 7.1 05/09/17 03:46: Sodium Level 134L, Potassium Level 4.7, Chloride Level 104, Carbon Dioxide Level 23, Anion Gap 7, Blood Urea Nitrogen 13, Creatinine 0.7, Estimat Glomerular Filtration Rate , Glucose Level 110H, Calcium Level 7.8L, Magnesium Level 1.8 Current Medications Medications (Trade) Dose Ordered Sig/Chevy Route PRN Reason Start Time Stop Time Status Last Admin Dose Admin Acetaminophen (Tylenol) 650 mg Q4H PRN RECTAL Mild Pain (Pain Scale 1-3) 05/04/17 13:00 06/03/17 12:59 05/04/17 13:58 Acetylcysteine (Mucomyst) 200 mg Q6HRT HHN 05/05/17 01:00 06/04/17 00:59 05/09/17 02:10 Bisacodyl (Dulcolax) 10 mg BIDPRN PRN ORAL Constipation 05/08/17 15:00 06/02/17 23:44 Dextrose (Dextrose 50%) STAT PRN IV Hypoglycemia 05/03/17 23:45 06/02/17 23:44 Diltiazem HCl (Cardizem) 20 mg Q8H IVP 05/04/17 16:00 06/03/17 15:59 05/09/17 10:38 Enoxaparin Sodium (Lovenox) 60 mg EVERY 12 HOURS SUBQ 05/05/17 20:00 06/04/17 19:59 05/09/17 10:33 Ferrous Sulfate (Feosol) 300 mg TWICE A DAY NG 05/08/17 18:00 06/07/17 17:59 05/09/17 10:32 Ipratropium [place] (Atrovent) 500 mcg Q4H PRN HHN Shortness of Breath 05/04/17 22:00 05/09/17 21:59 05/05/17 17:08 Ipratropium [place] (Atrovent) 500 mcg Q6HRT HHN 05/05/17 01:00 05/10/17 00:59 05/09/17 08:30 Iron Sucrose 100 mg/Sodium Chloride 60 ml @ 240 mls/hr BEDTIME IV 05/09/17 21:00 05/13/17 21:14 Magnesium Hydroxide (Mom) 30 ml DAILYPRN PRN NG Constipation 05/08/17 15:00 06/07/17 14:59 Memantine (Namenda) 5 mg QHS NG 05/08/17 21:00 06/03/17 20:59 05/08/17 21:32 Piperacillin Sod/ Tazobactam Sod 3.375 gm/Dextrose 55 ml @ 13.75 mls/ hr EVERY 8 HOURS IV 05/04/17 14:00 05/11/17 13:59 05/09/17 05:13 Sodium Phosphate (Fleet's Sodium Phosl Enema) 133 ml DAILY PRN RECTAL IF DULCOLAX INEFFECTIVE 05/03/17 23:45 06/02/17 23:44 Vancomycin HCl (Vanco rx to dose) 1 ea DAILYPRN PRN MISC Per rx protocol 05/06/17 17:45 06/05/17 17:44 Vancomycin/Sodium Chloride 250 ml @ 166.667 mls/hr Q12HR@1000,2200 IVPB 05/08/17 22:00 05/13/17 21:59 05/08/17 21:39 AFSHIN ALDRIDGE M.D. May 09, 2017 12:26
[2017-05-09 13:28] LABS: BASOPHILS % (AUTO) 0.4 % (0.0-2.0); EOSINOPHILS % (AUTO) 0.4 % (0.0-3.0); HEMATOCRIT 27.8 % (37.0-47.0); HEMOGLOBIN 8.4 G/DL (12.0-16.0); LYMPHOCYTES % (AUTO) 14.3 % (20.0-45.0); MEAN CORPUSCULAR VOLUME 83 FL (80-99); MONOCYTES % (AUTO) 7.1 % (1.0-10.0); NEUTROPHILS % (AUTO) 77.9 % (45.0-75.0); PLATELET COUNT 454 K/UL (150-450); RED BLOOD COUNT 3.37 M/UL (4.20-5.40); RED CELL DISTRIBUTION WIDTH 17.2 % (11.6-14.8); WHITE BLOOD COUNT 12.7 K/UL (4.8-10.8)
[2017-05-09] MEDS ORDERED: Bisacodyl EC 5mg tab ORAL PRN (15:00)
[2017-05-09] MEDS ORDERED: Ipratropium 0.02% Inh Soln 2.5ml UD HHN PRN (15:30)
[2017-05-09] MEDS ORDERED: Acetaminophen 650 MG SUPP RECTAL PRN (15:30)
[2017-05-09] MEDS ORDERED: Milk of Magnesia 30ml Ud NG PRN (15:30)
[2017-05-09] MEDS ORDERED: Fleet's Enema 133ml RECTAL PRN (15:30)
[2017-05-09] MEDS ORDERED: Heparin 25,000u/D5W 500ml 500 ML IV SCH ×2 (17:00)
[2017-05-09] MEDS ORDERED: Ipratropium 0.02% Inh Soln 2.5ml UD HHN SCH (19:00)
[2017-05-09 20:00] VITALS: BP 142/73
[2017-05-09] MEDS: Iron Sucrose 100 MG in NS 55 ML IV SCH (21:00)
[2017-05-09] MEDS ORDERED: Iron Sucrose 100 MG in NS 55 ML IV SCH (21:00)
[2017-05-09] MEDS: Memantine 5 MG TAB NG SCH (21:00)
[2017-05-09] MEDS: Vancomycin 750mg/NS 250ml 250 ML IVPB SCH (22:00)
--- NOTE | 2017-05-09 23:16 | Internal Med Progress Note ---
Subjective Physician Name Trung Sebastian Attending Physician Trung Sebastian MD Current Medications Medications (Trade) Dose Ordered Sig/Chevy Route PRN Reason Start Time Stop Time Status Last Admin Dose Admin Acetaminophen (Tylenol) 650 mg Q4H PRN RECTAL Mild Pain (Pain Scale 1-3) 05/09/17 15:30 06/03/17 15:29 Acetylcysteine (Mucomyst) 200 mg Q6HRT HHN 05/09/17 19:00 06/04/17 00:59 05/09/17 19:17 Bisacodyl (Dulcolax) 10 mg BIDPRN PRN ORAL Constipation 1st Line Agent 05/09/17 15:00 06/02/17 23:44 Dextrose (Dextrose 50%) STAT PRN IV Hypoglycemia 05/09/17 15:30 06/02/17 15:29 Diltiazem HCl (Cardizem) 20 mg Q8HR@0200,1000,1800 IVP 05/09/17 18:00 06/08/17 17:59 05/09/17 17:24 Ferrous Sulfate (Feosol) 300 mg TWICE A DAY NG 05/09/17 18:00 06/07/17 17:59 05/09/17 17:19 Heparin Sodium/ Dextrose 500 ml @ 0 mls/hr adjust per protocol IV 05/09/17 17:00 06/08/17 16:59 Ipratropium [place] (Atrovent) 500 mcg Q6HRT HHN 05/09/17 19:00 05/10/17 00:59 05/09/17 19:17 Iron Sucrose 100 mg/Sodium Chloride 60 ml @ 240 mls/hr BEDTIME IV 05/09/17 21:00 05/13/17 21:01 Magnesium Hydroxide (Mom) 30 ml DAILYPRN PRN NG Constipation 3rd Line Option 05/09/17 15:30 06/07/17 15:29 Memantine (Namenda) 5 mg QHS NG 05/09/17 21:00 06/03/17 20:59 Piperacillin Sod/ Tazobactam Sod 3.375 gm/Dextrose 55 ml @ 13.75 mls/ hr EVERY 8 HOURS IV 05/09/17 22:00 05/16/17 21:59 Sodium Phosphate (Fleet's Sodium Phosl Enema) 133 ml DAILYPRN PRN RECTAL IF DULCOLAX INEFFECTIVE 05/09/17 15:30 06/08/17 15:29 Vancomycin HCl (Vanco rx to dose) 1 ea DAILYPRN PRN MISC Per rx protocol 05/09/17 15:30 06/05/17 15:29 Vancomycin/Sodium Chloride 250 ml @ 166.667 mls/hr Q12HR@1000,2200 IVPB 05/09/17 22:00 05/13/17 21:59 Allergies: Coded Allergies: No Known Allergies (Unverified , 05/03/17) Subjective awake, responsive, alert, on Face mask, NAD, WBC: 12.7 Objective Last Vital Signs Date Time Temp Pulse Resp B/P (MAP) Pulse Ox O2 Delivery O2 Flow Rate FiO2 05/09/17 20:00 98.6 129 16 142/73 95 05/09/17 18:55 Venturi Mask 8.0 40 Laboratory Tests Test 05/09/17 03:46 05/09/17 13:00 White Blood Count 12.7 K/UL (4.8-10.8) H Red Blood Count 3.37 M/UL (4.20-5.40) L Hemoglobin 8.4 G/DL (12.0-16.0) L Hematocrit 27.8 % (37.0-47.0) L Mean Corpuscular Volume 83 FL (80-99) Mean Corpuscular Hemoglobin 25.0 PG (27.0-31.0) L Mean Corpuscular Hemoglobin Concent 30.2 G/DL (32.0-36.0) L Red Cell Distribution Width 17.2 % (11.6-14.8) H Platelet Count 454 K/UL (150-450) H Mean Platelet Volume 5.6 FL (6.5-10.1) L Neutrophils (%) (Auto) 77.9 % (45.0-75.0) H Lymphocytes (%) (Auto) 14.3 % (20.0-45.0) L Monocytes (%) (Auto) 7.1 % (1.0-10.0) Eosinophils (%) (Auto) 0.4 % (0.0-3.0) Basophils (%) (Auto) 0.4 % (0.0-2.0) Sodium Level 134 MMOL/L (136-145) L Potassium Level 4.7 MMOL/L (3.5-5.1) Chloride Level 104 MMOL/L (98-107) Carbon Dioxide Level 23 MMOL/L (21-32) Anion Gap 7 mmol/L (5-15) Blood Urea Nitrogen 13 mg/dL (7-18) Creatinine 0.7 MG/DL (0.55-1.30) Estimat Glomerular Filtration Rate mL/min (>60) Glucose Level 110 MG/DL (74-106) H Calcium Level 7.8 MG/DL (8.5-10.1) L Magnesium Level 1.8 MG/DL (1.8-2.4) Activated Partial Thromboplast Time 32 SEC (23-33) Intake and Output 05/08/17 05/09/17 19:00 07:00 Intake Total 823.50 ml 1638.667 ml Output Total 1000 ml Balance -176.50 ml 1638.667 ml Free Water 356 ml 532 ml IV Total 82.50 ml 446.667 ml Tube Feeding 385 ml 660 ml Output Urine Total 1000 ml Objective GENERAL: awake, responsive, opens eyes, talking. HEENT: Pupils reactive to light. Anicteric. NG Tube. NECK: Supple. No JVD. LUNGS: fair air entry. Bilateral air entry, No wheezing. No Coarse breath HEART: S1 and S2. RR. no murmur ABDOMEN: Soft, nontender and nondistended. Positive bowel sounds. EXTREMITIES: No cyanosis, clubbing, or edema. NEUROLOGIC: moving all extremities equally . CN 2-12 intact. Assessment/Plan Assessment/Plan Acute PE SIRS Right lower lobe pneumonia, possible aspiration pneumonia. History of cerebrovascular accident. Sinus tachycardia. Urinary tract infection, possible sepsis secondary to urinary tract infection. Dysphagia. Hypertension. Anemia. Severe protein-calorie malnutrition. 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 PLAN: in Telemetry. Lovenox injection BID monitor laboratory and cultures. Dr. Malik Knapp from [facility]. Abx: Zosyn IV, Vanco IV Tub feeding @ 45 cc/hr Full Code CT abdomen Impression: Marked gastric wall thickening. Possibility of gastric carcinoma should be very strongly considered. Adenopathy around the stomach and in the region of the gastrohepatic ligament as well as the hilda hepatis. 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 Abnormal density within the left lobe of the liver and lateral segment. It is likely metastatic but could represent direct invasion of the stomach from a gastric lesion. Hepatic cysts. Dilated pancreatic duct. Previous cholecystectomy. Innumerable tiny low density lesions in the left kidney and a few in the right. These may represent cysts though this is not absolutely certain. At least one in the right kidney represents a cyst. Further evaluation with ultrasound may be helpful. Diverticulosis. Small amount of ascites. Increasing pleural effusions bilaterally. The right pleural effusion appears loculated. Pericardial effusion. 2D Echo: Normal left ventricular chamber size, systolic function and wall motion. Left ventricular ejection fraction estimated to be 65-70 %. No evidence of left ventricular hypertrophy. Anterior Echo-free space, may be due to pericardial fat or effusion. All other cardiac chamber sizes are within normal limits. Focal aortic valve sclerosis with adequate cusp excursion. Thickened mitral valve leaflets with normal excursion. Mild mitral annulus and aortic root calcification. Normal pulmonic valve structure. Normal tricuspid valve structure. IVC at normal size with physiologic collapse. A color flow and spectral Doppler study was performed and revealed: Mild aortic regurgitation. Trace mitral regurgitation. Mitral diastolic velocities suggest mild left ventricular dysfunction (Grade I ) . Mild tricuspid regurgitation. Tricuspid systolic velocities suggests peak right ventricular systolic pressure of 45 mmHg, consistent with moderate pulmonary hypertension. Trace pulmonic regurgitation present. Trung Sebastian MD May 09, 2017 23:16
[2017-05-10] VITALS: BP 151/77
[2017-05-10] MEDS: Acetylcysteine 20% Soln 4ml HHN SCH ×4 (00:59→21:28)
[2017-05-10] MEDS ORDERED: Heparin 25,000u/D5W 500ml 500 ML IV SCH ×2 (01:15→09:45)
[2017-05-10] MEDS ORDERED: Heparin 5000 units/ml inj IV ONE ×3 (02:15→17:40)
[2017-05-10] MEDS: dilTIAZem HCl 25mg/5ml Inj IVP SCH ×3 (02:54→17:32)
[2017-05-10 04:00] VITALS: BP 123/50
[2017-05-10] MEDS: Piperacillin/Tazobactam 3.375 GM in D5W 55 ML IV SCH ×3 (06:30→22:00)
[2017-05-10 08:00] VITALS: BP 125/69
[2017-05-10] MEDS: Ferrous Sulfate 300 MG/5 ML UDC NG SCH ×2 (08:31→17:32)
[2017-05-10 09:10] LABS: HEMATOCRIT 24.9 % (37.0-47.0); HEMOGLOBIN 7.6 G/DL (12.0-16.0); MEAN CORPUSCULAR VOLUME 81 FL (80-99); PLATELET COUNT 550 K/UL (150-450); RED BLOOD COUNT 3.06 M/UL (4.20-5.40); RED CELL DISTRIBUTION WIDTH 16.5 % (11.6-14.8); WHITE BLOOD COUNT 15.2 K/UL (4.8-10.8)
[2017-05-10] MEDS: Albuterol/Ipratropium 3ml neb HHN SCH ×3 (09:48→21:28)
[2017-05-10] MEDS: Vancomycin 750mg/NS 250ml 250 ML IVPB SCH (10:08)
[2017-05-10 12:00] VITALS: BP 129/72
[2017-05-10 13:19] LABS: BASOPHILS % (AUTO) 0.4 % (0.0-2.0); EOSINOPHILS % (AUTO) 0.4 % (0.0-3.0); HEMATOCRIT 27.7 % (37.0-47.0); HEMOGLOBIN 8.4 G/DL (12.0-16.0); LYMPHOCYTES % (AUTO) 15.8 % (20.0-45.0); MEAN CORPUSCULAR VOLUME 82 FL (80-99); MONOCYTES % (AUTO) 6.4 % (1.0-10.0); PLATELET COUNT 626 K/UL (150-450); RED BLOOD COUNT 3.36 M/UL (4.20-5.40); WHITE BLOOD COUNT 14.7 K/UL (4.8-10.8)
--- NOTE | 2017-05-10 13:46 | GI Progress Note ---
Assessment/Plan Problems: (1) Encounter for nasogastric (NG) tube placement ICD Codes: Z46.59 - Encounter for fitting and adjustment of other gastrointestinal appliance and device SNOMED: 714748235 (2) Anemia ICD Codes: D64.9 - Anemia, unspecified SNOMED: 330867622 (3) Iron deficiency ICD Codes: E61.1 - Iron deficiency SNOMED: 60375012 Status: progressing Status Narrative Discussed with Dr. Greenfield. Assessment/Plan CTA reviewed>> see full report. - Pulmonary embolism involving a subsegmental pulmonary artery to the right lower lobe. - Small right and trace left pleural effusions with bilateral lower lobe atelectasis/consolidation. Pneumonia should be excluded clinically. - Cardiomegaly and [id number] pericardial effusion. - Multiple low-attenuation lesions in the liver possibly resenting hepatic cysts or hemangiomas. - Apparent thickening of the proximal stomach, partially visualized. Consider endoscopy/direct visualization. OB stool positive ST eval >> passed. EGD scheduled for tomorrow if respiratory status stable. - NGTFs now, NPO @ [place]. - Hold all blood thinners @ [place]. NGTFs per RD on lovenox venofer check CEA fu labs The patient was seen and examined at bedside and all new and available data was reviewed in the patients chart. I agree with the above findings, impression and plan. (Patient seen earlier today. Signature stamp does not reflect patient encounter time.). - Isabel Greenfield MD Subjective Subjective limited Objective Last 24 Hour Vital Signs Date Time Temp Pulse Resp B/P (MAP) Pulse Ox O2 Delivery O2 Flow Rate FiO2 05/10/17 12:00 97.0 120 18 129/72 100 Venturi Mask 05/10/17 10:08 110 125/69 05/10/17 09:56 110 22 98 Venturi Mask 8.0 40 05/10/17 09:48 111 24 98 Venturi Mask 8.0 40 05/10/17 08:00 97.7 101 18 125/69 100 Venturi Mask 05/10/17 07:40 111 05/10/17 06:33 97 Venturi Mask 8.0 40 05/10/17 06:33 Venturi Mask 8.0 40 05/10/17 04:00 109 05/10/17 04:00 97.7 112 18 123/50 95 05/10/17 02:54 127 151/77 05/10/17 01:01 Venturi Mask 05/10/17 01:00 Venturi Mask 05/10/17 00:00 134 05/10/17 00:00 97.0 70 16 151/77 100 05/09/17 20:00 98.6 129 16 142/73 95 05/09/17 20:00 112 05/09/17 18:55 122 18 100 Venturi Mask 8.0 40 05/09/17 18:50 Venturi Mask 8.0 40 05/09/17 18:50 99 Venturi Mask 8.0 40 05/09/17 18:50 120 24 98 Venturi Mask 8.0 40 05/09/17 17:24 125 123/81 05/09/17 16:00 98.0 125 Room Air 05/09/17 16:00 125 Intake and Output 05/09/17 05/10/17 19:00 07:00 Intake Total 655 ml Balance 655 ml Free Water 600 ml Tube Feeding 55 ml # Voids 3 2 # Bowel Movements 1 1 Laboratory Tests Test 05/09/17 23:50 05/10/17 08:40 05/10/17 13:05 Activated Partial Thromboplast Time 33 SEC (23-33) 39 SEC (23-33) H White Blood Count 15.2 K/UL (4.8-10.8) H 14.7 K/UL (4.8-10.8) H Red Blood Count 3.06 M/UL (4.20-5.40) L 3.36 M/UL (4.20-5.40) L Hemoglobin 7.6 G/DL (12.0-16.0) L 8.4 G/DL (12.0-16.0) L Hematocrit 24.9 % (37.0-47.0) L 27.7 % (37.0-47.0) L Mean Corpuscular Volume 81 FL (80-99) 82 FL (80-99) Mean Corpuscular Hemoglobin 25.0 PG (27.0-31.0) L 25.0 PG (27.0-31.0) L Mean Corpuscular Hemoglobin Concent 30.7 G/DL (32.0-36.0) L 30.3 G/DL (32.0-36.0) L Red Cell Distribution Width 16.5 % (11.6-14.8) H 17.0 % (11.6-14.8) H Platelet Count 550 K/UL (150-450) H 626 K/UL (150-450) H Mean Platelet Volume 5.8 FL (6.5-10.1) L 5.8 FL (6.5-10.1) L Neutrophils (%) (Auto) % (45.0-75.0) 77.0 % (45.0-75.0) H Lymphocytes (%) (Auto) % (20.0-45.0) 15.8 % (20.0-45.0) L Monocytes (%) (Auto) % (1.0-10.0) 6.4 % (1.0-10.0) Eosinophils (%) (Auto) % (0.0-3.0) 0.4 % (0.0-3.0) Basophils (%) (Auto) % (0.0-2.0) 0.4 % (0.0-2.0) Differential Total Cells Counted 100 Neutrophils % (Manual) 73 % (45-75) Lymphocytes % (Manual) 13 % (20-45) L Monocytes % (Manual) 14 % (1-10) H Eosinophils % (Manual) 0 % (0-3) Basophils % (Manual) 0 % (0-2) Band Neutrophils 0 % (0-8) Platelet Estimate Increased H Platelet Morphology Normal Hypochromasia 1+ Anisocytosis 1+ Vancomycin Level Trough 11.6 ug/mL (5.0-12.0) Height (Feet): 5 Height (Inches): 3.00 Weight (Pounds): 140 General Appearance: WD/WN, no apparent distress, alert, thin Cardiovascular: normal rate Respiratory/Chest: normal breath sounds, no respiratory distress, other - venturi mask Abdominal Exam: other - dobhoff Extremities: non-tender Eufemia Smiley N.PSusan May 10, 2017 13:46 PATO GREENFIELD May 17, 2017 12:21
--- NOTE | 2017-05-10 14:59 | Internal Med Progress Note ---
Subjective Physician Name Trung Sebastian Attending Physician Trung Sebastian MD Current Medications Medications (Trade) Dose Ordered Sig/[place]vy Route PRN Reason Start Time Stop Time Status Last Admin Dose Admin Acetaminophen (Tylenol) 650 mg Q4H PRN RECTAL Mild Pain (Pain Scale 1-3) 05/09/17 15:30 06/03/17 15:29 Acetylcysteine (Mucomyst) 200 mg Q6HRT HHN 05/09/17 19:00 06/04/17 00:59 05/10/17 13:48 Albuterol/ Ipratropium (Albuterol/ Ipratropium) 3 ml Q6HRT HHN 05/10/17 08:45 05/15/17 08:44 05/10/17 13:47 Bisacodyl (Dulcolax) 10 mg BIDPRN PRN ORAL Constipation 1st Line Agent 05/09/17 15:00 06/02/17 23:44 Dextrose (Dextrose 50%) STAT PRN IV Hypoglycemia 05/09/17 15:30 06/02/17 15:29 Diltiazem HCl (Cardizem) 20 mg Q8HR@0200,1000,1800 IVP 05/09/17 18:00 06/08/17 17:59 05/10/17 10:08 Ferrous Sulfate (Feosol) 300 mg TWICE A DAY NG 05/09/17 18:00 06/07/17 17:59 05/10/17 08:31 Heparin Sodium/ Dextrose 500 ml @ 20.321 mls/ hr adjust per protocol IV 05/10/17 09:45 06/09/17 09:44 05/10/17 10:04 Iron Sucrose 100 mg/Sodium Chloride 60 ml @ 240 mls/hr BEDTIME IV 05/09/17 21:00 05/13/17 21:01 05/09/17 21:00 Magnesium Hydroxide (Mom) 30 ml DAILYPRN PRN NG Constipation 3rd Line Option 05/09/17 15:30 06/07/17 15:29 Memantine (Namenda) 5 mg QHS NG 05/09/17 21:00 06/03/17 20:59 05/09/17 21:00 Piperacillin Sod/ Tazobactam Sod 3.375 gm/Dextrose 55 ml @ 13.75 mls/ hr EVERY 8 HOURS IV 05/09/17 22:00 05/16/17 21:59 05/10/17 13:36 Sodium Phosphate (Fleet's Sodium Phosl Enema) 133 ml DAILYPRN PRN RECTAL IF DULCOLAX INEFFECTIVE 05/09/17 15:30 06/08/17 15:29 Vancomycin HCl (Vanco rx to dose) 1 ea DAILYPRN PRN MISC Per rx protocol 05/09/17 15:30 06/05/17 15:29 Vancomycin HCl 1 gm/Dextrose 275 ml @ 183.708 mls/hr Q24H IVPB 05/11/17 10:00 05/16/17 09:59 Vancomycin/Sodium Chloride 250 ml @ 166.667 mls/hr Q12HR@1000,2200 IVPB 05/09/17 22:00 05/10/17 15:00 05/10/17 10:08 Allergies: Coded Allergies: No Known Allergies (Unverified , 05/03/17) Subjective awake, responsive, alert, on Face mask, NAD, WBC: 14.7 Objective Last Vital Signs Date Time Temp Pulse Resp B/P (MAP) Pulse Ox O2 Delivery O2 Flow Rate FiO2 05/10/17 13:59 105 24 98 Venturi Mask 8.0 40 05/10/17 12:00 97.0 129/72 Laboratory Tests Test 05/09/17 23:50 05/10/17 08:40 05/10/17 13:05 Activated Partial Thromboplast Time 33 SEC (23-33) 39 SEC (23-33) H White Blood Count 15.2 K/UL (4.8-10.8) H 14.7 K/UL (4.8-10.8) H Red Blood Count 3.06 M/UL (4.20-5.40) L 3.36 M/UL (4.20-5.40) L Hemoglobin 7.6 G/DL (12.0-16.0) L 8.4 G/DL (12.0-16.0) L Hematocrit 24.9 % (37.0-47.0) L 27.7 % (37.0-47.0) L Mean Corpuscular Volume 81 FL (80-99) 82 FL (80-99) Mean Corpuscular Hemoglobin 25.0 PG (27.0-31.0) L 25.0 PG (27.0-31.0) L Mean Corpuscular Hemoglobin Concent 30.7 G/DL (32.0-36.0) L 30.3 G/DL (32.0-36.0) L Red Cell Distribution Width 16.5 % (11.6-14.8) H 17.0 % (11.6-14.8) H Platelet Count 550 K/UL (150-450) H 626 K/UL (150-450) H Mean Platelet Volume 5.8 FL (6.5-10.1) L 5.8 FL (6.5-10.1) L Neutrophils (%) (Auto) % (45.0-75.0) 77.0 % (45.0-75.0) H Lymphocytes (%) (Auto) % (20.0-45.0) 15.8 % (20.0-45.0) L Monocytes (%) (Auto) % (1.0-10.0) 6.4 % (1.0-10.0) Eosinophils (%) (Auto) % (0.0-3.0) 0.4 % (0.0-3.0) Basophils (%) (Auto) % (0.0-2.0) 0.4 % (0.0-2.0) Differential Total Cells Counted 100 Neutrophils % (Manual) 73 % (45-75) Lymphocytes % (Manual) 13 % (20-45) L Monocytes % (Manual) 14 % (1-10) H Eosinophils % (Manual) 0 % (0-3) Basophils % (Manual) 0 % (0-2) Band Neutrophils 0 % (0-8) Platelet Estimate Increased H Platelet Morphology Normal Hypochromasia 1+ Anisocytosis 1+ Vancomycin Level Trough 11.6 ug/mL (5.0-12.0) Intake and Output 05/09/17 05/10/17 19:00 07:00 Intake Total 655 ml Balance 655 ml Free Water 600 ml Tube Feeding 55 ml # Voids 3 2 # Bowel Movements 1 1 Objective GENERAL: awake, responsive, opens eyes, talking. HEENT: Pupils reactive to light. Anicteric. NG Tube. NECK: Supple. No JVD. LUNGS: fair air entry. decrease bilateral air entry, No wheezing. No Coarse breath HEART: S1 and S2. RR. no murmur ABDOMEN: Soft, nontender and nondistended. Positive bowel sounds. EXTREMITIES: No cyanosis, clubbing, or edema. NEUROLOGIC: moving all extremities equally . CN 2-12 intact. Assessment/Plan Assessment/Plan Acute PE SIRS Right lower lobe pneumonia, possible aspiration pneumonia. History of cerebrovascular accident. Sinus tachycardia. Urinary tract infection, possible sepsis secondary to urinary tract infection. Dysphagia. Hypertension. Anemia. Severe protein-calorie malnutrition. 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 PLAN: in Telemetry. Lovenox injection BID monitor laboratory and cultures. Dr. Malik Knapp from [facility]. Abx: Zosyn IV, Vanco IV Tub feeding @ 45 cc/hr at night from 7 PM to 7 AM, and oral feeding during day time. Full Code as per speech evaluation: she is able for oral feeding discuss with family member at bedside regarding CT abdomen finding. CT abdomen Impression: Marked gastric wall thickening. Possibility of gastric carcinoma should be very strongly considered. Adenopathy around the stomach and in the region of the gastrohepatic ligament as well as the hilda hepatis. 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 Abnormal density within the left lobe of the liver and lateral segment. It is likely metastatic but could represent direct invasion of the stomach from a gastric lesion. Hepatic cysts. Dilated pancreatic duct. Previous cholecystectomy. Innumerable tiny low density lesions in the left kidney and a few in the right. These may represent cysts though this is not absolutely certain. At least one in the right kidney represents a cyst. Further evaluation with ultrasound may be helpful. Diverticulosis. Small amount of ascites. Increasing pleural effusions bilaterally. The right pleural effusion appears loculated. Pericardial effusion. 2D Echo: Normal left ventricular chamber size, systolic function and wall motion. Left ventricular ejection fraction estimated to be 65-70 %. No evidence of left ventricular hypertrophy. Anterior Echo-free space, may be due to pericardial fat or effusion. All other cardiac chamber sizes are within normal limits. Focal aortic valve sclerosis with adequate cusp excursion. Thickened mitral valve leaflets with normal excursion. Mild mitral annulus and aortic root calcification. Normal pulmonic valve structure. Normal tricuspid valve structure. IVC at normal size with physiologic collapse. A color flow and spectral Doppler study was performed and revealed: Mild aortic regurgitation. Trace mitral regurgitation. Mitral diastolic velocities suggest mild left ventricular dysfunction (Grade I ) . Mild tricuspid regurgitation. Tricuspid systolic velocities suggests peak right ventricular systolic pressure of 45 mmHg, consistent with moderate pulmonary hypertension. Trace pulmonic regurgitation present. Trung Sebastian MD May 10, 2017 14:59
--- NOTE | 2017-05-10 15:27 | Infectious Diseases Prog Note ---
Assessment/Plan Assessment/Plan ASSESSMENT AND PLAN: 1. staph aureus pna, sepsis, fevers better, leukocytosis worse, effusion - zosyn and vancomycin - recheck cultures, labs and chest x-ray - continue supportive care - ? tap effusion - defer to pulmonary 2. Pulmonary embolism - tx per primary, anti-coagulant 3. Anemia, ? ca on ct scan - w/u per primary and consultants 4. History of encephalopathy. 5. History of cholecystectomy. 6. History of acute kidney injury. 7. Cerebrovascular accident. 8. Aspiration risk. 9. tachycardia. 10. Dementia. 11. History of sepsis. 12. Essential hypertension. 13. Continue treatment per primary consultants. 14. Dysphagia. 15. Abnormal posture and speech deficit. 16. No known allergies. 17. Family history is noncontributory. 18. Social history negative. 19. MAR was noted. 20. Case discussed with RN. 21. Skin care protocol. 22. Continue treatment per primary consultants. 23. Case was also discussed with Dr. Sebastian. Subjective Constitutional: Denies: fever Respiratory: Reports: shortness of breath Cardiovascular: Denies: chest pain Gastrointestinal/Abdominal: Denies: nausea, vomiting, diarrhea Genitourinary: Reports: other - no barrow Neurologic: Denies: headache Psychiatric: Denies: depression Skin: Denies: rash Hematologic: Denies: bleeding Musculoskeletal: Denies: pain Allergies: Coded Allergies: No Known Allergies (Unverified , 05/03/17) Objective Vital Signs Last 24 Hour Vital Signs Date Time Temp Pulse Resp B/P (MAP) Pulse Ox O2 Delivery O2 Flow Rate FiO2 05/10/17 13:59 105 24 98 Venturi Mask 8.0 40 05/10/17 13:48 105 24 98 Venturi Mask 8.0 40 05/10/17 12:00 97.0 120 18 129/72 100 Venturi Mask 05/10/17 11:53 117 05/10/17 10:08 110 125/69 05/10/17 09:56 110 22 98 Venturi Mask 8.0 40 05/10/17 09:48 111 24 98 Venturi Mask 8.0 40 05/10/17 08:00 97.7 101 18 125/69 100 Venturi Mask 05/10/17 07:40 111 05/10/17 06:33 97 Venturi Mask 8.0 40 05/10/17 06:33 Venturi Mask 8.0 40 05/10/17 04:00 109 05/10/17 04:00 97.7 112 18 123/50 95 05/10/17 02:54 127 151/77 05/10/17 01:01 Venturi Mask 05/10/17 01:00 Venturi Mask 05/10/17 00:00 134 05/10/17 00:00 97.0 70 16 151/77 100 05/09/17 20:00 98.6 129 16 142/73 95 05/09/17 20:00 112 05/09/17 18:55 122 18 100 Venturi Mask 8.0 40 05/09/17 18:50 Venturi Mask 8.0 40 05/09/17 18:50 99 Venturi Mask 8.0 40 05/09/17 18:50 120 24 98 Venturi Mask 8.0 40 05/09/17 17:24 125 123/81 05/09/17 16:00 98.0 125 Room Air 05/09/17 16:00 125 Height (Feet): 5 Height (Inches): 3.00 Weight (Pounds): 140 General Appearance: no acute distress, other - + breathing mask HEENT: normocephalic, atraumatic, anicteric, mucous membranes moist, EOMI, pharynx normal, supple, no JVD Respiratory/Chest: decreased breath sounds, crackles/rales, rhonchi - bilaterally, other - + breathing mask Cardiovascular: regular rhythm, no gallop/murmur, tachycardia Abdomen: normal bowel sounds, soft, non tender, no organomegaly, non distended Genitourinary: other - no barrow Extremities: no cyanosis Skin: no rash Neurologic/Psychiatric: lna II-XII grossly normal, alert, responsive Lymphatic: no neck adenopathy Musculoskeletal: no effusion Objective Chest x-ray - 05/04 - Impression: Increasing retrocardiac consolidation and left-sided pleural fluid, over one day Stable right basilar pleural and parenchymal disease CT - chest - + PE (report noted) CT - abdomen and pelvis - Impression: Marked gastric wall thickening. Possibility of gastric carcinoma should be very strongly considered. Adenopathy around the stomach and in the region of the gastrohepatic ligament as well as the hilda hepatis. 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 Abnormal density within the left lobe of the liver and lateral segment. It is likely metastatic but could represent direct invasion of the stomach from a gastric lesion. Hepatic cysts. Dilated pancreatic duct. Previous cholecystectomy. Innumerable tiny low density lesions in the left kidney and a few in the right. These may represent cysts though this is not absolutely certain. At least one in the right kidney represents a cyst. Further evaluation with ultrasound may be helpful. Diverticulosis. Small amount of ascites. Increasing pleural effusions bilaterally. The right pleural effusion appears loculated. Pericardial effusion. Microbiology Date/Time Source Procedure Growth Status 05/03/17 17:20 Blood Blood Culture - Final NO GROWTH AFTER 5 DAYS Complete 05/05/17 00:30 Sputum Induced Gram Stain - Final Complete 05/05/17 00:30 Sputum Culture - Final Staphylococcus Aureus Complete 05/03/17 18:38 Urine,Clean Catch Urine Culture - Final NO GROWTH AFTER 48 HOURS Complete 05/03/17 15:45 Rectum VRE Culture - Final NO VANCOMYCIN RESISTANT ENTEROCOCCUS ... Complete Laboratory Tests Test 05/09/17 23:50 05/10/17 08:40 05/10/17 13:05 Activated Partial Thromboplast Time 33 SEC (23-33) 39 SEC (23-33) H White Blood Count 15.2 K/UL (4.8-10.8) H 14.7 K/UL (4.8-10.8) H Red Blood Count 3.06 M/UL (4.20-5.40) L 3.36 M/UL (4.20-5.40) L Hemoglobin 7.6 G/DL (12.0-16.0) L 8.4 G/DL (12.0-16.0) L Hematocrit 24.9 % (37.0-47.0) L 27.7 % (37.0-47.0) L Mean Corpuscular Volume 81 FL (80-99) 82 FL (80-99) Mean Corpuscular Hemoglobin 25.0 PG (27.0-31.0) L 25.0 PG (27.0-31.0) L Mean Corpuscular Hemoglobin Concent 30.7 G/DL (32.0-36.0) L 30.3 G/DL (32.0-36.0) L Red Cell Distribution Width 16.5 % (11.6-14.8) H 17.0 % (11.6-14.8) H Platelet Count 550 K/UL (150-450) H 626 K/UL (150-450) H Mean Platelet Volume 5.8 FL (6.5-10.1) L 5.8 FL (6.5-10.1) L Neutrophils (%) (Auto) % (45.0-75.0) 77.0 % (45.0-75.0) H Lymphocytes (%) (Auto) % (20.0-45.0) 15.8 % (20.0-45.0) L Monocytes (%) (Auto) % (1.0-10.0) 6.4 % (1.0-10.0) Eosinophils (%) (Auto) % (0.0-3.0) 0.4 % (0.0-3.0) Basophils (%) (Auto) % (0.0-2.0) 0.4 % (0.0-2.0) Differential Total Cells Counted 100 Neutrophils % (Manual) 73 % (45-75) Lymphocytes % (Manual) 13 % (20-45) L Monocytes % (Manual) 14 % (1-10) H Eosinophils % (Manual) 0 % (0-3) Basophils % (Manual) 0 % (0-2) Band Neutrophils 0 % (0-8) Platelet Estimate Increased H Platelet Morphology Normal Hypochromasia 1+ Anisocytosis 1+ Vancomycin Level Trough 11.6 ug/mL (5.0-12.0) Current Medications Medications (Trade) Dose Ordered Sig/Chevy Route PRN Reason Start Time Stop Time Status Last Admin Dose Admin Acetaminophen (Tylenol) 650 mg Q4H PRN RECTAL Mild Pain (Pain Scale 1-3) 05/09/17 15:30 06/03/17 15:29 Acetylcysteine (Mucomyst) 200 mg Q6HRT [facility] 05/09/17 19:00 06/04/17 00:59 05/10/17 13:48 Albuterol/ Ipratropium (Albuterol/ Ipratropium) 3 ml Q6HRT [facility] 05/10/17 08:45 05/15/17 08:44 05/10/17 13:47 Bisacodyl (Dulcolax) 10 mg BIDPRN PRN ORAL Constipation 1st Line Agent 05/09/17 15:00 06/02/17 23:44 Dextrose (Dextrose 50%) STAT PRN IV Hypoglycemia 05/09/17 15:30 06/02/17 15:29 Diltiazem HCl (Cardizem) 20 mg Q8HR@0200,1000,1800 IVP 05/09/17 18:00 06/08/17 17:59 05/10/17 10:08 Ferrous Sulfate (Feosol) 300 mg TWICE A DAY NG 05/09/17 18:00 06/07/17 17:59 05/10/17 08:31 Heparin Sodium/ Dextrose 500 ml @ 20.321 mls/ hr adjust per protocol IV 05/10/17 09:45 06/09/17 09:44 05/10/17 10:04 Iron Sucrose 100 mg/Sodium Chloride 60 ml @ 240 mls/hr BEDTIME IV 05/09/17 21:00 05/13/17 21:01 05/09/17 21:00 Magnesium Hydroxide (Mom) 30 ml DAILYPRN PRN NG Constipation 3rd Line Option 05/09/17 15:30 06/07/17 15:29 Memantine (Namenda) 5 mg QHS NG 05/09/17 21:00 06/03/17 20:59 05/09/17 21:00 Piperacillin Sod/ Tazobactam Sod 3.375 gm/Dextrose 55 ml @ 13.75 mls/ hr EVERY 8 HOURS IV 05/09/17 22:00 05/16/17 21:59 05/10/17 13:36 Sodium Phosphate (Fleet's Sodium Phosl Enema) 133 ml DAILYPRN PRN RECTAL IF DULCOLAX INEFFECTIVE 05/09/17 15:30 06/08/17 15:29 Vancomycin HCl (Vanco rx to dose) 1 ea DAILYPRN PRN MISC Per rx protocol 05/09/17 15:30 06/05/17 15:29 Vancomycin HCl 1 gm/Dextrose 275 ml @ 183.708 mls/hr Q24H IVPB 05/11/17 10:00 05/16/17 09:59 WENDY SOMMERS May 10, 2017 15:27
--- NOTE | 2017-05-10 15:38 | Diagnostic Imaging Report ---
Indication: Dyspnea Comparison: 05/04/2017 A single view chest radiograph was obtained. Findings: Hazy right basilar opacity and prominent heart size again noted. Weighted feeding tube noted. Cholecystectomy clips present. IMPRESSION: Right basilar density most likely a small pleural effusion. No significant change.
[2017-05-10] MEDS ORDERED: Sterile Water Irrig 1000ml IRRIG ONE (17:01)
[2017-05-10] MEDS ORDERED: Tubing IV Secondary IV ONE (17:01)
[2017-05-10 17:26] VITALS: BP 120/56
[2017-05-10] MEDS: Heparin 25,000u/D5W 500ml 500 ML IV SCH (17:34)
[2017-05-10 17:42] LABS: APPEARANCE,URINE CLEAR; BILIRUBIN, URINE NEGATIVE (NEGATIVE); COLOR,URINE PALE YELLOW; GLUCOSE, URINE (UA) NEGATIVE (NEGATIVE); KETONES,URINE NEGATIVE (NEGATIVE); LEUKOCYTE ESTERASE ,URINE 1+ (NEGATIVE); NITRITE,URINE NEGATIVE (NEGATIVE); PH,URINE 8 (4.5-8.0); PROTEIN,URINE 1+ (NEGATIVE); UROBILINOGEN,URINE NORMAL MG/DL (0.0-1.0)
--- NOTE | 2017-05-10 18:01 | Pulmonology Progress Note ---
Assessment/Plan Assessment/Plan ASSESSMENT PE sepsis PNA with Staph aureus acute hypoxemic respiratory failure 2 to PE and pneumonia Dysphagia Hx of CVA HTN Anemia Protein calorie malnutrition Gastric wall thickening + LAD concerning for malignancy + lesions in liver PLAN OF CARE: tele Pulmonary toilet Mucomyst in HHN QID CPT QID Abx , ID follows, sputum cx + Staph aureus , urine cx -negative, blood cx prel negative Fup with CXR last CXR 05/10 no change from previous Monitor volumes, cardiorenal parameters, lytes, correct as needed NGT feedings at night , oral feeding during the day, strict aspiration precautions, ST Rx, per ST chris to have oral feeding with aspiration/reflux precautions CT A/P highly suspicious for gastric metastatic disease off Lovenox given plan for endoscopy, on IVUH, can resume Lovenox or NOAC afterwards with Coumadin to bridge to therapeutic INR endoscopy in am GI follows fup with tumor markers monitor counts, transfuse prn, on Venofer dietary recommendations re nutritional support BP management with current regimen. optimize as needed case discussed and evaluated by supervising physician Subjective Allergies: Coded Allergies: No Known Allergies (Unverified , 05/03/17) Subjective Leukocytosis, afebrile able to downgrade to O2 via NC HH better after Venofer started endoscopy planned for am admits to intermittent SOB, palpitations at times, no chest pain, no dizziness. no cough Objective Last 24 Hour Vital Signs Date Time Temp Pulse Resp B/P (MAP) Pulse Ox O2 Delivery O2 Flow Rate FiO2 05/10/17 17:32 71 120/56 05/10/17 17:26 97.9 71 18 120/56 94 Nasal Cannula 4.0 05/10/17 15:17 121 05/10/17 13:59 105 24 98 Venturi Mask 8.0 40 05/10/17 13:48 105 24 98 Venturi Mask 8.0 40 05/10/17 12:00 97.0 120 18 129/72 100 Venturi Mask 05/10/17 11:53 117 05/10/17 10:08 110 125/69 05/10/17 09:56 110 22 98 Venturi Mask 8.0 40 05/10/17 09:48 111 24 98 Venturi Mask 8.0 40 05/10/17 08:00 97.7 101 18 125/69 100 Venturi Mask 05/10/17 07:40 111 05/10/17 06:33 97 Venturi Mask 8.0 40 05/10/17 06:33 Venturi Mask 8.0 40 05/10/17 04:00 109 05/10/17 04:00 97.7 112 18 123/50 95 05/10/17 02:54 127 151/77 05/10/17 01:01 Venturi Mask 05/10/17 01:00 Venturi Mask 05/10/17 00:00 134 05/10/17 00:00 97.0 70 16 151/77 100 05/09/17 20:00 98.6 129 16 142/73 95 05/09/17 20:00 112 05/09/17 18:55 122 18 100 Venturi Mask 8.0 40 05/09/17 18:50 Venturi Mask 8.0 40 05/09/17 18:50 99 Venturi Mask 8.0 40 05/09/17 18:50 120 24 98 Venturi Mask 8.0 40 Intake and Output 05/09/17 05/10/17 19:00 07:00 Intake Total 655 ml 155 ml Balance 655 ml 155 ml Free Water 600 ml 100 ml Tube Feeding 55 ml 55 ml # Voids 3 2 # Bowel Movements 1 1 General Appearance: no acute distress, other - awake, alert, responsive AA female in NAD HEENT: normocephalic, atraumatic, anicteric, other - O2 via NC Respiratory/Chest: lungs clear, no respiratory distress, no accessory muscle use Cardiovascular: normal rate, regular rhythm Abdomen: non distended Genitourinary: normal external genitalia Extremities: no edema, pedal pulses normal Neurologic/Psychiatric: alert, responsive Musculoskeletal: atrophy - BLE Laboratory Tests 05/09/17 23:50: Activated Partial Thromboplast Time 33 05/10/17 08:40: Activated Partial Thromboplast Time 39H, White Blood Count 15.2H, Red Blood Count 3.06L, Hemoglobin 7.6L, Hematocrit 24.9L, Mean Corpuscular Volume 81, Mean Corpuscular Hemoglobin 25.0L, Mean Corpuscular Hemoglobin Concent 30.7L, Red Cell Distribution Width 16.5H, Platelet Count 550H, Mean Platelet Volume 5.8L, Neutrophils (%) (Auto) , Lymphocytes (%) (Auto) , Monocytes (%) (Auto) , Eosinophils (%) (Auto) , Basophils (%) (Auto) , Differential Total Cells Counted 100, Neutrophils % (Manual) 73, Lymphocytes % (Manual) 13L, Monocytes % (Manual) 14H, Eosinophils % (Manual) 0, Basophils % (Manual) 0, Band Neutrophils 0, Platelet Estimate IncreasedH, Platelet Morphology Normal, Hypochromasia 1+, Anisocytosis 1+, Vancomycin Level Trough 11.6 05/10/17 13:05: White Blood Count 14.7H, Red Blood Count 3.36L, Hemoglobin 8.4L, Hematocrit 27.7L, Mean Corpuscular Volume 82, Mean Corpuscular Hemoglobin 25.0L, Mean Corpuscular Hemoglobin Concent 30.3L, Red Cell Distribution Width 17.0H, Platelet Count 626H, Mean Platelet Volume 5.8L, Neutrophils (%) (Auto) 77.0H, Lymphocytes (%) (Auto) 15.8L, Monocytes (%) (Auto) 6.4, Eosinophils (%) (Auto) 0.4, Basophils (%) (Auto) 0.4 05/10/17 16:20: Activated Partial Thromboplast Time 44H 05/10/17 17:00: Urine Color Pale yellow, Urine Appearance Clear, Urine pH 8, Urine Specific [place] 1.010, Urine Protein 1+H, Urine Glucose (UA) Negative, Urine Ketones Negative, Urine Occult Blood 5+H, Urine Nitrite Negative, Urine Bilirubin Negative, Urine Urobilinogen Normal, Urine Leukocyte Esterase 1+H, Urine RBC [ Pending], Urine WBC [Pending], Urine Squamous Epithelial Cells [Pending], Urine Bacteria [Pending] Current Medications Medications (Trade) Dose Ordered Sig/Chevy Route PRN Reason Start Time Stop Time Status Last Admin Dose Admin Acetaminophen (Tylenol) 650 mg Q4H PRN RECTAL Mild Pain (Pain Scale 1-3) 05/09/17 15:30 06/03/17 15:29 Acetylcysteine (Mucomyst) 200 mg Q6HRT [facility] 05/09/17 19:00 06/04/17 00:59 05/10/17 13:48 Albuterol/ Ipratropium (Albuterol/ Ipratropium) 3 ml Q6HRT [facility] 05/10/17 08:45 05/15/17 08:44 05/10/17 13:47 Bisacodyl (Dulcolax) 10 mg BIDPRN PRN ORAL Constipation 1st Line Agent 05/09/17 15:00 06/02/17 23:44 Dextrose (Dextrose 50%) STAT PRN IV Hypoglycemia 05/09/17 15:30 06/02/17 15:29 Diltiazem HCl (Cardizem) 20 mg Q8HR@0200,1000,1800 IVP 05/09/17 18:00 06/08/17 17:59 05/10/17 17:32 Ferrous Sulfate (Feosol) 300 mg TWICE A DAY NG 05/09/17 18:00 06/07/17 17:59 05/10/17 17:32 Heparin Sodium/ Dextrose 500 ml @ 25.401 mls/ hr adjust per protocol IV 05/10/17 17:40 06/09/17 17:39 05/10/17 17:34 Iron Sucrose 100 mg/Sodium Chloride 60 ml @ 240 mls/hr BEDTIME IV 05/09/17 21:00 05/13/17 21:01 05/09/17 21:00 Magnesium Hydroxide (Mom) 30 ml DAILYPRN PRN NG Constipation 3rd Line Option 05/09/17 15:30 06/07/17 15:29 Memantine (Namenda) 5 mg QHS NG 05/09/17 21:00 06/03/17 20:59 05/09/17 21:00 Piperacillin Sod/ Tazobactam Sod 3.375 gm/Dextrose 55 ml @ 13.75 mls/ hr EVERY 8 HOURS IV 05/09/17 22:00 05/16/17 21:59 05/10/17 13:36 Sodium Phosphate (Fleet's Sodium Phosl Enema) 133 ml DAILYPRN PRN RECTAL IF DULCOLAX INEFFECTIVE 05/09/17 15:30 06/08/17 15:29 Vancomycin HCl (Vanco rx to dose) 1 ea DAILYPRN PRN MISC Per rx protocol 05/09/17 15:30 06/05/17 15:29 Vancomycin HCl 1 gm/Dextrose 275 ml @ 183.708 mls/hr Q24H IVPB 05/11/17 10:00 05/16/17 09:59 Esperanza Alejandro (Vanchtein) [employer] May 10, 2017 18:01
[2017-05-10] MEDS: Iron Sucrose 100 MG in NS 55 ML IV SCH (21:00)
[2017-05-10] MEDS: Memantine 5 MG TAB NG SCH (21:00)
--- NOTE | 2017-05-10 23:10 | Consultation ---
History of Present Illness General Date patient seen: May 08, 2017 Chief Complaint: Fever Referring physician: RAIN MENA Reason for Consultation: NGT placement Present Illness HPI 81-year-old female with past medical history significant for hypertension, history of recent CVA, and dementia, who was presented to the hospital from [facility]. I am well familiar with the pt . the pt is agitated at times. calm during my eval. poor historian Allergies: Coded Allergies: No Known Allergies (Unverified , 05/03/17) Medication History Scheduled Diltiazem Hcl* (Cardizem*), 60 MG ORAL EVERY 8 HOURS, (Reported) Docusate Sodium* (Docusate Sodium*), 100 MG ORAL TWICE A DAY, (Reported) Ferrous Sulfate* (Ferrous Sulfate*), 325 MG ORAL TWICE A DAY, (Reported) Megestrol Acetate (Megestrol Acetate), 400 MG PO DAILY, (Reported) Memantine Hcl* (Namenda*), 5 MG ORAL QHS, (Reported) Multivitamin with Minerals (Multivitamins with Minerals), 1 TAB ORAL DAILY, ( Reported) Pseudoephedrine Hcl* (Sudafed*), 30 MG PO BID, (Reported) Scheduled PRN Acetaminophen* (Acetaminophen 325MG Tablet*), 325 MG ORAL Q6H PRN for TEMP > 101F, (Reported) Acetaminophen* (Acetaminophen 325MG Tablet*), 325 MG ORAL Q6H PRN for PAIN. NTE 3GM/24HR, (Reported) Bisacodyl (Dulcolax), 10 MG RC DAILY PRN for IF MOM INEFFECTIVE, (Reported) Bisacodyl* (Dulcolax*), 10 MG ORAL BID PRN for Constipation, (Reported) Magnesium Hydroxide* (Milk Of Magnesia*), 30 ML ORAL DAILY PRN for Constipation, (Reported) Na Phos,M-B/Na Phos,Di-Ba* (Fleet Enema*), 133 ML RECTAL DAILY PRN for IF DULCOLAX INEFFECTIVE, (Reported) Patient History History Provided By: Patient, Medical Record Healthcare decision maker Resuscitation status Full Code Advanced Directive on File Review of Systems Psychiatric: Reports: see HPI, prior hx, anxiety, depressed feelings Physical Exam General Appearance: no apparent distress, alert Last 24 Hour Vital Signs Date Time Temp Pulse Resp B/P (MAP) Pulse Ox O2 Delivery O2 Flow Rate FiO2 05/10/17 19:31 129 24 Venturi Mask 8.0 40 05/10/17 19:28 117 20 99 Venturi Mask 8.0 40 05/10/17 19:24 94 Venturi Mask 8.0 40 05/10/17 19:24 Venturi Mask 8.0 40 05/10/17 19:21 109 22 96 Venturi Mask 8.0 40 05/10/17 17:32 71 120/56 05/10/17 17:26 97.9 71 18 120/56 94 Nasal Cannula 4.0 05/10/17 15:17 121 05/10/17 13:59 105 24 98 Venturi Mask 8.0 40 05/10/17 13:48 105 24 98 Venturi Mask 8.0 40 05/10/17 12:00 97.0 120 18 129/72 100 Venturi Mask 05/10/17 11:53 117 05/10/17 10:08 110 125/69 05/10/17 09:56 110 22 98 Venturi Mask 8.0 40 05/10/17 09:48 111 24 98 Venturi Mask 8.0 40 05/10/17 08:00 97.7 101 18 125/69 100 Venturi Mask 05/10/17 07:40 111 05/10/17 06:33 97 Venturi Mask 8.0 40 05/10/17 06:33 Venturi Mask 8.0 40 05/10/17 04:00 109 05/10/17 04:00 97.7 112 18 123/50 95 05/10/17 02:54 127 151/77 05/10/17 01:01 Venturi Mask 05/10/17 01:00 Venturi Mask 05/10/17 00:00 134 05/10/17 00:00 97.0 70 16 151/77 100 Intake and Output 05/09/17 05/10/17 19:00 07:00 Intake Total 655 ml 155 ml Balance 655 ml 155 ml Free Water 600 ml 100 ml Tube Feeding 55 ml 55 ml # Voids 3 2 # Bowel Movements 1 1 Laboratory Tests Test 05/09/17 23:50 05/10/17 08:40 05/10/17 13:05 05/10/17 16:20 Activated Partial Thromboplast Time 33 SEC (23-33) 39 SEC (23-33) H 44 SEC (23-33) H White Blood Count 15.2 K/UL (4.8-10.8) H 14.7 K/UL (4.8-10.8) H Red Blood Count 3.06 M/UL (4.20-5.40) L 3.36 M/UL (4.20-5.40) L Hemoglobin 7.6 G/DL (12.0-16.0) L 8.4 G/DL (12.0-16.0) L Hematocrit 24.9 % (37.0-47.0) L 27.7 % (37.0-47.0) L Mean Corpuscular Volume 81 FL (80-99) 82 FL (80-99) Mean Corpuscular Hemoglobin 25.0 PG (27.0-31.0) L 25.0 PG (27.0-31.0) L Mean Corpuscular Hemoglobin Concent 30.7 G/DL (32.0-36.0) L 30.3 G/DL (32.0-36.0) L Red Cell Distribution Width 16.5 % (11.6-14.8) H 17.0 % (11.6-14.8) H Platelet Count 550 K/UL (150-450) H 626 K/UL (150-450) H Mean Platelet Volume 5.8 FL (6.5-10.1) L 5.8 FL (6.5-10.1) L Neutrophils (%) (Auto) % (45.0-75.0) 77.0 % (45.0-75.0) H Lymphocytes (%) (Auto) % (20.0-45.0) 15.8 % (20.0-45.0) L Monocytes (%) (Auto) % (1.0-10.0) 6.4 % (1.0-10.0) Eosinophils (%) (Auto) % (0.0-3.0) 0.4 % (0.0-3.0) Basophils (%) (Auto) % (0.0-2.0) 0.4 % (0.0-2.0) Differential Total Cells Counted 100 Neutrophils % (Manual) 73 % (45-75) Lymphocytes % (Manual) 13 % (20-45) L Monocytes % (Manual) 14 % (1-10) H Eosinophils % (Manual) 0 % (0-3) Basophils % (Manual) 0 % (0-2) Band Neutrophils 0 % (0-8) Platelet Estimate Increased H Platelet Morphology Normal Hypochromasia 1+ Anisocytosis 1+ Vancomycin Level Trough 11.6 ug/mL (5.0-12.0) Test 05/10/17 17:00 Urine Color Pale yellow Urine Appearance Clear Urine pH 8 (4.5-8.0) Urine Specific [place] 1.010 (1.005-1.035) Urine Protein 1+ (NEGATIVE) H Urine Glucose (UA) Negative (NEGATIVE) Urine Ketones Negative (NEGATIVE) Urine Occult Blood 5+ (NEGATIVE) H Urine Nitrite Negative (NEGATIVE) Urine Bilirubin Negative (NEGATIVE) Urine Urobilinogen Normal MG/DL (0.0-1.0) Urine Leukocyte Esterase 1+ (NEGATIVE) H Urine RBC 2-4 /HPF (0 - 2) H Urine WBC 2-4 /HPF (0 - 2) Urine Squamous Epithelial Cells Few /LPF (NONE/OCC) Urine Amorphous Sediment Few /LPF (NONE) H Urine Bacteria Few /HPF (NONE) Urine Yeast Few /HPF (NONE) H Height (Feet): 5 Height (Inches): 3.00 Weight (Pounds): 140 Medications Current Medications Medications (Trade) Dose Ordered Sig/Chevy Route PRN Reason Start Time Stop Time Status Last Admin Dose Admin Acetaminophen (Tylenol) 650 mg Q4H PRN RECTAL Mild Pain (Pain Scale 1-3) 05/09/17 15:30 06/03/17 15:29 Acetylcysteine (Mucomyst) 200 mg Q6HRT [facility] 05/09/17 19:00 06/04/17 00:59 05/10/17 21:28 Albuterol/ Ipratropium (Albuterol/ Ipratropium) 3 ml Q6HRT [facility] 05/10/17 08:45 05/15/17 08:44 05/10/17 21:28 Bisacodyl (Dulcolax) 10 mg BIDPRN PRN ORAL Constipation 1st Line Agent 05/09/17 15:00 06/02/17 23:44 Dextrose (Dextrose 50%) STAT PRN IV Hypoglycemia 05/09/17 15:30 06/02/17 15:29 Diltiazem HCl (Cardizem) 20 mg Q8HR@0200,1000,1800 IVP 05/09/17 18:00 06/08/17 17:59 05/10/17 17:32 Ferrous Sulfate (Feosol) 300 mg TWICE A DAY NG 05/09/17 18:00 06/07/17 17:59 05/10/17 17:32 Heparin Sodium/ Dextrose 500 ml @ 25.401 mls/ hr adjust per protocol IV 05/10/17 17:40 06/09/17 17:39 05/10/17 17:34 Iron Sucrose 100 mg/Sodium Chloride 60 ml @ 240 mls/hr BEDTIME IV 05/09/17 21:00 05/13/17 21:01 05/09/17 21:00 Magnesium Hydroxide (Mom) 30 ml DAILYPRN PRN NG Constipation 3rd Line Option 05/09/17 15:30 06/07/17 15:29 Memantine (Namenda) 5 mg QHS NG 05/09/17 21:00 06/03/17 20:59 05/09/17 21:00 Piperacillin Sod/ Tazobactam Sod 3.375 gm/Dextrose 55 ml @ 13.75 mls/ hr EVERY 8 HOURS IV 05/09/17 22:00 05/16/17 21:59 05/10/17 13:36 Sodium Phosphate (Fleet's Sodium Phosl Enema) 133 ml DAILYPRN PRN RECTAL IF DULCOLAX INEFFECTIVE 05/09/17 15:30 06/08/17 15:29 Vancomycin HCl (Vanco rx to dose) 1 ea DAILYPRN PRN MISC Per rx protocol 05/09/17 15:30 06/05/17 15:29 Vancomycin HCl 1 gm/Dextrose 275 ml @ 183.708 mls/hr Q24H IVPB 05/11/17 10:00 05/16/17 09:59 Assessment/Plan Status: stable Sterling Canales M.D. May 10, 2017 23:09
[2017-05-11] VITALS (8 sets, daily range): BP systolic 112–142; BP diastolic 63–83
[2017-05-11] MEDS: Albuterol/Ipratropium 3ml neb HHN SCH ×4 (02:07→19:05)
[2017-05-11] MEDS: Acetylcysteine 20% Soln 4ml HHN SCH ×4 (02:07→19:07)
[2017-05-11] MEDS: dilTIAZem HCl 25mg/5ml Inj IVP SCH ×3 (02:27→18:22)
[2017-05-11] MEDS: Piperacillin/Tazobactam 3.375 GM in D5W 55 ML IV SCH ×3 (07:00→22:35)
--- NOTE | 2017-05-11 08:19 | Pulmonology Progress Note ---
Assessment/Plan Assessment/Plan ASSESSMENT PE sepsis PNA with Staph aureus acute hypoxemic respiratory failure 2 to PE and pneumonia Dysphagia Hx of CVA HTN Anemia Protein calorie malnutrition Gastric wall thickening + LAD concerning for malignancy + lesions in liver PLAN OF CARE: tele Pulmonary toilet Mucomyst in HHN QID CPT QID Abx , ID follows, sputum cx + Staph aureus , urine cx -negative, blood cx prel negative Fup with CXR in am last CXR 05/10 no change from previous Monitor volumes, cardiorenal parameters, lytes, correct as needed NGT feedings at night , oral feeding during the day, strict aspiration precautions, ST Rx, per ST chris to have oral feeding with aspiration/reflux precautions CT A/P highly suspicious for gastric metastatic disease off Lovenox given plan for endoscopy, on IVUH, can resume Lovenox or NOAC afterwards with Coumadin to bridge to therapeutic INR endoscopy this am GI follows fup with tumor markers monitor counts, transfuse prn, on Venofer dietary recommendations re nutritional support BP management with current regimen. optimize as needed fup with labs- pending this am case discussed and evaluated by supervising physician Subjective Allergies: Coded Allergies: No Known Allergies (Unverified , 05/03/17) Subjective afebrile back to endoscopy this am labs pending admits to intermittent SOB, palpitations at times, no chest pain, no dizziness. no cough Objective Last 24 Hour Vital Signs Date Time Temp Pulse Resp B/P (MAP) Pulse Ox O2 Delivery O2 Flow Rate FiO2 05/11/17 08:07 97.2 115 19 112/70 97 Venturi Mask 8.0 05/11/17 04:00 121 05/11/17 02:27 121 120/56 05/11/17 01:15 114 20 97 Venturi Mask 8.0 40 05/11/17 01:10 113 20 98 Venturi Mask 8.0 40 05/11/17 00:00 123 05/10/17 20:00 120 05/10/17 19:31 129 24 Venturi Mask 8.0 40 05/10/17 19:28 117 20 99 Venturi Mask 8.0 40 05/10/17 19:24 94 Venturi Mask 8.0 40 05/10/17 19:24 Venturi Mask 8.0 40 05/10/17 19:21 109 22 96 Venturi Mask 8.0 40 05/10/17 17:32 71 120/56 05/10/17 17:26 97.9 71 18 120/56 94 Nasal Cannula 4.0 05/10/17 15:17 121 05/10/17 13:59 105 24 98 Venturi Mask 8.0 40 05/10/17 13:48 105 24 98 Venturi Mask 8.0 40 05/10/17 12:00 97.0 120 18 129/72 100 Venturi Mask 05/10/17 11:53 117 05/10/17 10:08 110 125/69 05/10/17 09:56 110 22 98 Venturi Mask 8.0 40 05/10/17 09:48 111 24 98 Venturi Mask 8.0 40 Intake and Output 05/10/17 05/11/17 19:00 07:00 Intake Total 773.648 ml 25.401 ml Balance 773.648 ml 25.401 ml Free Water 166 ml IV Total 167.648 ml 25.401 ml Tube Feeding 440 ml # Voids 1 Objective General Appearance: no acute distress, other - awake, alert, responsive AA female in NAD HEENT: normocephalic, atraumatic, anicteric, O2 via VM Respiratory/Chest: lungs clear, no respiratory distress, no accessory muscle use Cardiovascular: tachy, ST on tele, Abdomen: non distended Genitourinary: normal external genitalia Extremities: no edema, pedal pulses normal Neurologic/Psychiatric: alert, responsive Musculoskeletal: atrophy - BLE Microbiology Date/Time Source Procedure Growth Status 05/10/17 17:00 Straight Cath Urine Culture - Preliminary Resulted Laboratory Tests 05/10/17 08:40: White Blood Count 15.2H, Red Blood Count 3.06L, Hemoglobin 7.6L, Hematocrit 24.9L, Mean Corpuscular Volume 81, Mean Corpuscular Hemoglobin 25.0L, Mean Corpuscular Hemoglobin Concent 30.7L, Red Cell Distribution Width 16.5H, Platelet Count 550H, Mean Platelet Volume 5.8L, Neutrophils (%) (Auto) , Lymphocytes (%) (Auto) , Monocytes (%) (Auto) , Eosinophils (%) (Auto) , Basophils (%) (Auto) , Differential Total Cells Counted 100, Neutrophils % ( Manual) 73, Lymphocytes % (Manual) 13L, Monocytes % (Manual) 14H, Eosinophils % (Manual) 0, Basophils % (Manual) 0, Band Neutrophils 0, Platelet Estimate IncreasedH, Platelet Morphology Normal, Hypochromasia 1+, Anisocytosis 1+, Activated Partial Thromboplast Time 39H, Vancomycin Level Trough 11.6 05/10/17 13:05: White Blood Count 14.7H, Red Blood Count 3.36L, Hemoglobin 8.4L, Hematocrit 27.7L, Mean Corpuscular Volume 82, Mean Corpuscular Hemoglobin 25.0L, Mean Corpuscular Hemoglobin Concent 30.3L, Red Cell Distribution Width 17.0H, Platelet Count 626H, Mean Platelet Volume 5.8L, Neutrophils (%) (Auto) 77.0H, Lymphocytes (%) (Auto) 15.8L, Monocytes (%) (Auto) 6.4, Eosinophils (%) (Auto) 0.4, Basophils (%) (Auto) 0.4 05/10/17 16:20: Activated Partial Thromboplast Time 44H 05/10/17 17:00: Urine Color Pale yellow, Urine Appearance Clear, Urine pH 8, Urine Specific [place] 1.010, Urine Protein 1+H, Urine Glucose (UA) Negative, Urine Ketones Negative, Urine Occult Blood 5+H, Urine Nitrite Negative, Urine Bilirubin Negative, Urine Urobilinogen Normal, Urine Leukocyte Esterase 1+H, Urine RBC 2- 4H, Urine WBC 2-4, Urine Squamous Epithelial Cells Few, Urine Amorphous Sediment FewH, Urine Bacteria Few, Urine Yeast FewH 05/10/17 23:30: Activated Partial Thromboplast Time 49H Current Medications Medications (Trade) Dose Ordered Sig/Chevy Route PRN Reason Start Time Stop Time Status Last Admin Dose Admin Acetaminophen (Tylenol) 650 mg Q4H PRN RECTAL Mild Pain (Pain Scale 1-3) 05/09/17 15:30 06/03/17 15:29 Acetylcysteine (Mucomyst) 200 mg Q6HRT [facility] 05/09/17 19:00 06/04/17 00:59 05/11/17 02:07 Albuterol/ Ipratropium (Albuterol/ Ipratropium) 3 ml Q6HRT [facility] 05/10/17 08:45 05/15/17 08:44 05/11/17 02:07 Bisacodyl (Dulcolax) 10 mg BIDPRN PRN ORAL Constipation 1st Line Agent 05/09/17 15:00 06/02/17 23:44 Dextrose (Dextrose 50%) STAT PRN IV Hypoglycemia 05/09/17 15:30 06/02/17 15:29 Diltiazem HCl (Cardizem) 20 mg Q8HR@0200,1000,1800 IVP 05/09/17 18:00 06/08/17 17:59 05/11/17 02:27 Ferrous Sulfate (Feosol) 300 mg TWICE A DAY NG 05/09/17 18:00 06/07/17 17:59 05/10/17 17:32 Heparin Sodium/ Dextrose 500 ml @ 25.401 mls/ hr adjust per protocol IV 05/10/17 17:40 06/09/17 17:39 05/10/17 17:34 Iron Sucrose 100 mg/Sodium Chloride 60 ml @ 240 mls/hr BEDTIME IV 05/09/17 21:00 05/13/17 21:01 05/10/17 21:00 Magnesium Hydroxide (Mom) 30 ml DAILYPRN PRN NG Constipation 3rd Line Option 05/09/17 15:30 06/07/17 15:29 Memantine (Namenda) 5 mg QHS NG 05/09/17 21:00 06/03/17 20:59 05/10/17 21:00 Piperacillin Sod/ Tazobactam Sod 3.375 gm/Dextrose 55 ml @ 13.75 mls/ hr EVERY 8 HOURS IV 05/09/17 22:00 05/16/17 21:59 05/11/17 07:00 Sodium Phosphate (Fleet's Sodium Phosl Enema) 133 ml DAILYPRN PRN RECTAL IF DULCOLAX INEFFECTIVE 05/09/17 15:30 06/08/17 15:29 Vancomycin HCl (Vanco rx to dose) 1 ea DAILYPRN PRN MISC Per rx protocol 05/09/17 15:30 06/05/17 15:29 Vancomycin HCl 1 gm/Dextrose 275 ml @ 183.708 mls/hr Q24H IVPB 05/11/17 10:00 05/16/17 09:59 Esperanza Alejandro NP (Vanchtein) May 11, 2017 08:19
[2017-05-11] MEDS: Ferrous Sulfate 300 MG/5 ML UDC NG SCH ×2 (08:28→18:21)
[2017-05-11 08:46] LABS: HEMOGLOBIN 7.7 G/DL (12.0-16.0); MEAN CORPUSCULAR VOLUME 82 FL (80-99); PLATELET COUNT 681 K/UL (150-450); RED BLOOD COUNT 3.04 M/UL (4.20-5.40); RED CELL DISTRIBUTION WIDTH 16.9 % (11.6-14.8); WHITE BLOOD COUNT 14.7 K/UL (4.8-10.8)
[2017-05-11 09:00] LABS: ALANINE AMINOTRANSFERASE 16 U/L (12-78); ALBUMIN 1.5 G/DL (3.4-5.0); ALBUMIN/GLOBULIN RATIO 0.3 (1.0-2.7); ALKALINE PHOSPHATASE 76 U/L (46-116); ANION GAP 7 mmol/L (5-15); ASPARTATE AMINO TRANSFERASE 13 U/L (15-37); BILIRUBIN,TOTAL 0.3 MG/DL (0.2-1.0); BLOOD UREA NITROGEN 11 mg/dL (7-18); CALCIUM 8.2 MG/DL (8.5-10.1); CARBON DIOXIDE 26 MMOL/L (21-32); CHLORIDE 101 MMOL/L (98-107); CREATININE 0.8 MG/DL (0.55-1.30); SODIUM 134 MMOL/L (136-145)
[2017-05-11] MEDS ORDERED: Midazolam 2mg/2ml Inj ONE (09:45)
[2017-05-11] MEDS ORDERED: Propofol 200mg/20ml IV ONE (09:45)
[2017-05-11] MEDS ORDERED: Lidocaine 1% MPF 10mg/ml 5ml ONE (09:45)
--- NOTE | 2017-05-11 09:57 | Immediate Post-Op Evaluation ---
Immediate Post-Op Evalulation Immediate Post-Op Evalulation Procedure: EGD W/ BIOPSY Date of Evaluation: May 11, 2017 Time of Evaluation: 10:40 IV Fluids: NSS 200 ML Blood Products: 0 Estimated Blood Loss: 0 Urinary Output: 0 Blood Pressure Systolic: 142 Blood Pressure Diastolic: 83 Pulse Rate: 114 Respiratory Rate: 20 O2 Sat by Pulse Oximetry: 97 Temperature (Fahrenheit): 99 Pain Score (1-10): 0 Nausea: No Vomiting: No Complications NONE Patient Status: awake, reacts Hydration Status: adequate Given Within 1 Hr of Incision: Zee Mendosa CRNA May 11, 2017 09:57
--- NOTE | 2017-05-11 09:57 | Anethesia Preoperative Eval ---
Anesthesia Pre-op PMH/ROS General Date of Evaluation: May 11, 2017 Time of Evaluation: 09:45 Anesthesiologist: Tami ASA Score: ASA 3 - 3E Mallampati Score Class I : Soft palate, uvula, fauces, pillars visible Class II: Soft palate, uvula, fauces visible Class III: Soft palate, base of uvula visible Class IV: Only hard plate visible Mallampati Classification: Class II Surgeon: Jean Pierre Diagnosis: Sepsis, dysphagia Surgical Procedure: EGD Anesthesia History: none Family History: no anesthesia problems Allergies: Coded Allergies: No Known Allergies (Unverified , 05/03/17) Medications: see eMAR Past Medical History Cardiovascular: Reports: HTN Pulmonary: Reports: other - hx of PE, pneumonia Gastrointestinal/Genitourinary: Reports: other - Diverticulosis Neurologic/Psychiatric: Reports: dementia, CVA - extremity weakness Endocrine: Denies: DM, hypothyroidism, steroids, other Hematology/Immune: Reports: anemia Musculoskeletal/Integumentary: Reports: OA Anesthesia Pre-op Phys. Exam Physician Exam Last Vital Signs Date Time Temp Pulse Resp B/P (MAP) Pulse Ox O2 Delivery O2 Flow Rate FiO2 05/11/17 09:13 99 112/70 05/11/17 08:47 18 100 Venturi Mask 8.0 40 05/11/17 08:07 97.2 Constitutional: NAD Neurologic: CN 2-12 intact Cardiovascular: RRR Respiratory: CTA Gastrointestinal: S/NT/ND Airway Exam Mallampati Score: Class II MO: full ROM: full Teeth: missing Dentures: upper Anesthesia Pre-op A/P Labs Hematology Test 05/10/17 13:05 05/11/17 08:25 White Blood Count 14.7 K/UL (4.8-10.8) H 14.7 K/UL (4.8-10.8) H Red Blood Count 3.36 M/UL (4.20-5.40) L 3.04 M/UL (4.20-5.40) L Hemoglobin 8.4 G/DL (12.0-16.0) L 7.7 G/DL (12.0-16.0) L Hematocrit 27.7 % (37.0-47.0) L 25.0 % (37.0-47.0) L Mean Corpuscular Volume 82 FL (80-99) 82 FL (80-99) Mean Corpuscular Hemoglobin 25.0 PG (27.0-31.0) L 25.3 PG (27.0-31.0) L Mean Corpuscular Hemoglobin Concent 30.3 G/DL (32.0-36.0) L 30.8 G/DL (32.0-36.0) L Red Cell Distribution Width 17.0 % (11.6-14.8) H 16.9 % (11.6-14.8) H Platelet Count 626 K/UL (150-450) H 681 K/UL (150-450) H Mean Platelet Volume 5.8 FL (6.5-10.1) L 5.7 FL (6.5-10.1) L Neutrophils (%) (Auto) 77.0 % (45.0-75.0) H % (45.0-75.0) Lymphocytes (%) (Auto) 15.8 % (20.0-45.0) L % (20.0-45.0) Monocytes (%) (Auto) 6.4 % (1.0-10.0) % (1.0-10.0) Eosinophils (%) (Auto) 0.4 % (0.0-3.0) % (0.0-3.0) Basophils (%) (Auto) 0.4 % (0.0-2.0) % (0.0-2.0) Neutrophils % (Manual) Pending Lymphocytes % (Manual) Pending Platelet Estimate Pending Platelet Morphology Pending Coagulation Test 05/10/17 16:20 05/10/17 23:30 05/11/17 08:25 Activated Partial Thromboplast Time 44 SEC (23-33) H 49 SEC (23-33) H 35 SEC (23-33) H Prothrombin Time 10.9 SEC (9.30-11.50) Prothromb Time International Ratio 1.0 (0.9-1.1) Chemistry Test 05/11/17 08:25 Sodium Level 134 MMOL/L (136-145) L Potassium Level 4.0 MMOL/L (3.5-5.1) Chloride Level 101 MMOL/L (98-107) Carbon Dioxide Level 26 MMOL/L (21-32) Anion Gap 7 mmol/L (5-15) Blood Urea Nitrogen 11 mg/dL (7-18) Creatinine 0.8 MG/DL (0.55-1.30) Estimat Glomerular Filtration Rate mL/min (>60) Glucose Level 107 MG/DL (74-106) H Calcium Level 8.2 MG/DL (8.5-10.1) L Total Bilirubin 0.3 MG/DL (0.2-1.0) Aspartate Amino Transf (AST/SGOT) 13 U/L (15-37) L Alanine Aminotransferase (ALT/SGPT) 16 U/L (12-78) Alkaline Phosphatase 76 U/L (46-116) Total Protein 7.4 G/DL (6.4-8.2) Albumin 1.5 G/DL (3.4-5.0) L Globulin 5.9 g/dL Albumin/Globulin Ratio 0.3 (1.0-2.7) L Studies Pre-op Studies: EKG - NST with 116 BPM with PACS Risk Assessment & Plan Assessment: Patient slightly confused and has hx of dementia Plan: MAC with light sedation Status Change Before Surgery: No Pre-Antibiotics Given Within 1 Hr of Incision: Zee Mendosa CRNA May 11, 2017 09:57
--- NOTE | 2017-05-11 09:58 | 48 Hour Post Anesthesia Eval ---
Post Anesthesia Evaluation Procedure: EGD Date of Evaluation: May 11, 2017 Time of Evaluation: 10:55 Blood Pressure Systolic: 130 0: 75 Pulse Rate: 105 Respiratory Rate: 20 Temperature (Fahrenheit): 99 O2 Sat by Pulse Oximetry: 97 Airway: patent Nausea: No Vomiting: No Pain Intensity: 0 Hydration Status: adequate Mental Status/LOC: patient returned to baseline Follow-up care needed: patient intructions given Zee Garrett CRNA May 11, 2017 09:58
--- NOTE | 2017-05-11 10:12 | Pre-Procedure Note/Attestation ---
Pre-Procedure Note/Attestation Complete Prior to Procedure Planned Procedure: not applicable Procedure Narrative: egd Indications for Procedure Pre-Operative Diagnosis: anemia Attestation I attest that I discussed the nature of the procedure; its benefits; risks and complications; and alternatives (and the risks and benefits of such alternatives ), prior to the procedure, with the patient (or the patient's legal unit support representative). I attest that, if there was a reasonable possibility of needing a blood transfusion, the patient (or the patient's legal unit support representative) was given the [facility] standardized written summary, pursuant to the Misael Naknek Blood Safety Act ([place] Health and Safety Code # 1645, as amended). I attest that I re-evaluated the patient just prior to the surgery and that there has been no change in the patient's H&P, except as documented below: PATO ESCOBEDO May 11, 2017 10:12
--- NOTE | 2017-05-11 10:29 | Endoscopy Procedure Note ---
Endoscopy Procedure Note Indication for Procedure: gastric mass Procedures Performed: EGD Operative Findings/Diagnosis: same Specimen: yes Pt Tolerated Procedure Well: Yes Estimated Blood Loss: none Anesthesiologist: micah Anesthesia: MAC Implant(s) used?: No 50 yrs or older w/o bx or poly: Not Applicable 10yrs. F/U not recommended: Not Applicable PATO ESCOBEDO May 11, 2017 10:28
--- NOTE | 2017-05-11 10:53 | Internal Med Progress Note ---
Subjective Physician Name Jeet Gabriel Attending Physician Trung Sebastian MD Current Medications Medications (Trade) Dose Ordered Sig/Chevy Route PRN Reason Start Time Stop Time Status Last Admin Dose Admin Acetaminophen (Tylenol) 650 mg Q4H PRN RECTAL Mild Pain (Pain Scale 1-3) 05/09/17 15:30 06/03/17 15:29 Acetylcysteine (Mucomyst) 200 mg Q6HRT HHN 05/09/17 19:00 06/04/17 00:59 05/11/17 02:07 Albuterol/ Ipratropium (Albuterol/ Ipratropium) 3 ml Q6HRT [facility] 05/10/17 08:45 05/15/17 08:44 05/11/17 08:43 Bisacodyl (Dulcolax) 10 mg BIDPRN PRN ORAL Constipation 1st Line Agent 05/09/17 15:00 06/02/17 23:44 Dextrose (Dextrose 50%) STAT PRN IV Hypoglycemia 05/09/17 15:30 06/02/17 15:29 Diltiazem HCl (Cardizem) 20 mg Q8HR@0200,1000,1800 IVP 05/09/17 18:00 06/08/17 17:59 05/11/17 09:13 Ferrous Sulfate (Feosol) 300 mg TWICE A DAY NG 05/09/17 18:00 06/07/17 17:59 05/11/17 08:28 Heparin Sodium/ Dextrose 500 ml @ 25.401 mls/ hr adjust per protocol IV 05/10/17 17:40 06/09/17 17:39 05/10/17 17:34 Iron Sucrose 100 mg/Sodium Chloride 60 ml @ 240 mls/hr BEDTIME IV 05/09/17 21:00 05/13/17 21:01 05/10/17 21:00 Magnesium Hydroxide (Mom) 30 ml DAILYPRN PRN NG Constipation 3rd Line Option 05/09/17 15:30 06/07/17 15:29 Memantine (Namenda) 5 mg QHS NG 05/09/17 21:00 06/03/17 20:59 05/10/17 21:00 Piperacillin Sod/ Tazobactam Sod 3.375 gm/Dextrose 55 ml @ 13.75 mls/ hr EVERY 8 HOURS IV 05/09/17 22:00 05/16/17 21:59 05/11/17 07:00 Sodium Phosphate (Fleet's Sodium Phosl Enema) 133 ml DAILYPRN PRN RECTAL IF DULCOLAX INEFFECTIVE 05/09/17 15:30 06/08/17 15:29 Vancomycin HCl (Vanco rx to dose) 1 ea DAILYPRN PRN MISC Per rx protocol 05/09/17 15:30 06/05/17 15:29 Vancomycin HCl 1 gm/Dextrose 275 ml @ 183.708 mls/hr Q24H IVPB 05/11/17 10:00 05/16/17 09:59 Allergies: Coded Allergies: No Known Allergies (Unverified , 05/03/17) Subjective 81 YO F admitted with respiratory failure. Now pulmonary embolism and Gastric mass. S/P endoscopy 05/11/17-await results. Cover for Int Med-Dr Sebastian Objective Last Vital Signs Date Time Temp Pulse Resp B/P (MAP) Pulse Ox O2 Delivery O2 Flow Rate FiO2 05/11/17 09:13 99 112/70 05/11/17 08:47 18 100 Venturi Mask 8.0 40 05/11/17 08:07 97.2 General Appearance: WD/WN, no apparent distress, alert EENT: PERRL/EOMI, normal ENT inspection, TMs normal Neck: non-tender, normal alignment, supple, normal inspection Cardiovascular: normal peripheral pulses, normal rate, regular rhythm, no gallop/murmur, no JVD Respiratory/Chest: chest wall non-tender, lungs clear, normal breath sounds, no respiratory distress, no accessory muscle use Abdomen: normal bowel sounds, non tender, soft, no organomegaly, no mass, abnormal bowel sounds Extremities: normal range of motion, non-tender Neurologic: meat grader II-XII grossly normal Laboratory Tests Test 05/10/17 13:05 05/10/17 16:20 05/10/17 17:00 05/10/17 23:30 White Blood Count 14.7 K/UL (4.8-10.8) H Red Blood Count 3.36 M/UL (4.20-5.40) L Hemoglobin 8.4 G/DL (12.0-16.0) L Hematocrit 27.7 % (37.0-47.0) L Mean Corpuscular Volume 82 FL (80-99) Mean Corpuscular Hemoglobin 25.0 PG (27.0-31.0) L Mean Corpuscular Hemoglobin Concent 30.3 G/DL (32.0-36.0) L Red Cell Distribution Width 17.0 % (11.6-14.8) H Platelet Count 626 K/UL (150-450) H Mean Platelet Volume 5.8 FL (6.5-10.1) L Neutrophils (%) (Auto) 77.0 % (45.0-75.0) H Lymphocytes (%) (Auto) 15.8 % (20.0-45.0) L Monocytes (%) (Auto) 6.4 % (1.0-10.0) Eosinophils (%) (Auto) 0.4 % (0.0-3.0) Basophils (%) (Auto) 0.4 % (0.0-2.0) Activated Partial Thromboplast Time 44 SEC (23-33) H 49 SEC (23-33) H Urine Color Pale yellow Urine Appearance Clear Urine pH 8 (4.5-8.0) Urine Specific [place] 1.010 (1.005-1.035) Urine Protein 1+ (NEGATIVE) H Urine Glucose (UA) Negative (NEGATIVE) Urine Ketones Negative (NEGATIVE) Urine Occult Blood 5+ (NEGATIVE) H Urine Nitrite Negative (NEGATIVE) Urine Bilirubin Negative (NEGATIVE) Urine Urobilinogen Normal MG/DL (0.0-1.0) Urine Leukocyte Esterase 1+ (NEGATIVE) H Urine RBC 2-4 /HPF (0 - 2) H Urine WBC 2-4 /HPF (0 - 2) Urine Squamous Epithelial Cells Few /LPF (NONE/OCC) Urine Amorphous Sediment Few /LPF (NONE) H Urine Bacteria Few /HPF (NONE) Urine Yeast Few /HPF (NONE) H Test 05/11/17 08:25 White Blood Count 14.7 K/UL (4.8-10.8) H Red Blood Count 3.04 M/UL (4.20-5.40) L Hemoglobin 7.7 G/DL (12.0-16.0) L Hematocrit 25.0 % (37.0-47.0) L Mean Corpuscular Volume 82 FL (80-99) Mean Corpuscular Hemoglobin 25.3 PG (27.0-31.0) L Mean Corpuscular Hemoglobin Concent 30.8 G/DL (32.0-36.0) L Red Cell Distribution Width 16.9 % (11.6-14.8) H Platelet Count 681 K/UL (150-450) H Mean Platelet Volume 5.7 FL (6.5-10.1) L Neutrophils (%) (Auto) % (45.0-75.0) Lymphocytes (%) (Auto) % (20.0-45.0) Monocytes (%) (Auto) % (1.0-10.0) Eosinophils (%) (Auto) % (0.0-3.0) Basophils (%) (Auto) % (0.0-2.0) Differential Total Cells Counted 100 Neutrophils % (Manual) 76 % (45-75) H Lymphocytes % (Manual) 12 % (20-45) L Monocytes % (Manual) 12 % (1-10) H Eosinophils % (Manual) 0 % (0-3) Basophils % (Manual) 0 % (0-2) Band Neutrophils 0 % (0-8) Platelet Estimate Increased H Platelet Morphology Normal Hypochromasia 1+ Anisocytosis 1+ Prothrombin Time 10.9 SEC (9.30-11.50) Prothromb Time International Ratio 1.0 (0.9-1.1) Activated Partial Thromboplast Time 35 SEC (23-33) H Sodium Level 134 MMOL/L (136-145) L Potassium Level 4.0 MMOL/L (3.5-5.1) Chloride Level 101 MMOL/L (98-107) Carbon Dioxide Level 26 MMOL/L (21-32) Anion Gap 7 mmol/L (5-15) Blood Urea Nitrogen 11 mg/dL (7-18) Creatinine 0.8 MG/DL (0.55-1.30) Estimat Glomerular Filtration Rate mL/min (>60) Glucose Level 107 MG/DL (74-106) H Calcium Level 8.2 MG/DL (8.5-10.1) L Total Bilirubin 0.3 MG/DL (0.2-1.0) Aspartate Amino Transf (AST/SGOT) 13 U/L (15-37) L Alanine Aminotransferase (ALT/SGPT) 16 U/L (12-78) Alkaline Phosphatase 76 U/L (46-116) Total Protein 7.4 G/DL (6.4-8.2) Albumin 1.5 G/DL (3.4-5.0) L Globulin 5.9 g/dL Albumin/Globulin Ratio 0.3 (1.0-2.7) L Microbiology Date/Time Source Procedure Growth Status 05/10/17 17:00 Straight Cath Urine Culture - Preliminary Resulted Intake and Output 05/10/17 05/11/17 19:00 07:00 Intake Total 773.648 ml 127.005 ml Balance 773.648 ml 127.005 ml Free Water 166 ml IV Total 167.648 ml 127.005 ml Tube Feeding 440 ml # Voids 1 Objective Objective GENERAL: awake, responsive, opens eyes, talking. HEENT: Pupils reactive to light. Anicteric. NG Tube. NECK: Supple. No JVD. LUNGS: fair air entry. decrease bilateral air entry, No wheezing. No Coarse breath HEART: S1 and S2. RR. no murmur ABDOMEN: Soft, nontender and nondistended. Positive bowel sounds. EXTREMITIES: No cyanosis, clubbing, or edema. NEUROLOGIC: moving all extremities equally . CN 2-12 intact. Assessment/Plan Assessment/Plan Assessment/Plan Acute PE SIRS Right lower lobe pneumonia, possible aspiration pneumonia. History of cerebrovascular accident. Sinus tachycardia. Urinary tract infection, possible sepsis secondary to urinary tract infection. Dysphagia. Hypertension. Anemia. Severe protein-calorie malnutrition. 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 Lovenox injection BID monitor laboratory and cultures. Dr. Malik Knapp from Pulmonary Critical Care. Abx: Zosyn IV, Vanco IV Tub feeding @ 45 cc/hr at night from 7 PM to 7 AM, and oral feeding during day time. Full Code as per speech evaluation: she is able for oral feeding JEET GABRIEL May 11, 2017 10:53
[2017-05-11] MEDS: Heparin 25,000u/D5W 500ml 500 ML IV SCH (12:08)
[2017-05-11] MEDS: Vancomycin 1gm/D5W 275ml IVPB SCH ×2 (12:16)
--- NOTE | 2017-05-11 14:45 | Procedure Note ---
DATE OF PROCEDURE: 05/11/2017 SURGEON: Jona Greenfield M.D. REFERRING PHYSICIAN: Trung Sebastian M.D. PROCEDURE: Upper endoscopy with biopsy. ANESTHESIOLOGIST: Tami Pelayo CRNA. INSTRUMENT: Olympus adult flexible upper endoscope. INDICATION: Anemia, stool OB positive, possibly gastric mass. The procedure, risks, benefits, and possible consequences, including hemorrhage, aspiration, perforation and infection, and alternative treatments, were explained to the patient/legal guardian by Dr. Jona Greenfield and the patient/legal guardian understood and accepted these risks. PROCEDURE: After informed consent was obtained and the patient was adequately sedated, Olympus upper endoscope was advanced from mouth into the second portion of duodenum and retroflexion was performed in the stomach. The patient has a large mass at least 3 to 4 cm in the proximal body of the stomach with ulceration, highly suspicious for adenocarcinoma, status post biopsy. This is the differential diagnosis, adenocarcinoma versus GIST. Multiple biopsies were obtained. Random biopsy from body and antrum was obtained to rule out H. pylori infection. At this time, the upper endoscope was retrieved and the procedure was terminated. SUMMARY OF FINDINGS: 1. Gastric mass, status post biopsy. 2. Gastritis, status post biopsy. RECOMMENDATIONS: 1. Follow up biopsy results and treat accordingly. 2. 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 The patient most probably will need a PET scan as an outpatient for further staging. 3. Recommend follow up biopsy results and Oncology consultation. I want to thank Dr. Trung Sebastian for this kind referral. Jona Greenfield M.D. DR: SID JOB#: [id number] CC: Trung Sebastian M.D.; Fax#: [phone]
[2017-05-11] MEDS ORDERED: Heparin 25,000u/D5W 500ml 500 ML IV SCH (19:45)
[2017-05-11] MEDS ORDERED: Heparin 5000 units/ml inj IV ONE (19:45)
[2017-05-11] MEDS: Memantine 5 MG TAB NG SCH (20:59)
[2017-05-11] MEDS: Iron Sucrose 100 MG in NS 55 ML IV SCH (20:59)
[2017-05-12] VITALS (8 sets, daily range): BP systolic 109–129; BP diastolic 50–74
--- NOTE | 2017-05-12 00:01 | Diagnostic Imaging Report ---
APPROVED REPORT CPT Code: 66810 Present Symptoms Shortness of breath BILATERAL: Imaging reveals a patent deep venous system bilaterally. There is no evidence of thrombus within the femoral, popliteal or tibial segments. The greater saphenous veins are also within normal limits. Doppler indicates normal spontaneous flow within these segments.
[2017-05-12] MEDS: Albuterol/Ipratropium 3ml neb HHN SCH ×5 (01:00→19:00)
[2017-05-12] MEDS: Acetylcysteine 20% Soln 4ml HHN SCH ×5 (01:00→19:00)
[2017-05-12 02:12] LABS: MEAN CORPUSCULAR VOLUME 81 FL (80-99); PLATELET COUNT 648 K/UL (150-450); RED BLOOD COUNT 2.71 M/UL (4.20-5.40); RED CELL DISTRIBUTION WIDTH 16.5 % (11.6-14.8); WHITE BLOOD COUNT 15.9 K/UL (4.8-10.8)
[2017-05-12] MEDS: dilTIAZem HCl 25mg/5ml Inj IVP SCH ×3 (02:24→18:21)
[2017-05-12 02:26] LABS: HEMOGLOBIN 6.8 G/DL (12.0-16.0)
[2017-05-12 03:12] LABS: CHLORIDE 103 MMOL/L (98-107); POTASSIUM 4.4 MMOL/L (3.5-5.1); SODIUM 134 MMOL/L (136-145)
[2017-05-12 03:13] LABS: BLOOD UREA NITROGEN 11 mg/dL (7-18); CALCIUM 7.4 MG/DL (8.5-10.1); CARBON DIOXIDE 24 MMOL/L (21-32); CREATININE 0.7 MG/DL (0.55-1.30)
[2017-05-12] MEDS: Heparin 25,000u/D5W 500ml 500 ML IV SCH ×2 (04:04→08:18)
[2017-05-12] MEDS ORDERED: Milk of Magnesia 30ml Ud ORAL PRN (05:15)
[2017-05-12] MEDS: Piperacillin/Tazobactam 3.375 GM in D5W 55 ML IV SCH (06:00)
[2017-05-12] MEDS: Ferrous Sulfate 300 MG/5 ML UDC ORAL SCH ×2 (09:33→18:18)
[2017-05-12] MEDS: Vancomycin 1gm/D5W 275ml IVPB SCH ×2 (10:38)
--- NOTE | 2017-05-12 10:50 | GI Progress Note ---
Assessment/Plan Problems: (1) Encounter for nasogastric (NG) tube placement ICD Codes: Z46.59 - Encounter for fitting and adjustment of other gastrointestinal appliance and device SNOMED: 129170250 (2) Anemia ICD Codes: D64.9 - Anemia, unspecified SNOMED: 195592469 (3) Iron deficiency ICD Codes: E61.1 - Iron deficiency SNOMED: 00525690 Status: stable, progressing Status Narrative Discussed with Dr. Greenfield. Assessment/Plan s/p EGD SUMMARY OF FINDINGS: 1. Gastric mass, status post biopsy. 2. Gastritis, status post biopsy. OB stool positive ST eval >> passed. RECOMMENDATIONS: 1. Follow up biopsy results and treat accordingly. 2. 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 The patient most probably will need a PET scan as an outpatient for further staging. 3. Recommend follow up biopsy results and Oncology consultation. closely monitor H&H, prn transfusions PPI BID diet per ST on lovenox venofer check CEA fu labs The patient was seen and examined at bedside and all new and available data was reviewed in the patients chart. I agree with the above findings, impression and plan. (Patient seen earlier today. Signature stamp does not reflect patient encounter time.). - Isabel Greenfield MD Subjective Subjective limited tolerating diet Objective Last 24 Hour Vital Signs Date Time Temp Pulse Resp B/P (MAP) Pulse Ox O2 Delivery O2 Flow Rate FiO2 05/12/17 09:33 119 128/63 05/12/17 08:00 97.3 119 20 128/63 97 Nasal Cannula 4.0 05/12/17 07:35 106 05/12/17 07:00 101 18 99 Nasal Cannula 2.0 05/12/17 06:48 Nasal Cannula 2.0 05/12/17 06:48 99 Nasal Cannula 2.0 05/12/17 06:48 100 18 99 Nasal Cannula 2.0 05/12/17 04:00 96 Nasal Cannula 4.0 05/12/17 04:00 97.0 129 20 115/59 92 05/12/17 04:00 98 05/12/17 02:24 112 112/54 05/12/17 01:52 Nasal Cannula 2.0 05/12/17 01:52 Nasal Cannula 2.0 05/12/17 00:00 99.0 120 16 109/50 91 05/12/17 00:00 96 Nasal Cannula 4.0 05/12/17 00:00 114 05/11/17 23:49 Venturi Mask 8.0 40 05/11/17 23:49 99 Venturi Mask 8.0 40 05/11/17 20:00 98.2 125 18 136/63 96 05/11/17 20:00 119 05/11/17 20:00 96 Nasal Cannula 4.0 05/11/17 19:10 101 18 99 Nasal Cannula 2.0 28 05/11/17 19:07 97 20 95 Nasal Cannula 2.0 28 05/11/17 18:22 110 141/75 05/11/17 16:00 97.7 110 18 141/75 95 Nasal Cannula 4.0 05/11/17 15:14 115 05/11/17 14:12 105 20 97 05/11/17 14:11 114 20 97 05/11/17 13:27 117 18 99 Nasal Cannula 2.0 28 05/11/17 13:19 101 20 94 Nasal Cannula 2.0 28 05/11/17 12:00 115 05/11/17 11:03 104 20 136/68 99 Nasal Cannula 8.0 40 05/11/17 11:00 101 20 121/69 99 Nasal Cannula 8.0 40 05/11/17 10:50 107 20 123/71 97 Nasal Cannula 8.0 40 Intake and Output 05/11/17 05/12/17 19:00 07:00 Intake Total 1012.723 ml 529.176 ml Balance 1012.723 ml 529.176 ml Intake Oral 240 ml 120 ml IV Total 772.723 ml 409.176 ml # Voids 3 2 # Bowel Movements 1 Laboratory Tests Test 05/11/17 18:25 05/12/17 02:00 05/12/17 10:10 Activated Partial Thromboplast Time 38 SEC (23-33) H 150 SEC (23-33) H Pending White Blood Count 15.9 K/UL (4.8-10.8) H Red Blood Count 2.71 M/UL (4.20-5.40) L Hemoglobin 6.8 G/DL (12.0-16.0) *L Hematocrit 22.0 % (37.0-47.0) L Mean Corpuscular Volume 81 FL (80-99) Mean Corpuscular Hemoglobin 25.3 PG (27.0-31.0) L Mean Corpuscular Hemoglobin Concent 31.1 G/DL (32.0-36.0) L Red Cell Distribution Width 16.5 % (11.6-14.8) H Platelet Count 648 K/UL (150-450) H Mean Platelet Volume 5.5 FL (6.5-10.1) L Neutrophils (%) (Auto) % (45.0-75.0) Lymphocytes (%) (Auto) % (20.0-45.0) Monocytes (%) (Auto) % (1.0-10.0) Eosinophils (%) (Auto) % (0.0-3.0) Basophils (%) (Auto) % (0.0-2.0) Sodium Level 134 MMOL/L (136-145) L Potassium Level 4.4 MMOL/L (3.5-5.1) Chloride Level 103 MMOL/L (98-107) Carbon Dioxide Level 24 MMOL/L (21-32) Blood Urea Nitrogen 11 mg/dL (7-18) Creatinine 0.7 MG/DL (0.55-1.30) Estimat Glomerular Filtration Rate mL/min (>60) Glucose Level 105 MG/DL (74-106) Calcium Level 7.4 MG/DL (8.5-10.1) L Height (Feet): 5 Height (Inches): 3.00 Weight (Pounds): 121 General Appearance: WD/WN, no apparent distress, alert Cardiovascular: normal rate Respiratory/Chest: normal breath sounds, no respiratory distress Abdominal Exam: normal bowel sounds, non tender, soft Extremities: non-tender Eufemia Smiley N.Sy May 12, 2017 10:50 PATO GREENFIELD May 17, 2017 12:25
--- NOTE | 2017-05-12 11:55 | Diagnostic Imaging Report ---
Indication: Shortness of breath Technique: One view of the chest Comparison: 05/10/2017 Findings: Density at the right lung base appears less dense but more widespread than on the prior exam. Previously demonstrated feeding tube is been removed. Cholecystectomy clips are again demonstrated. Left lung pleural spaces remain clear. Impression: Right basilar infiltrate, probably slightly increased over 2 days Interim nasogastric tube removal Other findings as noted
--- NOTE | 2017-05-12 11:57 | Wound Nurse Progress Note ---
Wound RN Progress Note Wound Consult reassessment -No further deterioration present, skin remains intact, continue to offload reposition, continue current wound care effective #1 Right buttock SDTI Pressure ulcer- noted site present with redness still but icu specialist than admitted Recommendation -Local wound care per protocol -Keep clean and dry -Turn and reposition -Optimize nutrition -Offload both heels -Heel protector on both heels -Low air loss mattress -Assess and f/u accordingly for any changes KANDY GOMEZ May 12, 2017 11:57
--- NOTE | 2017-05-12 12:10 | Pulmonology Progress Note ---
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) gastritis PLAN OF CARE: tele Pulmonary toilet Mucomyst in HHN QID CPT QID Abx , ID follows, sputum cx + Staph aureus , urine cx repeated + GNB9 small col count 10-20), blood cx prel negative Fup CXR this am - Right basilar infiltrate, probably slightly increased over 2 days Monitor volumes, cardiorenal parameters, lytes, correct as needed NGT feedings at night , oral feeding during the day, strict aspiration precautions, ST Rx, per ST able to have oral feeding with aspiration/reflux precautions CT A/P highly suspicious for gastric metastatic disease stop heparin due to severe anemia, transfuse 2 u PRC restart on Lovenox at pm and clsoely monitor counts after endoscopy with findings of gstric mass, s/p biopsy and gastritis GI follows fup with tumor markers onco/heme eval as per PMD monitor counts, transfuse 2 u PRBC today, on Venofer dietary recommendations re nutritional support BP management with current regimen. optimize as needed case discussed and evaluated by supervising physician Subjective Allergies: Coded Allergies: No Known Allergies (Unverified , 05/03/17) Subjective afebrile on 4L O2 via NC sat stable s/p endoscopy 07/12 leukocytosis, HH down to 6.8/22 no chest pain, no dizziness. no cough Objective Last 24 Hour Vital Signs Date Time Temp Pulse Resp B/P (MAP) Pulse Ox O2 Delivery O2 Flow Rate FiO2 05/12/17 09:33 119 128/63 05/12/17 08:00 97.3 119 20 128/63 97 Nasal Cannula 4.0 05/12/17 07:35 106 05/12/17 07:00 101 18 99 Nasal Cannula 2.0 05/12/17 06:48 Nasal Cannula 2.0 05/12/17 06:48 99 Nasal Cannula 2.0 05/12/17 06:48 100 18 99 Nasal Cannula 2.0 05/12/17 04:00 96 Nasal Cannula 4.0 05/12/17 04:00 97.0 129 20 115/59 92 05/12/17 04:00 98 05/12/17 02:24 112 112/54 05/12/17 01:52 Nasal Cannula 2.0 05/12/17 01:52 Nasal Cannula 2.0 28 05/12/17 00:00 99.0 120 16 109/50 91 05/12/17 00:00 96 Nasal Cannula 4.0 05/12/17 00:00 114 05/11/17 23:49 Venturi Mask 8.0 40 05/11/17 23:49 99 Venturi Mask 8.0 40 05/11/17 20:00 98.2 125 18 136/63 96 05/11/17 20:00 119 05/11/17 20:00 96 Nasal Cannula 4.0 05/11/17 19:10 101 18 99 Nasal Cannula 2.0 28 05/11/17 19:07 97 20 95 Nasal Cannula 2.0 28 05/11/17 18:22 110 141/75 05/11/17 16:00 97.7 110 18 141/75 95 Nasal Cannula 4.0 05/11/17 15:14 115 05/11/17 14:12 105 20 97 05/11/17 14:11 114 20 97 05/11/17 13:27 117 18 99 Nasal Cannula 2.0 28 05/11/17 13:19 101 20 94 Nasal Cannula 2.0 28 Intake and Output 05/11/17 05/12/17 19:00 07:00 Intake Total 1012.723 ml 529.176 ml Balance 1012.723 ml 529.176 ml Intake Oral 240 ml 120 ml IV Total 772.723 ml 409.176 ml # Voids 3 2 # Bowel Movements 1 Objective General Appearance: no acute distress, other - awake, alert, responsive AA female in NAD HEENT: normocephalic, atraumatic, anicteric, O2 via VM Respiratory/Chest: lungs clear, no respiratory distress, no accessory muscle use Cardiovascular: tachy, ST on tele, Abdomen: non distended Genitourinary: normal external genitalia Extremities: no edema, pedal pulses normal Neurologic/Psychiatric: alert, responsive Musculoskeletal: atrophy - BLE Microbiology Date/Time Source Procedure Growth Status 05/10/17 16:30 Blood Blood Culture - Preliminary NO GROWTH AFTER 24 HOURS Resulted 05/10/17 16:20 Blood Blood Culture - Preliminary NO GROWTH AFTER 24 HOURS Resulted 05/10/17 17:00 Straight Cath Urine Culture - Preliminary Gram Negative Bacillus 1 Resulted Laboratory Tests 05/11/17 18:25: Activated Partial Thromboplast Time 38H 05/12/17 02:00: Activated Partial Thromboplast Time 150H, White Blood Count 15.9H, Red Blood Count 2.71L, Hemoglobin 6.8*L, Hematocrit 22.0L, Mean Corpuscular Volume 81, Mean Corpuscular Hemoglobin 25.3L, Mean Corpuscular Hemoglobin Concent 31.1L, Red Cell Distribution Width 16.5H, Platelet Count 648H, Mean Platelet Volume 5.5L, Neutrophils (%) (Auto) , Lymphocytes (%) (Auto) , Monocytes (%) (Auto) , Eosinophils (%) (Auto) , Basophils (%) (Auto) , Sodium Level 134L, Potassium Level 4.4, Chloride Level 103, Carbon Dioxide Level 24, Blood Urea Nitrogen 11, Creatinine 0.7, Estimat Glomerular Filtration Rate , Glucose Level 105, Calcium Level 7.4L 05/12/17 10:10: Activated Partial Thromboplast Time 65H Current Medications Medications (Trade) Dose Ordered Sig/Chevy Route PRN Reason Start Time Stop Time Status Last Admin Dose Admin Acetaminophen (Tylenol) 650 mg Q4H PRN RECTAL Mild Pain (Pain Scale 1-3) 05/09/17 15:30 06/03/17 15:29 Acetylcysteine (Mucomyst) 200 mg Q6HRT N 05/09/17 19:00 06/04/17 00:59 05/12/17 06:50 Albuterol/ Ipratropium (Albuterol/ Ipratropium) 3 ml Q6HRT N 05/10/17 08:45 05/15/17 08:44 05/12/17 06:50 Bisacodyl (Dulcolax) 10 mg BIDPRN PRN ORAL Constipation 1st Line Agent 05/09/17 15:00 06/02/17 23:44 Dextrose (Dextrose 50%) STAT PRN IV Hypoglycemia 05/09/17 15:30 06/02/17 15:29 Diltiazem HCl (Cardizem) 20 mg Q8HR@0200,1000,1800 IVP 05/09/17 18:00 06/08/17 17:59 05/12/17 09:33 Ferrous Sulfate (Feosol) 300 mg TWICE A DAY ORAL 05/12/17 09:00 06/11/17 08:59 05/12/17 09:33 Heparin Sodium/ Dextrose 500 ml @ 25.401 mls/ hr adjust per protocol IV 05/12/17 03:55 06/11/17 03:54 05/12/17 08:18 Iron Sucrose 100 mg/Sodium Chloride 60 ml @ 240 mls/hr BEDTIME IV 05/09/17 21:00 05/13/17 21:01 05/11/17 20:59 Magnesium Hydroxide (Mom) 30 ml DAILYPRN PRN ORAL Constipation 3rd Line Option 05/12/17 05:15 06/11/17 05:14 Memantine (Namenda) 5 mg QHS ORAL 05/12/17 21:00 06/11/17 20:59 Piperacillin Sod/ Tazobactam Sod 3.375 gm/Dextrose 55 ml @ 13.75 mls/ hr EVERY 8 HOURS IV 05/09/17 22:00 05/16/17 21:59 05/12/17 06:00 Sodium Phosphate (Fleet's Sodium Phosl Enema) 133 ml DAILYPRN PRN RECTAL IF DULCOLAX INEFFECTIVE 05/09/17 15:30 06/08/17 15:29 Vancomycin HCl (Vanco rx to dose) 1 ea DAILYPRN PRN MISC Per rx protocol 05/09/17 15:30 06/05/17 15:29 Vancomycin HCl 1 gm/Dextrose 275 ml @ 183.708 mls/hr Q24H IVPB 05/11/17 10:00 05/16/17 09:59 05/12/17 10:38 Javon (Lane)Esperanza NP May 12, 2017 12:10
--- NOTE | 2017-05-12 15:53 | Diagnostic Imaging Report ---
Indications: Reason For Exam: DYSPHAGIA Technique: Patient ingested multiple substances under the supervision of speech pathology. Video fluoroscopic recording performed. Total fluoroscopy time 216 seconds. Total dose area product [id number] mGycm2 Comparison: none Findings: Delayed initiation of deglutition some early pooling in the vallecula. There is trace penetration of thin liquid barium there is thick liquid barium. No aspiration demonstrated. No penetration or aspiration of honey thick liquid barium or barium puree Impression: Positive for penetration of thin and nectar thick liquid barium
--- NOTE | 2017-05-12 15:53 | Internal Med Progress Note ---
Subjective Date of Service: May 12, 2017 Physician Name Jeet Gabriel Attending Physician Trung Sebastian MD Current Medications Medications (Trade) Dose Ordered Sig/Chevy Route PRN Reason Start Time Stop Time Status Last Admin Dose Admin Acetaminophen (Tylenol) 650 mg Q4H PRN RECTAL Mild Pain (Pain Scale 1-3) 05/09/17 15:30 06/03/17 15:29 Acetylcysteine (Mucomyst) 200 mg Q6HRT N 05/09/17 19:00 06/04/17 00:59 05/12/17 12:48 Albuterol/ Ipratropium (Albuterol/ Ipratropium) 3 ml Q6HRT HHN 05/10/17 08:45 05/15/17 08:44 05/12/17 12:48 Bisacodyl (Dulcolax) 10 mg BIDPRN PRN ORAL Constipation 1st Line Agent 05/09/17 15:00 06/02/17 23:44 Dextrose (Dextrose 50%) STAT PRN IV Hypoglycemia 05/09/17 15:30 06/02/17 15:29 Diltiazem HCl (Cardizem) 20 mg Q8HR@0200,1000,1800 IVP 05/09/17 18:00 06/08/17 17:59 05/12/17 09:33 Enoxaparin Sodium (Lovenox) 50 mg EVERY 12 HOURS SUBQ 05/12/17 21:00 06/11/17 20:59 Ferrous Sulfate (Feosol) 300 mg TWICE A DAY ORAL 05/12/17 09:00 06/11/17 08:59 05/12/17 09:33 Iron Sucrose 100 mg/Sodium Chloride 60 ml @ 240 mls/hr BEDTIME IV 05/09/17 21:00 05/13/17 21:01 05/11/17 20:59 Magnesium Hydroxide (Mom) 30 ml DAILYPRN PRN ORAL Constipation 3rd Line Option 05/12/17 05:15 06/11/17 05:14 Megestrol Acetate (Megace) 400 mg TWICE A DAY ORAL 05/12/17 18:00 06/11/17 17:59 Memantine (Namenda) 5 mg QHS ORAL 05/12/17 21:00 06/11/17 20:59 Piperacillin Sod/ Tazobactam Sod 3.375 gm/Dextrose 55 ml @ 13.75 mls/ hr EVERY 8 HOURS IV 05/09/17 22:00 05/16/17 21:59 05/12/17 06:00 Sodium Phosphate (Fleet's Sodium Phosl Enema) 133 ml DAILYPRN PRN RECTAL IF DULCOLAX INEFFECTIVE 05/09/17 15:30 06/08/17 15:29 Vancomycin HCl (Vanco rx to dose) 1 ea DAILYPRN PRN MISC Per rx protocol 05/09/17 15:30 06/05/17 15:29 Vancomycin HCl 1 gm/Dextrose 275 ml @ 183.708 mls/hr Q24H IVPB 05/11/17 10:00 05/16/17 09:59 05/12/17 10:38 Allergies: Coded Allergies: No Known Allergies (Unverified , 05/03/17) ROS Limited/Unobtainable: Yes Subjective 81 YO F admitted with respiratory failure. Now pulmonary embolism and Gastric mass. S/P endoscopy 05/11/17. Cover for Int Med-Dr Sebastian. Worsening anemia- await transfusion Objective Last Vital Signs Date Time Temp Pulse Resp B/P (MAP) Pulse Ox O2 Delivery O2 Flow Rate FiO2 05/12/17 13:20 97.7 113 20 129/68 97 Nasal Cannula 4.0 05/12/17 12:58 28 Laboratory Tests Test 05/11/17 18:25 05/12/17 02:00 05/12/17 10:10 Activated Partial Thromboplast Time 38 SEC (23-33) H 150 SEC (23-33) H 65 SEC (23-33) H White Blood Count 15.9 K/UL (4.8-10.8) H Red Blood Count 2.71 M/UL (4.20-5.40) L Hemoglobin 6.8 G/DL (12.0-16.0) *L Hematocrit 22.0 % (37.0-47.0) L Mean Corpuscular Volume 81 FL (80-99) Mean Corpuscular Hemoglobin 25.3 PG (27.0-31.0) L Mean Corpuscular Hemoglobin Concent 31.1 G/DL (32.0-36.0) L Red Cell Distribution Width 16.5 % (11.6-14.8) H Platelet Count 648 K/UL (150-450) H Mean Platelet Volume 5.5 FL (6.5-10.1) L Neutrophils (%) (Auto) % (45.0-75.0) Lymphocytes (%) (Auto) % (20.0-45.0) Monocytes (%) (Auto) % (1.0-10.0) Eosinophils (%) (Auto) % (0.0-3.0) Basophils (%) (Auto) % (0.0-2.0) Sodium Level 134 MMOL/L (136-145) L Potassium Level 4.4 MMOL/L (3.5-5.1) Chloride Level 103 MMOL/L (98-107) Carbon Dioxide Level 24 MMOL/L (21-32) Blood Urea Nitrogen 11 mg/dL (7-18) Creatinine 0.7 MG/DL (0.55-1.30) Estimat Glomerular Filtration Rate mL/min (>60) Glucose Level 105 MG/DL (74-106) Calcium Level 7.4 MG/DL (8.5-10.1) L Microbiology Date/Time Source Procedure Growth Status 05/10/17 16:30 Blood Blood Culture - Preliminary NO GROWTH AFTER 24 HOURS Resulted 05/10/17 16:20 Blood Blood Culture - Preliminary NO GROWTH AFTER 24 HOURS Resulted 05/10/17 17:00 Straight Cath Urine Culture - Preliminary Gram Negative Bacillus 1 Resulted Intake and Output 05/11/17 05/12/17 19:00 07:00 Intake Total 1012.723 ml 529.176 ml Balance 1012.723 ml 529.176 ml Intake Oral 240 ml 120 ml IV Total 772.723 ml 409.176 ml # Voids 3 2 # Bowel Movements 1 Objective Objective GENERAL: awake, responsive, opens eyes, talking. HEENT: Pupils reactive to light. Anicteric. NG Tube. NECK: Supple. No JVD. LUNGS: fair air entry. decrease bilateral air entry, No wheezing. No Coarse breath HEART: S1 and S2. RR. no murmur ABDOMEN: Soft, nontender and nondistended. Positive bowel sounds. EXTREMITIES: No cyanosis, clubbing, or edema. NEUROLOGIC: moving all extremities equally . CN 2-12 intact. Assessment/Plan Assessment/Plan Assessment/Plan Acute PE SIRS Right lower lobe pneumonia, possible aspiration pneumonia. History of cerebrovascular accident. Sinus tachycardia. Urinary tract infection, possible sepsis secondary to urinary tract infection. Dysphagia. Hypertension. Anemia. Severe protein-calorie malnutrition. 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 Lovenox injection BID-discontinue due to worsening anemia monitor laboratory and cultures. Dr. Malik Knapp from Pulmonary Critical Care. Abx: Zosyn IV, Vanco IV Tub feeding @ 45 cc/hr at night from 7 PM to 7 AM, and oral feeding during day time. Full Code as per speech evaluation: she is able for oral feeding Transfuse 2 units packed RBC today JEET GABRIEL May 12, 2017 15:53
--- NOTE | 2017-05-12 16:26 | General Progress Note ---
Assessment/Plan Status: stable, progressing Assessment/Plan encephalopathy cognitive impairment -cont current meds Subjective Date patient seen: May 12, 2017 Neurologic/Psychiatric: Reports: anxiety, emotional problems Allergies: Coded Allergies: No Known Allergies (Unverified , 05/03/17) Subjective the pt is aaoxself and place Objective Last 24 Hour Vital Signs Date Time Temp Pulse Resp B/P (MAP) Pulse Ox O2 Delivery O2 Flow Rate FiO2 05/12/17 16:15 97.9 113 20 126/74 94 Room Air 05/12/17 13:20 97.7 113 20 129/68 97 Nasal Cannula 4.0 05/12/17 13:05 97.9 109 20 109/69 97 Nasal Cannula 4.0 05/12/17 12:58 108 20 99 Nasal Cannula 2.0 05/12/17 12:48 104 16 99 Nasal Cannula 2.0 05/12/17 12:00 97.9 97 20 117/60 96 Nasal Cannula 4.0 05/12/17 09:33 119 128/63 05/12/17 08:00 97.3 119 20 128/63 97 Nasal Cannula 4.0 05/12/17 07:35 106 05/12/17 07:00 101 18 99 Nasal Cannula 2.0 05/12/17 06:48 Nasal Cannula 2.0 05/12/17 06:48 99 Nasal Cannula 2.0 05/12/17 06:48 100 18 99 Nasal Cannula 2.0 05/12/17 04:00 96 Nasal Cannula 4.0 05/12/17 04:00 97.0 129 20 115/59 92 05/12/17 04:00 98 05/12/17 02:24 112 112/54 05/12/17 01:52 Nasal Cannula 2.0 05/12/17 01:52 Nasal Cannula 2.0 28 05/12/17 00:00 99.0 120 16 109/50 91 05/12/17 00:00 96 Nasal Cannula 4.0 05/12/17 00:00 114 05/11/17 23:49 Venturi Mask 8.0 40 05/11/17 23:49 99 Venturi Mask 8.0 40 05/11/17 20:00 98.2 125 18 136/63 96 05/11/17 20:00 119 05/11/17 20:00 96 Nasal Cannula 4.0 05/11/17 19:10 101 18 99 Nasal Cannula 2.0 28 05/11/17 19:07 97 20 95 Nasal Cannula 2.0 28 05/11/17 18:22 110 141/75 Intake and Output 05/11/17 05/12/17 19:00 07:00 Intake Total 1012.723 ml 529.176 ml Balance 1012.723 ml 529.176 ml Intake Oral 240 ml 120 ml IV Total 772.723 ml 409.176 ml # Voids 3 2 # Bowel Movements 1 Laboratory Tests 05/11/17 18:25: Activated Partial Thromboplast Time 38H 05/12/17 02:00: Activated Partial Thromboplast Time 150H, White Blood Count 15.9H, Red Blood Count 2.71L, Hemoglobin 6.8*L, Hematocrit 22.0L, Mean Corpuscular Volume 81, Mean Corpuscular Hemoglobin 25.3L, Mean Corpuscular Hemoglobin Concent 31.1L, Red Cell Distribution Width 16.5H, Platelet Count 648H, Mean Platelet Volume 5.5L, Neutrophils (%) (Auto) , Lymphocytes (%) (Auto) , Monocytes (%) (Auto) , Eosinophils (%) (Auto) , Basophils (%) (Auto) , Sodium Level 134L, Potassium Level 4.4, Chloride Level 103, Carbon Dioxide Level 24, Blood Urea Nitrogen 11, Creatinine 0.7, Estimat Glomerular Filtration Rate , Glucose Level 105, Calcium Level 7.4L 05/12/17 10:10: Activated Partial Thromboplast Time 65H Height (Feet): 5 Height (Inches): 3.00 Weight (Pounds): 121 General Appearance: no apparent distress, alert, confused, agitated Sterling Canales M.D. May 12, 2017 16:26
[2017-05-12] MEDS: Megace 400mg/10ml Susp ORAL SCH (18:18)
--- NOTE | 2017-05-12 18:56 | Infectious Diseases Prog Note ---
Assessment/Plan Assessment/Plan ASSESSMENT AND PLAN: 1. staph aureus pna, aspiration risk, ? gram neg uti vs contaminant, ua benign, sepsis, fevers better, leukocytosis persist, effusion, fungemia and c.diff. risk - change to ancef plus flagyl, add diflucan to cover fungemia - check labs and chest x-ray, check c.diff. if has diarrhea - continue supportive care - ? tap effusion - defer to pulmonary 2. Pulmonary embolism - tx per primary, anti-coagulant 3. Anemia, ? ca on ct scan - w/u per primary and consultants 4. History of encephalopathy. 5. History of cholecystectomy. 6. History of acute kidney injury. 7. Cerebrovascular accident. 8. Aspiration risk. 9. tachycardia. 10. Dementia. 11. History of sepsis. 12. Essential hypertension. 13. Continue treatment per primary consultants. 14. Dysphagia. 15. Abnormal posture and speech deficit. 16. No known allergies. 17. Family history is noncontributory. 18. Social history negative. 19. MAR was noted. 20. Case discussed with RN. 21. Skin care protocol. 22. Continue treatment per primary consultants. 23. Case was also discussed with Dr. Sebastian. Subjective Constitutional: Denies: fever HEENT: Reports: congestion - less Respiratory: Reports: shortness of breath - less Cardiovascular: Denies: chest pain Gastrointestinal/Abdominal: Denies: nausea, vomiting, diarrhea Genitourinary: Reports: other - + barrow Neurologic: Denies: headache Psychiatric: Denies: depression Skin: Denies: rash Hematologic: Denies: bleeding Musculoskeletal: Denies: pain Allergies: Coded Allergies: No Known Allergies (Unverified , 05/03/17) Objective Vital Signs Last 24 Hour Vital Signs Date Time Temp Pulse Resp B/P (MAP) Pulse Ox O2 Delivery O2 Flow Rate FiO2 05/12/17 18:21 113 126/74 05/12/17 16:15 97.9 113 20 126/74 94 Room Air 05/12/17 13:20 97.7 113 20 129/68 97 Nasal Cannula 4.0 05/12/17 13:05 97.9 109 20 109/69 97 Nasal Cannula 4.0 05/12/17 12:58 108 20 99 Nasal Cannula 2.0 05/12/17 12:48 104 16 99 Nasal Cannula 2.0 05/12/17 12:00 97.9 97 20 117/60 96 Nasal Cannula 4.0 05/12/17 11:35 100 05/12/17 09:33 119 128/63 05/12/17 08:00 97.3 119 20 128/63 97 Nasal Cannula 4.0 05/12/17 07:35 106 05/12/17 07:00 101 18 99 Nasal Cannula 2.0 28 05/12/17 06:48 Nasal Cannula 2.0 28 05/12/17 06:48 99 Nasal Cannula 2.0 28 05/12/17 06:48 100 18 99 Nasal Cannula 2.0 28 05/12/17 04:00 96 Nasal Cannula 4.0 05/12/17 04:00 97.0 129 20 115/59 92 05/12/17 04:00 98 05/12/17 02:24 112 112/54 05/12/17 01:52 Nasal Cannula 2.0 05/12/17 01:52 Nasal Cannula 2.0 28 05/12/17 00:00 99.0 120 16 109/50 91 05/12/17 00:00 96 Nasal Cannula 4.0 05/12/17 00:00 114 05/11/17 23:49 Venturi Mask 8.0 40 05/11/17 23:49 99 Venturi Mask 8.0 40 05/11/17 20:00 98.2 125 18 136/63 96 05/11/17 20:00 119 05/11/17 20:00 96 Nasal Cannula 4.0 05/11/17 19:10 101 18 99 Nasal Cannula 2.0 28 05/11/17 19:07 97 20 95 Nasal Cannula 2.0 28 Height (Feet): 5 Height (Inches): 3.00 Weight (Pounds): 121 General Appearance: no acute distress HEENT: normocephalic, atraumatic, anicteric, mucous membranes moist, EOMI, pharynx normal, supple, no JVD Respiratory/Chest: crackles/rales, rhonchi - bilaterally Cardiovascular: normal rate, regular rhythm, no gallop/murmur, no JVD Abdomen: normal bowel sounds, soft, non tender, no organomegaly, non distended Genitourinary: other - no barrow Extremities: no cyanosis Skin: no rash 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 Possibility of gastric carcinoma should be very strongly considered. Adenopathy around the stomach and in the region of the gastrohepatic ligament as well as the hilda hepatis. 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 Abnormal density within the left lobe of the liver and lateral segment. It is likely metastatic but could represent direct invasion of the stomach from a gastric lesion. Hepatic cysts. Dilated pancreatic duct. Previous cholecystectomy. Innumerable tiny low density lesions in the left kidney and a few in the right. These may represent cysts though this is not absolutely certain. At least one in the right kidney represents a cyst. Further evaluation with ultrasound may be helpful. Diverticulosis. Small amount of ascites. Increasing pleural effusions bilaterally. The right pleural effusion appears loculated. Pericardial effusion. chest x-ray - 05/12 - Impression: Right basilar infiltrate, probably slightly increased over 2 days Interim nasogastric tube removal Other findings as noted Microbiology Date/Time Source Procedure Growth Status 05/10/17 16:30 Blood Blood Culture - Preliminary NO GROWTH AFTER 24 HOURS Resulted 05/10/17 16:20 Blood Blood Culture - Preliminary NO GROWTH AFTER 24 HOURS Resulted 05/10/17 17:00 Straight Cath Urine Culture - Preliminary Gram Negative Bacillus 1 Resulted Laboratory Tests Test 05/12/17 02:00 05/12/17 10:10 White Blood Count 15.9 K/UL (4.8-10.8) H Red Blood Count 2.71 M/UL (4.20-5.40) L Hemoglobin 6.8 G/DL (12.0-16.0) *L Hematocrit 22.0 % (37.0-47.0) L Mean Corpuscular Volume 81 FL (80-99) Mean Corpuscular Hemoglobin 25.3 PG (27.0-31.0) L Mean Corpuscular Hemoglobin Concent 31.1 G/DL (32.0-36.0) L Red Cell Distribution Width 16.5 % (11.6-14.8) H Platelet Count 648 K/UL (150-450) H Mean Platelet Volume 5.5 FL (6.5-10.1) L Neutrophils (%) (Auto) % (45.0-75.0) Lymphocytes (%) (Auto) % (20.0-45.0) Monocytes (%) (Auto) % (1.0-10.0) Eosinophils (%) (Auto) % (0.0-3.0) Basophils (%) (Auto) % (0.0-2.0) Activated Partial Thromboplast Time 150 SEC (23-33) H 65 SEC (23-33) H Sodium Level 134 MMOL/L (136-145) L Potassium Level 4.4 MMOL/L (3.5-5.1) Chloride Level 103 MMOL/L (98-107) Carbon Dioxide Level 24 MMOL/L (21-32) Blood Urea Nitrogen 11 mg/dL (7-18) Creatinine 0.7 MG/DL (0.55-1.30) Estimat Glomerular Filtration Rate mL/min (>60) Glucose Level 105 MG/DL (74-106) Calcium Level 7.4 MG/DL (8.5-10.1) L Current Medications Medications (Trade) Dose Ordered Sig/Chevy Route PRN Reason Start Time Stop Time Status Last Admin Dose Admin Acetaminophen (Tylenol) 650 mg Q4H PRN RECTAL Mild Pain (Pain Scale 1-3) 05/09/17 15:30 06/03/17 15:29 Acetylcysteine (Mucomyst) 200 mg Q6HRT [facility] 05/09/17 19:00 06/04/17 00:59 05/12/17 12:48 Albuterol/ Ipratropium (Albuterol/ Ipratropium) 3 ml Q6HRT N 05/10/17 08:45 05/15/17 08:44 05/12/17 12:48 Bisacodyl (Dulcolax) 10 mg BIDPRN PRN ORAL Constipation 1st Line Agent 05/09/17 15:00 06/02/17 23:44 Dextrose (Dextrose 50%) STAT PRN IV Hypoglycemia 05/09/17 15:30 06/02/17 15:29 Diltiazem HCl (Cardizem) 20 mg Q8HR@0200,1000,1800 IVP 05/09/17 18:00 06/08/17 17:59 05/12/17 18:21 Ferrous Sulfate (Feosol) 300 mg TWICE A DAY ORAL 05/12/17 09:00 06/11/17 08:59 05/12/17 18:18 Iron Sucrose 100 mg/Sodium Chloride 60 ml @ 240 mls/hr BEDTIME IV 05/09/17 21:00 05/13/17 21:01 05/11/17 20:59 Magnesium Hydroxide (Mom) 30 ml DAILYPRN PRN ORAL Constipation 3rd Line Option 05/12/17 05:15 06/11/17 05:14 Megestrol Acetate (Megace) 400 mg TWICE A DAY ORAL 05/12/17 18:00 06/11/17 17:59 05/12/17 18:18 Memantine (Namenda) 5 mg QHS ORAL 05/12/17 21:00 06/11/17 20:59 Pantoprazole (Protonix) 40 mg EVERY 12 HOURS IVP 05/12/17 21:00 06/11/17 20:59 Piperacillin Sod/ Tazobactam Sod 3.375 gm/Dextrose 55 ml @ 13.75 mls/ hr EVERY 8 HOURS IV 05/09/17 22:00 05/16/17 21:59 05/12/17 06:00 Sodium Phosphate (Fleet's Sodium Phosl Enema) 133 ml DAILYPRN PRN RECTAL IF DULCOLAX INEFFECTIVE 05/09/17 15:30 06/08/17 15:29 Vancomycin HCl (Vanco rx to dose) 1 ea DAILYPRN PRN MISC Per rx protocol 05/09/17 15:30 06/05/17 15:29 Vancomycin HCl 1 gm/Dextrose 275 ml @ 183.708 mls/hr Q24H IVPB 05/11/17 10:00 05/16/17 09:59 05/12/17 10:38 WENDY SOMMERS May 12, 2017 18:56
[2017-05-12] MEDS ORDERED: Enoxaparin 60mg Inj SUBQ SCH (21:00)
[2017-05-12] MEDS ORDERED: ceFAZolin 1gm/50ml Premix 50 ML IV ONE (21:30)
[2017-05-12] MEDS ORDERED: ceFAZolin sod 1 GM in D5W 55 ML IVPB SCH (22:00)
[2017-05-12] MEDS: Pantoprazole Inj IVP SCH (22:51)
[2017-05-12] MEDS: Memantine 5 MG TAB ORAL SCH (22:51)
[2017-05-12] MEDS: Iron Sucrose 100 MG in NS 55 ML IV SCH (22:52)
[2017-05-13 00:10] VITALS: BP 122/64
[2017-05-13] MEDS: Albuterol/Ipratropium 3ml neb HHN SCH ×4 (01:00→20:21)
[2017-05-13] MEDS: Acetylcysteine 20% Soln 4ml HHN SCH ×4 (01:00→20:23)
[2017-05-13] MEDS: dilTIAZem HCl 25mg/5ml Inj IVP SCH ×3 (02:21→17:19)
[2017-05-13 04:10] VITALS: BP 120/50
[2017-05-13 04:24] LABS: BASOPHILS % (AUTO) 0.4 % (0.0-2.0); EOSINOPHILS % (AUTO) 0.2 % (0.0-3.0); HEMATOCRIT 30.7 % (37.0-47.0); HEMOGLOBIN 9.9 G/DL (12.0-16.0); MEAN CORPUSCULAR VOLUME 82 FL (80-99); MONOCYTES % (AUTO) 8.2 % (1.0-10.0); NEUTROPHILS % (AUTO) 75.2 % (45.0-75.0); PLATELET COUNT 724 K/UL (150-450); RED BLOOD COUNT 3.73 M/UL (4.20-5.40); RED CELL DISTRIBUTION WIDTH 15.3 % (11.6-14.8); WHITE BLOOD COUNT 15.7 K/UL (4.8-10.8)
[2017-05-13 04:50] LABS: ANION GAP 11 mmol/L (5-15); BLOOD UREA NITROGEN 9 mg/dL (7-18); CALCIUM 8.2 MG/DL (8.5-10.1); CARBON DIOXIDE 21 MMOL/L (21-32); CHLORIDE 102 MMOL/L (98-107); CREATININE 0.7 MG/DL (0.55-1.30); POTASSIUM 3.7 MMOL/L (3.5-5.1); SODIUM 134 MMOL/L (136-145)
[2017-05-13 08:00] VITALS: BP 128/65
[2017-05-13] MEDS ORDERED: ceFAZolin 0.5gm in D5W 55ml IV SCH (09:00)
--- NOTE | 2017-05-13 09:09 | Pulmonology Progress Note ---
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) gastritis PLAN OF CARE: tele Pulmonary toilet Mucomyst in HHN QID CPT QID Abx , ID follows, sputum cx + Staph aureus , urine cx repeated + GNB9 small col count 10-20), blood cx prel negative Fup CXR - Right basilar infiltrate, probably slightly increased over 2 days fup CXR on Tuesday 05/16 Monitor volumes, cardiorenal parameters, lytes, correct as needed NGT feedings at night , oral feeding during the day, strict aspiration precautions, ST Rx, per ST able to have oral feeding with aspiration/reflux precautions CT A/P highly suspicious for gastric metastatic disease stopped heparin due to severe anemia on 05/12 s/p 2 u RBC transfusion restart Lovenox and closely monitor counts after HH stable for now on venofer endoscopy with findings of gastric mass, s/p biopsy and gastritis GI follows fup with tumor markers onco/heme eval as per PMD discretion dietary recommendations re nutritional support BP management with current regimen. optimize as needed case discussed and evaluated by supervising physician Subjective Allergies: Coded Allergies: No Known Allergies (Unverified , 05/03/17) Subjective afebrile but with persistent leucocytosis on 4L O2 via NC sat stable s/p endoscopy 07/12 HH better after blood transfusion no chest pain, no dizziness. no cough Objective Last 24 Hour Vital Signs Date Time Temp Pulse Resp B/P (MAP) Pulse Ox O2 Delivery O2 Flow Rate FiO2 05/13/17 07:09 Room Air 05/13/17 07:09 96 Room Air 05/13/17 06:45 106 20 99 Nasal Cannula 2.0 05/13/17 06:40 105 18 92 Room Air 05/13/17 04:10 97.0 106 20 120/50 96 Room Air 05/13/17 03:43 109 05/13/17 02:21 113 118/65 05/13/17 01:27 Nasal Cannula 2.0 05/13/17 01:27 Nasal Cannula 2.0 05/13/17 00:30 95 Room Air 05/13/17 00:10 97.5 116 20 122/64 94 Room Air 05/12/17 23:42 117 05/12/17 21:05 117 05/12/17 20:25 97.0 123 20 115/68 92 05/12/17 20:00 20 95 Room Air 05/12/17 19:30 Nasal Cannula 2.0 05/12/17 19:30 Nasal Cannula 2.0 05/12/17 19:29 Nasal Cannula 2.0 05/12/17 19:29 99 Nasal Cannula 2.0 05/12/17 18:21 113 126/74 05/12/17 17:03 138 05/12/17 16:15 97.9 113 20 126/74 94 Room Air 05/12/17 13:20 97.7 113 20 129/68 97 Nasal Cannula 4.0 05/12/17 13:05 97.9 109 20 109/69 97 Nasal Cannula 4.0 05/12/17 12:58 108 20 99 Nasal Cannula 2.0 05/12/17 12:48 104 16 99 Nasal Cannula 2.0 05/12/17 12:00 97.9 97 20 117/60 96 Nasal Cannula 4.0 05/12/17 11:35 100 05/12/17 09:33 119 128/63 Intake and Output 05/12/17 05/13/17 19:00 07:00 Intake Total 1120.270 ml 200 ml Balance 1120.270 ml 200 ml Intake Oral 360 ml IV Total 510.270 ml 200 ml Blood Product 250 ml # Voids 3 4 # Bowel Movements 1 Objective General Appearance: no acute distress, other - awake, alert, responsive AA female in NAD HEENT: normocephalic, atraumatic, anicteric, O2 via VM Respiratory/Chest: lungs clear, no respiratory distress, no accessory muscle use Cardiovascular: tachy, ST on tele with some PVC and PAC Abdomen: non distended Genitourinary: normal external genitalia Extremities: no edema, pedal pulses normal Neurologic/Psychiatric: alert, responsive Musculoskeletal: atrophy - BLE Microbiology Date/Time Source Procedure Growth Status 05/10/17 16:30 Blood Blood Culture - Preliminary NO GROWTH AFTER 48 HOURS Resulted 05/10/17 16:20 Blood Blood Culture - Preliminary NO GROWTH AFTER 48 HOURS Resulted 05/10/17 17:00 Straight Cath Urine Culture - Preliminary Enterobacter Cloacae Complex Streptococcus Species YEAST Resulted Laboratory Tests 05/12/17 10:10: Activated Partial Thromboplast Time 65H 05/13/17 03:45: Activated Partial Thromboplast Time 36H, White Blood Count 15.7H, Red Blood Count 3.73L, Hemoglobin 9.9#L, Hematocrit 30.7#L, Mean Corpuscular Volume 82, Mean Corpuscular Hemoglobin 26.5L, Mean Corpuscular Hemoglobin Concent 32.3, Red Cell Distribution Width 15.3H, Platelet Count 724H, Mean Platelet Volume 5.5L, Neutrophils (%) (Auto) 75.2H, Lymphocytes (%) (Auto) 16.0L, Monocytes (%) (Auto) 8.2, Eosinophils (%) (Auto) 0.2, Basophils (%) (Auto) 0.4, Sodium Level 134L, Potassium Level 3.7, Chloride Level 102, Carbon Dioxide Level 21, Anion Gap 11, Blood Urea Nitrogen 9, Creatinine 0.7, Estimat Glomerular Filtration Rate , Glucose Level 94, Calcium Level 8.2L Current Medications Medications (Trade) Dose Ordered Sig/Chevy Route PRN Reason Start Time Stop Time Status Last Admin Dose Admin Acetaminophen (Tylenol) 650 mg Q4H PRN RECTAL Mild Pain (Pain Scale 1-3) 05/09/17 15:30 06/03/17 15:29 Acetylcysteine (Mucomyst) 200 mg Q6HRT N 05/09/17 19:00 06/04/17 00:59 05/13/17 07:05 Albuterol/ Ipratropium (Albuterol/ Ipratropium) 3 ml Q6HRT N 05/10/17 08:45 05/15/17 08:44 05/13/17 07:03 Bisacodyl (Dulcolax) 10 mg BIDPRN PRN ORAL Constipation 1st Line Agent 05/09/17 15:00 06/02/17 23:44 Cefazolin Sodium 0.5 gm/Dextrose 55 ml @ 110 mls/hr Q12HR IV 05/13/17 09:00 05/20/17 08:59 Dextrose (Dextrose 50%) STAT PRN IV Hypoglycemia 05/09/17 15:30 06/02/17 15:29 Diltiazem HCl (Cardizem) 20 mg Q8HR@0200,1000,1800 IVP 05/09/17 18:00 06/08/17 17:59 05/13/17 02:21 Ferrous Sulfate (Feosol) 300 mg TWICE A DAY ORAL 05/12/17 09:00 06/11/17 08:59 05/12/17 18:18 Fluconazole/ Sodium Chloride 100 ml @ 100 mls/hr Q24H IV 05/12/17 20:00 05/19/17 19:59 05/12/17 22:50 Iron Sucrose 100 mg/Sodium Chloride 60 ml @ 240 mls/hr BEDTIME IV 05/09/17 21:00 05/13/17 21:01 05/11/17 20:59 Magnesium Hydroxide (Mom) 30 ml DAILYPRN PRN ORAL Constipation 3rd Line Option 05/12/17 05:15 06/11/17 05:14 Megestrol Acetate (Megace) 400 mg TWICE A DAY ORAL 05/12/17 18:00 06/11/17 17:59 05/12/17 18:18 Memantine (Namenda) 5 mg QHS ORAL 05/12/17 21:00 06/11/17 20:59 05/12/17 22:51 Metronidazole 100 ml @ 100 mls/hr Q8HR IVPB 05/12/17 22:00 05/19/17 21:59 05/13/17 05:49 Pantoprazole (Protonix) 40 mg EVERY 12 HOURS IVP 05/12/17 21:00 06/11/17 20:59 05/12/17 22:51 Sodium Phosphate (Fleet's Sodium Phosl Enema) 133 ml DAILYPRN PRN RECTAL IF DULCOLAX INEFFECTIVE 05/09/17 15:30 06/08/17 15:29 Vancomycin HCl 1 gm/Dextrose 275 ml @ 183.708 mls/hr Q24H IVPB 05/13/17 10:00 05/18/17 09:59 Esperanza Alejandro NP (Vanchtein) May 13, 2017 09:09
[2017-05-13] MEDS: Megace 400mg/10ml Susp ORAL SCH ×2 (09:33→17:18)
[2017-05-13] MEDS: Ferrous Sulfate 300 MG/5 ML UDC ORAL SCH (09:33)
[2017-05-13] MEDS: Pantoprazole Inj IVP SCH ×2 (09:34→22:03)
[2017-05-13] MEDS ORDERED: Vancomycin 1gm/D5W 275ml IVPB SCH ×2 (10:00)
--- NOTE | 2017-05-13 10:21 | GI Progress Note ---
Assessment/Plan Problems: (1) Encounter for nasogastric (NG) tube placement ICD Codes: Z46.59 - Encounter for fitting and adjustment of other gastrointestinal appliance and device SNOMED: 512477549 (2) Anemia ICD Codes: D64.9 - Anemia, unspecified SNOMED: 732181078 (3) Iron deficiency ICD Codes: E61.1 - Iron deficiency SNOMED: 04022796 Status: stable Status Narrative Discussed with Dr. Greenfield. Assessment/Plan s/p EGD SUMMARY OF FINDINGS: 1. Gastric mass, status post biopsy. 2. Gastritis, status post biopsy. OB stool positive ST eval >> passed. RECOMMENDATIONS: 1. Follow up biopsy results and treat accordingly. 2. 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 The patient most probably will need a PET scan as an outpatient for further staging. 3. Recommend follow up biopsy results and Oncology consultation. closely monitor H&H, prn transfusions PPI BID diet per ST PT evaluation venofer check CEA fu labs The patient was seen and examined at bedside and all new and available data was reviewed in the patients chart. I agree with the above findings, impression and plan. (Patient seen earlier today. Signature stamp does not reflect patient encounter time.). - Isabel Greenfield MD Subjective Gastrointestinal/Abdominal: Reports: no symptoms Subjective denies any abdominal pain OOB tolerating diet Objective Last 24 Hour Vital Signs Date Time Temp Pulse Resp B/P (MAP) Pulse Ox O2 Delivery O2 Flow Rate FiO2 05/13/17 07:09 Room Air 05/13/17 07:09 96 Room Air 05/13/17 06:45 106 20 99 Nasal Cannula 2.0 05/13/17 06:40 105 18 92 Room Air 05/13/17 04:10 97.0 106 20 120/50 96 Room Air 05/13/17 03:43 109 05/13/17 02:21 113 118/65 05/13/17 01:27 Nasal Cannula 2.0 05/13/17 01:27 Nasal Cannula 2.0 05/13/17 00:30 95 Room Air 05/13/17 00:10 97.5 116 20 122/64 94 Room Air 05/12/17 23:42 117 05/12/17 21:05 117 05/12/17 20:25 97.0 123 20 115/68 92 05/12/17 20:00 20 95 Room Air 05/12/17 19:30 Nasal Cannula 2.0 05/12/17 19:30 Nasal Cannula 2.0 05/12/17 19:29 Nasal Cannula 2.0 05/12/17 19:29 99 Nasal Cannula 2.0 05/12/17 18:21 113 126/74 05/12/17 17:03 138 05/12/17 16:15 97.9 113 20 126/74 94 Room Air 05/12/17 13:20 97.7 113 20 129/68 97 Nasal Cannula 4.0 05/12/17 13:05 97.9 109 20 109/69 97 Nasal Cannula 4.0 05/12/17 12:58 108 20 99 Nasal Cannula 2.0 05/12/17 12:48 104 16 99 Nasal Cannula 2.0 05/12/17 12:00 97.9 97 20 117/60 96 Nasal Cannula 4.0 05/12/17 11:35 100 Intake and Output 05/12/17 05/13/17 19:00 07:00 Intake Total 1120.270 ml 200 ml Balance 1120.270 ml 200 ml Intake Oral 360 ml IV Total 510.270 ml 200 ml Blood Product 250 ml # Voids 3 4 # Bowel Movements 1 Laboratory Tests Test 05/13/17 03:45 White Blood Count 15.7 K/UL (4.8-10.8) H Red Blood Count 3.73 M/UL (4.20-5.40) L Hemoglobin 9.9 G/DL (12.0-16.0) #L Hematocrit 30.7 % (37.0-47.0) #L Mean Corpuscular Volume 82 FL (80-99) Mean Corpuscular Hemoglobin 26.5 PG (27.0-31.0) L Mean Corpuscular Hemoglobin Concent 32.3 G/DL (32.0-36.0) Red Cell Distribution Width 15.3 % (11.6-14.8) H Platelet Count 724 K/UL (150-450) H Mean Platelet Volume 5.5 FL (6.5-10.1) L Neutrophils (%) (Auto) 75.2 % (45.0-75.0) H Lymphocytes (%) (Auto) 16.0 % (20.0-45.0) L Monocytes (%) (Auto) 8.2 % (1.0-10.0) Eosinophils (%) (Auto) 0.2 % (0.0-3.0) Basophils (%) (Auto) 0.4 % (0.0-2.0) Activated Partial Thromboplast Time 36 SEC (23-33) H Sodium Level 134 MMOL/L (136-145) L Potassium Level 3.7 MMOL/L (3.5-5.1) Chloride Level 102 MMOL/L (98-107) Carbon Dioxide Level 21 MMOL/L (21-32) Anion Gap 11 mmol/L (5-15) Blood Urea Nitrogen 9 mg/dL (7-18) Creatinine 0.7 MG/DL (0.55-1.30) Estimat Glomerular Filtration Rate mL/min (>60) Glucose Level 94 MG/DL (74-106) Calcium Level 8.2 MG/DL (8.5-10.1) L Height (Feet): 5 Height (Inches): 3.00 Weight (Pounds): 121 General Appearance: WD/WN, no apparent distress, alert, thin Cardiovascular: normal rate Respiratory/Chest: normal breath sounds, no respiratory distress Abdominal Exam: normal bowel sounds, non tender, soft Extremities: normal range of motion, non-tender Eufemia Smiley N.P. May 13, 2017 10:21 PATO GREENFIELD May 17, 2017 12:28
[2017-05-13] MEDS: Enoxaparin Sodium 300mg/3ml vial SUBQ SCH ×2 (11:52→22:05)
[2017-05-13 12:00] VITALS: BP 120/71
--- NOTE | 2017-05-13 14:29 | Consultation ---
History of Present Illness General Date patient seen: May 13, 2017 Chief Complaint: Fever Referring physician: RAIN MENA Reason for Consultation: gastric mass Present Illness HPI 81F with multiple medical comorbidities presented with sepsis, hypoxia, SOB, PNA. during hospitalization had CT scan of abdomen which demonstrated large abnormal mass in stomach with likely metastatic lymph nodes and possible direct invasion into left lobe of liver. 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 Surgery called to evaluate. when seen at bedside patient states she is okay. seems comfortable. denies any recent weight loss and states she has not been eating well for some time now. does not know of prior history of gastric tumor. Allergies: Coded Allergies: No Known Allergies (Unverified , 05/03/17) Medication History Scheduled Diltiazem Hcl* (Cardizem*), 60 MG ORAL EVERY 8 HOURS, (Reported) Docusate Sodium* (Docusate Sodium*), 100 MG ORAL TWICE A DAY, (Reported) Ferrous Sulfate* (Ferrous Sulfate*), 325 MG ORAL TWICE A DAY, (Reported) Megestrol Acetate (Megestrol Acetate), 400 MG PO DAILY, (Reported) Memantine Hcl* (Namenda*), 5 MG ORAL QHS, (Reported) Multivitamin with Minerals (Multivitamins with Minerals), 1 TAB ORAL DAILY, ( Reported) Pseudoephedrine Hcl* (Sudafed*), 30 MG PO BID, (Reported) Scheduled PRN Acetaminophen* (Acetaminophen 325MG Tablet*), 325 MG ORAL Q6H PRN for TEMP > 101F, (Reported) Acetaminophen* (Acetaminophen 325MG Tablet*), 325 MG ORAL Q6H PRN for PAIN. NTE 3GM/24HR, (Reported) Bisacodyl (Dulcolax), 10 MG RC DAILY PRN for IF MOM INEFFECTIVE, (Reported) Bisacodyl* (Dulcolax*), 10 MG ORAL BID PRN for Constipation, (Reported) Magnesium Hydroxide* (Milk Of Magnesia*), 30 ML ORAL DAILY PRN for Constipation, (Reported) Na Phos,M-B/Na Phos,Di-Ba* (Fleet Enema*), 133 ML RECTAL DAILY PRN for IF DULCOLAX INEFFECTIVE, (Reported) Patient History Limited by: medical condition History Provided By: Patient, Medical Record, PMD Healthcare decision maker Resuscitation status Full Code Advanced Directive on File Past Medical/Surgical History Past Medical/Surgical History: (1) Fever (2) Sepsis (3) Pneumonia (4) Iron deficiency (5) Anemia (6) Encounter for nasogastric (NG) tube placement (7) Dysphagia (8) PE (9) Diverticulosis (10) 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 with liver involvement (11) Gastric wall thickening (12) Pulmonary embolism Review of Systems Constitutional: Denies: no symptoms, see HPI, chills, sweats, fever, malaise, weakness, other Eye: Denies: no symptoms, see HPI, eye pain, blurred vision, tearing, double vision, nose pain, nose congestion, acuity changes, discharge, other ENT: Denies: no symptoms, see HPI, ear pain, ear discharge, nose pain, nose congestion, throat pain, throat swelling, mouth pain, hearing loss, nasal discharge, other Respiratory: Denies: no symptoms, see HPI, cough, orthopnea, shortness of breath, stridor, wheezing, HOLLAND, sputum, other Cardiovascular: Denies: no symptoms, see HPI, chest pain, edema, palpitations, syncope, PND, other Gastrointestinal: Denies: no symptoms, see HPI, abdominal pain, constipation, diarrhea, nausea, vomiting, melena, hematemesis, other Genitourinary: Denies: no symptoms, see HPI, discharge, dysuria, frequency, hematuria, pain, retention, incontinence, urgency, vag bleed/dc, other Musculoskeletal: Denies: no symptoms, see HPI, back pain, gout, joint pain, joint swelling, muscle pain, muscle stiffness, other Skin: Denies: no symptoms, see HPI, rash, change in color, change in hair/nails , dryness, lesions, other Psychiatric: Denies: no symptoms, see HPI, prior hx, anxiety, depressed feelings, emotional problems, SI, HI, hallucinations, other Neurological: Denies: no symptoms, see HPI, headache, numbness, paresthesia, seizure, tingling, tremors, focal weakness, syncope, dizziness, other Endocrine: Denies: no symptoms, see HPI, excessive sweating, flushing, intolerance to temperature, increased thirst, increased urine, unexplained weight loss, other Hematologic/Lymphatic: Denies: no symptoms, see HPI, anemia, blood clots, easy bleeding, easy bruising, swollen glands, diathesis, other All Other Systems: negative except mentioned in HPI Physical Exam General Appearance: no apparent distress, alert HEENT: atraumatic, mucous membranes moist, PERRL Neck: normal inspection Respiratory/Chest: normal breath sounds, no respiratory distress, no accessory muscle use Cardiovascular/Chest: normal peripheral pulses, normal rate Abdomen: normal bowel sounds, non tender, soft, no organomegaly, no mass Extremities: normal inspection Skin Exam: warm/dry Neurologic: alert, responsive Last 24 Hour Vital Signs Date Time Temp Pulse Resp B/P (MAP) Pulse Ox O2 Delivery O2 Flow Rate FiO2 05/13/17 13:41 123 26 98 Room Air 05/13/17 13:35 117 20 94 Room Air 21 05/13/17 10:51 106 120/50 05/13/17 08:00 98.6 104 18 128/65 95 Room Air 05/13/17 08:00 112 05/13/17 07:09 Room Air 05/13/17 07:09 96 Room Air 05/13/17 06:45 106 20 99 Nasal Cannula 2.0 05/13/17 06:40 105 18 92 Room Air 05/13/17 04:10 97.0 106 20 120/50 96 Room Air 05/13/17 03:43 109 05/13/17 02:21 113 118/65 05/13/17 01:27 Nasal Cannula 2.0 05/13/17 01:27 Nasal Cannula 2.0 05/13/17 00:30 95 Room Air 05/13/17 00:10 97.5 116 20 122/64 94 Room Air 05/12/17 23:42 117 05/12/17 21:05 117 05/12/17 20:25 97.0 123 20 115/68 92 05/12/17 20:00 20 95 Room Air 05/12/17 19:30 Nasal Cannula 2.0 05/12/17 19:30 Nasal Cannula 2.0 05/12/17 19:29 Nasal Cannula 2.0 05/12/17 19:29 99 Nasal Cannula 2.0 05/12/17 18:21 113 126/74 05/12/17 17:03 138 05/12/17 16:15 97.9 113 20 126/74 94 Room Air Intake and Output 05/12/17 05/13/17 19:00 07:00 Intake Total 1120.270 ml 200 ml Balance 1120.270 ml 200 ml Intake Oral 360 ml IV Total 510.270 ml 200 ml Blood Product 250 ml # Voids 3 4 # Bowel Movements 1 Laboratory Tests Test 05/13/17 03:45 White Blood Count 15.7 K/UL (4.8-10.8) H Red Blood Count 3.73 M/UL (4.20-5.40) L Hemoglobin 9.9 G/DL (12.0-16.0) #L Hematocrit 30.7 % (37.0-47.0) #L Mean Corpuscular Volume 82 FL (80-99) Mean Corpuscular Hemoglobin 26.5 PG (27.0-31.0) L Mean Corpuscular Hemoglobin Concent 32.3 G/DL (32.0-36.0) Red Cell Distribution Width 15.3 % (11.6-14.8) H Platelet Count 724 K/UL (150-450) H Mean Platelet Volume 5.5 FL (6.5-10.1) L Neutrophils (%) (Auto) 75.2 % (45.0-75.0) H Lymphocytes (%) (Auto) 16.0 % (20.0-45.0) L Monocytes (%) (Auto) 8.2 % (1.0-10.0) Eosinophils (%) (Auto) 0.2 % (0.0-3.0) Basophils (%) (Auto) 0.4 % (0.0-2.0) Activated Partial Thromboplast Time 36 SEC (23-33) H Sodium Level 134 MMOL/L (136-145) L Potassium Level 3.7 MMOL/L (3.5-5.1) Chloride Level 102 MMOL/L (98-107) Carbon Dioxide Level 21 MMOL/L (21-32) Anion Gap 11 mmol/L (5-15) Blood Urea Nitrogen 9 mg/dL (7-18) Creatinine 0.7 MG/DL (0.55-1.30) Estimat Glomerular Filtration Rate mL/min (>60) Glucose Level 94 MG/DL (74-106) Calcium Level 8.2 MG/DL (8.5-10.1) L Height (Feet): 5 Height (Inches): 3.00 Weight (Pounds): 121 Medications Current Medications Medications (Trade) Dose Ordered Sig/Chevy Route PRN Reason Start Time Stop Time Status Last Admin Dose Admin Acetaminophen (Tylenol) 650 mg Q4H PRN RECTAL Mild Pain (Pain Scale 1-3) 05/09/17 15:30 06/03/17 15:29 Acetylcysteine (Mucomyst) 200 mg Q6HRT HHN 05/09/17 19:00 06/04/17 00:59 05/13/17 13:35 Albuterol/ Ipratropium (Albuterol/ Ipratropium) 3 ml Q6HRT HHN 05/13/17 13:00 05/18/17 12:59 05/13/17 13:35 Bisacodyl (Dulcolax) 10 mg BIDPRN PRN ORAL Constipation 1st Line Agent 05/09/17 15:00 06/02/17 23:44 Cefazolin Sodium 0.5 gm/Dextrose 55 ml @ 110 mls/hr Q12HR IV 05/13/17 09:00 05/20/17 08:59 05/13/17 09:33 Dextrose (Dextrose 50%) STAT PRN IV Hypoglycemia 05/09/17 15:30 06/02/17 15:29 Diltiazem HCl (Cardizem) 20 mg Q8HR@0200,1000,1800 IVP 05/09/17 18:00 06/08/17 17:59 05/13/17 10:51 Enoxaparin Sodium (Lovenox) 50 mg Q12HR SUBQ 05/13/17 11:00 06/12/17 10:59 05/13/17 11:52 Ferrous Sulfate (Feosol) 300 mg TWICE A DAY ORAL 05/15/17 09:00 06/14/17 08:59 Fluconazole/ Sodium Chloride 100 ml @ 100 mls/hr Q24H IV 05/12/17 20:00 05/19/17 19:59 05/12/17 22:50 Iron Sucrose 100 mg/Sodium Chloride 60 ml @ 240 mls/hr BEDTIME IV 05/09/17 21:00 05/14/17 21:15 05/11/17 20:59 Magnesium Hydroxide (Mom) 30 ml DAILYPRN PRN ORAL Constipation 3rd Line Option 05/12/17 05:15 06/11/17 05:14 Megestrol Acetate (Megace) 400 mg TWICE A DAY ORAL 05/12/17 18:00 06/11/17 17:59 05/13/17 09:33 Memantine (Namenda) 5 mg QHS ORAL 05/12/17 21:00 06/11/17 20:59 05/12/17 22:51 Metronidazole 100 ml @ 100 mls/hr Q8HR IVPB 05/12/17 22:00 05/19/17 21:59 05/13/17 14:06 Pantoprazole (Protonix) 40 mg EVERY 12 HOURS IVP 05/12/17 21:00 06/11/17 20:59 05/13/17 09:34 Sodium Phosphate (Fleet's Sodium Phosl Enema) 133 ml DAILYPRN PRN RECTAL IF DULCOLAX INEFFECTIVE 05/09/17 15:30 06/08/17 15:29 Vancomycin HCl 1 gm/Dextrose 275 ml @ 183.708 mls/hr Q24H IVPB 05/13/17 10:00 05/18/17 09:59 05/13/17 10:50 Assessment/Plan Problem List: (1) 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 -advanced disease with potentially poor prognosis. -will need to obtain prior medical records from any outside facility to see if any prior history of this. -awaiting final pathology report and CEA/labs -no acute surgical intervention at this time. w ill follow with recs. thank you for this consultation. ICD Codes: K31.89 - Other diseases of stomach and duodenum SNOMED: [id number] Status: stable Justen Lu May 13, 2017 14:29
[2017-05-13 16:00] VITALS: BP 123/73
--- NOTE | 2017-05-13 16:20 | Internal Med Progress Note ---
Subjective Date of Service: May 13, 2017 Physician Name Gabriel,Jeet Attending Physician Trung Sebastian MD Current Medications Medications (Trade) Dose Ordered Sig/Chevy Route PRN Reason Start Time Stop Time Status Last Admin Dose Admin Acetaminophen (Tylenol) 650 mg Q4H PRN RECTAL Mild Pain (Pain Scale 1-3) 05/09/17 15:30 06/03/17 15:29 Acetylcysteine (Mucomyst) 200 mg Q6HRT HHN 05/09/17 19:00 06/04/17 00:59 05/13/17 13:35 Albuterol/ Ipratropium (Albuterol/ Ipratropium) 3 ml Q6HRT HHN 05/13/17 13:00 05/18/17 12:59 05/13/17 13:35 Bisacodyl (Dulcolax) 10 mg BIDPRN PRN ORAL Constipation 1st Line Agent 05/09/17 15:00 06/02/17 23:44 Ciprofloxacin 100 ml @ 100 mls/hr Q12HR@0400,1600 IV 05/13/17 16:00 05/20/17 15:59 Dextrose (Dextrose 50%) STAT PRN IV Hypoglycemia 05/09/17 15:30 06/02/17 15:29 Diltiazem HCl (Cardizem) 20 mg Q8HR@0200,1000,1800 IVP 05/09/17 18:00 06/08/17 17:59 05/13/17 10:51 Enoxaparin Sodium (Lovenox) 50 mg Q12HR SUBQ 05/13/17 11:00 06/12/17 10:59 05/13/17 11:52 Ferrous Sulfate (Feosol) 300 mg TWICE A DAY ORAL 05/15/17 09:00 06/14/17 08:59 Fluconazole/ Sodium Chloride 100 ml @ 100 mls/hr Q24H IV 05/12/17 20:00 05/19/17 19:59 05/12/17 22:50 Iron Sucrose 100 mg/Sodium Chloride 60 ml @ 240 mls/hr BEDTIME IV 05/09/17 21:00 05/14/17 21:15 05/11/17 20:59 Magnesium Hydroxide (Mom) 30 ml DAILYPRN PRN ORAL Constipation 3rd Line Option 05/12/17 05:15 06/11/17 05:14 Megestrol Acetate (Megace) 400 mg TWICE A DAY ORAL 05/12/17 18:00 06/11/17 17:59 05/13/17 09:33 Memantine (Namenda) 5 mg QHS ORAL 05/12/17 21:00 06/11/17 20:59 05/12/17 22:51 Metronidazole 100 ml @ 100 mls/hr Q8HR IVPB 05/12/17 22:00 05/19/17 21:59 05/13/17 14:06 Pantoprazole (Protonix) 40 mg EVERY 12 HOURS IVP 05/12/17 21:00 06/11/17 20:59 05/13/17 09:34 Sodium Phosphate (Fleet's Sodium Phosl Enema) 133 ml DAILYPRN PRN RECTAL IF DULCOLAX INEFFECTIVE 05/09/17 15:30 06/08/17 15:29 Vancomycin HCl 1 gm/Dextrose 275 ml @ 183.708 mls/hr Q24H IVPB 05/13/17 10:00 05/18/17 09:59 05/13/17 10:50 Allergies: Coded Allergies: No Known Allergies (Unverified , 05/03/17) ROS Limited/Unobtainable: Yes Subjective 81 YO F admitted with respiratory failure. Now pulmonary embolism and Gastric mass. S/P endoscopy 05/11/17. Cover for Int Med-Dr Sebastian. Worsening anemia-S/ P transfusion. Await oncology consult. Objective Last Vital Signs Date Time Temp Pulse Resp B/P (MAP) Pulse Ox O2 Delivery O2 Flow Rate FiO2 05/13/17 13:41 123 26 98 Room Air 05/13/17 13:35 21 05/13/17 12:00 96.4 120/71 05/13/17 06:45 2.0 Laboratory Tests Test 05/13/17 03:45 White Blood Count 15.7 K/UL (4.8-10.8) H Red Blood Count 3.73 M/UL (4.20-5.40) L Hemoglobin 9.9 G/DL (12.0-16.0) #L Hematocrit 30.7 % (37.0-47.0) #L Mean Corpuscular Volume 82 FL (80-99) Mean Corpuscular Hemoglobin 26.5 PG (27.0-31.0) L Mean Corpuscular Hemoglobin Concent 32.3 G/DL (32.0-36.0) Red Cell Distribution Width 15.3 % (11.6-14.8) H Platelet Count 724 K/UL (150-450) H Mean Platelet Volume 5.5 FL (6.5-10.1) L Neutrophils (%) (Auto) 75.2 % (45.0-75.0) H Lymphocytes (%) (Auto) 16.0 % (20.0-45.0) L Monocytes (%) (Auto) 8.2 % (1.0-10.0) Eosinophils (%) (Auto) 0.2 % (0.0-3.0) Basophils (%) (Auto) 0.4 % (0.0-2.0) Activated Partial Thromboplast Time 36 SEC (23-33) H Sodium Level 134 MMOL/L (136-145) L Potassium Level 3.7 MMOL/L (3.5-5.1) Chloride Level 102 MMOL/L (98-107) Carbon Dioxide Level 21 MMOL/L (21-32) Anion Gap 11 mmol/L (5-15) Blood Urea Nitrogen 9 mg/dL (7-18) Creatinine 0.7 MG/DL (0.55-1.30) Estimat Glomerular Filtration Rate mL/min (>60) Glucose Level 94 MG/DL (74-106) Calcium Level 8.2 MG/DL (8.5-10.1) L Microbiology Date/Time Source Procedure Growth Status 05/10/17 16:30 Blood Blood Culture - Preliminary NO GROWTH AFTER 48 HOURS Resulted 05/10/17 16:20 Blood Blood Culture - Preliminary NO GROWTH AFTER 48 HOURS Resulted 05/10/17 17:00 Straight Cath Urine Culture - Preliminary Enterobacter Cloacae Complex Streptococcus Species YEAST Resulted Intake and Output 05/12/17 05/13/17 19:00 07:00 Intake Total 1120.270 ml 200 ml Balance 1120.270 ml 200 ml Intake Oral 360 ml IV Total 510.270 ml 200 ml Blood Product 250 ml # Voids 3 4 # Bowel Movements 1 Objective Objective GENERAL: awake, responsive, opens eyes, talking. HEENT: Pupils reactive to light. Anicteric. NG Tube. NECK: Supple. No JVD. LUNGS: fair air entry. decrease bilateral air entry, No wheezing. No Coarse breath HEART: S1 and S2. RR. no murmur ABDOMEN: Soft, nontender and nondistended. Positive bowel sounds. EXTREMITIES: No cyanosis, clubbing, or edema. NEUROLOGIC: moving all extremities equally . CN 2-12 intact. Assessment/Plan Assessment/Plan Assessment/Plan Acute PE-see pulmonary note. Await hematology consult. SIRS Right lower lobe pneumonia, possible aspiration pneumonia. History of cerebrovascular accident. Sinus tachycardia. Urinary tract infection, possible sepsis secondary to urinary tract infection. Dysphagia. Hypertension. Anemia. Severe protein-calorie malnutrition. 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 Lovenox injection BID-discontinue due to worsening anemia monitor laboratory and cultures. Dr. Malik Knapp from [facility]. Abx: Zosyn IV, Vanco IV Tub feeding @ 45 cc/hr at night from 7 PM to 7 AM, and oral feeding during day time. Full Code as per speech evaluation: she is able for oral feeding S/P Transfusion 2 units packed RBC Await oncology consult. JEET GABRIEL May 13, 2017 16:20
--- NOTE | 2017-05-13 17:08 | Consultation ---
Consult Note Consult Note JOB ID: [id number] Marcelino Cortes May 13, 2017 17:08
[2017-05-13] MEDS: CIPROFLOXACIN IV SCH (17:18)
[2017-05-13] MEDS: [UNRECOGNIZED DRUG - OTHER] IV SCH (17:18)
[2017-05-13 20:00] VITALS: BP 115/59
[2017-05-13] MEDS: Memantine 5 MG TAB ORAL SCH (21:00)
[2017-05-13] MEDS: Iron Sucrose 100 MG in NS 55 ML IV SCH (22:02)
--- NOTE | 2017-05-13 22:58 | General Progress Note ---
Assessment/Plan Assessment/Plan encephalopathy cognitive impairment -cont current meds Subjective Date patient seen: May 13, 2017 Allergies: Coded Allergies: No Known Allergies (Unverified , 05/03/17) Subjective the pt is aaoxself and place Objective Last 24 Hour Vital Signs Date Time Temp Pulse Resp B/P (MAP) Pulse Ox O2 Delivery O2 Flow Rate FiO2 05/13/17 20:30 103 22 96 Room Air 05/13/17 20:23 102 20 96 Room Air 05/13/17 20:00 97.7 108 18 115/59 96 05/13/17 19:07 96 Room Air 05/13/17 19:07 Room Air 05/13/17 17:19 79 123/73 05/13/17 16:00 123 05/13/17 16:00 97.1 79 18 123/73 93 Room Air 05/13/17 13:41 123 26 98 Room Air 05/13/17 13:35 117 20 94 Room Air 05/13/17 12:00 96.4 115 19 120/71 93 Room Air 05/13/17 12:00 122 05/13/17 10:51 106 120/50 05/13/17 08:00 98.6 104 18 128/65 95 Room Air 05/13/17 08:00 112 05/13/17 07:09 Room Air 05/13/17 07:09 96 Room Air 05/13/17 06:45 106 20 99 Nasal Cannula 2.0 05/13/17 06:40 105 18 92 Room Air 05/13/17 04:10 97.0 106 20 120/50 96 Room Air 05/13/17 03:43 109 05/13/17 02:21 113 118/65 05/13/17 01:27 Nasal Cannula 2.0 05/13/17 01:27 Nasal Cannula 2.0 05/13/17 00:30 95 Room Air 05/13/17 00:10 97.5 116 20 122/64 94 Room Air 05/12/17 23:42 117 Intake and Output 05/12/17 05/13/17 18:59 06:59 Intake Total 1134.020 ml 200 ml Balance 1134.020 ml 200 ml Intake Oral 360 ml IV Total 524.020 ml 200 ml Blood Product 250 ml # Voids 3 4 # Bowel Movements 1 Laboratory Tests 05/13/17 03:45: White Blood Count 15.7H, Red Blood Count 3.73L, Hemoglobin 9.9#L, Hematocrit 30.7#L, Mean Corpuscular Volume 82, Mean Corpuscular Hemoglobin 26.5L, Mean Corpuscular Hemoglobin Concent 32.3, Red Cell Distribution Width 15.3H, Platelet Count 724H, Mean Platelet Volume 5.5L, Neutrophils (%) (Auto) 75.2H, Lymphocytes (%) (Auto) 16.0L, Monocytes (%) (Auto) 8.2, Eosinophils (%) (Auto) 0.2, Basophils (%) (Auto) 0.4, Activated Partial Thromboplast Time 36H, Sodium Level 134L, Potassium Level 3.7, Chloride Level 102, Carbon Dioxide Level 21, Anion Gap 11, Blood Urea Nitrogen 9, Creatinine 0.7, Estimat Glomerular Filtration Rate , Glucose Level 94, Calcium Level 8.2L Height (Feet): 5 Height (Inches): 3.00 Weight (Pounds): 121 Sterling Canales M.D. May 13, 2017 22:58
[2017-05-14] VITALS: BP 127/58
[2017-05-14] MEDS: Albuterol/Ipratropium 3ml neb HHN SCH ×4 (00:31→20:27)
[2017-05-14] MEDS: Acetylcysteine 20% Soln 4ml HHN SCH ×4 (00:31→19:00)
[2017-05-14] MEDS: dilTIAZem HCl 25mg/5ml Inj IVP SCH ×3 (01:58→17:45)
[2017-05-14] MEDS: CIPROFLOXACIN IV SCH ×2 (03:56→16:22)
[2017-05-14] MEDS: [UNRECOGNIZED DRUG - OTHER] IV SCH ×2 (03:56→16:22)
[2017-05-14 04:00] VITALS: BP 113/67
[2017-05-14 08:00] VITALS: BP 137/73
[2017-05-14 08:24] LABS: BASOPHILS % (AUTO) 0.3 % (0.0-2.0); EOSINOPHILS % (AUTO) 0.1 % (0.0-3.0); HEMATOCRIT 32.4 % (37.0-47.0); HEMOGLOBIN 10.5 G/DL (12.0-16.0); LYMPHOCYTES % (AUTO) 18.4 % (20.0-45.0); MEAN CORPUSCULAR VOLUME 84 FL (80-99); MONOCYTES % (AUTO) 8.1 % (1.0-10.0); NEUTROPHILS % (AUTO) 73.2 % (45.0-75.0); PLATELET COUNT 783 K/UL (150-450); RED BLOOD COUNT 3.87 M/UL (4.20-5.40); RED CELL DISTRIBUTION WIDTH 15.8 % (11.6-14.8); WHITE BLOOD COUNT 13.3 K/UL (4.8-10.8)
[2017-05-14 08:41] LABS: ANION GAP 11 mmol/L (5-15); BLOOD UREA NITROGEN 9 mg/dL (7-18); CALCIUM 8.2 MG/DL (8.5-10.1); CARBON DIOXIDE 23 MMOL/L (21-32); CHLORIDE 103 MMOL/L (98-107); POTASSIUM 3.6 MMOL/L (3.5-5.1); SODIUM 136 MMOL/L (136-145)
[2017-05-14 08:42] LABS: CREATININE 0.7 MG/DL (0.55-1.30)
--- NOTE | 2017-05-14 09:41 | Diagnostic Imaging Report ---
Indication: Infection Technique: XRAY Chest 1v Comparison: 05/12/2017 Findings: Heart size and mediastinal contours are stable. Persistent but decreased hazy opacity in the right lower lung. Left lung is grossly clear. Interval decrease in right pleural effusion. No definite pneumothorax. No acute osseous abnormality seen. Impression: Persistent but decreased hazy opacity in the right lower lung.
[2017-05-14] MEDS: Megace 400mg/10ml Susp ORAL SCH ×2 (09:53→17:45)
[2017-05-14] MEDS: Pantoprazole Inj IVP SCH (09:53)
[2017-05-14 12:00] VITALS: BP 114/57
--- NOTE | 2017-05-14 12:09 | General Surgery Progress Note ---
General Surgery-Progress Note Subjective Additional Comments doing well. no complaints. says she is tolerating soft foods well. Objective Last 24 Hour Vital Signs Date Time Temp Pulse Resp B/P (MAP) Pulse Ox O2 Delivery O2 Flow Rate FiO2 05/14/17 09:53 110 113/67 05/14/17 08:00 97.5 97 20 137/73 95 05/14/17 06:50 110 20 99 Room Air 05/14/17 06:48 Room Air 05/14/17 06:40 106 20 97 Room Air 05/14/17 06:39 97 Room Air 21 05/14/17 04:00 96 05/14/17 04:00 97.2 86 18 113/67 94 05/14/17 01:58 107 127/58 05/14/17 00:31 Room Air 05/14/17 00:31 Room Air 05/14/17 00:00 98.6 108 16 127/58 96 05/14/17 00:00 107 05/13/17 20:30 103 22 96 Room Air 21 05/13/17 20:23 102 20 96 Room Air 21 05/13/17 20:00 97.7 108 18 115/59 96 05/13/17 20:00 111 05/13/17 19:07 96 Room Air 21 05/13/17 19:07 Room Air 21 05/13/17 17:19 79 123/73 05/13/17 16:00 123 05/13/17 16:00 97.1 79 18 123/73 93 Room Air 05/13/17 13:41 123 26 98 Room Air 05/13/17 13:35 117 20 94 Room Air 21 I&O Intake and Output 05/13/17 05/14/17 19:00 07:00 Intake Total 1238.000 ml 460 ml Balance 1238.000 ml 460 ml Intake Oral 708 ml IV Total 530.000 ml 460 ml # Voids 2 2 # Bowel Movements 1 Cardiovascular: RSR Respiratory: clear Abdomen: soft, non-tender, present bowel sounds Extremities: no tenderness Laboratory Tests Test 05/14/17 08:10 White Blood Count 13.3 K/UL (4.8-10.8) H Red Blood Count 3.87 M/UL (4.20-5.40) L Hemoglobin 10.5 G/DL (12.0-16.0) L Hematocrit 32.4 % (37.0-47.0) L Mean Corpuscular Volume 84 FL (80-99) Mean Corpuscular Hemoglobin 27.0 PG (27.0-31.0) Mean Corpuscular Hemoglobin Concent 32.2 G/DL (32.0-36.0) Red Cell Distribution Width 15.8 % (11.6-14.8) H Platelet Count 783 K/UL (150-450) H Mean Platelet Volume 5.2 FL (6.5-10.1) L Neutrophils (%) (Auto) 73.2 % (45.0-75.0) Lymphocytes (%) (Auto) 18.4 % (20.0-45.0) L Monocytes (%) (Auto) 8.1 % (1.0-10.0) Eosinophils (%) (Auto) 0.1 % (0.0-3.0) Basophils (%) (Auto) 0.3 % (0.0-2.0) Sodium Level 136 MMOL/L (136-145) Potassium Level 3.6 MMOL/L (3.5-5.1) Chloride Level 103 MMOL/L (98-107) Carbon Dioxide Level 23 MMOL/L (21-32) Anion Gap 11 mmol/L (5-15) Blood Urea Nitrogen 9 mg/dL (7-18) Creatinine 0.7 MG/DL (0.55-1.30) Estimat Glomerular Filtration Rate mL/min (>60) Glucose Level 91 MG/DL (74-106) Calcium Level 8.2 MG/DL (8.5-10.1) L Plan Problems: (1) 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 lymph nodes in hilda and gastrohepatic ligament concerning. 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 From looks of tumor on CT scan it resembles a adenocarcinoma more so though. will await final biopsy results. -advanced disease with potentially poor prognosis. -will need to obtain prior medical records from any outside facility to see if any prior history of this. -awaiting final pathology report and CEA/labs -no acute surgical intervention at this time. w ill follow with recs. thank you for this consultation. Justen Lu May 14, 2017 12:09
[2017-05-14] MEDS: Enoxaparin Sodium 300mg/3ml vial SUBQ SCH (13:21)
--- NOTE | 2017-05-14 13:28 | Internal Med Progress Note ---
Subjective Date of Service: May 14, 2017 Physician Name Gabriel,Jeet Attending Physician Trung Sebastian MD Current Medications Medications (Trade) Dose Ordered Sig/Chevy Route PRN Reason Start Time Stop Time Status Last Admin Dose Admin Acetaminophen (Tylenol) 650 mg Q4H PRN RECTAL Mild Pain (Pain Scale 1-3) 05/09/17 15:30 06/03/17 15:29 Acetylcysteine (Mucomyst) 200 mg Q6HRT HHN 05/09/17 19:00 06/04/17 00:59 05/14/17 06:47 Albuterol/ Ipratropium (Albuterol/ Ipratropium) 3 ml Q6HRT HHN 05/13/17 13:00 05/18/17 12:59 05/14/17 06:47 Bisacodyl (Dulcolax) 10 mg BIDPRN PRN ORAL Constipation 1st Line Agent 05/09/17 15:00 06/02/17 23:44 Ciprofloxacin 100 ml @ 100 mls/hr Q12HR@0400,1600 IV 05/13/17 16:00 05/20/17 15:59 05/14/17 03:56 Dextrose (Dextrose 50%) STAT PRN IV Hypoglycemia 05/09/17 15:30 06/02/17 15:29 Diltiazem HCl (Cardizem) 20 mg Q8HR@0200,1000,1800 IVP 05/09/17 18:00 06/08/17 17:59 05/14/17 09:53 Enoxaparin Sodium (Lovenox) 50 mg Q12HR SUBQ 05/13/17 11:00 06/12/17 10:59 05/14/17 13:21 Ferrous Sulfate (Feosol) 300 mg TWICE A DAY ORAL 05/15/17 09:00 06/14/17 08:59 Fluconazole/ Sodium Chloride 100 ml @ 100 mls/hr Q24H IV 05/12/17 20:00 05/19/17 19:59 05/13/17 20:51 Iron Sucrose 100 mg/Sodium Chloride 60 ml @ 240 mls/hr BEDTIME IV 05/09/17 21:00 05/14/17 21:15 05/13/17 22:02 Linezolid 300 ml @ 300 mls/hr Q12HR@1000,2200 IVPB 05/14/17 10:00 05/21/17 09:59 05/14/17 10:43 Magnesium Hydroxide (Mom) 30 ml DAILYPRN PRN ORAL Constipation 3rd Line Option 05/12/17 05:15 06/11/17 05:14 Megestrol Acetate (Megace) 400 mg TWICE A DAY ORAL 05/12/17 18:00 06/11/17 17:59 05/14/17 09:53 Memantine (Namenda) 5 mg QHS ORAL 05/12/17 21:00 06/11/17 20:59 05/13/17 21:00 Metronidazole 100 ml @ 100 mls/hr Q8HR IVPB 05/12/17 22:00 05/19/17 21:59 05/14/17 13:22 Pantoprazole (Protonix) 40 mg EVERY 12 HOURS IVP 05/12/17 21:00 06/11/17 20:59 05/14/17 09:53 Sodium Phosphate (Fleet's Sodium Phosl Enema) 133 ml DAILYPRN PRN RECTAL IF DULCOLAX INEFFECTIVE 05/09/17 15:30 06/08/17 15:29 Allergies: Coded Allergies: No Known Allergies (Unverified , 05/03/17) ROS Limited/Unobtainable: No Constitutional: Reports: no symptoms HEENT: Reports: no symptoms Cardiovascular: Reports: no symptoms Respiratory: Reports: no symptoms Gastrointestinal/Abdominal: Reports: no symptoms Genitourinary: Reports: no symptoms Neurologic/Psychiatric: Reports: no symptoms Subjective 81 YO F admitted with respiratory failure. Now pulmonary embolism and Gastric mass. S/P endoscopy 05/11/17. Cover for Int Med-Dr Sebastian. Worsening anemia-S/ P transfusion. Await oncology consult. Objective Last Vital Signs Date Time Temp Pulse Resp B/P (MAP) Pulse Ox O2 Delivery O2 Flow Rate FiO2 05/14/17 09:53 110 113/67 05/14/17 08:00 97.5 20 95 05/14/17 06:50 Room Air 21 05/13/17 06:45 2.0 Laboratory Tests Test 05/14/17 08:10 White Blood Count 13.3 K/UL (4.8-10.8) H Red Blood Count 3.87 M/UL (4.20-5.40) L Hemoglobin 10.5 G/DL (12.0-16.0) L Hematocrit 32.4 % (37.0-47.0) L Mean Corpuscular Volume 84 FL (80-99) Mean Corpuscular Hemoglobin 27.0 PG (27.0-31.0) Mean Corpuscular Hemoglobin Concent 32.2 G/DL (32.0-36.0) Red Cell Distribution Width 15.8 % (11.6-14.8) H Platelet Count 783 K/UL (150-450) H Mean Platelet Volume 5.2 FL (6.5-10.1) L Neutrophils (%) (Auto) 73.2 % (45.0-75.0) Lymphocytes (%) (Auto) 18.4 % (20.0-45.0) L Monocytes (%) (Auto) 8.1 % (1.0-10.0) Eosinophils (%) (Auto) 0.1 % (0.0-3.0) Basophils (%) (Auto) 0.3 % (0.0-2.0) Sodium Level 136 MMOL/L (136-145) Potassium Level 3.6 MMOL/L (3.5-5.1) Chloride Level 103 MMOL/L (98-107) Carbon Dioxide Level 23 MMOL/L (21-32) Anion Gap 11 mmol/L (5-15) Blood Urea Nitrogen 9 mg/dL (7-18) Creatinine 0.7 MG/DL (0.55-1.30) Estimat Glomerular Filtration Rate mL/min (>60) Glucose Level 91 MG/DL (74-106) Calcium Level 8.2 MG/DL (8.5-10.1) L Intake and Output 05/13/17 05/14/17 19:00 07:00 Intake Total 1238.000 ml 460 ml Balance 1238.000 ml 460 ml Intake Oral 708 ml IV Total 530.000 ml 460 ml # Voids 2 2 # Bowel Movements 1 Objective Objective GENERAL: awake, responsive, opens eyes, talking. HEENT: Pupils reactive to light. Anicteric. NG Tube. NECK: Supple. No JVD. LUNGS: fair air entry. decrease bilateral air entry, No wheezing. No Coarse breath HEART: S1 and S2. RR. no murmur ABDOMEN: Soft, nontender and nondistended. Positive bowel sounds. EXTREMITIES: No cyanosis, clubbing, or edema. NEUROLOGIC: moving all extremities equally . CN 2-12 intact. Assessment/Plan Status: not improved Assessment/Plan Assessment/Plan Acute PE-see pulmonary note. Await hematology consult. SIRS Right lower lobe pneumonia, possible aspiration pneumonia. History of cerebrovascular accident. Sinus tachycardia. Urinary tract infection, possible sepsis secondary to urinary tract infection. Dysphagia. Hypertension. Anemia. Severe protein-calorie malnutrition. 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 Lovenox injection BID-discontinue due to worsening anemia monitor laboratory and cultures. Dr. Malik Knapp from [facility]. Abx: Zosyn IV, Vanco IV Tub feeding @ 45 cc/hr at night from 7 PM to 7 AM, and oral feeding during day time. Full Code as per speech evaluation: she is able for oral feeding S/P Transfusion 2 units packed RBC Await oncology consult. JEET GABRIEL May 14, 2017 13:28
[2017-05-14 16:00] VITALS: BP 123/64
--- NOTE | 2017-05-14 16:58 | Infectious Diseases Prog Note ---
Assessment/Plan Assessment/Plan ASSESSMENT AND PLAN: 1. staph aureus pna, aspiration risk, enterobacter/vre/fungal uti, leukocytosis better, no fevers - change abx to zyvox, cipro, flagyl, diflucan - check labs and chest x-ray - continue supportive care - ? tap effusion - defer to pulmonary - clinically better - d/w pharmacy about abx 2. Pulmonary embolism - tx per primary, anti-coagulant 3. Anemia, ? ca on ct scan - w/u per primary and consultants 4. History of encephalopathy. 5. History of cholecystectomy. 6. History of acute kidney injury. 7. Cerebrovascular accident. 8. Aspiration risk. 9. tachycardia. 10. Dementia. 11. History of sepsis. 12. Essential hypertension. 13. Continue treatment per primary consultants. 14. Dysphagia. 15. Abnormal posture and speech deficit. 16. No known allergies. 17. Family history is noncontributory. 18. Social history negative. 19. MAR was noted. 20. Case discussed with RN. 21. Skin care protocol. 22. Continue treatment per primary consultants. 23. Case was also discussed with Dr. Sebastian. Subjective Constitutional: Reports: fatigue, other - alert and responsive, Denies: fever Respiratory: Reports: shortness of breath Cardiovascular: Denies: chest pain Gastrointestinal/Abdominal: Denies: nausea, vomiting, diarrhea, constipation Genitourinary: Reports: other - no barrow Neurologic: Denies: headache Psychiatric: Denies: depression Skin: Denies: rash Hematologic: Denies: bleeding Musculoskeletal: Denies: pain Allergies: Coded Allergies: No Known Allergies (Unverified , 05/03/17) Objective Vital Signs Last 24 Hour Vital Signs Date Time Temp Pulse Resp B/P (MAP) Pulse Ox O2 Delivery O2 Flow Rate FiO2 05/14/17 12:00 102 05/14/17 12:00 97.5 98 20 114/57 100 05/14/17 09:53 110 113/67 05/14/17 08:00 119 05/14/17 08:00 97.5 97 20 137/73 95 05/14/17 06:50 110 20 99 Room Air 21 05/14/17 06:48 Room Air 05/14/17 06:40 106 20 97 Room Air 21 05/14/17 06:39 97 Room Air 21 05/14/17 04:00 96 05/14/17 04:00 97.2 86 18 113/67 94 05/14/17 01:58 107 127/58 05/14/17 00:31 Room Air 05/14/17 00:31 Room Air 21 05/14/17 00:00 98.6 108 16 127/58 96 05/14/17 00:00 107 05/13/17 20:30 103 22 96 Room Air 21 05/13/17 20:23 102 20 96 Room Air 21 05/13/17 20:00 97.7 108 18 115/59 96 05/13/17 20:00 111 05/13/17 19:07 96 Room Air 21 05/13/17 19:07 Room Air 21 05/13/17 17:19 79 123/73 Height (Feet): 5 Height (Inches): 3.00 Weight (Pounds): 118 General Appearance: no acute distress HEENT: normocephalic, atraumatic, anicteric, mucous membranes moist, EOMI, pharynx normal, supple, no JVD Respiratory/Chest: lungs clear, normal breath sounds, no respiratory distress, no accessory muscle use Cardiovascular: normal rate, regular rhythm, no gallop/murmur, no JVD Abdomen: normal bowel sounds, soft, non tender, no organomegaly, non distended Genitourinary: other Extremities: no cyanosis Skin: no rash Neurologic/Psychiatric: neuropsychology service director II-XII grossly normal, alert, responsive Lymphatic: no neck adenopathy Musculoskeletal: no effusion Objective Chest x-ray - 05/04 - Impression: Increasing retrocardiac consolidation and left-sided pleural fluid, over one day Stable right basilar pleural and parenchymal disease CT - chest - + PE (report noted) CT - abdomen and pelvis - Impression: Marked gastric wall thickening. Possibility of gastric carcinoma should be very strongly considered. Adenopathy around the stomach and in the region of the gastrohepatic ligament as well as the hilda hepatis. 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 Abnormal density within the left lobe of the liver and lateral segment. It is likely metastatic but could represent direct invasion of the stomach from a gastric lesion. Hepatic cysts. Dilated pancreatic duct. Previous cholecystectomy. Innumerable tiny low density lesions in the left kidney and a few in the right. These may represent cysts though this is not absolutely certain. At least one in the right kidney represents a cyst. Further evaluation with ultrasound may be helpful. Diverticulosis. Small amount of ascites. Increasing pleural effusions bilaterally. The right pleural effusion appears loculated. Pericardial effusion. chest x-ray - 05/12 - Impression: Right basilar infiltrate, probably slightly increased over 2 days Interim nasogastric tube removal Chest x-ray - 05/14 - Other findings as noted Findings: Heart size and mediastinal contours are stable. Persistent but decreased hazy opacity in the right lower lung. Left lung is grossly clear. Interval decrease in right pleural effusion. No definite pneumothorax. No acute osseous abnormality seen. Impression: Persistent but decreased hazy opacity in the right lower lung. Microbiology Date/Time Source Procedure Growth Status 05/10/17 16:30 Blood Blood Culture - Preliminary NO GROWTH AFTER 72 HOURS Resulted 05/05/17 00:30 Sputum Induced Gram Stain - Final Complete 05/05/17 00:30 Sputum Culture - Final Staphylococcus Aureus Complete 05/10/17 17:00 Straight Cath Urine Culture - Final Enterobacter Cloacae Complex Enterococcus Faecium - Vre [place] Tropicalis Complete 05/03/17 15:45 Rectum VRE Culture - Final NO VANCOMYCIN RESISTANT ENTEROCOCCUS ... Complete Laboratory Tests Test 05/14/17 08:10 White Blood Count 13.3 K/UL (4.8-10.8) H Red Blood Count 3.87 M/UL (4.20-5.40) L Hemoglobin 10.5 G/DL (12.0-16.0) L Hematocrit 32.4 % (37.0-47.0) L Mean Corpuscular Volume 84 FL (80-99) Mean Corpuscular Hemoglobin 27.0 PG (27.0-31.0) Mean Corpuscular Hemoglobin Concent 32.2 G/DL (32.0-36.0) Red Cell Distribution Width 15.8 % (11.6-14.8) H Platelet Count 783 K/UL (150-450) H Mean Platelet Volume 5.2 FL (6.5-10.1) L Neutrophils (%) (Auto) 73.2 % (45.0-75.0) Lymphocytes (%) (Auto) 18.4 % (20.0-45.0) L Monocytes (%) (Auto) 8.1 % (1.0-10.0) Eosinophils (%) (Auto) 0.1 % (0.0-3.0) Basophils (%) (Auto) 0.3 % (0.0-2.0) Sodium Level 136 MMOL/L (136-145) Potassium Level 3.6 MMOL/L (3.5-5.1) Chloride Level 103 MMOL/L (98-107) Carbon Dioxide Level 23 MMOL/L (21-32) Anion Gap 11 mmol/L (5-15) Blood Urea Nitrogen 9 mg/dL (7-18) Creatinine 0.7 MG/DL (0.55-1.30) Estimat Glomerular Filtration Rate mL/min (>60) Glucose Level 91 MG/DL (74-106) Calcium Level 8.2 MG/DL (8.5-10.1) L Current Medications Medications (Trade) Dose Ordered Sig/Chevy Route PRN Reason Start Time Stop Time Status Last Admin Dose Admin Acetaminophen (Tylenol) 650 mg Q4H PRN RECTAL Mild Pain (Pain Scale 1-3) 05/09/17 15:30 06/03/17 15:29 Acetylcysteine (Mucomyst) 200 mg Q6HRT N 05/09/17 19:00 06/04/17 00:59 05/14/17 14:11 Albuterol/ Ipratropium (Albuterol/ Ipratropium) 3 ml Q6HRT N 05/13/17 13:00 05/18/17 12:59 05/14/17 14:11 Bisacodyl (Dulcolax) 10 mg BIDPRN PRN ORAL Constipation 1st Line Agent 05/09/17 15:00 06/02/17 23:44 Ciprofloxacin 100 ml @ 100 mls/hr Q12HR@0400,1600 IV 05/13/17 16:00 05/20/17 15:59 05/14/17 16:22 Dextrose (Dextrose 50%) STAT PRN IV Hypoglycemia 05/09/17 15:30 06/02/17 15:29 Diltiazem HCl (Cardizem) 20 mg Q8HR@0200,1000,1800 IVP 05/09/17 18:00 06/08/17 17:59 05/14/17 09:53 Enoxaparin Sodium (Lovenox) 50 mg Q12HR SUBQ 05/13/17 11:00 06/12/17 10:59 05/14/17 13:21 Ferrous Sulfate (Feosol) 300 mg TWICE A DAY ORAL 05/15/17 09:00 06/14/17 08:59 Fluconazole/ Sodium Chloride 100 ml @ 100 mls/hr Q24H IV 05/12/17 20:00 05/19/17 19:59 05/13/17 20:51 Iron Sucrose 100 mg/Sodium Chloride 60 ml @ 240 mls/hr BEDTIME IV 05/09/17 21:00 05/14/17 21:15 05/13/17 22:02 Linezolid 300 ml @ 300 mls/hr Q12HR@1000,2200 IVPB 05/14/17 10:00 05/21/17 09:59 05/14/17 10:43 Magnesium Hydroxide (Mom) 30 ml DAILYPRN PRN ORAL Constipation 3rd Line Option 05/12/17 05:15 06/11/17 05:14 Megestrol Acetate (Megace) 400 mg TWICE A DAY ORAL 05/12/17 18:00 06/11/17 17:59 05/14/17 09:53 Memantine (Namenda) 5 mg QHS ORAL 05/12/17 21:00 06/11/17 20:59 05/13/17 21:00 Metronidazole 100 ml @ 100 mls/hr Q8HR IVPB 05/12/17 22:00 05/19/17 21:59 05/14/17 13:22 Pantoprazole (Protonix) 40 mg EVERY 12 HOURS IVP 05/12/17 21:00 06/11/17 20:59 05/14/17 09:53 Sodium Phosphate (Fleet's Sodium Phosl Enema) 133 ml DAILYPRN PRN RECTAL IF DULCOLAX INEFFECTIVE 05/09/17 15:30 06/08/17 15:29 WENDY SOMMERS May 14, 2017 16:58
[2017-05-14] MEDS: Fluconazole 100mg tab ORAL SCH (17:44)
--- NOTE | 2017-05-14 19:56 | General Progress Note ---
Assessment/Plan Assessment/Plan # Gastric wall thickening, enlarged gastric and perihepatic lymph nodes, and possible direct invasion into left lobe of liver from tumor which on preliminary biopsy maybe a GIST. lymph nodes in hilda and gastrohepatic ligament concerning. 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 initially and if good response can attempt surgical resection with surgical service # Anemia 2/2 iron deficiency as well as malignancy --> continue iron therapy # Pulmonary embolism --> continue lovenox bid dosing --> continue treatment if anemia is stable, may be transitioned to coumadin in near future # Staph aureus pna/aspiration pna --> antibiotics/antifungas to continue Subjective Allergies: Coded Allergies: No Known Allergies (Unverified , 05/03/17) All Systems: reviewed and negative except above Subjective nad, sleeping Objective Last 24 Hour Vital Signs Date Time Temp Pulse Resp B/P (MAP) Pulse Ox O2 Delivery O2 Flow Rate FiO2 05/14/17 17:45 102 114/57 05/14/17 16:00 95 05/14/17 16:00 98.1 104 20 123/64 100 05/14/17 12:00 102 05/14/17 12:00 97.5 98 20 114/57 100 05/14/17 09:53 110 113/67 05/14/17 08:00 119 05/14/17 08:00 97.5 97 20 137/73 95 05/14/17 06:50 110 20 99 Room Air 05/14/17 06:48 Room Air 05/14/17 06:40 106 20 97 Room Air 21 05/14/17 06:39 97 Room Air 21 05/14/17 04:00 96 05/14/17 04:00 97.2 86 18 113/67 94 05/14/17 01:58 107 127/58 05/14/17 00:31 Room Air 05/14/17 00:31 Room Air 21 05/14/17 00:00 98.6 108 16 127/58 96 05/14/17 00:00 107 05/13/17 20:30 103 22 96 Room Air 21 05/13/17 20:23 102 20 96 Room Air 21 05/13/17 20:00 97.7 108 18 115/59 96 05/13/17 20:00 111 Intake and Output 12/29/17 12/30/17 19:00 07:00 Intake Total 1238.000 ml 460 ml Balance 1238.000 ml 460 ml Intake Oral 708 ml IV Total 530.000 ml 460 ml # Voids 2 2 # Bowel Movements 1 Laboratory Tests 05/14/17 08:10: White Blood Count 13.3H, Red Blood Count 3.87L, Hemoglobin 10.5L, Hematocrit 32.4L, Mean Corpuscular Volume 84, Mean Corpuscular Hemoglobin 27.0, Mean Corpuscular Hemoglobin Concent 32.2, Red Cell Distribution Width 15.8H, Platelet Count 783H, Mean Platelet Volume 5.2L, Neutrophils (%) (Auto) 73.2, Lymphocytes (%) (Auto) 18.4L, Monocytes (%) (Auto) 8.1, Eosinophils (%) (Auto) 0.1, Basophils (%) (Auto) 0.3, Sodium Level 136, Potassium Level 3.6, Chloride Level 103, Carbon Dioxide Level 23, Anion Gap 11, Blood Urea Nitrogen 9, Creatinine 0.7, Estimat Glomerular Filtration Rate , Glucose Level 91, Calcium Level 8.2L Height (Feet): 5 Height (Inches): 3.00 Weight (Pounds): 118 General Appearance: WD/WN EENT: normal ENT inspection Neck: non-tender Cardiovascular: normal rate Respiratory/Chest: lungs clear Abdomen: no organomegaly Extremities: normal inspection Edema: no edema noted Leg (L), no edema noted Leg (R) Edema: mild edema Neurologic: alert Marcelino Cortes May 14, 2017 19:56
[2017-05-14 20:00] VITALS: BP 118/64
--- NOTE | 2017-05-14 20:28 | General Progress Note ---
Assessment/Plan Assessment/Plan Assessment (1) Encounter for nasogastric (NG) tube placement ICD Codes: Z46.59 - Encounter for fitting and adjustment of other gastrointestinal appliance and device SNOMED: 672174142 (2) Anemia ICD Codes: D64.9 - Anemia, unspecified SNOMED: 290864375 (3) Iron deficiency ICD Codes: E61.1 - Iron deficiency SNOMED: 29708460 Status: stable Assessment/Plan s/p EGD SUMMARY OF FINDINGS: 1. Gastric mass, status post biopsy. 2. Gastritis, status post biopsy. OB stool positive ST eval >> passed. RECOMMENDATIONS: 1. Follow up biopsy results and treat accordingly. 2. 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 The patient most probably will need a PET scan as an outpatient for further staging. 3. Recommend follow up biopsy results and Oncology consultation. closely monitor H&H, prn transfusions PPI BID diet per ST PT evaluation venofer check CEA fu labs Subjective Allergies: Coded Allergies: No Known Allergies (Unverified , 05/03/17) Subjective c/o total body pain on pureed diet Objective Last 24 Hour Vital Signs Date Time Temp Pulse Resp B/P (MAP) Pulse Ox O2 Delivery O2 Flow Rate FiO2 05/14/17 20:00 97.7 106 16 118/64 96 05/14/17 17:45 102 114/57 05/14/17 16:00 95 05/14/17 16:00 98.1 104 20 123/64 100 05/14/17 12:00 102 05/14/17 12:00 97.5 98 20 114/57 100 05/14/17 09:53 110 113/67 05/14/17 08:00 119 05/14/17 08:00 97.5 97 20 137/73 95 05/14/17 06:50 110 20 99 Room Air 05/14/17 06:48 Room Air 05/14/17 06:40 106 20 97 Room Air 05/14/17 06:39 97 Room Air 05/14/17 04:00 96 05/14/17 04:00 97.2 86 18 113/67 94 05/14/17 01:58 107 127/58 05/14/17 00:31 Room Air 05/14/17 00:31 Room Air 05/14/17 00:00 98.6 108 16 127/58 96 05/14/17 00:00 107 05/13/17 20:30 103 22 96 Room Air 21 Intake and Output 05/13/17 05/14/17 19:00 07:00 Intake Total 1238.000 ml 460 ml Balance 1238.000 ml 460 ml Intake Oral 708 ml IV Total 530.000 ml 460 ml # Voids 2 2 # Bowel Movements 1 Laboratory Tests 05/14/17 08:10: White Blood Count 13.3H, Red Blood Count 3.87L, Hemoglobin 10.5L, Hematocrit 32.4L, Mean Corpuscular Volume 84, Mean Corpuscular Hemoglobin 27.0, Mean Corpuscular Hemoglobin Concent 32.2, Red Cell Distribution Width 15.8H, Platelet Count 783H, Mean Platelet Volume 5.2L, Neutrophils (%) (Auto) 73.2, Lymphocytes (%) (Auto) 18.4L, Monocytes (%) (Auto) 8.1, Eosinophils (%) (Auto) 0.1, Basophils (%) (Auto) 0.3, Sodium Level 136, Potassium Level 3.6, Chloride Level 103, Carbon Dioxide Level 23, Anion Gap 11, Blood Urea Nitrogen 9, Creatinine 0.7, Estimat Glomerular Filtration Rate , Glucose Level 91, Calcium Level 8.2L Height (Feet): 5 Height (Inches): 3.00 Weight (Pounds): 118 Objective Thin AA woman NCAT supple CTA RRR Soft ND NT no edema non focal BETO TANNER May 14, 2017 20:28
[2017-05-14] MEDS: Iron Sucrose 100 MG in NS 55 ML IV SCH (21:00)
[2017-05-15] VITALS: BP 116/62
[2017-05-15] MEDS: Enoxaparin Sodium 300mg/3ml vial SUBQ SCH ×3 (01:00→21:37)
[2017-05-15] MEDS: Pantoprazole Inj IVP SCH ×3 (01:00→21:37)
[2017-05-15] MEDS: Memantine 5 MG TAB ORAL SCH ×2 (01:00→21:37)
[2017-05-15] MEDS: Albuterol/Ipratropium 3ml neb HHN SCH ×4 (01:38→20:31)
[2017-05-15] MEDS: Acetylcysteine 20% Soln 4ml HHN SCH ×4 (01:38→20:37)
[2017-05-15] MEDS: metroNIDAZOLE 500mg tab ORAL SCH ×4 (03:14→22:42)
[2017-05-15] MEDS: dilTIAZem HCl 25mg/5ml Inj IVP SCH ×3 (03:15→17:27)
[2017-05-15 04:00] VITALS: BP 129/77
[2017-05-15 07:35] LABS: BASOPHILS % (AUTO) 0.6 % (0.0-2.0); EOSINOPHILS % (AUTO) 0.3 % (0.0-3.0); HEMATOCRIT 29.9 % (37.0-47.0); HEMOGLOBIN 9.8 G/DL (12.0-16.0); LYMPHOCYTES % (AUTO) 18.8 % (20.0-45.0); MEAN CORPUSCULAR VOLUME 84 FL (80-99); MONOCYTES % (AUTO) 10.3 % (1.0-10.0); PLATELET COUNT 739 K/UL (150-450); RED BLOOD COUNT 3.57 M/UL (4.20-5.40); RED CELL DISTRIBUTION WIDTH 16.5 % (11.6-14.8); WHITE BLOOD COUNT 13.9 K/UL (4.8-10.8)
[2017-05-15 08:00] VITALS: BP 158/83
[2017-05-15 08:01] LABS: ANION GAP 11 mmol/L (5-15); BLOOD UREA NITROGEN 7 mg/dL (7-18); CARBON DIOXIDE 20 MMOL/L (21-32); CHLORIDE 104 MMOL/L (98-107); CREATININE 0.7 MG/DL (0.55-1.30); POTASSIUM 3.4 MMOL/L (3.5-5.1); SODIUM 135 MMOL/L (136-145)
[2017-05-15] MEDS: Fluconazole 100mg tab ORAL SCH (10:40)
[2017-05-15] MEDS: Ferrous Sulfate 300 MG/5 ML UDC ORAL SCH ×2 (10:40→17:21)
[2017-05-15] MEDS: Megace 400mg/10ml Susp ORAL SCH ×2 (10:40→17:22)
[2017-05-15 12:00] VITALS: BP 124/68
--- NOTE | 2017-05-15 12:00 | Internal Med Progress Note ---
Subjective Date of Service: May 15, 2017 Physician Name NeryJeet Attending Physician Trung Sebastian MD Current Medications Medications (Trade) Dose Ordered Sig/Chevy Route PRN Reason Start Time Stop Time Status Last Admin Dose Admin Acetaminophen (Tylenol) 650 mg Q4H PRN RECTAL Mild Pain (Pain Scale 1-3) 05/09/17 15:30 06/03/17 15:29 Acetylcysteine (Mucomyst) 200 mg Q6HRT HHN 05/09/17 19:00 06/04/17 00:59 05/15/17 01:38 Albuterol/ Ipratropium (Albuterol/ Ipratropium) 3 ml Q6HRT HHN 05/13/17 13:00 05/18/17 12:59 05/15/17 01:38 Bisacodyl (Dulcolax) 10 mg BIDPRN PRN ORAL Constipation 1st Line Agent 05/09/17 15:00 06/02/17 23:44 Ciprofloxacin (Cipro 250mg tab) 250 mg EVERY 12 HOURS ORAL 05/15/17 09:00 05/22/17 08:59 05/15/17 10:40 Dextrose (Dextrose 50%) STAT PRN IV Hypoglycemia 05/09/17 15:30 06/02/17 15:29 Diltiazem HCl (Cardizem) 20 mg Q8HR@0200,1000,1800 IVP 05/09/17 18:00 06/08/17 17:59 05/15/17 10:41 Enoxaparin Sodium (Lovenox) 50 mg Q12HR SUBQ 05/13/17 11:00 06/12/17 10:59 05/15/17 10:42 Ferrous Sulfate (Feosol) 300 mg TWICE A DAY ORAL 05/15/17 09:00 06/14/17 08:59 05/15/17 10:40 Fluconazole (Diflucan) 200 mg DAILY ORAL 05/14/17 18:00 05/21/17 17:59 05/15/17 10:40 Iron Sucrose 100 mg/Sodium Chloride 60 ml @ 240 mls/hr BEDTIME IV 05/09/17 21:00 05/15/17 21:15 05/14/17 21:00 Linezolid 300 ml @ 300 mls/hr Q12HR@1000,2200 IVPB 05/14/17 10:00 05/21/17 09:59 05/15/17 10:43 Magnesium Hydroxide (Mom) 30 ml DAILYPRN PRN ORAL Constipation 3rd Line Option 05/12/17 05:15 06/11/17 05:14 Megestrol Acetate (Megace) 400 mg TWICE A DAY ORAL 05/12/17 18:00 06/11/17 17:59 05/15/17 10:40 Memantine (Namenda) 5 mg QHS ORAL 05/12/17 21:00 06/11/17 20:59 05/15/17 01:00 Metronidazole (Flagyl) 500 mg EVERY 8 HOURS ORAL 05/14/17 22:00 05/21/17 21:59 05/15/17 03:24 Pantoprazole (Protonix) 40 mg EVERY 12 HOURS IVP 05/12/17 21:00 06/11/17 20:59 05/15/17 10:40 Sodium Phosphate (Fleet's Sodium Phosl Enema) 133 ml DAILYPRN PRN RECTAL IF DULCOLAX INEFFECTIVE 05/09/17 15:30 06/08/17 15:29 Allergies: Coded Allergies: No Known Allergies (Unverified , 05/03/17) ROS Limited/Unobtainable: Yes Subjective 81 YO F admitted with respiratory failure. Now pulmonary embolism and Gastric mass. S/P endoscopy 05/11/17. Cover for Int Med-Dr Sebastian. Worsening anemia-S/ P transfusion. Await oncology consult. Objective Last Vital Signs Date Time Temp Pulse Resp B/P (MAP) Pulse Ox O2 Delivery O2 Flow Rate FiO2 05/15/17 10:41 111 158/83 05/15/17 07:00 Room Air 21 05/15/17 07:00 18 95 05/15/17 04:00 97.3 05/13/17 06:45 2.0 Laboratory Tests Test 05/15/17 05:10 White Blood Count 13.9 K/UL (4.8-10.8) H Red Blood Count 3.57 M/UL (4.20-5.40) L Hemoglobin 9.8 G/DL (12.0-16.0) L Hematocrit 29.9 % (37.0-47.0) L Mean Corpuscular Volume 84 FL (80-99) Mean Corpuscular Hemoglobin 27.3 PG (27.0-31.0) Mean Corpuscular Hemoglobin Concent 32.6 G/DL (32.0-36.0) Red Cell Distribution Width 16.5 % (11.6-14.8) H Platelet Count 739 K/UL (150-450) H Mean Platelet Volume 5.0 FL (6.5-10.1) L Neutrophils (%) (Auto) 70.0 % (45.0-75.0) Lymphocytes (%) (Auto) 18.8 % (20.0-45.0) L Monocytes (%) (Auto) 10.3 % (1.0-10.0) H Eosinophils (%) (Auto) 0.3 % (0.0-3.0) Basophils (%) (Auto) 0.6 % (0.0-2.0) Sodium Level 135 MMOL/L (136-145) L Potassium Level 3.4 MMOL/L (3.5-5.1) L Chloride Level 104 MMOL/L (98-107) Carbon Dioxide Level 20 MMOL/L (21-32) L Anion Gap 11 mmol/L (5-15) Blood Urea Nitrogen 7 mg/dL (7-18) Creatinine 0.7 MG/DL (0.55-1.30) Estimat Glomerular Filtration Rate mL/min (>60) Glucose Level 99 MG/DL (74-106) Calcium Level 8.0 MG/DL (8.5-10.1) L Intake and Output 05/14/17 05/15/17 19:00 07:00 Intake Total 640 ml Output Total 600 ml Balance 640 ml -600 ml Intake Oral 240 ml IV Total 400 ml Output Urine Total 600 ml # Voids 3 Objective Objective GENERAL: awake, responsive, opens eyes, talking. HEENT: Pupils reactive to light. Anicteric. NG Tube. NECK: Supple. No JVD. LUNGS: fair air entry. decrease bilateral air entry, No wheezing. No Coarse breath HEART: S1 and S2. RR. no murmur ABDOMEN: Soft, nontender and nondistended. Positive bowel sounds. EXTREMITIES: No cyanosis, clubbing, or edema. NEUROLOGIC: moving all extremities equally . CN 2-12 intact. Assessment/Plan Assessment/Plan Assessment/Plan Acute PE-see pulmonary note. Await hematology consult. SIRS Right lower lobe pneumonia, possible aspiration pneumonia. History of cerebrovascular accident. Sinus tachycardia. Urinary tract infection, possible sepsis secondary to urinary tract infection. Dysphagia. Hypertension. Anemia. Severe protein-calorie malnutrition. 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 Lovenox injection BID-discontinue due to worsening anemia monitor laboratory and cultures. Dr. Malik Knapp from [facility]. Abx: Zosyn IV, Vanco IV Tub feeding @ 45 cc/hr at night from 7 PM to 7 AM, and oral feeding during day time. Full Code as per speech evaluation: she is able for oral feeding S/P Transfusion 2 units packed RBC See oncology consult. JEET RAYMUNDO May 15, 2017 12:00
--- NOTE | 2017-05-15 15:05 | General Progress Note ---
Assessment/Plan Assessment/Plan Assessment (1) Encounter for nasogastric (NG) tube placement ICD Codes: Z46.59 - Encounter for fitting and adjustment of other gastrointestinal appliance and device SNOMED: 815822813 (2) Anemia ICD Codes: D64.9 - Anemia, unspecified SNOMED: 181877449 (3) Iron deficiency ICD Codes: E61.1 - Iron deficiency SNOMED: 87742547 Status: stable Assessment/Plan s/p EGD SUMMARY OF FINDINGS: 1. Gastric mass, status post biopsy. 2. Gastritis, status post biopsy. OB stool positive ST eval >> passed. RECOMMENDATIONS: 1. Follow up biopsy results and treat accordingly. 2. 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 The patient most probably will need a PET scan as an outpatient for further staging. 3. Recommend follow up biopsy results and Oncology consultation. closely monitor H&H, prn transfusions PPI BID diet per ST PT evaluation venofer check CEA fu labs Subjective Allergies: Coded Allergies: No Known Allergies (Unverified , 05/03/17) Subjective less body pain on pureed diet Objective Last 24 Hour Vital Signs Date Time Temp Pulse Resp B/P (MAP) Pulse Ox O2 Delivery O2 Flow Rate FiO2 05/15/17 12:41 Room Air 05/15/17 12:41 85 18 95 Room Air 05/15/17 12:00 97.9 110 20 124/68 95 Room Air 05/15/17 10:41 111 158/83 05/15/17 08:00 97.3 111 20 158/83 95 05/15/17 07:00 Room Air 05/15/17 07:00 85 18 95 Room Air 05/15/17 07:00 95 Room Air 05/15/17 07:00 Room Air 05/15/17 04:00 120 05/15/17 04:00 97.3 62 16 129/77 93 05/15/17 03:15 104 116/62 05/15/17 01:47 104 20 99 Room Air 05/15/17 01:38 98 20 97 Room Air 05/15/17 00:00 98 05/15/17 00:00 97.7 102 16 116/62 95 05/14/17 20:40 106 20 99 Room Air 05/14/17 20:33 97 Room Air 21 05/14/17 20:32 Room Air 21 05/14/17 20:29 101 20 96 Room Air 21 05/14/17 20:00 97.7 106 16 118/64 96 05/14/17 17:45 102 114/57 05/14/17 16:00 95 05/14/17 16:00 98.1 104 20 123/64 100 Intake and Output 05/14/17 05/15/17 19:00 07:00 Intake Total 640 ml Output Total 600 ml Balance 640 ml -600 ml Intake Oral 240 ml IV Total 400 ml Output Urine Total 600 ml # Voids 3 Laboratory Tests 05/15/17 05:10: White Blood Count 13.9H, Red Blood Count 3.57L, Hemoglobin 9.8L, Hematocrit 29.9L, Mean Corpuscular Volume 84, Mean Corpuscular Hemoglobin 27.3, Mean Corpuscular Hemoglobin Concent 32.6, Red Cell Distribution Width 16.5H, Platelet Count 739H, Mean Platelet Volume 5.0L, Neutrophils (%) (Auto) 70.0, Lymphocytes (%) (Auto) 18.8L, Monocytes (%) (Auto) 10.3H, Eosinophils (%) (Auto ) 0.3, Basophils (%) (Auto) 0.6, Sodium Level 135L, Potassium Level 3.4L, Chloride Level 104, Carbon Dioxide Level 20L, Anion Gap 11, Blood Urea Nitrogen 7, Creatinine 0.7, Estimat Glomerular Filtration Rate , Glucose Level 99, Calcium Level 8.0L Height (Feet): 5 Height (Inches): 3.00 Weight (Pounds): 118 Objective Thin AA woman NCAT supple CTA RRR Soft ND NT no edema non focal BETO TANNER May 15, 2017 15:05
[2017-05-15 16:00] VITALS: BP 140/82
--- NOTE | 2017-05-15 19:45 | General Progress Note ---
Assessment/Plan Assessment/Plan # Gastric wall thickening, enlarged gastric and perihepatic lymph nodes, and possible direct invasion into left lobe of liver from tumor which on preliminary biopsy maybe a GIST. lymph nodes in hilda and gastrohepatic ligament concerning. 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 initially and if good response can attempt surgical resection with surgical service # Anemia 2/2 iron deficiency as well as malignancy --> continue iron therapy # Pulmonary embolism --> continue lovenox bid dosing --> start coumadin 05/15/17, inr goal 2-3 # Staph aureus pna/aspiration pna --> antibiotics/antifungas to continue Subjective Constitutional: Denies: no symptoms, chills, diaphoresis, fever, malaise, weakness, other HEENT: Denies: no symptoms, eye pain, blurred vision, tearing, double vision, ear pain, ear discharge, nose pain, nose congestion, throat pain, throat swelling, mouth pain, mouth swelling, other Cardiovascular: Denies: no symptoms, chest pain, edema, irregular heart rate, lightheadedness, palpitations, syncope, other Respiratory: Denies: no symptoms, cough, orthopnea, shortness of breath, SOB with excertion, SOB at rest, sputum, stridor, wheezing, other Gastrointestinal/Abdominal: Denies: no symptoms, abdomen distended, abdominal pain, black stools, tarry stools, blood in stool, constipated, diarrhea, difficulty swallowing, nausea, poor appetite, poor fluid intake, rectal bleeding , vomiting, other Genitourinary: Denies: no symptoms, burning, discharge, frequency, flank pain, hematuria, incontinence, pain, urgency, other Neurologic/Psychiatric: Denies: no symptoms, anxiety, depressed, emotional problems, headache, numbness, paresthesia, pre-existing deficit, seizure, tingling, tremors, weakness, other Endocrine: Denies: no symptoms, excessive sweating, flushing, intolerance to cold, intolerance to heat, increased hunger, increased thirst, increased urine, unexplained weight gain, unexplained weight loss, other Hematologic/Lymphatic: Denies: no symptoms, anemia, easy bleeding, easy bruising, other Allergies: Coded Allergies: No Known Allergies (Unverified , 05/03/17) Subjective nad, sleeping Objective Last 24 Hour Vital Signs Date Time Temp Pulse Resp B/P (MAP) Pulse Ox O2 Delivery O2 Flow Rate FiO2 05/15/17 17:27 110 140/82 05/15/17 16:00 97.5 110 20 140/82 95 Room Air 05/15/17 16:00 117 05/15/17 12:41 Room Air 05/15/17 12:41 85 18 95 Room Air 05/15/17 12:00 97.9 110 20 124/68 95 Room Air 05/15/17 12:00 112 05/15/17 10:41 111 158/83 05/15/17 08:00 97.3 111 20 158/83 95 05/15/17 08:00 104 05/15/17 07:00 Room Air 21 05/15/17 07:00 85 18 95 Room Air 05/15/17 07:00 95 Room Air 21 05/15/17 07:00 Room Air 05/15/17 04:00 120 05/15/17 04:00 97.3 62 16 129/77 93 05/15/17 03:15 104 116/62 05/15/17 01:47 104 20 99 Room Air 21 05/15/17 01:38 98 20 97 Room Air 21 05/15/17 00:00 98 05/15/17 00:00 97.7 102 16 116/62 95 05/14/17 20:40 106 20 99 Room Air 21 05/14/17 20:33 97 Room Air 21 05/14/17 20:32 Room Air 21 05/14/17 20:29 101 20 96 Room Air 21 05/14/17 20:00 97.7 106 16 118/64 96 Intake and Output 05/14/17 05/15/17 19:00 07:00 Intake Total 640 ml Output Total 600 ml Balance 640 ml -600 ml Intake Oral 240 ml IV Total 400 ml Output Urine Total 600 ml # Voids 3 Laboratory Tests 05/15/17 05:10: White Blood Count 13.9H, Red Blood Count 3.57L, Hemoglobin 9.8L, Hematocrit 29.9L, Mean Corpuscular Volume 84, Mean Corpuscular Hemoglobin 27.3, Mean Corpuscular Hemoglobin Concent 32.6, Red Cell Distribution Width 16.5H, Platelet Count 739H, Mean Platelet Volume 5.0L, Neutrophils (%) (Auto) 70.0, Lymphocytes (%) (Auto) 18.8L, Monocytes (%) (Auto) 10.3H, Eosinophils (%) (Auto ) 0.3, Basophils (%) (Auto) 0.6, Sodium Level 135L, Potassium Level 3.4L, Chloride Level 104, Carbon Dioxide Level 20L, Anion Gap 11, Blood Urea Nitrogen 7, Creatinine 0.7, Estimat Glomerular Filtration Rate , Glucose Level 99, Calcium Level 8.0L Height (Feet): 5 Height (Inches): 3.00 Weight (Pounds): 118 General Appearance: no apparent distress EENT: TMs normal Neck: supple Cardiovascular: regular rhythm Respiratory/Chest: no respiratory distress Abdomen: no organomegaly Extremities: normal inspection Edema: no edema noted Leg (L), no edema noted Leg (R) Edema: mild edema Skin: normal pigmentation Marcelino Cortes May 15, 2017 19:45
[2017-05-15 20:46] LABS: INR 1.3 (0.9-1.1)
[2017-05-15 20:58] VITALS: BP 143/76
[2017-05-15] MEDS: Iron Sucrose 100 MG in NS 55 ML IV SCH (21:37)
[2017-05-15] MEDS ORDERED: Warfarin Sodium 3mg ORAL ONE (22:00)
[2017-05-15] MEDS ORDERED: Tubing Blood Filter IV ONE (22:53)
[2017-05-15] MEDS ORDERED: Tubing IV Secondary IV ONE (22:53)
[2017-05-15] MEDS ORDERED: NS 275ml ONE (22:53)
[2017-05-15] MEDS ORDERED: NS 500ML ONE (22:53)
[2017-05-16] VITALS (7 sets, daily range): BP systolic 100–140; BP diastolic 52–80
[2017-05-16] MEDS: Albuterol/Ipratropium 3ml neb HHN SCH ×5 (01:00→23:48)
[2017-05-16] MEDS: Acetylcysteine 20% Soln 4ml HHN SCH ×2 (01:00→06:46)
[2017-05-16] MEDS: dilTIAZem HCl 25mg/5ml Inj IVP SCH ×2 (03:00→10:33)
[2017-05-16] MEDS: metroNIDAZOLE 500mg tab ORAL SCH ×3 (06:30→21:32)
[2017-05-16 07:30] LABS: BASOPHILS % (AUTO) 0.6 % (0.0-2.0); EOSINOPHILS % (AUTO) 0.3 % (0.0-3.0); HEMATOCRIT 30.5 % (37.0-47.0); LYMPHOCYTES % (AUTO) 16.6 % (20.0-45.0); MEAN CORPUSCULAR VOLUME 84 FL (80-99); MONOCYTES % (AUTO) 9.8 % (1.0-10.0); NEUTROPHILS % (AUTO) 72.7 % (45.0-75.0); PLATELET COUNT 749 K/UL (150-450); RED BLOOD COUNT 3.63 M/UL (4.20-5.40); RED CELL DISTRIBUTION WIDTH 16.9 % (11.6-14.8); WHITE BLOOD COUNT 13.5 K/UL (4.8-10.8)
[2017-05-16 07:39] LABS: ANION GAP 9 mmol/L (5-15); BLOOD UREA NITROGEN 5 mg/dL (7-18); CALCIUM 7.9 MG/DL (8.5-10.1); CARBON DIOXIDE 22 MMOL/L (21-32); CHLORIDE 101 MMOL/L (98-107); CREATININE 0.8 MG/DL (0.55-1.30); POTASSIUM 3.5 MMOL/L (3.5-5.1); SODIUM 132 MMOL/L (136-145)
[2017-05-16 07:58] LABS: INR 1.4 (0.9-1.1)
[2017-05-16] MEDS: Ferrous Sulfate 300 MG/5 ML UDC ORAL SCH ×2 (10:31→17:58)
[2017-05-16] MEDS: Megace 400mg/10ml Susp ORAL SCH ×2 (10:31→17:59)
[2017-05-16] MEDS: Fluconazole 100mg tab ORAL SCH (10:31)
[2017-05-16] MEDS: Pantoprazole Inj IVP SCH ×2 (10:32→21:38)
[2017-05-16] MEDS: Enoxaparin Sodium 300mg/3ml vial SUBQ SCH ×2 (10:36→21:35)
--- NOTE | 2017-05-16 12:06 | Diagnostic Imaging Report ---
Indication: Reason For Exam: SOB Technique: One view of the chest Comparison: 05/14/2017 Findings: Hazy right basilar infiltrate persists. Left basilar atelectasis persists. Pleural spaces are clear. Heart size is normal Impression: Unchanged, 2 days , findings as above.
--- NOTE | 2017-05-16 13:34 | Internal Med Progress Note ---
Subjective Date of Service: May 16, 2017 Physician Name Jeet Gabriel Attending Physician Trung Sebastian MD Current Medications Medications (Trade) Dose Ordered Sig/Chevy Route PRN Reason Start Time Stop Time Status Last Admin Dose Admin Acetaminophen (Tylenol) 650 mg Q4H PRN RECTAL Mild Pain (Pain Scale 1-3) 05/16/17 15:30 06/03/17 15:29 Acetylcysteine (Mucomyst) 200 mg Q6HRT HHN 05/16/17 13:00 06/15/17 12:59 Albuterol/ Ipratropium (Albuterol/ Ipratropium) 3 ml Q6HRT HHN 05/16/17 13:00 05/18/17 12:59 05/16/17 13:17 Bisacodyl (Dulcolax) 10 mg BIDPRN PRN ORAL Constipation 1st Line Agent 05/16/17 15:00 06/02/17 23:44 Ciprofloxacin (Cipro 250mg tab) 250 mg EVERY 12 HOURS ORAL 05/16/17 21:00 05/22/17 08:59 Dextrose (Dextrose 50%) STAT PRN IV Hypoglycemia 05/16/17 15:30 06/02/17 15:29 Diltiazem HCl (Cardizem) 20 mg Q8HR@0200,1000,1800 IVP 05/16/17 18:00 06/08/17 17:59 UNV Diltiazem HCl (Cardizem) 30 mg EVERY 8 HOURS ORAL 05/16/17 14:00 06/15/17 13:59 UNV Enoxaparin Sodium (Lovenox) 50 mg Q12HR SUBQ 05/16/17 21:00 06/12/17 10:59 Ferrous Sulfate (Feosol) 300 mg TWICE A DAY ORAL 05/16/17 18:00 06/14/17 08:59 Fluconazole (Diflucan) 200 mg DAILY ORAL 05/17/17 09:00 05/21/17 17:59 Iron Sucrose 100 mg/Sodium Chloride 60 ml @ 240 mls/hr BEDTIME IV 05/16/17 21:00 05/16/17 21:15 Magnesium Hydroxide (Mom) 30 ml DAILYPRN PRN ORAL Constipation 3rd Line Option 05/17/17 05:15 06/11/17 05:14 Megestrol Acetate (Megace) 400 mg TWICE A DAY ORAL 05/16/17 18:00 06/11/17 17:59 Memantine (Namenda) 5 mg QHS ORAL 05/16/17 21:00 06/11/17 20:59 Metronidazole (Flagyl) 500 mg EVERY 8 HOURS ORAL 05/16/17 14:00 05/21/17 21:59 Pantoprazole (Protonix) 40 mg EVERY 12 HOURS IVP 05/16/17 21:00 06/11/17 20:59 Sodium Phosphate (Fleet's Sodium Phosl Enema) 133 ml DAILYPRN PRN RECTAL IF DULCOLAX INEFFECTIVE 05/16/17 15:30 06/08/17 15:29 Warfarin Sodium (Coumadin per pharmacy) 1 ea QHS PRN MISC Per rx protocol 05/16/17 21:00 06/14/17 19:44 Warfarin Sodium (Coumadin) 3 mg ONCE ONCE ORAL 05/16/17 17:00 05/16/17 17:01 Allergies: Coded Allergies: No Known Allergies (Unverified , 05/03/17) ROS Limited/Unobtainable: No Constitutional: Reports: no symptoms HEENT: Reports: no symptoms Cardiovascular: Reports: no symptoms Respiratory: Reports: no symptoms Gastrointestinal/Abdominal: Reports: no symptoms Genitourinary: Reports: no symptoms Neurologic/Psychiatric: Reports: no symptoms Subjective 81 YO F admitted with respiratory failure. Now pulmonary embolism and Gastric mass-await pathology report. S/P endoscopy 05/11/17. Cover for Int Med-Dr Sebastian. Worsening anemia-S/P transfusion. Objective Last Vital Signs Date Time Temp Pulse Resp B/P (MAP) Pulse Ox O2 Delivery O2 Flow Rate FiO2 05/16/17 13:28 115 20 98 Room Air 21 05/16/17 10:33 130/76 05/16/17 08:00 97.6 05/13/17 06:45 2.0 Laboratory Tests Test 05/15/17 20:16 05/16/17 06:00 Prothrombin Time 14.1 SEC (9.30-11.50) H 14.2 SEC (9.30-11.50) H Prothromb Time International Ratio 1.3 (0.9-1.1) H 1.4 (0.9-1.1) H White Blood Count 13.5 K/UL (4.8-10.8) H Red Blood Count 3.63 M/UL (4.20-5.40) L Hemoglobin 10.0 G/DL (12.0-16.0) L Hematocrit 30.5 % (37.0-47.0) L Mean Corpuscular Volume 84 FL (80-99) Mean Corpuscular Hemoglobin 27.5 PG (27.0-31.0) Mean Corpuscular Hemoglobin Concent 32.7 G/DL (32.0-36.0) Red Cell Distribution Width 16.9 % (11.6-14.8) H Platelet Count 749 K/UL (150-450) H Mean Platelet Volume 4.9 FL (6.5-10.1) L Neutrophils (%) (Auto) 72.7 % (45.0-75.0) Lymphocytes (%) (Auto) 16.6 % (20.0-45.0) L Monocytes (%) (Auto) 9.8 % (1.0-10.0) Eosinophils (%) (Auto) 0.3 % (0.0-3.0) Basophils (%) (Auto) 0.6 % (0.0-2.0) Sodium Level 132 MMOL/L (136-145) L Potassium Level 3.5 MMOL/L (3.5-5.1) Chloride Level 101 MMOL/L (98-107) Carbon Dioxide Level 22 MMOL/L (21-32) Anion Gap 9 mmol/L (5-15) Blood Urea Nitrogen 5 mg/dL (7-18) L Creatinine 0.8 MG/DL (0.55-1.30) Estimat Glomerular Filtration Rate mL/min (>60) Glucose Level 83 MG/DL (74-106) Calcium Level 7.9 MG/DL (8.5-10.1) L Intake and Output 05/15/17 05/16/17 19:00 07:00 Intake Total 360 ml Output Total 100 ml 300 ml Balance 260 ml -300 ml Intake Oral 360 ml Output Urine Total 100 ml 300 ml # Voids 3 # Bowel Movements 1 Objective Objective GENERAL: awake, responsive, opens eyes, talking. HEENT: Pupils reactive to light. Anicteric. NG Tube. NECK: Supple. No JVD. LUNGS: fair air entry. decrease bilateral air entry, No wheezing. No Coarse breath HEART: S1 and S2. RR. no murmur ABDOMEN: Soft, nontender and nondistended. Positive bowel sounds. EXTREMITIES: No cyanosis, clubbing, or edema. NEUROLOGIC: moving all extremities equally . CN 2-12 intact. Assessment/Plan Status: not improved Assessment/Plan Assessment/Plan Acute PE-see pulmonary note. Await hematology consult. SIRS Right lower lobe pneumonia, possible aspiration pneumonia. History of cerebrovascular accident. Sinus tachycardia. Urinary tract infection, possible sepsis secondary to urinary tract infection. Dysphagia. Hypertension. Anemia. Severe protein-calorie malnutrition. 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 Lovenox injection BID-discontinue due to worsening anemia monitor laboratory and cultures. Dr. Malik Knapp from [facility]. Abx: Zosyn IV, Vanco IV Tub feeding @ 45 cc/hr at night from 7 PM to 7 AM, and oral feeding during day time. Full Code as per speech evaluation: she is able for oral feeding S/P Transfusion 2 units packed RBC See oncology consult. Await pathology for gastric mass biopsy JEET GABRIEL May 16, 2017 13:34
[2017-05-16] MEDS: dilTIAZem HCl 30mg tab ORAL SCH ×2 (14:04→21:34)
[2017-05-16] MEDS ORDERED: NS 275ml ONE (14:47)
[2017-05-16] MEDS ORDERED: Sterile Water For Irrig 2000ml IRRIG ONE (14:47)
[2017-05-16] MEDS ORDERED: Tubing IV Secondary IV ONE (14:47)
[2017-05-16] MEDS ORDERED: Bisacodyl EC 5mg tab ORAL PRN (15:00)
--- NOTE | 2017-05-16 15:25 | General Surgery Progress Note ---
General Surgery-Progress Note Subjective Additional Comments doing well. resting comfortable. Objective Last 24 Hour Vital Signs Date Time Temp Pulse Resp B/P (MAP) Pulse Ox O2 Delivery O2 Flow Rate FiO2 05/16/17 14:04 115 130/76 05/16/17 13:28 115 20 98 Room Air 21 05/16/17 13:18 113 20 98 Room Air 21 05/16/17 10:33 105 130/76 05/16/17 08:00 97.6 105 20 130/76 97 Room Air 05/16/17 08:00 126 05/16/17 06:56 110 20 97 Room Air 05/16/17 06:46 98 Room Air 05/16/17 06:46 Room Air 05/16/17 06:46 108 20 98 Room Air 05/16/17 04:48 96.2 101 18 113/74 97 Room Air 05/16/17 04:00 107 05/16/17 03:00 102 114/80 05/16/17 01:12 Room Air 05/16/17 01:12 Room Air 05/16/17 00:44 96.4 112 20 114/80 97 Room Air 05/16/17 00:00 120 05/15/17 20:58 98.6 111 19 143/76 98 Room Air 05/15/17 20:00 123 05/15/17 20:00 108 20 97 Room Air 05/15/17 19:45 92 Room Air 05/15/17 19:30 Room Air 05/15/17 19:30 98 16 92 Room Air 05/15/17 19:30 109 20 Room Air 05/15/17 17:27 110 140/82 05/15/17 16:00 97.5 110 20 140/82 95 Room Air 05/15/17 16:00 117 I&O Intake and Output 05/15/17 05/16/17 19:00 07:00 Intake Total 360 ml Output Total 100 ml 300 ml Balance 260 ml -300 ml Intake Oral 360 ml Output Urine Total 100 ml 300 ml # Voids 3 # Bowel Movements 1 Cardiovascular: RSR Respiratory: clear Abdomen: soft, non-tender, present bowel sounds Extremities: no tenderness Laboratory Tests Test 05/15/17 20:16 05/16/17 06:00 Prothrombin Time 14.1 SEC (9.30-11.50) H 14.2 SEC (9.30-11.50) H Prothromb Time International Ratio 1.3 (0.9-1.1) H 1.4 (0.9-1.1) H White Blood Count 13.5 K/UL (4.8-10.8) H Red Blood Count 3.63 M/UL (4.20-5.40) L Hemoglobin 10.0 G/DL (12.0-16.0) L Hematocrit 30.5 % (37.0-47.0) L Mean Corpuscular Volume 84 FL (80-99) Mean Corpuscular Hemoglobin 27.5 PG (27.0-31.0) Mean Corpuscular Hemoglobin Concent 32.7 G/DL (32.0-36.0) Red Cell Distribution Width 16.9 % (11.6-14.8) H Platelet Count 749 K/UL (150-450) H Mean Platelet Volume 4.9 FL (6.5-10.1) L Neutrophils (%) (Auto) 72.7 % (45.0-75.0) Lymphocytes (%) (Auto) 16.6 % (20.0-45.0) L Monocytes (%) (Auto) 9.8 % (1.0-10.0) Eosinophils (%) (Auto) 0.3 % (0.0-3.0) Basophils (%) (Auto) 0.6 % (0.0-2.0) Sodium Level 132 MMOL/L (136-145) L Potassium Level 3.5 MMOL/L (3.5-5.1) Chloride Level 101 MMOL/L (98-107) Carbon Dioxide Level 22 MMOL/L (21-32) Anion Gap 9 mmol/L (5-15) Blood Urea Nitrogen 5 mg/dL (7-18) L Creatinine 0.8 MG/DL (0.55-1.30) Estimat Glomerular Filtration Rate mL/min (>60) Glucose Level 83 MG/DL (74-106) Calcium Level 7.9 MG/DL (8.5-10.1) L Plan Problems: (1) 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 lymph nodes in hilda and gastrohepatic ligament concerning. 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 From looks of tumor on CT scan it resembles a adenocarcinoma more so though. will await final biopsy results. -advanced disease with potentially poor prognosis. -awaiting final pathology report and CEA/labs -no acute surgical intervention at this time. w ill follow with recs. thank you for this consultation. Justen Lu May 16, 2017 15:25
[2017-05-16] MEDS ORDERED: Acetaminophen 650 MG SUPP RECTAL PRN (15:30)
[2017-05-16] MEDS ORDERED: Fleet's Enema 133ml RECTAL PRN (15:30)
--- NOTE | 2017-05-16 16:01 | Infectious Diseases Prog Note ---
Assessment/Plan Assessment/Plan ASSESSMENT AND PLAN: 1. staph aureus pna, aspiration risk, enterobacter/vre/fungal uti, leukocytosis better overall, no fevers - change abx to zyvox, cipro, flagyl, diflucan x one week - check labs and chest x-ray - continue supportive care - ? tap effusion - defer to pulmonary - chest x-ray - no change - clinically better - d/w pharmacy about abx 2. Pulmonary embolism - tx per primary, anti-coagulant 3. Anemia, ? ca on ct scan - w/u per primary and consultants 4. History of encephalopathy. 5. History of cholecystectomy. 6. History of acute kidney injury. 7. Cerebrovascular accident. 8. Aspiration risk. 9. tachycardia. 10. Dementia. 11. History of sepsis. 12. Essential hypertension. 13. Continue treatment per primary consultants. 14. Dysphagia. 15. Abnormal posture and speech deficit. 16. No known allergies. 17. Family history is noncontributory. 18. Social history negative. 19. MAR was noted. 20. Case discussed with RN. 21. Skin care protocol. 22. Continue treatment per primary consultants. 23. Case was also discussed with Dr. Sebastian. Subjective Constitutional: Denies: fever Respiratory: Denies: shortness of breath Cardiovascular: Denies: chest pain Gastrointestinal/Abdominal: Denies: nausea, vomiting, diarrhea Neurologic: Denies: headache Psychiatric: Denies: depression Skin: Denies: rash Hematologic: Denies: bleeding Musculoskeletal: Denies: pain Allergies: Coded Allergies: No Known Allergies (Unverified , 05/03/17) Objective Vital Signs Last 24 Hour Vital Signs Date Time Temp Pulse Resp B/P (MAP) Pulse Ox O2 Delivery O2 Flow Rate FiO2 05/16/17 14:04 115 130/76 05/16/17 13:28 115 20 98 Room Air 21 05/16/17 13:18 113 20 98 Room Air 21 05/16/17 10:33 105 130/76 05/16/17 08:00 97.6 105 20 130/76 97 Room Air 05/16/17 08:00 126 05/16/17 06:56 110 20 97 Room Air 21 05/16/17 06:46 98 Room Air 21 05/16/17 06:46 Room Air 21 05/16/17 06:46 108 20 98 Room Air 21 05/16/17 04:48 96.2 101 18 113/74 97 Room Air 05/16/17 04:00 107 05/16/17 03:00 102 114/80 05/16/17 01:12 Room Air 05/16/17 01:12 Room Air 21 05/16/17 00:44 96.4 112 20 114/80 97 Room Air 05/16/17 00:00 120 05/15/17 20:58 98.6 111 19 143/76 98 Room Air 05/15/17 20:00 123 05/15/17 20:00 108 20 97 Room Air 21 05/15/17 19:45 92 Room Air 21 05/15/17 19:30 Room Air 21 05/15/17 19:30 98 16 92 Room Air 05/15/17 19:30 109 20 Room Air 21 05/15/17 17:27 110 140/82 05/15/17 16:00 97.5 110 20 140/82 95 Room Air 05/15/17 16:00 117 Height (Feet): 5 Height (Inches): 3.00 Weight (Pounds): 118 General Appearance: no acute distress HEENT: normocephalic, atraumatic, anicteric, mucous membranes moist Respiratory/Chest: no respiratory distress, no accessory muscle use, decreased breath sounds, crackles/rales, rhonchi - bilaterally Cardiovascular: normal rate, regular rhythm, no gallop/murmur, no JVD Abdomen: normal bowel sounds, soft, non tender, no organomegaly, non distended Genitourinary: other - no barrow Extremities: no cyanosis Skin: no rash 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 Possibility of gastric carcinoma should be very strongly considered. Adenopathy around the stomach and in the region of the gastrohepatic ligament as well as the hilda hepatis. 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 Abnormal density within the left lobe of the liver and lateral segment. It is likely metastatic but could represent direct invasion of the stomach from a gastric lesion. Hepatic cysts. Dilated pancreatic duct. Previous cholecystectomy. Innumerable tiny low density lesions in the left kidney and a few in the right. These may represent cysts though this is not absolutely certain. At least one in the right kidney represents a cyst. Further evaluation with ultrasound may be helpful. Diverticulosis. Small amount of ascites. Increasing pleural effusions bilaterally. The right pleural effusion appears loculated. Pericardial effusion. Chest x-ray - 05/16/17 - Findings: Hazy right basilar infiltrate persists. Left basilar atelectasis persists. Pleural spaces are clear. Heart size is normal Impression: Unchanged, 2 days , findings as above. Microbiology Date/Time Source Procedure Growth Status 05/10/17 16:30 Blood Blood Culture - Final NO GROWTH AFTER 5 DAYS Complete 05/05/17 00:30 Sputum Induced Gram Stain - Final Complete 05/05/17 00:30 Sputum Culture - Final Staphylococcus Aureus Complete 05/10/17 17:00 Straight Cath Urine Culture - Final Enterobacter Cloacae Complex Enterococcus Faecium - Vre [place] Tropicalis Complete 05/03/17 15:45 Rectum VRE Culture - Final NO VANCOMYCIN RESISTANT ENTEROCOCCUS ... Complete Laboratory Tests Test 05/15/17 20:16 05/16/17 06:00 Prothrombin Time 14.1 SEC (9.30-11.50) H 14.2 SEC (9.30-11.50) H Prothromb Time International Ratio 1.3 (0.9-1.1) H 1.4 (0.9-1.1) H White Blood Count 13.5 K/UL (4.8-10.8) H Red Blood Count 3.63 M/UL (4.20-5.40) L Hemoglobin 10.0 G/DL (12.0-16.0) L Hematocrit 30.5 % (37.0-47.0) L Mean Corpuscular Volume 84 FL (80-99) Mean Corpuscular Hemoglobin 27.5 PG (27.0-31.0) Mean Corpuscular Hemoglobin Concent 32.7 G/DL (32.0-36.0) Red Cell Distribution Width 16.9 % (11.6-14.8) H Platelet Count 749 K/UL (150-450) H Mean Platelet Volume 4.9 FL (6.5-10.1) L Neutrophils (%) (Auto) 72.7 % (45.0-75.0) Lymphocytes (%) (Auto) 16.6 % (20.0-45.0) L Monocytes (%) (Auto) 9.8 % (1.0-10.0) Eosinophils (%) (Auto) 0.3 % (0.0-3.0) Basophils (%) (Auto) 0.6 % (0.0-2.0) Sodium Level 132 MMOL/L (136-145) L Potassium Level 3.5 MMOL/L (3.5-5.1) Chloride Level 101 MMOL/L (98-107) Carbon Dioxide Level 22 MMOL/L (21-32) Anion Gap 9 mmol/L (5-15) Blood Urea Nitrogen 5 mg/dL (7-18) L Creatinine 0.8 MG/DL (0.55-1.30) Estimat Glomerular Filtration Rate mL/min (>60) Glucose Level 83 MG/DL (74-106) Calcium Level 7.9 MG/DL (8.5-10.1) L Current Medications Medications (Trade) Dose Ordered Sig/Chevy Route PRN Reason Start Time Stop Time Status Last Admin Dose Admin Acetaminophen (Tylenol) 650 mg Q4H PRN RECTAL Mild Pain (Pain Scale 1-3) 05/16/17 15:30 06/03/17 15:29 Acetylcysteine (Mucomyst) 200 mg Q6HRT N 05/16/17 13:00 06/15/17 12:59 Albuterol/ Ipratropium (Albuterol/ Ipratropium) 3 ml Q6HRT N 05/16/17 13:00 05/18/17 12:59 05/16/17 13:17 Bisacodyl (Dulcolax) 10 mg BIDPRN PRN ORAL Constipation 1st Line Agent 05/16/17 15:00 06/02/17 23:44 Ciprofloxacin (Cipro 250mg tab) 250 mg EVERY 12 HOURS ORAL 05/16/17 21:00 05/22/17 08:59 Dextrose (Dextrose 50%) STAT PRN IV Hypoglycemia 05/16/17 15:30 06/02/17 15:29 Diltiazem HCl (Cardizem) 30 mg EVERY 8 HOURS ORAL 05/16/17 14:00 06/15/17 13:59 05/16/17 14:04 Enoxaparin Sodium (Lovenox) 50 mg Q12HR SUBQ 05/16/17 21:00 06/12/17 10:59 Ferrous Sulfate (Feosol) 300 mg TWICE A DAY ORAL 05/16/17 18:00 06/14/17 08:59 Fluconazole (Diflucan) 200 mg DAILY ORAL 05/17/17 09:00 05/21/17 17:59 Iron Sucrose 100 mg/Sodium Chloride 60 ml @ 240 mls/hr BEDTIME IV 05/16/17 21:00 05/16/17 21:15 Magnesium Hydroxide (Mom) 30 ml DAILYPRN PRN ORAL Constipation 3rd Line Option 05/17/17 05:15 06/11/17 05:14 Megestrol Acetate (Megace) 400 mg TWICE A DAY ORAL 05/16/17 18:00 06/11/17 17:59 Memantine (Namenda) 5 mg QHS ORAL 05/16/17 21:00 06/11/17 20:59 Metronidazole (Flagyl) 500 mg EVERY 8 HOURS ORAL 05/16/17 14:00 05/21/17 21:59 05/16/17 14:04 Pantoprazole (Protonix) 40 mg EVERY 12 HOURS IVP 05/16/17 21:00 06/11/17 20:59 Sodium Phosphate (Fleet's Sodium Phosl Enema) 133 ml DAILYPRN PRN RECTAL IF DULCOLAX INEFFECTIVE 05/16/17 15:30 06/08/17 15:29 Warfarin Sodium (Coumadin per pharmacy) 1 ea QHS PRN MISC Per rx protocol 05/16/17 21:00 06/14/17 19:44 Warfarin Sodium (Coumadin) 3 mg ONCE ONCE ORAL 05/16/17 17:00 05/16/17 17:01 WENDY SOMMERS May 16, 2017 16:01
[2017-05-16] MEDS ORDERED: Warfarin Sodium 3mg ORAL ONE (17:00)
--- NOTE | 2017-05-16 17:16 | General Progress Note ---
Assessment/Plan Assessment/Plan Assessment (1) Encounter for nasogastric (NG) tube placement ICD Codes: Z46.59 - Encounter for fitting and adjustment of other gastrointestinal appliance and device SNOMED: 183540874 (2) Anemia ICD Codes: D64.9 - Anemia, unspecified SNOMED: 654626229 (3) Iron deficiency ICD Codes: E61.1 - Iron deficiency SNOMED: 97792956 Status: stable Assessment/Plan s/p EGD SUMMARY OF FINDINGS: 1. Gastric mass, status post biopsy. 2. Gastritis, status post biopsy. OB stool positive ST eval >> passed. RECOMMENDATIONS: 1. Follow up biopsy results and treat accordingly. 2. 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 The patient most probably will need a PET scan as an outpatient for further staging. 3. Recommend follow up biopsy results and Oncology consultation. closely monitor H&H, prn transfusions PPI BID diet per ST PT evaluation venofer check CEA fu labs Subjective Allergies: Coded Allergies: No Known Allergies (Unverified , 05/03/17) Subjective less body pain on pureed diet more calm Objective Last 24 Hour Vital Signs Date Time Temp Pulse Resp B/P (MAP) Pulse Ox O2 Delivery O2 Flow Rate FiO2 05/16/17 17:09 97.8 102 20 140/52 98 Room Air 05/16/17 16:00 97.5 110 18 113/55 97 Room Air 05/16/17 14:04 115 130/76 05/16/17 13:28 115 20 98 Room Air 05/16/17 13:18 113 20 98 Room Air 05/16/17 10:33 105 130/76 05/16/17 08:00 97.6 105 20 130/76 97 Room Air 05/16/17 08:00 126 05/16/17 06:56 110 20 97 Room Air 21 05/16/17 06:46 98 Room Air 21 05/16/17 06:46 Room Air 05/16/17 06:46 108 20 98 Room Air 05/16/17 04:48 96.2 101 18 113/74 97 Room Air 05/16/17 04:00 107 05/16/17 03:00 102 114/80 05/16/17 01:12 Room Air 05/16/17 01:12 Room Air 05/16/17 00:44 96.4 112 20 114/80 97 Room Air 05/16/17 00:00 120 05/15/17 20:58 98.6 111 19 143/76 98 Room Air 05/15/17 20:00 123 05/15/17 20:00 108 20 97 Room Air 21 05/15/17 19:45 92 Room Air 05/15/17 19:30 Room Air 05/15/17 19:30 98 16 92 Room Air 05/15/17 19:30 109 20 Room Air 05/15/17 17:27 110 140/82 Intake and Output 05/15/17 05/16/17 19:00 07:00 Intake Total 360 ml Output Total 100 ml 300 ml Balance 260 ml -300 ml Intake Oral 360 ml Output Urine Total 100 ml 300 ml # Voids 3 # Bowel Movements 1 Laboratory Tests 05/15/17 20:16: Prothrombin Time 14.1H, Prothromb Time International Ratio 1.3H 05/16/17 06:00: Prothrombin Time 14.2H, Prothromb Time International Ratio 1.4H, White Blood Count 13.5H, Red Blood Count 3.63L, Hemoglobin 10.0L, Hematocrit 30.5L, Mean Corpuscular Volume 84, Mean Corpuscular Hemoglobin 27.5, Mean Corpuscular Hemoglobin Concent 32.7, Red Cell Distribution Width 16.9H, Platelet Count 749H , Mean Platelet Volume 4.9L, Neutrophils (%) (Auto) 72.7, Lymphocytes (%) (Auto ) 16.6L, Monocytes (%) (Auto) 9.8, Eosinophils (%) (Auto) 0.3, Basophils (%) ( Auto) 0.6, Sodium Level 132L, Potassium Level 3.5, Chloride Level 101, Carbon Dioxide Level 22, Anion Gap 9, Blood Urea Nitrogen 5L, Creatinine 0.8, Estimat Glomerular Filtration Rate , Glucose Level 83, Calcium Level 7.9L Height (Feet): 5 Height (Inches): 3.00 Weight (Pounds): 118 Objective Thin AA woman NCAT supple CTA RRR Soft ND NT no edema non focal BETO TANNER May 16, 2017 17:16
--- NOTE | 2017-05-16 17:30 | Consultation ---
DATE OF CONSULTATION: 05/13/2017 ADDENDUM REVIEW OF SYSTEMS: CONSTITUTIONAL: Some shortness of breath and fevers noted. SKIN: No rashes, bumps, or itching. HEENT: No headache, hearing, or vision changes. BREASTS: No lumps, pain, or discharge. PULMONARY: Some crackles noted at the lower lung bases. GASTROINTESTINAL: No nausea, vomiting, or diarrhea. GENITOURINARY: No dysuria, frequency, or urgency. MUSCULOSKELETAL: No joint swelling, muscle pain, or trauma. PHYSICAL EXAMINATION: GENERAL: No acute distress. VITAL SIGNS: Reviewed. PULMONARY: Decreased breath sounds. CARDIOVASCULAR: Regular rate. No S3 or S4. ABDOMEN: Soft, nontender, and nondistended. EXTREMITIES: 1+ edema. LABORATORY DATA: WBC 15.7, hemoglobin 9.9, hematocrit 31, and platelet count . Chemistry: BUN of 9 and creatinine 0.7. PTT of 36. IMAGING STUDIES: CT of the abdomen and pelvis several days ago shows hepatic cyst and adenopathy within the stomach as well as hilda hepatis, may represent as a malignancy, marked gastric wall thickening, possible gastric carcinoma, and numeral low density cyst noted, likely metastatic density in the left lower lobe of the liver. ASSESSMENT AND RECOMMENDATIONS: 1. Gastric wall thickening, likely consists of metastatic gastric cancer. Evaluate with EGD. The patient has enlarged gastric perihepatic lymph node and needs a biopsy of this. At this time, pathology report is still pending. The patient is to undergo EGD. 2. Acute pulmonary embolism. Agree with the use of anticoagulation. Given the patient's anemia has improved, we will restart the patient on Lovenox and may be switched to anticoagulation with a NOAC versus Coumadin. 3. Anemia secondary to iron deficiency. Continue the patient on iron treatment. 4. Pneumonia with Staphylococcus aureus. Continue antibiotics. 5. Sepsis. 6. Dysphagia. 7. History of CVA. 8. Hypertension. 9. Gastritis. 10. History of ADAM, has currently improved. I appreciate the consultation. Marcelino Cortes M.D. DR: MORE JOB#: [id number] CC:
--- NOTE | 2017-05-16 17:30 | Consultation ---
DATE OF CONSULTATION: 05/13/2017 NOTE: INCOMPLETE DICTATION HEMATOLOGY/ONCOLOGY CONSULTATION CONSULTING PHYSICIAN: Marcelino Cortes M.D. REFERRING PHYSICIAN: Matthieu Gabriel M.D. REASON FOR CONSULTATION: Evaluation of acute PE as well as potential gastric wall thickening with metastasis to liver. IDENTIFICATION DATA: Dear Dr. Matthieu Gabriel, The patient is a pleasant 81-year-old female with past medical history which is significant for CVA, dysphagia, speech deficits, hypertension, dementia, anemia, atrial fibrillation, aspiration, and encephalopathy, at this time presents to the hospital with shortness of breath, likely sepsis with white count elevated and fevers. She had imaging, CAT scan of chest, which showed pulmonary embolism. She was started on anticoagulation. Tachypnea and tachycardia noted as well. The patient continues to be on antibiotics as per ID Service. The patient noted to have gastric wall thickening with lymphadenopathy concerning for malignancy and lesions noted in the liver. The patient has also had endoscopy and can continue Lovenox and after endoscopy. Endoscopy scheduled for the morning and I have reviewed consultants notes. I will continue to closely monitor and evaluate the patient for oncological issues. PAST MEDICAL HISTORY: INCOMPLETE DICTATION. Marcelino Cortes M.D. DR: Rin JOB#: [id number] CC:
[2017-05-16] MEDS ORDERED: dilTIAZem HCl 25mg/5ml Inj IVP SCH (18:00)
--- NOTE | 2017-05-16 20:05 | General Progress Note ---
Assessment/Plan Assessment/Plan # Gastric wall thickening, enlarged gastric and perihepatic lymph nodes, and possible direct invasion into left lobe of liver from tumor which on preliminary biopsy maybe a GIST. lymph nodes in hilda and gastrohepatic ligament concerning. 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 and will require Gleevec initially and if good response can attempt surgical resection with surgical service # Anemia 2/2 iron deficiency as well as malignancy --> continue iron therapy iv and po # Pulmonary embolism --> continue lovenox bid dosing --> start coumadin 05/15/17, inr goal 2-3 # Staph aureus pna/aspiration pna --> antibiotics/antifungas to continue Subjective Constitutional: Reports: no symptoms HEENT: Reports: no symptoms Cardiovascular: Reports: no symptoms Respiratory: Reports: no symptoms Gastrointestinal/Abdominal: Reports: no symptoms Genitourinary: Reports: no symptoms Neurologic/Psychiatric: Reports: no symptoms Hematologic/Lymphatic: Reports: no symptoms Allergies: Coded Allergies: No Known Allergies (Unverified , 05/03/17) Subjective nad, sleeping Objective Last 24 Hour Vital Signs Date Time Temp Pulse Resp B/P (MAP) Pulse Ox O2 Delivery O2 Flow Rate FiO2 05/16/17 20:00 96.8 100 20 106/60 96 Room Air 05/16/17 19:06 Room Air 05/16/17 18:55 112 20 98 Room Air 05/16/17 18:42 106 20 98 Room Air 05/16/17 18:40 98 Room Air 05/16/17 17:09 97.8 102 20 140/52 98 Room Air 05/16/17 16:00 97.5 110 18 113/55 97 Room Air 05/16/17 14:04 115 130/76 05/16/17 13:28 115 20 98 Room Air 21 05/16/17 13:18 113 20 98 Room Air 05/16/17 10:33 105 130/76 05/16/17 08:00 97.6 105 20 130/76 97 Room Air 05/16/17 08:00 126 05/16/17 06:56 110 20 97 Room Air 05/16/17 06:46 98 Room Air 05/16/17 06:46 Room Air 05/16/17 06:46 108 20 98 Room Air 05/16/17 04:48 96.2 101 18 113/74 97 Room Air 05/16/17 04:00 107 05/16/17 03:00 102 114/80 05/16/17 01:12 Room Air 05/16/17 01:12 Room Air 21 05/16/17 00:44 96.4 112 20 114/80 97 Room Air 05/16/17 00:00 120 05/15/17 20:58 98.6 111 19 143/76 98 Room Air Intake and Output 05/15/17 05/16/17 19:00 07:00 Intake Total 360 ml Output Total 100 ml 300 ml Balance 260 ml -300 ml Intake Oral 360 ml Output Urine Total 100 ml 300 ml # Voids 3 # Bowel Movements 1 Laboratory Tests 05/15/17 20:16: Prothrombin Time 14.1H, Prothromb Time International Ratio 1.3H 05/16/17 06:00: Prothrombin Time 14.2H, Prothromb Time International Ratio 1.4H, White Blood Count 13.5H, Red Blood Count 3.63L, Hemoglobin 10.0L, Hematocrit 30.5L, Mean Corpuscular Volume 84, Mean Corpuscular Hemoglobin 27.5, Mean Corpuscular Hemoglobin Concent 32.7, Red Cell Distribution Width 16.9H, Platelet Count 749H , Mean Platelet Volume 4.9L, Neutrophils (%) (Auto) 72.7, Lymphocytes (%) (Auto ) 16.6L, Monocytes (%) (Auto) 9.8, Eosinophils (%) (Auto) 0.3, Basophils (%) ( Auto) 0.6, Sodium Level 132L, Potassium Level 3.5, Chloride Level 101, Carbon Dioxide Level 22, Anion Gap 9, Blood Urea Nitrogen 5L, Creatinine 0.8, Estimat Glomerular Filtration Rate , Glucose Level 83, Calcium Level 7.9L Height (Feet): 5 Height (Inches): 3.00 Weight (Pounds): 118 General Appearance: no apparent distress EENT: TMs normal Neck: supple Cardiovascular: normal rate Respiratory/Chest: lungs clear Abdomen: non tender Extremities: non-tender Edema: no edema noted Leg (L), no edema noted Leg (R) Edema: mild edema Marcelino Cortes May 16, 2017 20:05
[2017-05-16] MEDS ORDERED: Iron Sucrose 100 MG in NS 55 ML IV SCH (21:00)
[2017-05-16] MEDS: Memantine 5 MG TAB ORAL SCH (21:32)
--- NOTE | 2017-05-16 22:39 | Geriatric Progress Note ---
Subjective Interval Events 05/15/17 Geriatric Geriatric Last 24 Hour Vital Signs Date Time Temp Pulse Resp B/P (MAP) Pulse Ox O2 Delivery O2 Flow Rate FiO2 05/16/17 21:34 100 106/60 05/16/17 20:00 96.8 100 20 106/60 96 Room Air 05/16/17 19:06 Room Air 05/16/17 18:55 112 20 98 Room Air 05/16/17 18:42 106 20 98 Room Air 05/16/17 18:40 98 Room Air 05/16/17 17:09 97.8 102 20 140/52 98 Room Air 05/16/17 16:00 97.5 110 18 113/55 97 Room Air 05/16/17 14:04 115 130/76 05/16/17 13:28 115 20 98 Room Air 05/16/17 13:18 113 20 98 Room Air 05/16/17 10:33 105 130/76 05/16/17 08:00 97.6 105 20 130/76 97 Room Air 05/16/17 08:00 126 05/16/17 06:56 110 20 97 Room Air 05/16/17 06:46 98 Room Air 05/16/17 06:46 Room Air 05/16/17 06:46 108 20 98 Room Air 05/16/17 04:48 96.2 101 18 113/74 97 Room Air 05/16/17 04:00 107 05/16/17 03:00 102 114/80 05/16/17 01:12 Room Air 05/16/17 01:12 Room Air 05/16/17 00:44 96.4 112 20 114/80 97 Room Air 05/16/17 00:00 120 Intake and Output 05/15/17 05/16/17 19:00 07:00 Intake Total 360 ml Output Total 100 ml 300 ml Balance 260 ml -300 ml Intake Oral 360 ml Output Urine Total 100 ml 300 ml # Voids 3 # Bowel Movements 1 Laboratory Tests Test 05/16/17 06:00 White Blood Count 13.5 K/UL (4.8-10.8) H Red Blood Count 3.63 M/UL (4.20-5.40) L Hemoglobin 10.0 G/DL (12.0-16.0) L Hematocrit 30.5 % (37.0-47.0) L Mean Corpuscular Volume 84 FL (80-99) Mean Corpuscular Hemoglobin 27.5 PG (27.0-31.0) Mean Corpuscular Hemoglobin Concent 32.7 G/DL (32.0-36.0) Red Cell Distribution Width 16.9 % (11.6-14.8) H Platelet Count 749 K/UL (150-450) H Mean Platelet Volume 4.9 FL (6.5-10.1) L Neutrophils (%) (Auto) 72.7 % (45.0-75.0) Lymphocytes (%) (Auto) 16.6 % (20.0-45.0) L Monocytes (%) (Auto) 9.8 % (1.0-10.0) Eosinophils (%) (Auto) 0.3 % (0.0-3.0) Basophils (%) (Auto) 0.6 % (0.0-2.0) Prothrombin Time 14.2 SEC (9.30-11.50) H Prothromb Time International Ratio 1.4 (0.9-1.1) H Sodium Level 132 MMOL/L (136-145) L Potassium Level 3.5 MMOL/L (3.5-5.1) Chloride Level 101 MMOL/L (98-107) Carbon Dioxide Level 22 MMOL/L (21-32) Anion Gap 9 mmol/L (5-15) Blood Urea Nitrogen 5 mg/dL (7-18) L Creatinine 0.8 MG/DL (0.55-1.30) Estimat Glomerular Filtration Rate mL/min (>60) Glucose Level 83 MG/DL (74-106) Calcium Level 7.9 MG/DL (8.5-10.1) L Current Medications Medications (Trade) Dose Ordered Sig/Chevy Route PRN Reason Start Time Stop Time Status Last Admin Dose Admin Acetaminophen (Tylenol) 650 mg Q4H PRN RECTAL Mild Pain (Pain Scale 1-3) 05/16/17 15:30 06/03/17 15:29 Acetylcysteine (Mucomyst) 200 mg Q6HRT N 05/16/17 13:00 06/15/17 12:59 05/16/17 18:54 Albuterol/ Ipratropium (Albuterol/ Ipratropium) 3 ml Q6HRT N 05/16/17 13:00 05/18/17 12:59 05/16/17 18:45 Bisacodyl (Dulcolax) 10 mg BIDPRN PRN ORAL Constipation 1st Line Agent 05/16/17 15:00 06/02/17 23:44 Ciprofloxacin (Cipro 250mg tab) 250 mg EVERY 12 HOURS ORAL 05/16/17 21:00 05/22/17 08:59 05/16/17 21:33 Dextrose (Dextrose 50%) STAT PRN IV Hypoglycemia 05/16/17 15:30 06/02/17 15:29 Diltiazem HCl (Cardizem) 30 mg EVERY 8 HOURS ORAL 05/16/17 14:00 06/15/17 13:59 05/16/17 14:04 Enoxaparin Sodium (Lovenox) 50 mg Q12HR SUBQ 05/16/17 21:00 06/12/17 10:59 05/16/17 21:35 Ferrous Sulfate (Feosol) 300 mg TWICE A DAY ORAL 05/16/17 18:00 06/14/17 08:59 05/16/17 17:58 Fluconazole (Diflucan) 200 mg DAILY ORAL 05/17/17 09:00 05/21/17 17:59 Linezolid (Zyvox) 600 mg EVERY 12 HOURS ORAL 05/16/17 21:00 05/21/17 20:59 05/16/17 21:34 Magnesium Hydroxide (Mom) 30 ml DAILYPRN PRN ORAL Constipation 3rd Line Option 05/17/17 05:15 06/11/17 05:14 Megestrol Acetate (Megace) 400 mg TWICE A DAY ORAL 05/16/17 18:00 06/11/17 17:59 05/16/17 17:59 Memantine (Namenda) 5 mg QHS ORAL 05/16/17 21:00 06/11/17 20:59 05/16/17 21:32 Metronidazole (Flagyl) 500 mg EVERY 8 HOURS ORAL 05/16/17 14:00 05/21/17 21:59 05/16/17 21:32 Pantoprazole (Protonix) 40 mg EVERY 12 HOURS IVP 05/16/17 21:00 06/11/17 20:59 05/16/17 21:38 Sodium Phosphate (Fleet's Sodium Phosl Enema) 133 ml DAILYPRN PRN RECTAL IF DULCOLAX INEFFECTIVE 05/16/17 15:30 06/08/17 15:29 Warfarin Sodium (Coumadin per pharmacy) 1 ea QHS PRN MISC Per rx protocol 05/16/17 21:00 06/14/17 19:44 Height (Feet): 5 Height (Inches): 3.00 Weight (Pounds): 118 Sterling Canales M.D. May 16, 2017 22:39
--- NOTE | 2017-05-16 22:39 | General Progress Note ---
Assessment/Plan Assessment/Plan encephalopathy cognitive impairment -cont current meds Subjective Date patient seen: May 14, 2017 Allergies: Coded Allergies: No Known Allergies (Unverified , 05/03/17) Subjective the pt is aaoxself and place Objective Last 24 Hour Vital Signs Date Time Temp Pulse Resp B/P (MAP) Pulse Ox O2 Delivery O2 Flow Rate FiO2 05/16/17 21:34 100 106/60 05/16/17 20:00 96.8 100 20 106/60 96 Room Air 05/16/17 19:06 Room Air 05/16/17 18:55 112 20 98 Room Air 21 05/16/17 18:42 106 20 98 Room Air 21 05/16/17 18:40 98 Room Air 21 05/16/17 17:09 97.8 102 20 140/52 98 Room Air 05/16/17 16:00 97.5 110 18 113/55 97 Room Air 05/16/17 14:04 115 130/76 05/16/17 13:28 115 20 98 Room Air 05/16/17 13:18 113 20 98 Room Air 05/16/17 10:33 105 130/76 05/16/17 08:00 97.6 105 20 130/76 97 Room Air 05/16/17 08:00 126 05/16/17 06:56 110 20 97 Room Air 05/16/17 06:46 98 Room Air 05/16/17 06:46 Room Air 05/16/17 06:46 108 20 98 Room Air 05/16/17 04:48 96.2 101 18 113/74 97 Room Air 05/16/17 04:00 107 05/16/17 03:00 102 114/80 05/16/17 01:12 Room Air 05/16/17 01:12 Room Air 05/16/17 00:44 96.4 112 20 114/80 97 Room Air 05/16/17 00:00 120 Intake and Output 05/15/17 05/16/17 19:00 07:00 Intake Total 360 ml Output Total 100 ml 300 ml Balance 260 ml -300 ml Intake Oral 360 ml Output Urine Total 100 ml 300 ml # Voids 3 # Bowel Movements 1 Laboratory Tests 05/16/17 06:00: White Blood Count 13.5H, Red Blood Count 3.63L, Hemoglobin 10.0L, Hematocrit 30.5L, Mean Corpuscular Volume 84, Mean Corpuscular Hemoglobin 27.5, Mean Corpuscular Hemoglobin Concent 32.7, Red Cell Distribution Width 16.9H, Platelet Count 749H, Mean Platelet Volume 4.9L, Neutrophils (%) (Auto) 72.7, Lymphocytes (%) (Auto) 16.6L, Monocytes (%) (Auto) 9.8, Eosinophils (%) (Auto) 0.3, Basophils (%) (Auto) 0.6, Prothrombin Time 14.2H, Prothromb Time International Ratio 1.4H, Sodium Level 132L, Potassium Level 3.5, Chloride Level 101, Carbon Dioxide Level 22, Anion Gap 9, Blood Urea Nitrogen 5L, Creatinine 0.8, Estimat Glomerular Filtration Rate , Glucose Level 83, Calcium Level 7.9L Height (Feet): 5 Height (Inches): 3.00 Weight (Pounds): 118 Sterling Canales M.D. May 16, 2017 22:39
[2017-05-17 04:00] VITALS: BP 118/77
[2017-05-17] MEDS ORDERED: Milk of Magnesia 30ml Ud ORAL PRN (05:15)
[2017-05-17] MEDS: dilTIAZem HCl 30mg tab ORAL SCH ×3 (06:19→21:12)
[2017-05-17] MEDS: metroNIDAZOLE 500mg tab ORAL SCH ×3 (06:19→21:12)
[2017-05-17 07:19] LABS: BASOPHILS % (AUTO) 0.7 % (0.0-2.0); EOSINOPHILS % (AUTO) 0.2 % (0.0-3.0); HEMATOCRIT 31.7 % (37.0-47.0); HEMOGLOBIN 10.1 G/DL (12.0-16.0); LYMPHOCYTES % (AUTO) 18.6 % (20.0-45.0); MEAN CORPUSCULAR VOLUME 84 FL (80-99); NEUTROPHILS % (AUTO) 72.5 % (45.0-75.0); PLATELET COUNT 709 K/UL (150-450); RED BLOOD COUNT 3.76 M/UL (4.20-5.40); RED CELL DISTRIBUTION WIDTH 16.7 % (11.6-14.8); WHITE BLOOD COUNT 12.3 K/UL (4.8-10.8)
[2017-05-17 07:37] LABS: ANION GAP 10 mmol/L (5-15); BLOOD UREA NITROGEN 7 mg/dL (7-18); CARBON DIOXIDE 21 MMOL/L (21-32); CHLORIDE 104 MMOL/L (98-107); CREATININE 0.8 MG/DL (0.55-1.30); POTASSIUM 3.6 MMOL/L (3.5-5.1); SODIUM 135 MMOL/L (136-145)
[2017-05-17 07:38] LABS: INR 1.4 (0.9-1.1)
[2017-05-17 08:00] VITALS: BP 110/61
[2017-05-17] MEDS: Fluconazole 100mg tab ORAL SCH (08:25)
[2017-05-17] MEDS: Ferrous Sulfate 300 MG/5 ML UDC ORAL SCH ×2 (08:26→17:01)
[2017-05-17] MEDS: Megace 400mg/10ml Susp ORAL SCH ×2 (08:26→17:01)
[2017-05-17] MEDS: Pantoprazole Inj IVP SCH ×2 (08:26→21:04)
[2017-05-17] MEDS: Enoxaparin Sodium 300mg/3ml vial SUBQ SCH ×2 (09:18→21:11)
[2017-05-17] MEDS: Albuterol/Ipratropium 3ml neb HHN SCH ×3 (09:21→19:28)
[2017-05-17 12:00] VITALS: BP 112/65
--- NOTE | 2017-05-17 12:14 | General Progress Note ---
Assessment/Plan Status: stable, progressing Assessment/Plan encephalopathy cognitive impairment -cont current meds Subjective Date patient seen: May 17, 2017 Neurologic/Psychiatric: Reports: anxiety, depressed, emotional problems Allergies: Coded Allergies: No Known Allergies (Unverified , 05/03/17) Subjective the pt is aaoxself and place Objective Last 24 Hour Vital Signs Date Time Temp Pulse Resp B/P (MAP) Pulse Ox O2 Delivery O2 Flow Rate FiO2 05/17/17 10:23 112 20 95 Room Air 21 05/17/17 09:23 21 05/17/17 09:19 112 20 95 Room Air 21 05/17/17 09:18 Room Air 21 05/17/17 09:18 95 Room Air 2.0 21 05/17/17 08:00 97.9 112 18 110/61 97 Room Air 05/17/17 06:19 112 118/77 05/17/17 04:00 97.0 112 20 118/77 95 Room Air 05/16/17 23:56 109 20 98 Room Air 05/16/17 23:48 102 20 98 Room Air 21 05/16/17 23:46 98.1 110 18 100/57 96 Room Air 05/16/17 21:34 100 106/60 05/16/17 20:00 96.8 100 20 106/60 96 Room Air 05/16/17 19:06 Room Air 21 05/16/17 18:55 112 20 98 Room Air 21 05/16/17 18:42 106 20 98 Room Air 21 05/16/17 18:40 98 Room Air 21 05/16/17 17:09 97.8 102 20 140/52 98 Room Air 05/16/17 16:00 97.5 110 18 113/55 97 Room Air 05/16/17 14:04 115 130/76 05/16/17 13:28 115 20 98 Room Air 21 05/16/17 13:18 113 20 98 Room Air 21 Intake and Output 05/16/17 05/17/17 19:00 07:00 Intake Total 200 ml 60 ml Balance 200 ml 60 ml Intake Oral 200 ml IV Total 60 ml # Voids 1 3 Laboratory Tests 05/17/17 06:15: White Blood Count 12.3H, Red Blood Count 3.76L, Hemoglobin 10.1L, Hematocrit 31.7L, Mean Corpuscular Volume 84, Mean Corpuscular Hemoglobin 26.8L, Mean Corpuscular Hemoglobin Concent 31.8L, Red Cell Distribution Width 16.7H, Platelet Count 709H, Mean Platelet Volume 4.8L, Neutrophils (%) (Auto) 72.5, Lymphocytes (%) (Auto) 18.6L, Monocytes (%) (Auto) 8.0, Eosinophils (%) (Auto) 0.2, Basophils (%) (Auto) 0.7, Prothrombin Time 14.3H, Prothromb Time International Ratio 1.4H, Sodium Level 135L, Potassium Level 3.6, Chloride Level 104, Carbon Dioxide Level 21, Anion Gap 10, Blood Urea Nitrogen 7, Creatinine 0.8, Estimat Glomerular Filtration Rate , Glucose Level 93, Calcium Level 8.0L Height (Feet): 5 Height (Inches): 3.00 Weight (Pounds): 118 General Appearance: no apparent distress, alert, confused Sterling Canlaes M.D. May 17, 2017 12:14
--- NOTE | 2017-05-17 12:17 | General Surgery Progress Note ---
General Surgery-Progress Note Subjective Additional Comments doing well. no complaints. path resulted. Objective Last 24 Hour Vital Signs Date Time Temp Pulse Resp B/P (MAP) Pulse Ox O2 Delivery O2 Flow Rate FiO2 05/17/17 10:23 112 20 95 Room Air 05/17/17 09:23 21 05/17/17 09:19 112 20 95 Room Air 05/17/17 09:18 Room Air 05/17/17 09:18 95 Room Air 2.0 05/17/17 08:00 97.9 112 18 110/61 97 Room Air 05/17/17 06:19 112 118/77 05/17/17 04:00 97.0 112 20 118/77 95 Room Air 05/16/17 23:56 109 20 98 Room Air 05/16/17 23:48 102 20 98 Room Air 05/16/17 23:46 98.1 110 18 100/57 96 Room Air 05/16/17 21:34 100 106/60 05/16/17 20:00 96.8 100 20 106/60 96 Room Air 05/16/17 19:06 Room Air 05/16/17 18:55 112 20 98 Room Air 05/16/17 18:42 106 20 98 Room Air 05/16/17 18:40 98 Room Air 05/16/17 17:09 97.8 102 20 140/52 98 Room Air 05/16/17 16:00 97.5 110 18 113/55 97 Room Air 05/16/17 14:04 115 130/76 05/16/17 13:28 115 20 98 Room Air 05/16/17 13:18 113 20 98 Room Air I&O Intake and Output 05/16/17 05/17/17 19:00 07:00 Intake Total 200 ml 60 ml Balance 200 ml 60 ml Intake Oral 200 ml IV Total 60 ml # Voids 1 3 Cardiovascular: RSR Respiratory: clear Abdomen: soft, non-tender, present bowel sounds Extremities: no tenderness Laboratory Tests Test 05/17/17 06:15 White Blood Count 12.3 K/UL (4.8-10.8) H Red Blood Count 3.76 M/UL (4.20-5.40) L Hemoglobin 10.1 G/DL (12.0-16.0) L Hematocrit 31.7 % (37.0-47.0) L Mean Corpuscular Volume 84 FL (80-99) Mean Corpuscular Hemoglobin 26.8 PG (27.0-31.0) L Mean Corpuscular Hemoglobin Concent 31.8 G/DL (32.0-36.0) L Red Cell Distribution Width 16.7 % (11.6-14.8) H Platelet Count 709 K/UL (150-450) H Mean Platelet Volume 4.8 FL (6.5-10.1) L Neutrophils (%) (Auto) 72.5 % (45.0-75.0) Lymphocytes (%) (Auto) 18.6 % (20.0-45.0) L Monocytes (%) (Auto) 8.0 % (1.0-10.0) Eosinophils (%) (Auto) 0.2 % (0.0-3.0) Basophils (%) (Auto) 0.7 % (0.0-2.0) Prothrombin Time 14.3 SEC (9.30-11.50) H Prothromb Time International Ratio 1.4 (0.9-1.1) H Sodium Level 135 MMOL/L (136-145) L Potassium Level 3.6 MMOL/L (3.5-5.1) Chloride Level 104 MMOL/L (98-107) Carbon Dioxide Level 21 MMOL/L (21-32) Anion Gap 10 mmol/L (5-15) Blood Urea Nitrogen 7 mg/dL (7-18) Creatinine 0.8 MG/DL (0.55-1.30) Estimat Glomerular Filtration Rate mL/min (>60) Glucose Level 93 MG/DL (74-106) Calcium Level 8.0 MG/DL (8.5-10.1) L Plan Problems: (1) 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 lymph nodes in hilda and gastrohepatic ligament concerning. -advanced disease with potentially poor prognosis. -final pathology GIST stromal type. will need Gleevec first. if responsive can attempt surgical resection. -no acute surgical intervention at this time. w ill follow with recs. thank you for this consultation. Justen Lu May 17, 2017 12:17
--- NOTE | 2017-05-17 12:21 | GI Progress Note ---
Assessment/Plan Problems: (1) Encounter for nasogastric (NG) tube placement ICD Codes: Z46.59 - Encounter for fitting and adjustment of other gastrointestinal appliance and device SNOMED: 639483014 (2) Anemia ICD Codes: D64.9 - Anemia, unspecified SNOMED: 711532540 (3) Iron deficiency ICD Codes: E61.1 - Iron deficiency SNOMED: 26451635 Status: unchanged Status Narrative Discussed with Dr. Greenfield. Assessment/Plan s/p EGD SUMMARY OF FINDINGS: 1. 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 Gastritis, status post biopsy. OB stool positive ST eval >> passed. RECOMMENDATIONS: 1. Follow up biopsy results and treat accordingly. 2. 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 The patient most probably will need a PET scan as an outpatient for further staging. 3. Recommend follow up biopsy results and Oncology consultation. fu oncology/surgical recs closely monitor H&H, prn transfusions PPI BID diet per ST PT evaluation venofer check CEA fu labs Subjective Subjective denies any abdominal pain OOB tolerating diet Objective Last 24 Hour Vital Signs Date Time Temp Pulse Resp B/P (MAP) Pulse Ox O2 Delivery O2 Flow Rate FiO2 05/17/17 10:23 112 20 95 Room Air 05/17/17 09:23 05/17/17 09:19 112 20 95 Room Air 05/17/17 09:18 Room Air 05/17/17 09:18 95 Room Air 2.0 05/17/17 08:00 97.9 112 18 110/61 97 Room Air 05/17/17 06:19 112 118/77 05/17/17 04:00 97.0 112 20 118/77 95 Room Air 05/16/17 23:56 109 20 98 Room Air 05/16/17 23:48 102 20 98 Room Air 05/16/17 23:46 98.1 110 18 100/57 96 Room Air 05/16/17 21:34 100 106/60 05/16/17 20:00 96.8 100 20 106/60 96 Room Air 05/16/17 19:06 Room Air 05/16/17 18:55 112 20 98 Room Air 05/16/17 18:42 106 20 98 Room Air 05/16/17 18:40 98 Room Air 21 05/16/17 17:09 97.8 102 20 140/52 98 Room Air 05/16/17 16:00 97.5 110 18 113/55 97 Room Air 05/16/17 14:04 115 130/76 05/16/17 13:28 115 20 98 Room Air 21 05/16/17 13:18 113 20 98 Room Air 21 Intake and Output 05/16/17 05/17/17 19:00 07:00 Intake Total 200 ml 60 ml Balance 200 ml 60 ml Intake Oral 200 ml IV Total 60 ml # Voids 1 3 Laboratory Tests Test 05/17/17 06:15 White Blood Count 12.3 K/UL (4.8-10.8) H Red Blood Count 3.76 M/UL (4.20-5.40) L Hemoglobin 10.1 G/DL (12.0-16.0) L Hematocrit 31.7 % (37.0-47.0) L Mean Corpuscular Volume 84 FL (80-99) Mean Corpuscular Hemoglobin 26.8 PG (27.0-31.0) L Mean Corpuscular Hemoglobin Concent 31.8 G/DL (32.0-36.0) L Red Cell Distribution Width 16.7 % (11.6-14.8) H Platelet Count 709 K/UL (150-450) H Mean Platelet Volume 4.8 FL (6.5-10.1) L Neutrophils (%) (Auto) 72.5 % (45.0-75.0) Lymphocytes (%) (Auto) 18.6 % (20.0-45.0) L Monocytes (%) (Auto) 8.0 % (1.0-10.0) Eosinophils (%) (Auto) 0.2 % (0.0-3.0) Basophils (%) (Auto) 0.7 % (0.0-2.0) Prothrombin Time 14.3 SEC (9.30-11.50) H Prothromb Time International Ratio 1.4 (0.9-1.1) H Sodium Level 135 MMOL/L (136-145) L Potassium Level 3.6 MMOL/L (3.5-5.1) Chloride Level 104 MMOL/L (98-107) Carbon Dioxide Level 21 MMOL/L (21-32) Anion Gap 10 mmol/L (5-15) Blood Urea Nitrogen 7 mg/dL (7-18) Creatinine 0.8 MG/DL (0.55-1.30) Estimat Glomerular Filtration Rate mL/min (>60) Glucose Level 93 MG/DL (74-106) Calcium Level 8.0 MG/DL (8.5-10.1) L Height (Feet): 5 Height (Inches): 3.00 Weight (Pounds): 118 General Appearance: WD/WN, no apparent distress, alert, thin Cardiovascular: normal rate Respiratory/Chest: normal breath sounds, no respiratory distress Abdominal Exam: normal bowel sounds, non tender, soft Extremities: non-tender Eufemia Smiley N.P. May 17, 2017 12:21
[2017-05-17 16:00] VITALS: BP 126/71
[2017-05-17] MEDS ORDERED: Warfarin Sodium 4mg PO ONE (17:00)
--- NOTE | 2017-05-17 17:33 | Pulmonology Progress Note ---
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 (3) Iron deficiency Assessment/Plan pathology noted d/w sister at the bed site symptomatic treatment oncology evaluation Subjective ROS Limited/Unobtainable: No Allergies: Coded Allergies: No Known Allergies (Unverified , 05/03/17) Objective Last 24 Hour Vital Signs Date Time Temp Pulse Resp B/P (MAP) Pulse Ox O2 Delivery O2 Flow Rate FiO2 05/17/17 16:00 97.9 125 18 126/71 96 Room Air 05/17/17 13:36 111 112/65 05/17/17 13:15 112 18 96 Room Air 05/17/17 13:06 111 18 96 Room Air 05/17/17 13:06 21 05/17/17 12:00 97.9 20 112/65 95 Room Air 2.0 05/17/17 10:23 112 20 95 Room Air 05/17/17 09:23 05/17/17 09:19 112 20 95 Room Air 05/17/17 09:18 Room Air 05/17/17 09:18 95 Room Air 2.0 05/17/17 08:00 97.9 112 18 110/61 97 Room Air 05/17/17 06:19 112 118/77 05/17/17 04:00 97.0 112 20 118/77 95 Room Air 05/16/17 23:56 109 20 98 Room Air 05/16/17 23:48 102 20 98 Room Air 21 05/16/17 23:46 98.1 110 18 100/57 96 Room Air 05/16/17 21:34 100 106/60 05/16/17 20:00 96.8 100 20 106/60 96 Room Air 05/16/17 19:06 Room Air 21 05/16/17 18:55 112 20 98 Room Air 21 05/16/17 18:42 106 20 98 Room Air 21 05/16/17 18:40 98 Room Air 21 Intake and Output 05/16/17 05/17/17 19:00 07:00 Intake Total 200 ml 60 ml Balance 200 ml 60 ml Intake Oral 200 ml IV Total 60 ml # Voids 1 3 Objective General Appearance: WD/WN HEENT: normocephalic, atraumatic Respiratory/Chest: chest wall non-tender, lungs clear Abdomen: normal bowel sounds, soft, non tender Genitourinary: normal external genitalia Skin: no lesions Laboratory Tests 05/17/17 06:15: White Blood Count 12.3H, Red Blood Count 3.76L, Hemoglobin 10.1L, Hematocrit 31.7L, Mean Corpuscular Volume 84, Mean Corpuscular Hemoglobin 26.8L, Mean Corpuscular Hemoglobin Concent 31.8L, Red Cell Distribution Width 16.7H, Platelet Count 709H, Mean Platelet Volume 4.8L, Neutrophils (%) (Auto) 72.5, Lymphocytes (%) (Auto) 18.6L, Monocytes (%) (Auto) 8.0, Eosinophils (%) (Auto) 0.2, Basophils (%) (Auto) 0.7, Prothrombin Time 14.3H, Prothromb Time International Ratio 1.4H, Sodium Level 135L, Potassium Level 3.6, Chloride Level 104, Carbon Dioxide Level 21, Anion Gap 10, Blood Urea Nitrogen 7, Creatinine 0.8, Estimat Glomerular Filtration Rate , Glucose Level 93, Calcium Level 8.0L Current Medications Medications (Trade) Dose Ordered Sig/Chevy Route PRN Reason Start Time Stop Time Status Last Admin Dose Admin Acetaminophen (Tylenol) 650 mg Q4H PRN RECTAL Mild Pain (Pain Scale 1-3) 05/16/17 15:30 06/03/17 15:29 Acetylcysteine (Mucomyst) 200 mg Q6HRT N 05/16/17 13:00 06/15/17 12:59 05/17/17 13:05 Albuterol/ Ipratropium (Albuterol/ Ipratropium) 3 ml Q6HRT N 05/16/17 13:00 05/18/17 12:59 05/17/17 13:05 Bisacodyl (Dulcolax) 10 mg BIDPRN PRN ORAL Constipation 1st Line Agent 05/16/17 15:00 06/02/17 23:44 Ciprofloxacin (Cipro 250mg tab) 250 mg EVERY 12 HOURS ORAL 05/16/17 21:00 05/22/17 08:59 05/17/17 08:25 Dextrose (Dextrose 50%) STAT PRN IV Hypoglycemia 05/16/17 15:30 06/02/17 15:29 Diltiazem HCl (Cardizem) 30 mg EVERY 8 HOURS ORAL 05/16/17 14:00 06/15/17 13:59 05/17/17 06:19 Enoxaparin Sodium (Lovenox) 50 mg Q12HR SUBQ 05/16/17 21:00 06/12/17 10:59 05/17/17 09:18 Ferrous Sulfate (Feosol) 300 mg TWICE A DAY ORAL 05/16/17 18:00 06/14/17 08:59 05/17/17 17:01 Fluconazole (Diflucan) 200 mg DAILY ORAL 05/17/17 09:00 05/21/17 17:59 05/17/17 08:25 Linezolid (Zyvox) 600 mg EVERY 12 HOURS ORAL 05/16/17 21:00 05/21/17 20:59 05/17/17 08:25 Magnesium Hydroxide (Mom) 30 ml DAILYPRN PRN ORAL Constipation 3rd Line Option 05/17/17 05:15 06/11/17 05:14 Megestrol Acetate (Megace) 400 mg TWICE A DAY ORAL 05/16/17 18:00 06/11/17 17:59 05/17/17 17:01 Memantine (Namenda) 5 mg QHS ORAL 05/16/17 21:00 06/11/17 20:59 05/16/17 21:32 Metronidazole (Flagyl) 500 mg EVERY 8 HOURS ORAL 05/16/17 14:00 05/21/17 21:59 05/17/17 14:00 Pantoprazole (Protonix) 40 mg EVERY 12 HOURS IVP 05/16/17 21:00 06/11/17 20:59 05/17/17 08:26 Sodium Phosphate (Fleet's Sodium Phosl Enema) 133 ml DAILYPRN PRN RECTAL IF DULCOLAX INEFFECTIVE 05/16/17 15:30 06/08/17 15:29 Warfarin Sodium (Coumadin per pharmacy) 1 ea QHS PRN MISC Per rx protocol 05/16/17 21:00 06/14/17 19:44 SHELBI QUILES May 17, 2017 17:33
--- NOTE | 2017-05-17 18:08 | Internal Med Progress Note ---
Subjective Date of Service: May 17, 2017 Physician Name Jeet Gabriel Attending Physician Trung Sebastian MD Current Medications Medications (Trade) Dose Ordered Sig/Chevy Route PRN Reason Start Time Stop Time Status Last Admin Dose Admin Acetaminophen (Tylenol) 650 mg Q4H PRN RECTAL Mild Pain (Pain Scale 1-3) 05/16/17 15:30 06/03/17 15:29 Acetylcysteine (Mucomyst) 200 mg Q6HRT HHN 05/16/17 13:00 06/15/17 12:59 05/17/17 13:05 Albuterol/ Ipratropium (Albuterol/ Ipratropium) 3 ml Q6HRT HHN 05/16/17 13:00 05/18/17 12:59 05/17/17 13:05 Bisacodyl (Dulcolax) 10 mg BIDPRN PRN ORAL Constipation 1st Line Agent 05/16/17 15:00 06/02/17 23:44 Ciprofloxacin (Cipro 250mg tab) 250 mg EVERY 12 HOURS ORAL 05/16/17 21:00 05/22/17 08:59 05/17/17 08:25 Dextrose (Dextrose 50%) STAT PRN IV Hypoglycemia 05/16/17 15:30 06/02/17 15:29 Diltiazem HCl (Cardizem) 30 mg EVERY 8 HOURS ORAL 05/16/17 14:00 06/15/17 13:59 05/17/17 06:19 Enoxaparin Sodium (Lovenox) 50 mg Q12HR SUBQ 05/16/17 21:00 06/12/17 10:59 05/17/17 09:18 Ferrous Sulfate (Feosol) 300 mg TWICE A DAY ORAL 05/16/17 18:00 06/14/17 08:59 05/17/17 17:01 Fluconazole (Diflucan) 200 mg DAILY ORAL 05/17/17 09:00 05/21/17 17:59 05/17/17 08:25 Linezolid (Zyvox) 600 mg EVERY 12 HOURS ORAL 05/16/17 21:00 05/21/17 20:59 05/17/17 08:25 Magnesium Hydroxide (Mom) 30 ml DAILYPRN PRN ORAL Constipation 3rd Line Option 05/17/17 05:15 06/11/17 05:14 Megestrol Acetate (Megace) 400 mg TWICE A DAY ORAL 05/16/17 18:00 06/11/17 17:59 05/17/17 17:01 Memantine (Namenda) 5 mg QHS ORAL 05/16/17 21:00 06/11/17 20:59 05/16/17 21:32 Metronidazole (Flagyl) 500 mg EVERY 8 HOURS ORAL 05/16/17 14:00 05/21/17 21:59 05/17/17 14:00 Pantoprazole (Protonix) 40 mg EVERY 12 HOURS IVP 05/16/17 21:00 06/11/17 20:59 05/17/17 08:26 Sodium Phosphate (Fleet's Sodium Phosl Enema) 133 ml DAILYPRN PRN RECTAL IF DULCOLAX INEFFECTIVE 05/16/17 15:30 06/08/17 15:29 Warfarin Sodium (Coumadin per pharmacy) 1 ea QHS PRN MISC Per rx protocol 05/16/17 21:00 06/14/17 19:44 Allergies: Coded Allergies: No Known Allergies (Unverified , 05/03/17) ROS Limited/Unobtainable: No Constitutional: Reports: no symptoms HEENT: Reports: no symptoms Cardiovascular: Reports: no symptoms Respiratory: Reports: no symptoms Gastrointestinal/Abdominal: Reports: abdominal pain Genitourinary: Reports: no symptoms Neurologic/Psychiatric: Reports: no symptoms Subjective 81 YO F admitted with respiratory failure. Now pulmonary embolism and Gastric mass-await pathology report. S/P endoscopy 05/11/17. Cover for Int Med-Dr Sebastian. Worsening anemia-S/P transfusion. Objective Last Vital Signs Date Time Temp Pulse Resp B/P (MAP) Pulse Ox O2 Delivery O2 Flow Rate FiO2 05/17/17 16:00 97.9 125 18 126/71 96 Room Air 05/17/17 13:15 21 05/17/17 12:00 2.0 Laboratory Tests Test 05/17/17 06:15 White Blood Count 12.3 K/UL (4.8-10.8) H Red Blood Count 3.76 M/UL (4.20-5.40) L Hemoglobin 10.1 G/DL (12.0-16.0) L Hematocrit 31.7 % (37.0-47.0) L Mean Corpuscular Volume 84 FL (80-99) Mean Corpuscular Hemoglobin 26.8 PG (27.0-31.0) L Mean Corpuscular Hemoglobin Concent 31.8 G/DL (32.0-36.0) L Red Cell Distribution Width 16.7 % (11.6-14.8) H Platelet Count 709 K/UL (150-450) H Mean Platelet Volume 4.8 FL (6.5-10.1) L Neutrophils (%) (Auto) 72.5 % (45.0-75.0) Lymphocytes (%) (Auto) 18.6 % (20.0-45.0) L Monocytes (%) (Auto) 8.0 % (1.0-10.0) Eosinophils (%) (Auto) 0.2 % (0.0-3.0) Basophils (%) (Auto) 0.7 % (0.0-2.0) Prothrombin Time 14.3 SEC (9.30-11.50) H Prothromb Time International Ratio 1.4 (0.9-1.1) H Sodium Level 135 MMOL/L (136-145) L Potassium Level 3.6 MMOL/L (3.5-5.1) Chloride Level 104 MMOL/L (98-107) Carbon Dioxide Level 21 MMOL/L (21-32) Anion Gap 10 mmol/L (5-15) Blood Urea Nitrogen 7 mg/dL (7-18) Creatinine 0.8 MG/DL (0.55-1.30) Estimat Glomerular Filtration Rate mL/min (>60) Glucose Level 93 MG/DL (74-106) Calcium Level 8.0 MG/DL (8.5-10.1) L Intake and Output 05/16/17 05/17/17 19:00 07:00 Intake Total 200 ml 60 ml Balance 200 ml 60 ml Intake Oral 200 ml IV Total 60 ml # Voids 1 3 Objective Objective GENERAL: awake, responsive, opens eyes, talking. HEENT: Pupils reactive to light. Anicteric. NG Tube. NECK: Supple. No JVD. LUNGS: fair air entry. decrease bilateral air entry, No wheezing. No Coarse breath HEART: S1 and S2. RR. no murmur ABDOMEN: Soft, nontender and nondistended. Positive bowel sounds. EXTREMITIES: No cyanosis, clubbing, or edema. NEUROLOGIC: moving all extremities equally . CN 2-12 intact. Assessment/Plan Assessment/Plan Assessment/Plan Acute PE-see pulmonary note. Await hematology consult. SIRS Right lower lobe pneumonia, possible aspiration pneumonia. History of cerebrovascular accident. Sinus tachycardia. Urinary tract infection, possible sepsis secondary to urinary tract infection. Dysphagia. Hypertension. Anemia. Severe protein-calorie malnutrition. 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 Lovenox injection BID-discontinue due to worsening anemia monitor laboratory and cultures. Dr. Malik Knapp from Pulmonary Critical [facility]. Abx: Zosyn IV, Vanco IV Tub feeding @ 45 cc/hr at night from 7 PM to 7 AM, and oral feeding during day time. Full Code as per speech evaluation: she is able for oral feeding S/P Transfusion 2 units packed RBC See oncology consult. JEET GABRIEL May 17, 2017 18:08
[2017-05-17 20:00] VITALS: BP 106/62
--- NOTE | 2017-05-17 20:25 | General Progress Note ---
Assessment/Plan Assessment/Plan # Gastric wall thickening, enlarged gastric and perihepatic lymph nodes, and possible direct invasion into left lobe of liver from tumor --> positive for gist --> Gleevec not available at [facility], recommend outpatient follow up to start tx # Anemia 2/2 iron deficiency as well as malignancy --> continue iron therapy iv and po # Pulmonary embolism --> continue lovenox bid dosing --> start coumadin 05/15/17, inr goal 2-3 --> INR currently subtherapeutic # Staph aureus pna/aspiration pna --> antibiotics/antifungals to continue Subjective Allergies: Coded Allergies: No Known Allergies (Unverified , 05/03/17) Subjective nad, sleeping Objective Last 24 Hour Vital Signs Date Time Temp Pulse Resp B/P (MAP) Pulse Ox O2 Delivery O2 Flow Rate FiO2 05/17/17 19:41 110 18 98 Room Air 05/17/17 19:41 21 05/17/17 19:31 Room Air 05/17/17 19:31 97 Room Air 2.0 05/17/17 19:28 105 18 97 Room Air 05/17/17 16:00 97.9 125 18 126/71 96 Room Air 05/17/17 13:36 111 112/65 05/17/17 13:15 112 18 96 Room Air 05/17/17 13:06 111 18 96 Room Air 05/17/17 13:06 05/17/17 12:00 97.9 20 112/65 95 Room Air 2.0 05/17/17 10:23 112 20 95 Room Air 05/17/17 09:23 05/17/17 09:19 112 20 95 Room Air 05/17/17 09:18 Room Air 05/17/17 09:18 95 Room Air 2.0 05/17/17 08:00 97.9 112 18 110/61 97 Room Air 05/17/17 06:19 112 118/77 05/17/17 04:00 97.0 112 20 118/77 95 Room Air 05/16/17 23:56 109 20 98 Room Air 05/16/17 23:48 102 20 98 Room Air 05/16/17 23:46 98.1 110 18 100/57 96 Room Air 05/16/17 21:34 100 106/60 Intake and Output 1/1/18 1/2/18 19:00 07:00 Intake Total 200 ml 60 ml Balance 200 ml 60 ml Intake Oral 200 ml IV Total 60 ml # Voids 1 3 Laboratory Tests 05/17/17 06:15: White Blood Count 12.3H, Red Blood Count 3.76L, Hemoglobin 10.1L, Hematocrit 31.7L, Mean Corpuscular Volume 84, Mean Corpuscular Hemoglobin 26.8L, Mean Corpuscular Hemoglobin Concent 31.8L, Red Cell Distribution Width 16.7H, Platelet Count 709H, Mean Platelet Volume 4.8L, Neutrophils (%) (Auto) 72.5, Lymphocytes (%) (Auto) 18.6L, Monocytes (%) (Auto) 8.0, Eosinophils (%) (Auto) 0.2, Basophils (%) (Auto) 0.7, Prothrombin Time 14.3H, Prothromb Time International Ratio 1.4H, Sodium Level 135L, Potassium Level 3.6, Chloride Level 104, Carbon Dioxide Level 21, Anion Gap 10, Blood Urea Nitrogen 7, Creatinine 0.8, Estimat Glomerular Filtration Rate , Glucose Level 93, Calcium Level 8.0L Height (Feet): 5 Height (Inches): 3.00 Weight (Pounds): 118 General Appearance: no apparent distress EENT: normal ENT inspection Neck: normal alignment Cardiovascular: normal peripheral pulses Respiratory/Chest: chest wall non-tender Extremities: normal range of motion Marcelino Cortes May 17, 2017 20:25
[2017-05-17] MEDS: Memantine 5 MG TAB ORAL SCH (21:12)
[2017-05-18] VITALS: BP 118/63
[2017-05-18] MEDS: Sodium Chloride 500ML 550 ML IV SCH ×2 (00:47→08:22)
[2017-05-18] MEDS: Albuterol/Ipratropium 3ml neb HHN SCH ×2 (01:07→07:00)
[2017-05-18 04:00] VITALS: BP 113/60
[2017-05-18] MEDS: metroNIDAZOLE 500mg tab ORAL SCH (05:21)
[2017-05-18] MEDS: dilTIAZem HCl 30mg tab ORAL SCH (05:22)
[2017-05-18 07:08] LABS: INR 1.5 (0.9-1.1)
[2017-05-18 07:30] LABS: BASOPHILS % (AUTO) 0.9 % (0.0-2.0); EOSINOPHILS % (AUTO) 0.4 % (0.0-3.0); HEMATOCRIT 28.4 % (37.0-47.0); HEMOGLOBIN 9.3 G/DL (12.0-16.0); LYMPHOCYTES % (AUTO) 18.2 % (20.0-45.0); MEAN CORPUSCULAR VOLUME 85 FL (80-99); MONOCYTES % (AUTO) 8.7 % (1.0-10.0); NEUTROPHILS % (AUTO) 71.9 % (45.0-75.0); PLATELET COUNT 631 K/UL (150-450); RED BLOOD COUNT 3.33 M/UL (4.20-5.40); RED CELL DISTRIBUTION WIDTH 17.1 % (11.6-14.8); WHITE BLOOD COUNT 11.2 K/UL (4.8-10.8)
[2017-05-18 07:36] LABS: ANION GAP 9 mmol/L (5-15); BLOOD UREA NITROGEN 9 mg/dL (7-18); CALCIUM 7.7 MG/DL (8.5-10.1); CARBON DIOXIDE 20 MMOL/L (21-32); CHLORIDE 108 MMOL/L (98-107); CREATININE 0.8 MG/DL (0.55-1.30); POTASSIUM 3.6 MMOL/L (3.5-5.1); SODIUM 137 MMOL/L (136-145)
[2017-05-18 08:00] VITALS: BP 119/68
[2017-05-18] MEDS: Pantoprazole Inj IVP SCH (10:11)
[2017-05-18] MEDS: Megace 400mg/10ml Susp ORAL SCH (10:11)
[2017-05-18] MEDS: Fluconazole 100mg tab ORAL SCH (10:12)
[2017-05-18] MEDS: Ferrous Sulfate 300 MG/5 ML UDC ORAL SCH (10:12)
[2017-05-18] MEDS: Enoxaparin Sodium 300mg/3ml vial SUBQ SCH (10:13)
--- NOTE | 2017-05-18 11:03 | GI Progress Note ---
Assessment/Plan Problems: (1) Encounter for nasogastric (NG) tube placement ICD Codes: Z46.59 - Encounter for fitting and adjustment of other gastrointestinal appliance and device SNOMED: 197512206 (2) Anemia ICD Codes: D64.9 - Anemia, unspecified SNOMED: 639869759 (3) Iron deficiency ICD Codes: E61.1 - Iron deficiency SNOMED: 15991593 Status: stable Status Narrative Discussed with Dr. Greenfield. Assessment/Plan s/p EGD SUMMARY OF FINDINGS: 1. 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 Gastritis, status post biopsy. OB stool positive ST eval >> passed. RECOMMENDATIONS: 1. Follow up biopsy results and treat accordingly. 2. 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 The patient most probably will need a PET scan as an outpatient for further staging. 3. Recommend follow up biopsy results and Oncology consultation. fu oncology/surgical recs closely monitor H&H, prn transfusions PPI BID diet per ST PT evaluation OT evaluation venofer check CEA fu labs The patient was seen and examined at bedside and all new and available data was reviewed in the patients chart. I agree with the above findings, impression and plan. (Patient seen earlier today. Signature stamp does not reflect patient encounter time.). - Isabel Greenfield MD Subjective Subjective denies any abdominal pain OOB tolerating diet Objective Last 24 Hour Vital Signs Date Time Temp Pulse Resp B/P (MAP) Pulse Ox O2 Delivery O2 Flow Rate FiO2 05/18/17 08:00 96.6 107 20 119/68 96 05/18/17 07:48 Room Air 05/18/17 07:48 98 Room Air 05/18/17 07:47 Room Air 05/18/17 07:47 Room Air 21 05/18/17 05:22 73 113/60 05/18/17 04:00 97.0 73 20 113/60 99 05/18/17 01:18 21 05/18/17 01:18 108 18 98 Room Air 21 05/18/17 01:08 97 18 98 Room Air 21 05/18/17 00:00 97.9 130 18 118/63 96 05/17/17 21:12 116 106/62 05/17/17 20:00 97.5 116 18 106/62 05/17/17 19:41 110 18 98 Room Air 21 05/17/17 19:41 21 05/17/17 19:31 Room Air 05/17/17 19:31 97 Room Air 2.0 05/17/17 19:28 105 18 97 Room Air 21 05/17/17 16:00 97.9 125 18 126/71 96 Room Air 05/17/17 13:36 111 112/65 05/17/17 13:15 112 18 96 Room Air 05/17/17 13:06 111 18 96 Room Air 21 05/17/17 13:06 21 05/17/17 12:00 97.9 20 112/65 95 Room Air 2.0 21 Intake and Output 05/17/17 05/18/17 19:00 07:00 Intake Total 570 ml Balance 570 ml Intake Oral 120 ml IV Total 450 ml # Voids 4 Laboratory Tests Test 05/18/17 06:40 White Blood Count 11.2 K/UL (4.8-10.8) H Red Blood Count 3.33 M/UL (4.20-5.40) L Hemoglobin 9.3 G/DL (12.0-16.0) L Hematocrit 28.4 % (37.0-47.0) L Mean Corpuscular Volume 85 FL (80-99) Mean Corpuscular Hemoglobin 27.8 PG (27.0-31.0) Mean Corpuscular Hemoglobin Concent 32.6 G/DL (32.0-36.0) Red Cell Distribution Width 17.1 % (11.6-14.8) H Platelet Count 631 K/UL (150-450) H Mean Platelet Volume 4.7 FL (6.5-10.1) L Neutrophils (%) (Auto) 71.9 % (45.0-75.0) Lymphocytes (%) (Auto) 18.2 % (20.0-45.0) L Monocytes (%) (Auto) 8.7 % (1.0-10.0) Eosinophils (%) (Auto) 0.4 % (0.0-3.0) Basophils (%) (Auto) 0.9 % (0.0-2.0) Prothrombin Time 15.6 SEC (9.30-11.50) H Prothromb Time International Ratio 1.5 (0.9-1.1) H Sodium Level 137 MMOL/L (136-145) Potassium Level 3.6 MMOL/L (3.5-5.1) Chloride Level 108 MMOL/L (98-107) H Carbon Dioxide Level 20 MMOL/L (21-32) L Anion Gap 9 mmol/L (5-15) Blood Urea Nitrogen 9 mg/dL (7-18) Creatinine 0.8 MG/DL (0.55-1.30) Estimat Glomerular Filtration Rate mL/min (>60) Glucose Level 131 MG/DL (74-106) H Calcium Level 7.7 MG/DL (8.5-10.1) L Height (Feet): 5 Height (Inches): 3.00 Weight (Pounds): 120 General Appearance: WD/WN, no apparent distress, alert, thin Cardiovascular: normal rate Respiratory/Chest: normal breath sounds, no respiratory distress Abdominal Exam: normal bowel sounds, non tender, soft Extremities: non-tender Eufemia Smiley NJonathon May 18, 2017 11:03 PATO GREENFIELD May 19, 2017 09:04
[2017-05-18] MEDS ORDERED: ZYVOX600 MG ORAL (11:13)
[2017-05-18] MEDS ORDERED: CIPRO250 MG ORAL (11:14)
[2017-05-18] MEDS ORDERED: FLUCONAZOLE100 MG ORAL (11:15)
[2017-05-18] MEDS ORDERED: METRONIDAZOLE500 MG ORAL (11:15)
[2017-05-18] MEDS ORDERED: GLEEVEC400 MG ORAL (11:16)
[2017-05-18] MEDS ORDERED: TYLENOL650 MG/20. RC (11:35)
[2017-05-18] MEDS ORDERED: MUCOMYST200 MG/ML HHN (11:37)
[2017-05-18] MEDS ORDERED: CARDIZEM30 MG ORAL (11:38)
[2017-05-18] MEDS ORDERED: LOVENOX300 MG/3 M SUBQ (11:39)
[2017-05-18] MEDS ORDERED: ALBUTEROL2.5 MG/3 M INH (11:39)
[2017-05-18] MEDS ORDERED: MEGESTROL400 MG/11 PO (11:40)
[2017-05-18 12:00] VITALS: BP 129/64
--- NOTE | 2017-05-18 12:16 | Internal Med Progress Note ---
Subjective Date of Service: May 18, 2017 Physician Name Jeet Gabriel Attending Physician Trung Sebastian MD Current Medications Medications (Trade) Dose Ordered Sig/Chevy Route PRN Reason Start Time Stop Time Status Last Admin Dose Admin Acetaminophen (Tylenol) 650 mg Q4H PRN RECTAL Mild Pain (Pain Scale 1-3) 05/16/17 15:30 06/03/17 15:29 Acetylcysteine (Mucomyst) 200 mg Q6HRT HHN 05/16/17 13:00 06/15/17 12:59 05/18/17 01:06 Albuterol/ Ipratropium (Albuterol/ Ipratropium) 3 ml Q6HRT HHN 05/16/17 13:00 05/18/17 12:59 05/18/17 01:07 Bisacodyl (Dulcolax) 10 mg BIDPRN PRN ORAL Constipation 1st Line Agent 05/16/17 15:00 06/02/17 23:44 Ciprofloxacin (Cipro 250mg tab) 250 mg EVERY 12 HOURS ORAL 05/16/17 21:00 05/22/17 08:59 05/18/17 10:11 Dextrose (Dextrose 50%) STAT PRN IV Hypoglycemia 05/16/17 15:30 06/02/17 15:29 Diltiazem HCl (Cardizem) 30 mg EVERY 8 HOURS ORAL 05/16/17 14:00 06/15/17 13:59 05/17/17 06:19 Enoxaparin Sodium (Lovenox) 50 mg Q12HR SUBQ 05/16/17 21:00 06/12/17 10:59 05/18/17 10:13 Ferrous Sulfate (Feosol) 300 mg TWICE A DAY ORAL 05/16/17 18:00 06/14/17 08:59 05/18/17 10:12 Fluconazole (Diflucan) 200 mg DAILY ORAL 05/17/17 09:00 05/21/17 17:59 05/18/17 10:12 Linezolid (Zyvox) 600 mg EVERY 12 HOURS ORAL 05/16/17 21:00 05/21/17 20:59 05/18/17 10:11 Magnesium Hydroxide (Mom) 30 ml DAILYPRN PRN ORAL Constipation 3rd Line Option 05/17/17 05:15 06/11/17 05:14 Megestrol Acetate (Megace) 400 mg TWICE A DAY ORAL 05/16/17 18:00 06/11/17 17:59 05/18/17 10:11 Memantine (Namenda) 5 mg QHS ORAL 05/16/17 21:00 06/11/17 20:59 05/17/17 21:12 Metronidazole (Flagyl) 500 mg EVERY 8 HOURS ORAL 05/16/17 14:00 05/21/17 21:59 05/18/17 05:21 Pantoprazole (Protonix) 40 mg EVERY 12 HOURS IVP 05/16/17 21:00 06/11/17 20:59 05/18/17 10:11 Sodium Chloride 1,000 ml @ 75 mls/hr [id number] IV 05/18/17 11:30 06/17/17 11:29 Sodium Phosphate (Fleet's Sodium Phosl Enema) 133 ml DAILYPRN PRN RECTAL IF DULCOLAX INEFFECTIVE 05/16/17 15:30 06/08/17 15:29 Warfarin Sodium (Coumadin per pharmacy) 1 ea QHS PRN MISC Per rx protocol 05/16/17 21:00 06/14/17 19:44 Allergies: Coded Allergies: No Known Allergies (Unverified , 05/03/17) ROS Limited/Unobtainable: No Constitutional: Reports: no symptoms HEENT: Reports: no symptoms Cardiovascular: Reports: no symptoms Respiratory: Reports: no symptoms Gastrointestinal/Abdominal: Reports: no symptoms Genitourinary: Reports: no symptoms Neurologic/Psychiatric: Reports: no symptoms Subjective 81 YO F admitted with respiratory failure. Now pulmonary embolism and Gastric mass-await pathology report. S/P endoscopy 05/11/17. Cover for Int Med-Dr Sebastian. Await transfer to [facility] Objective Last Vital Signs Date Time Temp Pulse Resp B/P (MAP) Pulse Ox O2 Delivery O2 Flow Rate FiO2 05/18/17 08:00 96.6 107 20 119/68 96 05/18/17 07:48 Room Air 05/18/17 07:47 21 05/17/17 19:31 2.0 Laboratory Tests Test 05/18/17 06:40 White Blood Count 11.2 K/UL (4.8-10.8) H Red Blood Count 3.33 M/UL (4.20-5.40) L Hemoglobin 9.3 G/DL (12.0-16.0) L Hematocrit 28.4 % (37.0-47.0) L Mean Corpuscular Volume 85 FL (80-99) Mean Corpuscular Hemoglobin 27.8 PG (27.0-31.0) Mean Corpuscular Hemoglobin Concent 32.6 G/DL (32.0-36.0) Red Cell Distribution Width 17.1 % (11.6-14.8) H Platelet Count 631 K/UL (150-450) H Mean Platelet Volume 4.7 FL (6.5-10.1) L Neutrophils (%) (Auto) 71.9 % (45.0-75.0) Lymphocytes (%) (Auto) 18.2 % (20.0-45.0) L Monocytes (%) (Auto) 8.7 % (1.0-10.0) Eosinophils (%) (Auto) 0.4 % (0.0-3.0) Basophils (%) (Auto) 0.9 % (0.0-2.0) Prothrombin Time 15.6 SEC (9.30-11.50) H Prothromb Time International Ratio 1.5 (0.9-1.1) H Sodium Level 137 MMOL/L (136-145) Potassium Level 3.6 MMOL/L (3.5-5.1) Chloride Level 108 MMOL/L (98-107) H Carbon Dioxide Level 20 MMOL/L (21-32) L Anion Gap 9 mmol/L (5-15) Blood Urea Nitrogen 9 mg/dL (7-18) Creatinine 0.8 MG/DL (0.55-1.30) Estimat Glomerular Filtration Rate mL/min (>60) Glucose Level 131 MG/DL (74-106) H Calcium Level 7.7 MG/DL (8.5-10.1) L Intake and Output 05/17/17 05/18/17 19:00 07:00 Intake Total 570 ml Balance 570 ml Intake Oral 120 ml IV Total 450 ml # Voids 4 Objective Objective GENERAL: awake, responsive, opens eyes, talking. HEENT: Pupils reactive to light. Anicteric. NG Tube. NECK: Supple. No JVD. LUNGS: fair air entry. decrease bilateral air entry, No wheezing. No Coarse breath HEART: S1 and S2. RR. no murmur ABDOMEN: Soft, nontender and nondistended. Positive bowel sounds. EXTREMITIES: No cyanosis, clubbing, or edema. NEUROLOGIC: moving all extremities equally . CN 2-12 intact. Assessment/Plan Assessment/Plan Assessment/Plan Acute PE-see pulmonary note. Await hematology consult. SIRS Right lower lobe pneumonia, possible aspiration pneumonia. History of cerebrovascular accident. Sinus tachycardia. Urinary tract infection, possible sepsis secondary to urinary tract infection. Dysphagia. Hypertension. Anemia. Severe protein-calorie malnutrition. 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 Lovenox injection BID-discontinue due to worsening anemia monitor laboratory and cultures. Dr. Malik Knapp from Pulmonary Critical Care. Abx: Zosyn IV, Vanco IV Tub feeding @ 45 cc/hr at night from 7 PM to 7 AM, and oral feeding during day time. Full Code as per speech evaluation: she is able for oral feeding S/P Transfusion 2 units packed RBC See oncology consult. Discharge to [facility] today JEET GABRIEL May 18, 2017 12:16
[2017-05-18] MEDS ORDERED: NS 500ML ONE (13:24)
--- NOTE | 2017-05-18 14:40 | Diagnostic Imaging Report ---
Indication: Cough Technique: One view of the chest Comparison: 05/16/2017 Findings: Faint hazy right basilar opacity appears slightly improved. The remainder the lungs pleural spaces are clear. The heart size is normal. Right upper quadrant surgical clips are again demonstrated. Impression: Slightly improved hazy right basilar infiltrate, over 2 days
[2017-05-18] MEDS ORDERED: Warfarin Sodium 5mg ORAL ONE (17:00)
--- NOTE | 2017-05-18 19:12 | General Progress Note ---
Assessment/Plan Assessment/Plan # Gastric wall thickening, enlarged gastric and perihepatic lymph nodes, and possible direct invasion into left lobe of liver from tumor --> positive for gist, terefore continue gleevec --> [place] [facility] [place] recommend outpatient follow up to start tx # Anemia 2/2 iron deficiency as well as malignancy --> continue iron therapy iv and po # Pulmonary embolism --> continue lovenox bid dosing --> start coumadin 05/15/17, inr goal 2-3 --> INR currently subtherapeutic # Staph aureus pna/aspiration pna --> antibiotics/antifungals to continue Subjective Constitutional: Denies: no symptoms, chills, diaphoresis, fever, malaise, weakness, other HEENT: Denies: no symptoms, eye pain, blurred vision, tearing, double vision, ear pain, ear discharge, nose pain, nose congestion, throat pain, throat swelling, mouth pain, mouth swelling, other Gastrointestinal/Abdominal: Denies: no symptoms, abdomen distended, abdominal pain, black stools, tarry stools, blood in stool, constipated, diarrhea, difficulty swallowing, nausea, poor appetite, poor fluid intake, rectal bleeding , vomiting, other Genitourinary: Denies: no symptoms, burning, discharge, frequency, flank pain, hematuria, incontinence, pain, urgency, other Neurologic/Psychiatric: Reports: no symptoms Endocrine: Reports: no symptoms Hematologic/Lymphatic: Reports: anemia Allergies: Coded Allergies: No Known Allergies (Unverified , 05/03/17) Subjective nad, sleeping Objective Last 24 Hour Vital Signs Date Time Temp Pulse Resp B/P (MAP) Pulse Ox O2 Delivery O2 Flow Rate FiO2 05/18/17 13:57 Room Air 05/18/17 13:57 Room Air 05/18/17 12:00 96.3 108 20 129/64 97 05/18/17 08:00 96.6 107 20 119/68 96 05/18/17 07:48 Room Air 05/18/17 07:48 98 Room Air 05/18/17 07:47 Room Air 05/18/17 07:47 Room Air 21 05/18/17 05:22 73 113/60 05/18/17 04:00 97.0 73 20 113/60 99 05/18/17 01:18 21 05/18/17 01:18 108 18 98 Room Air 21 05/18/17 01:08 97 18 98 Room Air 21 05/18/17 00:00 97.9 130 18 118/63 96 05/17/17 21:12 116 106/62 05/17/17 20:00 97.5 116 18 106/62 05/17/17 19:41 110 18 98 Room Air 21 05/17/17 19:41 21 05/17/17 19:31 Room Air 21 05/17/17 19:31 97 Room Air 2.0 05/17/17 19:28 105 18 97 Room Air 21 Intake and Output 05/17/17 05/18/17 19:00 07:00 Intake Total 570 ml Balance 570 ml Intake Oral 120 ml IV Total 450 ml # Voids 4 Laboratory Tests 05/18/17 06:40: White Blood Count 11.2H, Red Blood Count 3.33L, Hemoglobin 9.3L, Hematocrit 28.4L, Mean Corpuscular Volume 85, Mean Corpuscular Hemoglobin 27.8, Mean Corpuscular Hemoglobin Concent 32.6, Red Cell Distribution Width 17.1H, Platelet Count 631H, Mean Platelet Volume 4.7L, Neutrophils (%) (Auto) 71.9, Lymphocytes (%) (Auto) 18.2L, Monocytes (%) (Auto) 8.7, Eosinophils (%) (Auto) 0.4, Basophils (%) (Auto) 0.9, Prothrombin Time 15.6H, Prothromb Time International Ratio 1.5H, Sodium Level 137, Potassium Level 3.6, Chloride Level 108H, Carbon Dioxide Level 20L, Anion Gap 9, Blood Urea Nitrogen 9, Creatinine 0.8, Estimat Glomerular Filtration Rate , Glucose Level 131H, Calcium Level 7.7L Height (Feet): 5 Height (Inches): 3.00 Weight (Pounds): 120 General Appearance: alert EENT: TMs normal Neck: normal alignment Cardiovascular: regular rhythm Respiratory/Chest: lungs clear Abdomen: non tender Extremities: non-tender Edema: 1+ Leg (L), 1+ Leg (R) Edema: mild edema Neurologic: alert Skin: warm/dry Marcelino Cortes May 18, 2017 19:12
--- NOTE | 2017-05-18 19:32 | Pulmonology Progress Note ---
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 (3) Iron deficiency Assessment/Plan pathology noted d/w sister at the bed site symptomatic treatment oncology evaluation dc planning f/u as outpatient by PMD Subjective ROS Limited/Unobtainable: No Constitutional: Reports: no symptoms HEENT: Repors: no symptoms Respiratory: Reports: no symptoms Allergies: Coded Allergies: No Known Allergies (Unverified , 05/03/17) Objective Last 24 Hour Vital Signs Date Time Temp Pulse Resp B/P (MAP) Pulse Ox O2 Delivery O2 Flow Rate FiO2 05/18/17 13:57 Room Air 05/18/17 13:57 Room Air 05/18/17 12:00 96.3 108 20 129/64 97 05/18/17 08:00 96.6 107 20 119/68 96 05/18/17 07:48 Room Air 05/18/17 07:48 98 Room Air 05/18/17 07:47 Room Air 05/18/17 07:47 Room Air 21 05/18/17 05:22 73 113/60 05/18/17 04:00 97.0 73 20 113/60 99 05/18/17 01:18 21 05/18/17 01:18 108 18 98 Room Air 21 05/18/17 01:08 97 18 98 Room Air 21 05/18/17 00:00 97.9 130 18 118/63 96 05/17/17 21:12 116 106/62 05/17/17 20:00 97.5 116 18 106/62 05/17/17 19:41 110 18 98 Room Air 21 05/17/17 19:41 21 Intake and Output 05/17/17 05/18/17 19:00 07:00 Intake Total 570 ml Balance 570 ml Intake Oral 120 ml IV Total 450 ml # Voids 4 Objective General Appearance: WD/WN HEENT: normocephalic, atraumatic Respiratory/Chest: chest wall non-tender, lungs clear Abdomen: normal bowel sounds, soft, non tender Genitourinary: normal external genitalia Skin: no lesions Laboratory Tests 05/18/17 06:40: White Blood Count 11.2H, Red Blood Count 3.33L, Hemoglobin 9.3L, Hematocrit 28.4L, Mean Corpuscular Volume 85, Mean Corpuscular Hemoglobin 27.8, Mean Corpuscular Hemoglobin Concent 32.6, Red Cell Distribution Width 17.1H, Platelet Count 631H, Mean Platelet Volume 4.7L, Neutrophils (%) (Auto) 71.9, Lymphocytes (%) (Auto) 18.2L, Monocytes (%) (Auto) 8.7, Eosinophils (%) (Auto) 0.4, Basophils (%) (Auto) 0.9, Prothrombin Time 15.6H, Prothromb Time International Ratio 1.5H, Sodium Level 137, Potassium Level 3.6, Chloride Level 108H, Carbon Dioxide Level 20L, Anion Gap 9, Blood Urea Nitrogen 9, Creatinine 0.8, Estimat Glomerular Filtration Rate , Glucose Level 131H, Calcium Level 7.7L SHELBI QUILES May 18, 2017 19:32
--- NOTE | 2017-05-19 11:21 | General Progress Note ---
Assessment/Plan Status: stable Assessment/Plan encephalopathy cognitive impairment -cont current meds Subjective Date patient seen: May 18, 2017 Neurologic/Psychiatric: Reports: anxiety, depressed Allergies: Coded Allergies: No Known Allergies (Unverified , 05/03/17) Subjective the pt is aaoxself and place Objective Last 24 Hour Vital Signs Date Time Temp Pulse Resp B/P (MAP) Pulse Ox O2 Delivery O2 Flow Rate FiO2 05/18/17 13:57 Room Air 05/18/17 13:57 Room Air 05/18/17 12:00 96.3 108 20 129/64 97 Intake and Output 05/18/17 05/19/17 19:00 07:00 Intake Total 300 ml Balance 300 ml IV Total 300 ml Height (Feet): 5 Height (Inches): 3.00 Weight (Pounds): 120 General Appearance: no apparent distress, alert, confused Neurologic: disoriented, depressed affect Sterling Canales M.D. May 19, 2017 11:21
--- NOTE | 2017-05-20 14:32 | Discharge Summary ---
Discharge Summary Hospital Course Date of Admission May 03, 2017 at 15:48 Date of Discharge May 18, 2017 at 13:25 Admitting Diagnosis SEPSIS HPI Luzma Hammer is a 81 year old female who was admitted on May 03, 2017 at 15: 48 for Sepsis Hospital Course [id number] Discharge Discharge Disposition Patient was discharged to SNF/Subacute Facility(03) Discharge Diagnoses: Justa Jesus NP May 20, 2017 14:32
--- NOTE | 2017-05-20 21:45 | Discharge Summary 2 SIG ---
DATE OF ADMISSION: 05/03/2017 DATE OF DISCHARGE: 05/18/2017 CONSULTANTS: 1. Sterling Canales M.D. 2. Roel Trujillo M.D. 3. Marcelino Cortes M.D. 4. Jona Greenfield M.D. 5. Justen Lu M.D. 6. Chelsie Morales M.D. BRIEF HOSPITAL COURSE: The patient is an 81-year-old female with past medical history significant for hypertension, history of recent CVA, and dementia presented from [facility] after shortness of breath and fever. The patient was noted to have bilateral infiltrates on chest x-ray and was hypoxemic. She was subsequently taken to ED via EMS where on evaluation was found to have right lower lobe pneumonia, possible aspiration pneumonia. She was admitted to the [facility], was started on Zosyn. She was placed on Lovenox injections b.i.d. as chest CTA showed pulmonary embolism on the right lower lobe. She needed NG tube placement, however, there was difficulty in putting in. Dr. Greenfield was consulted and a pediatric NGT was inserted. She was having fevers and leukocytosis. The patient likely with sepsis syndrome, tachycardia, and leukocytosis. She was given Zosyn and vancomycin, pending culture results. She was given pulmonary toilet and nebulizer treatments. Sputum with Staph aureus. She underwent swallow evaluation. She was given oral feedings during the day and NGT at night. She was taken off on Lovenox and was placed on heparin. The patient underwent endoscopy on 05/11/2017. CT findings showed gastric mass with possible liver invasion. Biopsy results showed GIST. She would require Gleevec. However, [place] [facility] [place] Recommended outpatient followup to start treatment. She was restarted back on Lovenox b.i.d dosing and was eventually started on Coumadin. She had an episode of anemia and received two units packed RBC blood transfusion. She was eventually discharged to [facility]. FINAL DIAGNOSES: 1. Acute pulmonary emboli. 2. Systemic inflammatory response syndrome/sepsis. 3. Right lower lobe pneumonia, possible aspiration pneumonia. 4. Old cerebrovascular accident. 5. Urinary tract infection. 6. Dysphagia. 7. Hypertension. 8. Acute anemia requiring blood transfusion. 9. Severe protein-calorie malnutrition. 10. Gastric wall thickening, possible gastric malignancy with metastases to liver. 11. Gastrointestinal stromal tumour, spindle cell type. 12. Acute anemia requiring blood transfusion. 13. Encephalopathy. 14. Anemia secondary to iron deficiency. 15. Anemia secondary to malignancy. 16. Right buttock deep tissue injury pressure ulcer, present on admission. DISPOSITION: The patient was discharged to [facility]. DISCHARGE MEDICATIONS: Refer to medication list. DISCHARGE INSTRUCTIONS: Followup with Oncology to be started on Gleevec. Coumadin to dose INR goal of 2 to 3. Trung Sebastian M.D. I have been assigned to dictate discharge summary on this account and I was not involved in the patient's management. Justa Jesus N.P. DR: Kirsten JOB#: [id number] CC: [facility]
== END 2017-05-18 13:25 | DRG 871 ==
LOC: EDBD 14:56 → EMR 15:39 → 2E 15:48 → EDBEDREQ 21:35 → 2W 23:28 → EDBEDREQ 23:45 → 2W 05-04 03:02 → 2E 05-09 06:31 → 4E 05-16 11:35
PROC: 0DB68ZX Excision of Stomach, Via Natural or Artificial Opening Endoscopic, Diagnostic (ICD-10-PCS; principal; 2017-05-11 10:00)
DX: A41.01 Sepsis due to Methicillin susceptible Staphylococcus aureus (principal); I26.99 Other pulmonary embolism without acute cor pulmonale; J69.0 Pneumonitis due to inhalation of food and vomit; J96.01 Acute respiratory failure with hypoxia; E43 Unspecified severe protein-calorie malnutrition; G93.40 Encephalopathy, unspecified; J15.211 Pneumonia due to Methicillin susceptible Staphylococcus aureus; N17.9 Acute kidney failure, unspecified; C77.2 Secondary and unspecified malignant neoplasm of intra-abdominal lymph nodes; C78.7 Secondary malignant neoplasm of liver and intrahepatic bile duct; N39.0 Urinary tract infection, site not specified; C49.A2 Gastrointestinal stromal tumor of stomach; R13.10 Dysphagia, unspecified; D64.9 Anemia, unspecified; F03.90 Unspecified dementia, unspecified severity, without behavioral disturbance, psychotic disturbance, mood disturbance, and anxiety; I10 Essential (primary) hypertension; Z86.73 Personal history of transient ischemic attack (TIA), and cerebral infarction without residual deficits; Z68.21 Body mass index [BMI] 21.0-21.9, adult; I27.20 Pulmonary hypertension, unspecified; K29.70 Gastritis, unspecified, without bleeding; D50.9 Iron deficiency anemia, unspecified; F41.9 Anxiety disorder, unspecified
CPT/HCPCS: 36415; 71010; 71045; 71275; 74000; 74178; 74230; 80048; 80053; 80202; 81003; 82270; 82378; 82550; 82553; 82962; 83540; 83550; 83605; 83735; 84100; 84484; 85007; 85025; 85379; 85610; 85730; 86850; 86900; 86901; 86920; 87040; 87070; 87081; 87086; 87181; 87205; 93005; 93306; 93970; 94003; 94150; 94640; 94664; 94760; 99285; J2250; J7620; J8499